=== PATIENT | female | born 1945 | race Caucasian/White ===

== ENCOUNTER → 2016-12-20 | Outpatient (REF) | payer MEDICARE, OTHER ==
[~2016-12-20] MED LIST: /DULO30CA OR; /WARF25TA OR; ACET65TA OR; ACTO30TA OR; ADVA115A INH; ALBU17IN2 IN; ALKATAB17 PO; ARIC10TA PO; AZEL0.1S3; BACT800T5 PO; BENZ100C5 PO; BUPR150T3 PO; CALMS FORTE PO; CLAR10CA3 PO; CLONI1TA PO; COLA50CA3 PO; CYCL10TA PO; CYCL5TAB PO; DALI500T PO; DESL5TAB4 PO; DESLORATADINE PO; DIOV160T6 PO; DIOV320T OR; DONETAB6 PO; DULO1CAP2 PO; DULO1CAP3 PO; FERR325T OR; FERR325T PO; FLEXERIL PO; HYDR12.55 PO; HYDR12CA PO; HYDR25TA8 OR; HYDRO50TAB PO; JANUMET PO; LEVA500T PO; LEVE1INJ5 SC; LEVEINJ SC; LEVEMIR INSULIN SC; LIDO1DIS2 TD; LIVA4TAB PO; LOPE2TAB3 PO; LOPR1TAB6 PO; LOPR50TA OR; LOVAZA; LOVAZA PO; LYRI100C10 PO; LYRI200C PO; LYRI75CA OR; METO100T PO; MYRB25TA PO; NICO14PA TOP; NORT10CA2 PO; OMEPPOW18 PO; PAME10CA PO; PEPT262S PO; PERC5TAB8 OR; PRAZ1CAP PO; PRED10TA2 PO; PRO; PROA1AER IN; PROBCAP4 PO; PROVENTIL INHALER INH; ROCA0.25 PO; TERA1CA PO; TIOT18INH INH; TRAD5TAB PO; TRAM50TA2 PO; VESI10TA PO; VICO5TAB OR; VICODIN PO; VICT18IN SC; VICTOZA SQ; VIT D 2000 OR; VIT D 2000 PO; VITA-121 PO; WHELCHOL PO; XOPENEX INH; [UNRECOGNIZED DRUG - OTHER]; dulcolax OR; dulcolax suppository PR
== END ==
LOC: M LAB REF 09:26
PROVIDERS: ATTEND Physician Assistant
DX: R30.0 Dysuria (principal)

== ENCOUNTER 2017-01-16 09:01 | Emergency (ER) | payer MEDICARE, OTHER ==
[~2017-01-16] VITALS: Ht 152.4 cm; Wt 98.4 kg
[2017-01-16 09:01] VITALS: BP 171/88
[~2017-01-16 09:01] MED LIST changes: -BACITAB3 PO; -METO50TA2 PO; -VALS1TAB46 PO
[2017-01-24] MEDS ORDERED: BACITAB3 PO (00:27)
[2017-01-24] MEDS ORDERED: METO50TA2 PO (00:27)
== END 2017-01-16 10:25 | disposition home or self-care (01) ==
LOC: M ED 10:16
DX: J34.89 Other specified disorders of nose and nasal sinuses (principal); R13.12 Dysphagia, oropharyngeal phase; K22.2 Esophageal obstruction; R93.3 Abnormal findings on diagnostic imaging of other parts of digestive tract; R15.1 Fecal smearing; I10 Essential (primary) hypertension; E78.00 Pure hypercholesterolemia, unspecified; G62.9 Polyneuropathy, unspecified; R00.0 Tachycardia, unspecified; J45.909 Unspecified asthma, uncomplicated; K44.9 Diaphragmatic hernia without obstruction or gangrene; K57.90 Diverticulosis of intestine, part unspecified, without perforation or abscess without bleeding; E66.01 Morbid (severe) obesity due to excess calories; N17.9 Acute kidney failure, unspecified; E11.9 Type 2 diabetes mellitus without complications; F41.9 Anxiety disorder, unspecified; F32.9 Major depressive disorder, single episode, unspecified; M48.06 Spinal stenosis, lumbar region; Z90.49 Acquired absence of other specified parts of digestive tract; Z96.651 Presence of right artificial knee joint; Z96.652 Presence of left artificial knee joint; Z87.820 Personal history of traumatic brain injury

== ENCOUNTER → 2017-01-16 | Outpatient (CLI) | payer MEDICARE, OTHER ==
[~2017-01-16] MED LIST changes: +BACITAB3 PO; +E-Z-GAS II EFFERVESCENT PACKET (SODIUM BICARB./CITRIC ACID/SIMETHICONE) As Ordered ONE; +E-Z-HD 98% w/w 340GM SUSP BTL As Ordered ONE; +E-Z-PAQUE 96% w/w SUSP 176GM BTL As Ordered ONE; +HYDR25T PO; +LEVO50TA5 PO; +LIDO5DIS36 TD; +METO12TA PO; +METO50TA2 PO; +PEPT262T2 PO; +VALS1TAB46 PO; +VITA100T20 PO; +VITA200016 PO; +VITA500C24 PO
--- NOTE | 2017-01-16 16:50 | REP ---
ESOPHAGRAM, AIR CONTRAST: The procedure was performed under the direct supervision of Dr. Rodriguez. The images were reviewed with Dr. Rodriguez. A single view PA chest x-ray is submitted as a community theater actor film. The superior mediastinal structures are midline. The heart size is within normal limits. There is a subcentimeter density in the right midlung zone. Recommend CT of the chest for further evaluation. Liquid barium and gas-producing granules were given in the erect position as well as liquid barium in the prone oblique position in order to perform a double-contrast esophagram examination. The oral and pharyngeal stage of deglutition are unremarkable. Esophageal transport is prompt and efficient. There is no evidence of esophagitis. There is a smooth stricture at the gastroesophageal junction. There is dilation of the esophagus proximally, this may represent changes from old reflux esophagitis. There is a hiatal hernia present. There is mild gastroesophageal reflux demonstrated to below the level of the chip. IMPRESSION: 1. In the right midlung zone there is a subcentimeter density. Recommend followup CT of the chest for further evaluation. 2. There is a stricture at the gastroesophageal junction which is smooth in appearance. This may represent changes from old reflux esophagitis. There is a hiatal hernia present. There is mild gastroesophageal reflux demonstrated to below the level of the chip. 2 minutes and 4 seconds of fluoroscopic time was utilized for this procedure. Reviewed by NGUYEN Montano 01/19/2017 05:01 PEdited and Signed by Cricket Rodriguez MD 01/19/2017 06:53 P
== END ==
LOC: M RAD 08:18
PROVIDERS: ATTEND Internal Medicine Gastroenterology
DX: R13.12 Dysphagia, oropharyngeal phase (principal); K22.2 Esophageal obstruction; R93.3 Abnormal findings on diagnostic imaging of other parts of digestive tract

== ENCOUNTER → 2017-01-16 | Outpatient (CLI) | payer MEDICARE, OTHER ==
[~2017-01-16] MED LIST changes: -E-Z-GAS II EFFERVESCENT PACKET (SODIUM BICARB./CITRIC ACID/SIMETHICONE) As Ordered ONE; -E-Z-HD 98% w/w 340GM SUSP BTL As Ordered ONE; -E-Z-PAQUE 96% w/w SUSP 176GM BTL As Ordered ONE
== END ==
LOC: M WUC 17:43
PROVIDERS: ATTEND Internal Medicine Gastroenterology
DX: R15.1 Fecal smearing (principal)

== ENCOUNTER 2017-01-22 20:14 | Emergency (ER) | payer MEDICARE, OTHER ==
[~2017-01-22] VITALS: Ht 152.4 cm; Wt 100.0 kg
[~2017-01-22 20:14] MED LIST changes: -BACITAB3 PO; -LIDOCAINE 2% INJ 100 MG/5 ML SDV (FOR ANES.) As Ordered ONE; -METO50TA2 PO; -NS 1,000 ML IV ONE; -PHENYLephrine HCL 500 MCG/5 ML (100MCG/ML) SYRINGE (J2370) As Ordered ONE; -PROPOFOL 200 MG/20 ML VIAL As Ordered ONE; -VALS1TAB46 PO
[2017-01-22] MEDS ORDERED: GASTROGRAFIN SOLUTION 30ML (Q9963) As Ordered ONE (21:10)
--- NOTE | 2017-01-23 00:38 | REP ---
Clinical: Abdominal pain status post colonoscopy. Technique: Axial noncontrast images from the lung bases to the pubic symphysis coronal and sagittal re-formations. Comparison: 08/13/2014. Findings: Lung bases are relatively clear. Liver, spleen, pancreas, left adrenal gland and bilateral kidneys are relatively normal for noncontrast evaluation and essentially stable. 5.7 cm right adrenal mass with bulk fat compatible with benign adrenal myelolipoma. The patient is status post cholecystectomy. The enteric system is without obstruction or acute inflammatory process. Colonic and sigmoid diverticulosis noted without acute diverticulitis. Small hiatal hernia identified at the gastroesophageal junction. Pelvis demonstrates normal bladder and age-appropriate uterus/adnexa. No pelvic fluid or ascites. No free air. No intraperitoneal or retroperitoneal adenopathy. Atherosclerotic changes of the aorta and vasculature without aneurysm. Surrounding musculoskeletal structures demonstrate degenerative changes without focal osseous abnormality. Impression: 1. No acute abdominopelvic pathology appreciated. 2. No free air, free fluid, or adenopathy. 3. 5.7 cm right adrenal myelolipoma. 4. Diverticulosis without acute diverticulitis. 5. Small hiatal hernia. Signed by Sergio Catalan MD 01/23/2017 12:30 A
[2017-01-23] MEDS ORDERED: NORCO, ANEXSIA 5/325MG TABLET (HYDROcodone/ACETAMINOPHEN) PO ONE ×2 (01:00→02:30)
[2017-01-23 02:31] VITALS: BP 150/85
[2017-01-24] MEDS ORDERED: BACITAB3 PO (00:27)
[2017-01-24] MEDS ORDERED: METO50TA2 PO (00:27)
[2017-01-24] MEDS ORDERED: VALS1TAB46 PO (00:27)
== END 2017-01-23 02:32 | disposition home or self-care (01) ==
LOC: M ED 21:37
DX: R10.9 Unspecified abdominal pain (principal); K44.9 Diaphragmatic hernia without obstruction or gangrene; E11.9 Type 2 diabetes mellitus without complications; I10 Essential (primary) hypertension; J45.909 Unspecified asthma, uncomplicated; E78.5 Hyperlipidemia, unspecified; E03.9 Hypothyroidism, unspecified; G47.30 Sleep apnea, unspecified; E66.8 Other obesity; Z79.899 Other long term (current) drug therapy; Z79.4 Long term (current) use of insulin; Z88.2 Allergy status to sulfonamides; Z88.8 Allergy status to other drugs, medicaments and biological substances; Z91.040 Latex allergy status; F17.210 Nicotine dependence, cigarettes, uncomplicated

== ENCOUNTER → 2017-01-22 | Outpatient (CLI) | payer MEDICARE, OTHER ==
[~2017-01-22] VITALS: Ht 152.4 cm; Wt 99.8 kg
[~2017-01-22] MED LIST changes: +BACITAB3 PO; +LIDOCAINE 2% INJ 100 MG/5 ML SDV (FOR ANES.) As Ordered ONE; +METO50TA2 PO; +NS 1,000 ML IV ONE; +PHENYLephrine HCL 500 MCG/5 ML (100MCG/ML) SYRINGE (J2370) As Ordered ONE; +PROPOFOL 200 MG/20 ML VIAL As Ordered ONE; +VALS1TAB46 PO
--- NOTE | 2017-01-22 09:03 | ROOR ---
Patient Name: Ruth Kessler Procedure Date: 01/22/2017 8:36 AM Date of : 1945 Age: 71 Room: [facility] Gender: Female Note Status: Finalized Procedure: Upper GI endoscopy Indications: Dysphagia, Abnormal cine-esophagram Providers: Poli BUTLER MD Referring MD: MARTHA SANTANA Requesting Provider: Medicines: Monitored Anesthesia Care Complications: No immediate complications. Procedure: Pre-Anesthesia Assessment: - The heart rate, respiratory rate, oxygen saturations, blood pressure, adequacy of pulmonary ventilation, and response to care were monitored throughout the procedure. The Endoscope was introduced through the mouth, and advanced to the second part of duodenum. The upper GI endoscopy was accomplished without difficulty. The patient tolerated the procedure well. Findings: Abnormal motility was noted at the lower esophageal sphincter. The distal esophagus/lower esophageal sphincter is spastic, but gives up passage to the endoscope. A TTS dilator was passed through the scope. Dilation with a 15-16.5-18 mm balloon dilator was performed to 18 mm. The dilation site was examined and showed no change. Estimated blood loss: none. This was biopsied with a cold forceps for histology. Mild inflammation was found in the entire examined stomach. Biopsies were taken with a cold forceps for histology. The exam of the stomach was otherwise normal. The examined duodenum was normal. Impression: - Markedly tonic/ppastic LES without stricture-gives way to pressure with scope. Dilated to 18 mm. Biopsied. - Gastritis. Biopsied. - Normal examined duodenum. Recommendation: - Observe patient's clinical course. - Perform ambulatory esophageal manometry to r/o achalasia at appointment to be scheduled. - To discuss todays findings, my office will call you in the next few days to schedule a follow up appointment. Poli Butler MD Poli BUTLER MD 01/22/2017 9:03:16 AM This report has been signed electronically. Number of Addenda: 0 Note Initiated On: 01/22/2017 8:36 AM Estimated Blood Loss: Estimated blood loss: none.
--- NOTE | 2017-01-22 09:33 | ROOR ---
Patient Name: Ruth Kessler Procedure Date: 01/22/2017 8:36 AM Date of : 1945 Age: 71 Room: [facility] Gender: Female Note Status: Finalized Procedure: Colonoscopy Indications: Chronic diarrhea Providers: Poli BUTLER MD Referring MD: MARTHA SANTANA Requesting Provider: Medicines: Monitored Anesthesia Care Complications: No immediate complications. Procedure: Pre-Anesthesia Assessment: - The heart rate, respiratory rate, oxygen saturations, blood pressure, adequacy of pulmonary ventilation, and response to care were monitored throughout the procedure. The Colonoscope was introduced through the anus and advanced to 5 cm into the ileum. The colonoscopy was performed without difficulty. The patient tolerated the procedure well. The quality of the bowel preparation was adequate. Findings: The perianal and digital rectal examinations were normal. Three sessile polyps were found in the ascending colon. The polyps were 3 to 5 mm in size. These polyps were removed with a cold snare. Resection and retrieval were complete. Three sessile polyps were found in the sigmoid colon. The polyps were 3 to 4 mm in size. These polyps were removed with a cold snare. Resection and retrieval were complete. Multiple medium-mouthed diverticula were found in the sigmoid colon. Multiple medium-sized patchy angioectasias with typical arborization were found in the ascending colon and in the cecum. Coagulation for bleeding prevention using argon beam at 0.8 liters/minute and 20 marie was successful. Biopsies for histology were taken with a cold forceps for evaluation of microscopic colitis. Impression: - Three 3 to 5 mm polyps in the ascending colon, removed with a cold snare. Resected and retrieved. - Three 3 to 4 mm polyps in the sigmoid colon, removed with a cold snare. Resected and retrieved. - Moderate diverticulosis in the sigmoid colon. - Multiple colonic angioectasias. Treated with argon beam coagulation. - Internal hemorrhoids. - Biopsies were taken with a cold forceps for evaluation of microscopic colitis. Recommendation: - Telephone endoscopist for pathology results in 2 weeks. - -your barium swallow xray showed a spot/scar in the lung--You need a CT chest to get better evaluation--My office will schedule you for CT scan. - Return to my office in 3 weeks. Poli Butler MD Poli BUTLER MD 01/22/2017 9:33:31 AM This report has been signed electronically. Number of Addenda: 0 Note Initiated On: 01/22/2017 8:36 AM Estimated Blood Loss: Estimated blood loss: none.
[2017-01-22 10:10] VITALS: BP 128/74
== END | disposition home or self-care (01) ==
LOC: M OPP 07:26
PROVIDERS: ATTEND Internal Medicine Gastroenterology
DX: R19.7 Diarrhea, unspecified (principal); D12.2 Benign neoplasm of ascending colon; D12.5 Benign neoplasm of sigmoid colon; K57.30 Diverticulosis of large intestine without perforation or abscess without bleeding; K64.8 Other hemorrhoids; K55.20 Angiodysplasia of colon without hemorrhage; R13.10 Dysphagia, unspecified; R93.3 Abnormal findings on diagnostic imaging of other parts of digestive tract; K22.4 Dyskinesia of esophagus; K29.70 Gastritis, unspecified, without bleeding; I10 Essential (primary) hypertension; I45.10 Unspecified right bundle-branch block; E78.5 Hyperlipidemia, unspecified; E11.9 Type 2 diabetes mellitus without complications; E03.9 Hypothyroidism, unspecified; M19.90 Unspecified osteoarthritis, unspecified site; M54.9 Dorsalgia, unspecified; M79.7 Fibromyalgia; F43.10 Post-traumatic stress disorder, unspecified; Z78.0 Asymptomatic menopausal state; J44.9 Chronic obstructive pulmonary disease, unspecified; R06.83 Snoring; F17.210 Nicotine dependence, cigarettes, uncomplicated; Z88.8 Allergy status to other drugs, medicaments and biological substances; Z91.040 Latex allergy status; Z79.4 Long term (current) use of insulin; Z79.899 Other long term (current) drug therapy; Z80.8 Family history of malignant neoplasm of other organs or systems

== ENCOUNTER 2017-01-23 19:54 | Inpatient (IN) | payer MEDICARE, OTHER ==
[~2017-01-23] VITALS: Ht 152.4 cm; Wt 93.4 kg
[~2017-01-23 19:54] MED LIST changes: +FERR1TAB8 PO; -FERR325T PO; +HYDR-3363 PO; -HYDR25T PO; +LEVA1TAB2 PO; -LEVA500T PO; -LIDO5DIS36 TD; +LIDO5DIS41 TD; -LYRI100C10 PO; -METO100T PO; +METO100T5 PO; -METO12TA PO; +METO1TAB87 PO; +PREG100CA PO; -PROA1AER IN; +PROAAER10 IN
[2017-01-23] MEDS ORDERED: ONDANSETRON 4MG/2ML VIAL (J2405) IV ONE (21:00)
[2017-01-23] MEDS ORDERED: NS 1,000 ML IV ONE (21:00)
[2017-01-23 21:11] LABS: BASO % 0.3 % (0.0-1.0); EOS # 0.2 K/mm3 (0.0-0.50); EOS % 1.1 % (0.0-3.0); LARGE UNSTAINED CELL # 0.1 K/mm3 (0.0-0.4); LARGE UNSTAINED CELL % 0.4 % (0.0-4.0); LYMPH % 6.1 % (24.0-44.0); MEAN CORPUSCULAR HEMOGLOBIN 28.4 pg (27.0-33.0); MEAN CORPUSCULAR HGB CONC 34.2 g/dl (32.0-36.5); MEAN CORPUSCULAR VOLUME 83.2 fl (80.0-96.0); MONO # 0.4 K/mm3 (0.0-0.8); MONO % 2.6 % (0.0-5.0); NEUTROPHILS # 13.9 K/mm3 (1.8-7.7); NEUTROPHILS % 89.6 % (36.0-66.0); PLATELET COUNT, AUTOMATED 338 k/mm3 (150-450); RED CELL DISTRIBUTION WIDTH 13.8 % (11.5-14.5); WHITE BLOOD COUNT 15.5 K/mm3 (4.0-10.0)
[2017-01-23] MEDS: MORPHINE 4 MG/ML 1ML SYRINGE IV PRN (21:17)
[2017-01-23 21:20] LABS: ALBUMIN 3.7 GM/DL (3.2-5.2); BILIRUBIN,DIRECT 0.3 MG/DL (0.0-0.2); BILIRUBIN,TOTAL 1.3 MG/DL (0.2-1.0); CALCIUM LEVEL 9.5 MG/DL (8.8-10.2); CREATININE FOR GFR 2.03 MG/DL (0.55-1.02); GLOMERULAR FILTRATION RATE 25.6 (>39); POTASSIUM SERUM 3.8 MEQ/L (3.5-5.1); TOTAL PROTEIN 7.4 GM/DL (6.4-8.2)
--- NOTE | 2017-01-23 23:10 | REPUSA ---
CLINICAL HISTORY: Abdominal pain. TECHNIQUE: Multiple axial CT images were obtained through the abdomen and pelvis after administratio n of oral contrast material only. COMMENTS: Liver appears lobulated and somewhat shrunken. Please correlate clinically to exclude cirrhosis. Th ere is no intra or extrahepatic biliary ductal dilatation. The spleen is normal. Status post cholec ystectomy. The pancreas is of normal contour and attenuation characteristics. There is no evidence of adrenal mass. There is evidence of an exophytic mass which appears to originate from the superior pole of the right kidney contains fatty and solid elements noted, 5.6 x 5.2 cm and is most compatibl e with angiomyolipoma. The kidneys are normal in size, shape and configuration. No renal or ureteral calculi are identified . There is no hydroureter or hydronephrosis. There is no evidence for appendicitis. There is evidence of circumferential wall thickening involvin g old colonic segments compatible with pancolitis. The sigmoid and cecum are most severely involved. No evidence for small or large bowel obstruction. There is no evidence of abdominal ascites or lym phadenopathy. There is no evidence of intrinsic or extrinsic bladder mass. There is no pelvic ascites or lymphaden opathy. Images of the lung bases show no evidence of pleural or parenchymal mass. There are no pleural effus ions. Scarring is seen in the lingula, right middle lobe, and right lung base. Small hiatal hernia is present. The bony structures are free of lytic or blastic lesions. Multilevel degenerative changes are seen i nvolving the thoracolumbar spine. Scattered calcifications are seen involving the aorta and major branches compatible with atherosclero sis. IMPRESSION: 1. Liver appears lobulated and somewhat shrunken. Please correlate clinically to exclude cirrhosis 2. Exophytic mass which appears to originate from the superior pole of the right kidney contains fatt y and solid elements noted, 5.6 x 5.2 cm and is most compatible with angiomyolipoma. 3. There is evidence of circumferential wall thickening involving old colonic segments compatible wit h pancolitis. Thank you for your kind referral of this patient. We appreciate the opportunity to participate in thi s patient's care.
[2017-01-24] MEDS ORDERED: CIPROFLOXACIN 200 MG in APPROPRIATE DILUENT 1 EA IV ONE ×2
[2017-01-24] MEDS ORDERED: METO50TA7 PO (00:27)
[2017-01-24] MEDS ORDERED: VALS1TAB46 PO (00:27)
[2017-01-24] MEDS ORDERED: BACITAB PO (00:27)
[2017-01-24] MEDS ORDERED: metroNIDAZOLE 500 MG in APPROPRIATE DILUENT 1 EA IV ONE (01:00)
[2017-01-24] MEDS ORDERED: metroNIDAZOLE 250 MG in APPROPRIATE DILUENT 1 EA IV ONE ×3 (01:00)
[2017-01-24] MEDS: MORPHINE 4 MG/ML 1ML SYRINGE IV PRN (01:54)
[2017-01-24] MEDS ORDERED: GLUCOSE 4 GM CHEW TABLET PO PRN (02:30)
[2017-01-24] MEDS ORDERED: DEXTROSE 50% 50 ML SYRINGE IV PRN (02:30)
[2017-01-24] MEDS ORDERED: GLUCAGON FOR INJ 1 MG VIAL (J1610) SC PRN (02:30)
[2017-01-24] MEDS ORDERED: PERCOCET 5MG/325MG TAB PO PRN (02:45)
[2017-01-24] MEDS ORDERED: ONDANSETRON 4MG/2ML VIAL (J2405) IV PRN (02:45)
--- NOTE | 2017-01-24 04:10 | HPE ---
DATE OF ADMISSION: 01/24/2017 PRIMARY CARE PROVIDER: MARTHA Leyva. RESERVATIONIST: Poli Butler MD. CHIEF COMPLAINT: Abdominal pain, poor oral intake. HISTORY OF PRESENT ILLNESS: This is a 71-year-old female patient with underlying medical history of fibromyalgia, osteoarthritis, dyslipidemia, chronic obstructive pulmonary disease (COPD), chronic kidney disease (CKD) stage III, hypertension, degenerative joint disease, insulin-dependent type 2 diabetes, obesity, adrenal mass, recently had esophagogastroduodenoscopy (EGD), colonoscopy as per patient 2 days ago. As per patient, has been not feeling well with poor oral intake for about 1 week. Following colonoscopy, patient developed severe abdominal pain. As per patient, was currently 7/10, reported diffuse cramping, abdominal pain, with no bowel movements. Nausea, no vomiting. Denies any sick contact. Reported chills, but no measured fever at home. Still passing gas. Denies any sick contact. No urinary complaint. Denies any chest pain, headache , vision change. Denies any palpitations. ALLERGIES: Reported allergies to ATORVASTATIN, LATEX, STATINS, and SULFA ANTIBIOTICS, BACTRIM. PAST MEDICAL HISTORY: 1. Diverticulosis. 2. Fibromyalgia. 3. Arthritis. 4. Type 2 diabetes. 5. Dyslipidemia. 6. COPD. 7. CKD stage III. 8. Hypertension. 9. Degenerative joint disease. 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 PAST SURGICAL HISTORY: 1. Left ulnar nerve surgery. 2. Cholecystectomy. 3. Carpal tunnel bilateral. 4. Dilation and curettage (D and C). 5. Bilateral knee arthroplasty. 6. Tonsillectomy. FAMILY HISTORY: Mother with pancreatic cancer. SOCIAL HISTORY: Patient lives at home. Smokes one pack per day for the past 50 years. Currently down to about three cigarettes. Refused nicotine patch. Denies alcohol use or illicit drug use. REVIEW OF SYSTEMS: 10-point review of systems is negative except for those mentioned in history of present illness (HPI). Predominantly abdominal pain, nausea. HOME MEDICATIONS: - bupropion 150 mg by mouth daily - calcitriol 0.25 mg by mouth Thursday-Thursday - vitamin B12 100 mcg by mouth daily - cyclobenzaprine 10 mg by mouth three times a day - desloratadine 5 mg by mouth daily - donepezil 10 mg by mouth nightly - Cymbalta 90 mg by mouth daily - hydrochlorothiazide 12.5 mg by mouth daily as needed for lower extremity swelling - Levemir 75 units subcutaneously nightly - Bacid one tablet by mouth daily - Synthroid 50 mcg by mouth every morning - Victoza 1.8 mg subcutaneously daily - loperamide 2 mg by mouth nightly - metoprolol 50 mg by mouth twice a day - pitavastatin 4 mg by mouth daily - prazosin 1 mg by mouth nightly - Lyrica 100 mg by mouth three times a day - Advair inhalation 115/25 mcg inhalation twice a day - tramadol 50 mg by mouth every 6 hours as needed - valsartan 80 mg by mouth daily - vitamin D 2000 units by mouth daily PHYSICAL EXAMINATION: VITAL SIGNS: Temperature 100.2, pulse 116, respirations 18, blood pressure 105/51, pulse oximetry 97% on room air. GENERAL: Patient morbidly obese, alert and oriented times three in no acute distress. HEENT: Normocephalic, atraumatic. PULMONARY: Bilaterally clear to auscultation. Distant breath sounds. CARDIAC: Regular, tachycardic. ABDOMEN: Soft, epigastric bilateral upper quadrant tenderness to palpation. No rebound. No guarding. Hypoactive bowel sounds. EXTREMITIES: No edema bilateral lower extremities. LABORATORY: WBC 15.5, hemoglobin and hematocrit 14.9/43.7, platelets 338. Chemistry: Sodium 132, potassium 3.8, chloride 96, bicarbonate 27, BUN 37, creatinine 2. Lactic acid 1.7. CT scan of the abdomen and pelvis shows loculated somewhat shrunken liver, exophytic mass which appears to originate from superior pole of the right kidney containing fatty and solid elements, noted to be 5.6 and 5.2 cm, compatible with angiomyolipoma. There is evidence of circumferential thickening involving all the colonic segments compatible with pancolitis. ASSESSMENT AND PLAN: This is a 71-year-old female patient with underlying medical history of fibromyalgia, arthritis, dyslipidemia, chronic obstructive pulmonary disease (COPD), chronic kidney disease (CKD) stage III, hypertension, degenerative joint disease, insulin-dependent type 2 diabetes, adrenal mass, status post colonoscopy 2 days ago, presented with abdominal pain, found to have pancolitis. 1. Abdominal pain with ledesma acute colitis. CT scan is appreciated. Leukocytosis. Followup cultures. Followup gastrointestinal (GI) panel. Will consider consulting gastroenterology, Dr. Butler, who performed the colonoscopy. Pathology appreciated. Cipro and Flagyl. Intravenous (IV) fluids. Followup electrolytes. Nothing by mouth for now. Advance diet as tolerated. 2. Leukocytosis. Likely secondary to colitis. Followup cultures. Lactic acid negative. IV fluids. Continue antibiotics. 3. Acute on chronic renal insufficiency. Likely secondary to dehydration in the setting of colitis. IV fluids. Followup BUN and creatinine. Followup urine studies. 4. Elevated bilirubin. Possible cirrhosis. Will get ultrasound. Continue to follow liver functions. 5. Dyslipidemia. Continue current medication. 6. History of COPD. Continue Advair, nebulizer treatments. Patient currently does not have any wheeze. 7. Type 2 insulin-dependent diabetes. Given patient is nothing by mouth, Levemir dose has been reduced, as well as every 6 hours fingersticks, insulin as per nothing by mouth protocol. 8. Hypertension. Continue current medication. 9. Degenerative joint disease. Continue current medication. 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 Outpatient followup. CT scan appreciated. 11. Hypothyroidism. Followup thyroid function. Continue home Synthroid. 12. Deep venous thrombosis (DVT) prophylaxis. Heparin subcutaneously. DISPOSITION PLANNING: Pending clinical improvement. Advance diet as tolerated. MTDD
[2017-01-24 06:00] VITALS: BP 119/56
[2017-01-24] MEDS: HEPARIN SOD (PORCINE) 5000 UNITS/ML VIAL SC SCH ×3 (06:17→21:08)
[2017-01-24] MEDS: HumaLOG INSULIN (NovoLOG) PER UNIT SC SCH ×3 (06:17→18:00)
[2017-01-24] MEDS: NS 1,000 ML IV SCH ×3 (06:18→17:38)
[2017-01-24] MEDS: LEVOTHYROXINE 50MCG TABLET (0.05MG) PO SCH (06:18)
[2017-01-24] MEDS: MORPHINE 2 MG/ML 1ML SYRINGE IV PRN ×6 (06:20→21:19)
[2017-01-24 06:33] LABS: MEAN CORPUSCULAR HEMOGLOBIN 28.3 pg (27.0-33.0); MEAN CORPUSCULAR HGB CONC 33.6 g/dl (32.0-36.5); MEAN CORPUSCULAR VOLUME 84.3 fl (80.0-96.0); RED CELL DISTRIBUTION WIDTH 13.8 % (11.5-14.5); WHITE BLOOD COUNT 22.8 K/mm3 (4.0-10.0)
[2017-01-24 06:49] LABS: ALBUMIN/GLOBULIN RATIO 0.79 (1.00-1.93); BILIRUBIN,TOTAL 1.1 MG/DL (0.2-1.0); CREATININE FOR GFR 2.02 MG/DL (0.55-1.02); GLOMERULAR FILTRATION RATE 25.8 (>39); MAGNESIUM LEVEL 1.6 MG/DL (1.8-2.4); TOTAL PROTEIN 6.8 GM/DL (6.4-8.2)
[2017-01-24 07:07] LABS: THYROXINE (T4) 11.5 UG/DL (4.5-12.0)
[2017-01-24 07:33] VITALS: BP 114/57
--- NOTE | 2017-01-24 08:59 | ECGEPIP ---
Stationary ECG Study [facility] Test Date: 2017-01-24 Pat Name: ANTONIO ERVIN Department: Room: [place] [address] Gender: F Product Line Manager: NAVEED : 1945 Requested By: RENY BROWNE Order Number: [id number] Reading MD: Holden Brown Measurements Intervals [place] Rate: 111 P: 37 PA: 142 QRS: 78 QRSD: 133 T: 1 QT: 375 QTc: 511 Interpretive Statements Sinus tachycardia Right bundle branch block Faster heart rate compared to prior tracing of 01/15/2015 Electronically Signed On 01-24-2017 8:59:28 EDT by Holden rBown
[2017-01-24] MEDS: SENOKOT S TAB PO SCH ×2 (09:00→21:08)
[2017-01-24] MEDS: ADVAIR HFA 115/21MCG INHALER INH SCH ×2 (09:00→21:00)
[2017-01-24] MEDS ORDERED: DULoxetine 30 MG CAP (CYMBALTA) PO SCH ×2 (09:00)
[2017-01-24] MEDS: DESLORATADINE 5 MG TAB (CLARINEX) PO SCH (09:00)
--- NOTE | 2017-01-24 09:29 | REP ---
Right upper quadrant sonography: History: Right upper quadrant pain. The patient is status post cholecystectomy. Comparison CT study January 23, 2017. There is also a CT study of the abdomen from August 13, 2014. More remote prior CTs dating back to 2004 are also available reporting a benign right adrenal myelolipoma. Findings: Scan quality is inhibited by patient body habitus and bowel gas. There is increased echogenicity and decreased insonation of the liver diffusely consistent with fatty infiltration. A heterogeneous hyperechoic mass is again seen in the right suprarenal region 5.4 x 4.6 x 6.6 cm consistent with the known myelolipoma of the right adrenal gland. This is a benign lesion. Right kidney measures 9.9 x 4.8 x 4.8 cm and is morphologically intact. Limited views of the pancreas show no abnormality. No focal liver lesion is seen. The gallbladder is surgically absent. Common bile duct is normal post cholecystectomy measuring 0.77 cm. Impression: 1. 6.6 cm benign myelolipoma right adrenal gland unchanged from multiple prior studies. 2. Postcholecystectomy. 3. Evidence of fatty infiltration of the liver. Signed by Cricket Rodriguez MD 01/24/2017 09:56 A
[2017-01-24] MEDS: PANTOPRAZOLE 40MG INJ (PROTONIX) (C9113) IV SCH (10:21)
[2017-01-24] MEDS: metroNIDAZOLE 500 MG in APPROPRIATE DILUENT 1 EA IV SCH ×2 (10:22→18:36)
[2017-01-24] MEDS: PREGABALIN 100 MG CAP (LYRICA) PO SCH ×3 (10:22→21:08)
[2017-01-24] MEDS: CYCLOBENZAPRINE 10 MG TAB PO SCH ×3 (10:22→21:09)
[2017-01-24] MEDS: DULoxetine 30 MG CAP (CYMBALTA) PO SCH (10:22)
[2017-01-24] MEDS: VITAMIN D 1,000 INTERNATIONAL UNITS TABLET PO SCH (10:23)
[2017-01-24] MEDS: LACTOBACILLUS ACIDOPHILUS CAP (BACID) PO SCH (10:23)
[2017-01-24] MEDS: METOPROLOL TART 50 MG TAB PO SCH ×2 (10:23→21:09)
[2017-01-24] MEDS: buPROPion **XL** TABLET 150MG (WELLBUTRIN XL) PO SCH (10:31)
[2017-01-24 11:33] VITALS: BP 120/57
[2017-01-24 11:41] LABS: OSMOLALITY URINE 699 MOSM/KG (500-800)
--- NOTE | 2017-01-24 12:44 | CR ---
DATE OF CONSULTATION: 01/24/2017 STATUS: Inpatient. Requesting physician [facility] service. Reason for consultation is right lower quadrant abdominal pain. HISTORY OF PRESENT ILLNESS: Ms. Deras is a patient known to me. She is status post colonoscopy on 01/22/2017 when she had APC thermal ablation of large colonic vascular ectasias in her proximal ascending colon. The patient presents that evening to the emergency room with increasing right lower quadrant abdominal pain. Her initial CT scan was unremarkable and she was discharged home from the emergency room (ER). The patient re-presents the following day with continued abdominal pain and was this time admitted. The patient has had a repeat CT scan showing some colitis in the right lower quadrant area. She was also noted to have an increased white count but remained afebrile. Her abdominal pain was quite exquisite and required morphine administration, which made it more tolerable. The patient today is post colonoscopy day #2. Throughout her hospital stay thus far, she remains afebrile. Her white blood cell (WBC) count has increased from 15 to 22. Her abdominal pain has somewhat diminished. PHYSICAL EXAMINATION: Her vital signs, maximum temperature (Tmax) was 100.2. Current temperature is 98.6, pulse 95, blood pressure 120/76. Respiratory rate is 18-20. She is on nasal cannula 3 liters. She is awake, alert and oriented times three, in mild abdominal distress. She is nontoxic in appearance. Head, eyes, ears, nose and throat are grossly without abnormality. Neck is supple. No lymphadenopathy or thyromegaly. Chest is clear bilaterally. Heart is regular rate and rhythm, S1-S2. Abdomen is soft. Positive bowel sounds. Very tender in the right lower quadrant and right upper quadrant to light palpation and pressure. Bowel sounds are present and hyperactive. Mild rebound tenderness. Labs and CT scans reviewed IMPRESSION: 1. New onset right lower quadrant pain. Post colonoscopy with thermal therapy/APC ablation of large vascular ectasias in her proximal ascending colon. I suspect the cause for her pain is the thermal injury to mucosa/submucosa/ muscularis in the ascending colon related to the APC ablation of her vascular ectasias. Recommendation will be 1. Bowel rest with only clear liquids by mouth. 2. Pain control. 3. I agree with antibiotic regimen Cipro, Flagyl. 4. Continue close monitoring for delayed perforation by serial exams and will repeat a CT scan immediately if pain increases, temperature increases or if we see significant bump in her WBC count. MTDD
[2017-01-24] MEDS ORDERED: GASTROGRAFIN SOLUTION 30ML PO ONE (13:30)
[2017-01-24] MEDS: CIPROFLOXACIN 200 MG in APPROPRIATE DILUENT 1 EA IV SCH (13:45)
[2017-01-24] MEDS ORDERED: GASTROGRAFIN SOLUTION 30ML (Q9963) PO ONE (14:00)
[2017-01-24 15:55] VITALS: BP 99/51
[2017-01-24 20:00] VITALS: BP 131/62; PULSE 89
[2017-01-24] MEDS ORDERED: PRAZOSIN 1 MG CAP PO SCH (21:00)
[2017-01-24] MEDS ORDERED: LEVEMIR (INSULIN DETEMIR) 1 UNITS/0.01ML SC SCH (21:00)
[2017-01-24 23:59] VITALS: BP 147/71
[2017-01-25] VITALS (43 sets, daily range): BP systolic 44–133; BP diastolic 36–99; PULSE 118–120
[2017-01-25] MEDS: MORPHINE 2 MG/ML 1ML SYRINGE IV PRN (00:24)
[2017-01-25] MEDS ORDERED: GLUCOSE 4 GM CHEW TABLET PO PRN (01:00)
[2017-01-25] MEDS ORDERED: GLUCAGON FOR INJ 1 MG VIAL (J1610) SC PRN (01:00)
[2017-01-25] MEDS ORDERED: DEXTROSE 50% 50 ML SYRINGE IV PRN (01:00)
[2017-01-25] MEDS: CIPROFLOXACIN 200 MG in APPROPRIATE DILUENT 1 EA IV SCH (04:54)
[2017-01-25] MEDS: NS 1,000 ML IV SCH (04:54)
[2017-01-25] MEDS: metroNIDAZOLE 500 MG in APPROPRIATE DILUENT 1 EA IV SCH (04:54)
[2017-01-25 05:10] LABS: MEAN CORPUSCULAR HEMOGLOBIN 28.7 pg (27.0-33.0); MEAN CORPUSCULAR HGB CONC 32.9 g/dl (32.0-36.5); MEAN CORPUSCULAR VOLUME 87.1 fl (80.0-96.0); RED CELL DISTRIBUTION WIDTH 13.8 % (11.5-14.5); WHITE BLOOD COUNT 20.4 K/mm3 (4.0-10.0)
[2017-01-25] MEDS: LEVOTHYROXINE 50MCG TABLET (0.05MG) PO SCH (05:35)
[2017-01-25 05:36] LABS: ALBUMIN 2.6 GM/DL (3.2-5.2); ALBUMIN/GLOBULIN RATIO 0.68 (1.00-1.93); ALKALINE PHOSPHATASE 87 U/L (45-117); ALT/SGPT 29 U/L (12-78); ANION GAP 9 MEQ/L (8-16); AST/SGOT 24 U/L (15-37); BLOOD UREA NITROGEN 34 MG/DL (7-18); CALCIUM LEVEL 9.2 MG/DL (8.8-10.2); CARBON DIOXIDE LEVEL 24 MEQ/L (21-32); CHLORIDE LEVEL 105 MEQ/L (98-107); CREATININE FOR GFR 2.15 MG/DL (0.55-1.02); GLUCOSE, FASTING 223 MG/DL (83-110); MAGNESIUM LEVEL 1.4 MG/DL (1.8-2.4); POTASSIUM SERUM 3.9 MEQ/L (3.5-5.1); SODIUM LEVEL 138 MEQ/L (136-145); TOTAL PROTEIN 6.4 GM/DL (6.4-8.2)
[2017-01-25] MEDS: HEPARIN SOD (PORCINE) 5000 UNITS/ML VIAL SC SCH ×3 (05:36→22:00)
[2017-01-25] MEDS: ADVAIR HFA 115/21MCG INHALER INH SCH ×2 (07:07→21:00)
[2017-01-25] MEDS: MAG SULF 1GM/100ML (MAG RUN) 1 GM in APPROPRIATE DILUENT 1 EA IV SCH ×2 (07:30→08:24)
[2017-01-25] MEDS: HumaLOG INSULIN (NovoLOG) PER UNIT SC SCH ×4 (07:30→23:41)
--- NOTE | 2017-01-25 08:14 | REP ---
CT abdomen and pelvis without IV but with oral contrast: History: Colonoscopy on January 22, 2017. Thermal injury. Evaluate for delayed perforation of the colon. Comparison CT study January 23, 2017. Comparison is also made with several other prior studies, the most recent of which is from August 23, 2014. Findings: Preliminary external relations director radiograph demonstrates an unremarkable bowel gas pattern. There is a new pattern of consolidation in the right lower lobe of the lung with air bronchograms in the right base. No definite pleural effusion. There is no visible free intraperitoneal air. Post cholecystectomy clips are seen. Liver and spleen are unremarkable. A heterogeneous fat-containing right adrenal mass is again noted measuring 6.2 cm in greatest diameter compatible with a myelolipoma of the right adrenal gland. No pancreatic abnormality is observed. The left adrenal is normal. No hydronephrosis, cyst or calculus is seen in either kidney. Small bowel loops are unremarkable. No uterine or adnexal abnormality is seen. No abdominal wall defect is observed. There is mild mucosal thickening or mural thickening affecting the cecum. No pericolonic fluid collection or uncontained air is appreciated. No other colonic mural thickening is seen. There is left colonic diverticulosis without CT evidence of diverticulitis. No other abnormality. Impression: Minimal mural thickening affecting the cecum and ascending colon. No evidence of free air. Left colonic diverticulosis. No obstructive lesion seen. New consolidation right lower lobe of the lung. Signed by Cricket Rodriguez MD 01/25/2017 09:00 A
[2017-01-25] MEDS: LACTOBACILLUS ACIDOPHILUS CAP (BACID) PO SCH (08:22)
[2017-01-25] MEDS: VITAMIN D 1,000 INTERNATIONAL UNITS TABLET PO SCH (08:22)
[2017-01-25] MEDS: DULoxetine 30 MG CAP (CYMBALTA) PO SCH (08:22)
[2017-01-25] MEDS: buPROPion **XL** TABLET 150MG (WELLBUTRIN XL) PO SCH (08:22)
[2017-01-25] MEDS: DESLORATADINE 5 MG TAB (CLARINEX) PO SCH (08:22)
[2017-01-25] MEDS: METOPROLOL TART 50 MG TAB PO SCH (08:23)
[2017-01-25] MEDS: PREGABALIN 100 MG CAP (LYRICA) PO SCH (08:23)
[2017-01-25] MEDS: SENOKOT S TAB PO SCH (08:23)
[2017-01-25] MEDS: CYCLOBENZAPRINE 10 MG TAB PO SCH (08:23)
[2017-01-25] MEDS: PANTOPRAZOLE 40MG INJ (PROTONIX) (C9113) IV SCH (08:24)
[2017-01-25] MEDS: PIPERACILLIN/TAZOBACTAM SOD 3.375 GM in D5W MINI-BAG PLUS 50 ML IV SCH ×3 (09:40→21:00)
--- NOTE | 2017-01-25 09:56 | REP ---
Portable chest x-ray: Semi-erect AP view. History: Abdominal pain. Elevated white count. Question pneumonia. Comparison study: May 30, 2016. Findings: Today's view is exposed at a lesser level of inspiration. There is hazy opacity in the right base overlying the right heart and obscuring a portion of the right hemidiaphragm medially. Right hemidiaphragm is elevated. There is bowel gas under this. These findings correlate with yesterday's abdomen CT findings at the lung base. The heart appears mildly prominent in size. The left lateral pleural angle is partially obscured which may reflect a small amount of left pleural fluid. No left lung infiltrate is seen. Impression: Increased pleural parenchymal opacity right base medially consistent with infiltrate in the right lower lobe. Signed by Cricket Rodriguez MD 01/25/2017 11:32 A
[2017-01-25] MEDS ORDERED: NALOXONE INJ 0.4 MG/1 ML VIAL (J2310) IV STA (11:16)
[2017-01-25 11:36] LABS: ABG BASE EXCESS -4.2 (-2.0-2.0); ABG HCO3 20.8 MEQ/L (22.0-26.0); ABG PARTIAL PRESSURE CO2 37.8 mmHg (35.0-45.0); ABG STANDARD HCO3 20.8 MEQ/L (22.0-26.0); ABG TOTAL CO2 21.9 MEQ/L (23.0-31.0); ABG pH (ARTERIAL) 7.358 UNITS (7.350-7.450)
[2017-01-25 11:39] LABS: ABG PARTIAL PRESSURE O2 48.7 mmHg (75.0-100.0)
[2017-01-25] MEDS ORDERED: NS 2,000 ML IV ONE (12:00)
[2017-01-25] MEDS ORDERED: AZITHROMYCIN INJ 500 MG, VIAL MATE ADAPTER 1 EACH in D5W 250 ML IV SCH (12:00)
--- NOTE | 2017-01-25 12:43 | PHACANCOPD ---
PHARMACY VANCOMYCIN DOSING Pt Demographics Demographics Patient Age:71 , Weight:101.500 , Gender: female Adjusted Body Weight Date: 01/25/17, Adjusted Body Weight: [67.9] Kg Events Past 24 Hours Events Past 24 Hours: YES: Change in CrCl, Elevation in WBC, NO: Dialysis, Diuretic Therapy, Fever, Pending Diagnostics, Pending Procedures, Other Vancomycin Vancomycin indication: pneumonia, sepsis Vancomycin Target Ranges: 10-20 mcg/ml Vancomycin Load Y/N: Yes Load Dose Date Time Vancomycin Load Dose: 1000mg Date: 01/25 Time: 14:00 Vancomycin Dose Date: 01/25/17. Current Vancomycin Dose: [1g IV q24h @06] Intermittent Dosing?: No Labs Labs Item Value Date Time Creatinine 2.15 MG/DL H 01/25/17 050 Creatinine 2.02 MG/DL H 01/24/17 06 Creatinine 2.03 MG/DL H 01/23/172029 White Blood Count 20.4 K/mm3 H 01/25/17 050 White Blood Count 22.8 K/mm3 H 01/24/17603 White Blood Count 15.5 K/mm3 H 01/23/172029 Micro Microbiology 01/24/17 Blood Culture - Preliminary, Resulted No growth after 24 hours . All specim... 01/24/17 Blood Culture - Preliminary, Resulted No growth after 24 hours . All specim... Creatinine Clearance Date:01/25/17. Creatinine Clearance: [25 ml/min using adjusted BW]. Pending Labs Vanco trough scheduled 01/27 @05:00 Assessment and Plan Maintaining Current Dose?: Yes Reason for dose change: No Dose Change Pharmacist Note Pharmacist Note Date: 01/25/17. Pharmacist note: pt presented to the ER on 01/23 for abdominal pain s/p colonoscopy and thermal ablation done by Dr. Butler on 01/22. She was admitted for pancolitis, and was started on Cipro and Flagyl IV for ~36 hours. She was switched to Zosyn yesterday, and today she decompensated further and was transferred to ICU where Zithromax and Vancomycin were added to her regimen. Chest xrays also show RLL infiltrate. She has not been on vancomycin at our facility in the past, nor does she have a Hx of MRSA. Due to her elevated SCr, I will start her on Vancomycin 1g this afternoon followed by 1g q24h dosing tomorrow morning @06:00. Blood cultures drawn on 01/24 are NGTD. I have a trough scheduled before the 3rd dose. We will continue to monitor. Morris Schultz.D. Jan 25, 2017 12:43
--- NOTE | 2017-01-25 12:45 | ROOPDOC ---
[facility] Report Of Operation Report of Operation DATE OF PROCEDURE: 01/25/17 PREPROCEDURE DIAGNOSES: sepsis, need for central venous access. POSTPROCEDURE DIAGNOSES: same. PROCEDURE: Attempt insertion left subclavian Ultrasound guided insertion of left jugular triple lumen central venous catheter SURGEON: Mekhi Montgomery MD TUFT MACHINE OPERATOR: ANESTHESIA: 1% lidocaine, local. ESTIMATED BLOOD LOSS: Approximately 5 mL. COMPLICATIONS: none, pending CXR. REMARKS: was able to locate left subclavian vein but unable to thread the guidewire through due to patient coughing/discomfort. Placement of left jugular venous catheter with US guidance.. PROCEDURE NOTE: I was called in to place a central venous catheter on this patient who appears septic from colitis, BP in the systolic 50s and 60s, though patient awake and conversing throughout the procedure. DESCRIPTION OF PROCEDURE: . Consent obtained verbally from the patient. Despite her low bp, she is alert. This is an emergency procedure. She was positioned on a slight trendelengurg position. Her left chest and neck prepped and draped sterilly. We used the line bundle for the insertion. Attempt at locating the left subcalvian was successful twice but I was unable to thread the guidewire as she persists on coughing and with her movement, the needle probably gets dislodged. I then used the sonosite device, located the left internal jugular vein which is filled but collapses with her breathing. The skin was infiltrated with local anesthesia and with a direct approach the IJ was accessed under direct vision. With a modified seldinger technique, the guidewire was threaded through and the tract dilated and we placed a triple lumen catheter through the guidewire easily to 17 cms. i tested all ports and was working accordingly. Post procedure cxr was taken. BRITNEY MONTGOMERY MD Jan 25, 2017 12:45
--- NOTE | 2017-01-25 12:51 | CCN ---
URGENT CRITICAL CARE NOTE DATE OF SERVICE: 01/25/2017 I was paged emergently by the nurse due to altered mental status with increasing lethargy. We had a blood pressure repeated with systolic pressure of 50. The patient was awake, alert, oriented. She was able to state her name. Arterial blood gas showed a pH of 7.3, CO2 of 37, but oxygen (O2) of 48.7. The patient's repeat chest x-ray shows consolidation of the right base consistent with infiltrate. The patient was saturating on 3 liters nasal cannula of 90%, despite 500 mL of intravenous fluid, the patient's blood pressure remained at 70. She was emergently transferred to the intensive care unit for possible vasopressor therapy if intravenous (IV) fluids did not correct her severe hypotension. The patient's metoprolol has been discontinued. Since she is more awake, despite ordering a dose of narcan, the narcan was not given, as the patient was able to awaken when her blood was taken. General surgeon, Dr. Montgomery, was emergently consulted for central line placement and did an evaluation of her persistent abdominal pain. With her hypotension, concern for possible perforation. Abdomen is soft, but extremely tender. She continues to have renal failure, with minimal urine output creatinine of 2.15, with baseline being at 1.3. Nolen catheter has been placed. CT abdomen and pelvis shows no obstruction or hydronephrosis on the CT abdomen and pelvis on 01/24/2017. If worsening renal dysfunction, the patient's parallel computing software engineer will be consulted. At this time, a Nolen catheter has been placed. She is placed on strict intake and output (I and O). Lower extremity has no significant edema but with severe hypotension and hypoxia, ultrasound of the lower extremities will be obtained to rule out deep venous thrombosis (DVT) and at once (STAT) two-dimensional echocardiogram despite no acute ischemia on electrocardiogram (EKG) and negative troponin to check the status of her systolic function in light of significant fluid boluses. The patient's sister has been made aware of the sudden decompensation with hypotension and altered mental status, Rachel Mccoy. Phone number is . [id number]
--- NOTE | 2017-01-25 13:14 | REP ---
Portable chest x-ray: Sitting AP view. History: Status post line placement. Comparison study: 09:33 a.m. film on 01/25/2017. Findings: Hazy pleural opacities are seen in both bases. Lungs are exposed at a relatively low inspiratory level. A left internal jugular line is seen with its tip terminating at the level of the medial clavicle on the left side. This position is consistent with the distal internal jugular vein or in the brachial cephalic vein. There is no evidence of pneumothorax. EKG electrodes are seen. The current radiograph is suggestive of free air under the right hemidiaphragm. This was not observed on yesterday's CT study. Perforation of abdominal viscus suspected. Impression: 1. Left internal jugular venous catheter tip projects over the medial head of the left clavicle. 2. Evidence of free air under the right hemidiaphragm as a new finding. This report is telephoned to Dr. Narvaez at the time of the study. Signed by Cricket Rodriguez MD 01/25/2017 01:39 P
[2017-01-25] MEDS: NOREPINEPHRINE BITARTRATE 16 MG in D5W 500 ML IV SCH ×2 (13:21→17:41)
--- NOTE | 2017-01-25 13:33 | IPNPDOC ---
Text Note Date of Service The patient was seen on 01/25/17. NOTE Patient is a 71 F moved to the ICU this morning for hypotension, sepsis. I just placed a central line on her. On postprocedure CXR, free air underneath the right diaphragm was noted (new, was not present from this morning XR). Full consult to follow. I spoke to the patient and her sister who was at the bedside with her and counseled her about the need for surgery. She has been advised of possible need to resect part of her colon, possibly may need a temporary ostomy , may need to remain intubated, on multiple medications. She appears quite ill though her bp has gone up since being moved to the ICU. She is aware of the risks of the surgery which may include . Consent was given by the patient. She has received a dose of zosyn and awaiting vancomycin. She has been given 2L of IVF and is on 2 mcg/min on levophed. OR has been called and will proceed as soon as OR is ready. VS,Fishbone, I+O VS, Fishbone, I+O Laboratory Tests 01/25/17 05:03 Red Blood Count 5.23, Mean Corpuscular Volume 87.1, Mean Corpuscular Hemoglobin 28.7, Mean Corpuscular Hemoglobin Concent 32.9, Red Cell Distribution Width 13.8 , Calcium Level 9.2, Aspartate Amino Transf (AST/SGOT) 24, Alanine Aminotransferase (ALT/SGPT) 29, Total Creatine Kinase 265 H, Alkaline Phosphatase 87, Total Bilirubin 1.0, Total Protein 6.4, Albumin 2.6 L Vital Signs Date Time Temp Pulse Resp B/P (MAP) Pulse Ox O2 Delivery O2 Flow Rate FiO2 01/25/17 13:21 105 109/51 01/25/17 11:50 90 Nasal Cannula 3.0 01/25/17 11:23 97.7 20 I&O- Last 24 Hours up to 6 AM 01/25/17 06:00 Intake Total 3420 ml Output Total 600 ml Balance 2820 ml BRITNEY RITCHIE MD Jan 25, 2017 13:33
[2017-01-25] MEDS ORDERED: VANCOMYCIN HCL 1,000 MG, VIAL MATE ADAPTER 1 EACH in D5W 250 ML IV ONE (14:00)
[2017-01-25] MEDS ORDERED: LIDOCAINE 2% INJ 100 MG/5 ML SDV (FOR ANES.) As Ordered ONE (14:10)
[2017-01-25] MEDS ORDERED: fentaNYL 250 MCG/5 ML INJECTION (J3010) As Ordered ONE (14:10)
[2017-01-25] MEDS ORDERED: MIDAZOLAM INJ 2 MG/2 ML VIAL (J2250) As Ordered ONE (14:10)
[2017-01-25] MEDS ORDERED: ROCURONIUM BROMIDE 50 MG/5 ML VIAL/SYRINGE As Ordered ONE ×2 (14:10→15:09)
[2017-01-25] MEDS ORDERED: PROPOFOL 200 MG/20 ML VIAL As Ordered ONE (14:10)
--- NOTE | 2017-01-25 14:22 | ECHO ---
DATE OF PROCEDURE: 01/25/2017 AGE: 71 GENDER: Female REFERRING PHYSICIAN: Dr. Narvaez. HEIGHT: 60 inches. WEIGHT: 223 pounds. BODY SURFACE AREA: 1.95 sq m. INPATIENT: Intensive care unit (ICU) Room 3205. INDICATION: Hypotension. MEASUREMENTS: 2D MEASUREMENTS: RV - 3.8 cm LV- 4.0 cm Septum - 1.3 cm Posterior wall - 1.3 cm Aortic root: 2.9 cm LA - 3.9 cm LVEF - 70% DOPPLER MEASUREMENTS: AV - 1.3 m/s LVOT - 1.2 m/s MV-E: 125 A: 148 EA ratio 0.8 Early mitral deacceleration time 225 ms E-prime - 8.3 A-prime - 16.4 E/E prime ratio - 15 PV - 0.9 m/s Pulmonary artery acceleration time - 85 ms RVSP - 37-41 mmHg IVC - 1.6 cm COMMENTS: Sinus tachycardia with right bundle branch block. Borderline left atrial enlargement but normal left ventricular size. Right heart chamber sizes appear to be normal. LV wall thickness was mildly increased symmetrically. On real-time imaging from the parasternal and apical projections, wall motion was symmetrical and hyperkinetic. Moderately severe mitral annular calcification with slightly thickened mitral leaflets but adequate leaflet excursion and no posterior systolic buckling. Three equal size aortic cusps with marginally thickened cusp edges but adequate cusp separation. Normal aortic root size. No apparent intracardiac mass or pericardial effusion. Color flow Doppler study taken from the parasternal and apical projection showed very mild aortic, trace mitral and mild tricuspid insufficiency. Guided continuous wave Doppler of her aortic valve showed a normal peak systolic velocity against LV outflow tract obstruction. Pulsed and continuous wave Doppler of her LV inflow tract taken from the apical four-chamber projection showed normal diastolic filling velocities against mitral stenosis. There was more prominent late diastolic/atrial dependent filling. Diastolic dysfunction was further confirmed by a prolonged early mitral deceleration time and tissue Doppler of her mitral annulus. Her current estimated mean left atrial pressure was elevated. Pulsed and continuous wave Doppler of her pulmonary trunk showed a normal peak systolic velocity against RV outflow tract obstruction. Her pulmonary artery acceleration time was abbreviated consistent with an elevated pulmonary vascular resistance. Guided continuous wave Doppler of her tricuspid valve allowed our estimation of her right ventricular systolic pressure (at least mildly increased). Her inferior vena cava was of normal size against an elevated central venous pressure at this time. CONCLUSIONS: Hypotension apparently not cardiogenic. Mild concentric left ventricular hypertrophy with hyperkinetic wall motion. Borderline left atrial enlargement with Doppler evidence of an impairment of LV diastolic function and currently elevated mean left atrial pressure. Normal right heart chamber sizes and contraction with Doppler evidence of mild to moderate pulmonary hypertension. Normal IVC size against elevated central venous pressure at this time. Mild aortic valvular sclerosis without stenosis and very mild insufficiency. Moderately severe mitral annular calcification without inflow tract obstruction and only trace insufficiency. Preliminary report of this study was relayed directly into Dr. Narvaez within 1 hour of the study being performed.
--- NOTE | 2017-01-25 14:39 | CR.PDOC ---
General Surgery Consultation Date of Consultation 01/25/17 History and Physical CONSULT REPORT FOR: Lyle Narvaez MD REASON FOR CONSULTATION: sepsis, hypotension from colitis HISTORY OF PRESENT ILLNESS: I was asked to see Ms Kessler emergently as she was being transferred to the ICU for hypotension initially to place a central venous catheter for ongoing sepsis, then for findings of free air underneath her right diaphragm on postprocedure CXR after placement of left IJ catheter. She is currently admitted for colitis after colonoscopy with ablation of a vascular ectasia found on her right side of the colon on 01/22/2017. She returned to the emergency room same day with increasing right-sided abdominal pain and discomfort. Initial CT scan of the abdomen and pelvis done was nonrevealing. She was subsequently discharged home but returned the following morning with persistent and increasing right-sided pain. She is admitted for findings of ledesma colitis and has been on ciprofloxacin and metronidazole. Her white cell count bumped to a size 22,[address] scan of the abdomen and pelvis confirms finding of colitis. No free intraperitoneal air was found at that time. She had a chest x-ray done this morning that also did not show any free air. Her white cell count this morning was 20,000. At about 10:30 in the morning she was found to be hypotensive with a systolic in the 50s. She is also has not been making much urine. She has a chronic kidney disease the probably got exacerbated by her ongoing sepsis. She was subsequently transferred to the ICU where I saw her and evaluated her. PAST MEDICAL HISTORY: 1. Diverticulosis. 2. Fibromyalgia. 3. Arthritis. 4. Type 2 diabetes. 5. Dyslipidemia. 6. COPD. 7. CKD stage III. 8. Hypertension. 9. Degenerative joint disease. 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 PAST SURGICAL HISTORY: 1. Left ulnar nerve surgery. 2. Cholecystectomy. 3. Carpal tunnel bilateral. 4. Dilation and curettage (D and C). 5. Bilateral knee arthroplasty. 6. Tonsillectomy. PREVIOUS ANESTHESIA REACTIONS: ALLERGIES: Please see below. FAMILY HISTORY: Nonpertinent HOME MEDICATIONS: Please see below. REVIEW OF SYSTEMS: GENERAL: Denies chills, reports weight gain. HEENT: Denies blurred vision and double vision. Denies ear symptoms. Denies hoarseness. NECK: Denies any neck pain. CARDIOVASCULAR: Denies chest pain and palpitations. MUSCULOSKELETAL: Denies arthralgias, back pain and thrombophlebitis. SKIN: Denies rash. NEUROLOGIC: Denies headache, stroke and transient ischemic attack. PSYCHIATRIC: Denies anxiety and depression. ENDOCRINE: Denies thyroid disease. HEMATOLOGY/ONCOLOGY: Denies bleeding or clotting disorder. Patient not noted any anticoagulants. HEART: Denies any chest pains, palpitations, paroxysmal dyspnea, orthopnea. PULMONARY: Reports feeling short of breath, no productive cough. GASTROINTESTINAL: See HPI. GENITOURINARY: Nolen catheter has been placed, patient has been oliguric. ENDOCRINE: Patient known diabetic. INFECTIOUS: Patient on antibiotics for pancolitis. NUTRITION: Reports poor appetite. PHYSICAL EXAMINATION: VITALS SIGNS: Please see below. GENERAL APPEARANCE: Patient is seen, pale-appearing, sick appearing. SKIN: Cool and dry. HEENT: Normocephalic, atraumatic. Pale palpebral conjunctiva, anicteric sclerae. Lips and mucosa appear dry. NECK: Supple, no thyromegaly. No obvious jugular venous distention. LUNGS: Clear to auscultation bilaterally. No wheezing appreciated. Decreased posterior breath sounds. HEART: No chest wall abnormalities. Regular rate and rhythm with no murmurs appreciated. ABDOMEN: Abdomen is moderately obese, soft, round, moderately distended, quiet abdomen. Right upper quadrant subcostal incision from previous cholecystectomy. Generalized tenderness of the abdomen with involuntary guarding. EXTREMITIES: Extremities have no deformities. No edema identified ANCILLARIES: . LABORATORY DATA: Please see below. IMAGING STUDIES: . CT of the abdomen and pelvis (01/24/2017) Minimal mural thickening affecting the cecum and ascending colon. No evidence of free air. Left colonic diverticulosis. No obstructive lesion seen. New consolidation right lower lobe of the lung. Chest x-ray post line placement (01/25/2017) 1. Left internal jugular venous catheter tip projects over the medial head of the left clavicle. 2. Evidence of free air under the right hemidiaphragm as a new finding. This report is telephoned to Dr. Narvaez at the time of the study. IMPRESSION AND PLAN: Thermal injury from ablation from colonoscopy with delayed perforation Sepsis Acute renal failure superimposed on chronic kidney disease Patient is currently being IV resuscitated. So far she has gotten 2 L of crystalloids and is on small amount of levo fed with good effect on her blood pressure though she still remains oliguric with dark concentrated urine in the Nolen bag. She has so far received a dose of Zosyn and will be given vancomycin per the medical service. She had an echocardiogram this morning that shows vigorous systolic contractions of the left ventricle with decreased size of the IVC consistent with under resuscitation, dehydration. She has been advised of the need to go to the operating room for abdominal exploration to deal with the perforation. I have discussed with her the risks of the surgery including , need for prolonged ventilation, critical illness, possible need for an ostomy and related complications of undergoing surgery. Consent was obtained from the patient. I will also discussed with her sister was at the bedside with her the nature of her critical illness. Her main healthcare proxy is en route but patient is well oriented to give her own consent. Soon as the operating room is available, we will go ahead and proceed with the surgery. Discussions have been made with the primary medical service, with critical care regarding patient's status. Vital Signs Vital Signs Date Time Temp Pulse Resp B/P (MAP) Pulse Ox O2 Delivery O2 Flow Rate FiO2 01/25/17 11:50 44/36 (39) 90 Nasal Cannula 3.0 01/25/17 11:23 97.7 109 20 I&Os I&O- Last 24 Hours up to 6 AM 01/25/17 06:00 Intake Total 3420 ml Output Total 600 ml Balance 2820 ml Laboratory Data Labs 24H Laboratory Tests 2 01/24/17 18:39: Bedside Glucose (Misc Panel) 180H 01/25/17 00:14: Bedside Glucose (Misc Panel) 214H 01/25/17 05:03: Anion Gap 9, Glomerular Filtration Rate 24.0L, Blood Urea Nitrogen 34H, Creatinine 2.15H, Sodium Level 138, Potassium Level 3.9, Chloride Level 105, Carbon Dioxide Level 24, Calcium Level 9.2, Aspartate Amino Transf (AST/SGOT) 24 , Alanine Aminotransferase (ALT/SGPT) 29, Total Creatine Kinase 265H, Alkaline Phosphatase 87, Total Bilirubin 1.0, Total Protein 6.4, Albumin 2.6L, Magnesium Level 1.4L, Creatine Kinase MB 2.7, Creatine Kinase MB Relative Index 1.01, Troponin I < 0.02, B-Type Natriuretic Peptide 69.5, Albumin/Globulin Ratio 0.68L 01/25/17 11:30: Blood Gas Bicarbonate Standard 20.8L, Arterial Blood pH 7.358, Arterial Blood Partial Pressure CO2 37.8, Arterial Blood Partial Pressure O2 48.7*L, Arterial Blood Total CO2 21.9L, Arterial Blood HCO3 20.8L, Arterial Blood Base Excess - 4.2L, Arterial Blood Oxygen Saturation 85.3L 01/25/17 11:35: Bedside Glucose (Misc Panel) 241H 01/25/17 11:51: Total Creatine Kinase 289H, Creatine Kinase MB 2.9, Creatine Kinase MB Relative Index 1.00, Troponin I < 0.02 CBC/BMP Laboratory Tests 01/25/17 05:03 Red Blood Count 5.23, Mean Corpuscular Volume 87.1, Mean Corpuscular Hemoglobin 28.7, Mean Corpuscular Hemoglobin Concent 32.9, Red Cell Distribution Width 13.8 , Calcium Level 9.2, Aspartate Amino Transf (AST/SGOT) 24, Alanine Aminotransferase (ALT/SGPT) 29, Total Creatine Kinase 265 H, Alkaline Phosphatase 87, Total Bilirubin 1.0, Total Protein 6.4, Albumin 2.6 L Microbiology Microbiology 01/24/17 Blood Culture - Preliminary, Resulted No growth after 24 hours . All specim... 01/24/17 Blood Culture - Preliminary, Resulted No growth after 24 hours . All specim... Home Medications Scheduled Bupropion Hcl (Bupropion HCl Xl) 150 Mg Tab, 150 MG PO DAILY, (Reported) Calcitriol (Rocaltrol) 0.25 Mcg Cap, 0.25 MCG PO 5XW, (Reported) THURSDAY-THURSDAY Cyanocobalamin (Vitamin B12) 100 Mcg Tab, 100 MCG PO DAILY, (Reported) Cyclobenzaprine HCl (Cyclobenzaprine HCl) 10 Mg Tab, 10 MG PO TID, (Reported) Desloratadine (Desloratadine) 5 Mg Tab, 5 MG PO DAILY, (Reported) Donepezil Hcl (Donepezil HCl) 10 Mg Tab, 10 MG PO QHS, (Reported) Duloxetine Hcl (Duloxetine HCl) 60 Mg Cap, 60 MG PO DAILY, (Reported) ALONG WITH 30MG Duloxetine Hcl (Duloxetine HCl) 30 Mg Cap, 30 MG PO DAILY, (Reported) ALONG WITH 60MG Insulin Detemir (Levemir Flextouch) 100 Unit/Ml Inj, 75 UNIT SC QHS, (Reported) Pt adjusts per fsbs at bedtime. Lactobacillus Acidophilus (Bacid) 1 Tab Tab, 1 TAB PO DAILY, (Reported) Levothyroxine Sodium (Synthroid) 50 Mcg Tab, 50 MG PO QAM, (Reported) Liraglutide (Victoza) 18 Mg/3 Ml Inj, 1.8 MG SC DAILY, (Reported) Loperamide HCl (Loperamide A-D) 2 Mg Tab, 2 MG PO QHS, (Reported) Metoprolol Tartrate (Metoprolol Tartrate) 50 Mg Tab, 50 MG PO BID, (Reported) Mirabegron Base (Myrbetriq) 25 Mg Tab, 25 MG PO QHS, (Reported) Pitavastatin Calcium (Livalo) 4 Mg Tab, 4 MG PO DAILY, (Reported) Prazosin Hcl (Prazosin HCl) 1 Mg Cap, 1 MG PO QHS, (Reported) Pregabalin (Lyrica) 100 Mg Cap, 100 MG PO TID, (Reported) Salmeterol/Fluticasone (Advair Hfa 115-21 Mcg/Act) 1 Aer Aer, 2 PUFF INH BID, ( Reported) Valsartan (Valsartan) 80 Mg Tab, 80 MG PO DAILY, (Reported) Vitamin D (Vitamin D) 2,000 Unit Cap, 2,000 UNIT PO DAILY, (Reported) Scheduled PRN Hydrochlorothiazide (Hydrochlorothiazide) 12.5 Mg Cap, 12.5 MG PO DAILY PRN for SWELLING, (Reported) Tramadol HCl (Tramadol HCl) 50 Mg Tab, 50 MG PO Q6HP PRN for PAIN, (Reported) Allergies Coded Allergies: Latex (Verified Allergy, Unknown, 05/30/15) Atorvastatin (Unverified Adverse Reaction, Severe, MUSCLE ACHE, 01/23/17) Statins (Verified Adverse Reaction, Severe, MUSCLE ACHES, TOTALLY INCAPACITATES, 11/09/12) Sulfamethoxazole w/Trimethoprim (Unverified Adverse Reaction, Mild, pain and bladder infection, 01/23/17) BRITNEY RITCHIE MD Jan 25, 2017 12:46
--- NOTE | 2017-01-25 14:56 | IPN ---
DATE: 01/25/2017 Patient is seen and examined at the bedside. Chart has been reviewed. The patient remained tachycardic throughout the evening, sinus tachycardic (tach ) on telemetry. This morning, she complains of slight shortness of breath with cough, nonproductive, afebrile overnight. Repeat CT abdomen and pelvis shows a new right basilar infiltrate, concerning for pneumonia. There is minimal mural thickening affecting the cecum and ascending colon. No evidence of free air. Left colonic diverticulosis with no obstructive lesion. White count continues to be elevated at 20.4. The patient denies any nausea or vomiting. Temperature 98.6, pulse 120, respiratory rate 20, blood pressure 117/63, 90% on 3 liters nasal cannula. Generally, the patient is awake, alert, oriented times three, answering questions appropriately. Lungs: Diminished breath sounds with crackles at the right base. Clear in the upper lobes. Heart: S1, S2, sinus tachycardia. Abdomen is soft, somewhat tender in the right lower quadrant, right upper quadrant. Positive bowel sounds times four quadrants. No rebound, no guarding. Extremities: No pitting edema in bilateral lower extremities. LABORATORY DATA: White count 20.4, hemoglobin 15, hematocrit 45, platelet count 385. Sodium 138, potassium 3.9, chloride 105, bicarbonate 24, BUN 34, creatinine 2.15, glucose of 223. Blood culture: No growth after 24 hours. ASSESSMENT AND PLAN: This is a 71-year-old female with a history of fibromyalgia , osteoarthritis, chronic obstructive pulmonary disease, chronic kidney disease, stage III, hypertension, degenerative joint disease, dyslipidemia, type 2 diabetes, adrenal mass, esophagogastroduodenoscopy (EGD) and colonoscopy 2 days ago, complained of abdominal pain, poor oral intake, developed severe pain and fever, admitted for further evaluation. IMPRESSION: 1. New right lower quadrant pain post colonoscopy, status post argon beam coagulation (ABC) ablation of large vascular ectasia of the colon, potentially with thermal injury to submucosa in ascending colon regarded to ablation. Continued on bowel rest with clear liquids. Pain control. At this time , due to new finding of right lower lobe consolidation and pneumonia, the patient' s antibiotics have been changed to Zosyn for both gram-negative as well as anaerobic coverage to cover both gastrointestinal (GI) and pulmonary issues. Repeat CT abdomen and pelvis showed no perforation. White count remains elevated at 20,000 but is afebrile. Pharmacy consulted to adjust Zosyn according to her renal function. She is being monitored for bowel perforation, and may need surgical intervention if she decompensates. Dr. Montgomery will be consulted in case the abdomen becomes more distended or pt deteriorates. 2. Acute on chronic renal failure, most likely secondary to decreased oral intake from abdominal pain. The patient's baseline creatinine is 1.3 to 1.5, current creatinine is 2.15. The patient is net positive 4 liters in and output of 600. Will check postvoid residual. Nolen catheter placement in case there is residual. 3. Type 2 diabetes. Currently on clears diet. Insulin sliding scale with coverage. Levemir insulin nightly. Monitor for hypoglycemia due to decrease in oral intake. Appears to be adequately controlled with glucose of 169 to 214 this morning. 4. Right lower lobe pneumonia. Zosyn for now for better coverage. Cipro has been discontinued. Sputum culture and blood cultures are still negative. Obtain urine Legionella and urine Streptococcal antigen. 5. Hypertension. The patient's hydrochlorothiazide has been held. Currently on metoprolol. 6. Chronic obstructive pulmonary disease (COPD). Previously smoked 50 packs previously, currently with pneumonia with acute hypoxia requiring 3 liters nasal cannula oxygen, titrate 88-92%. 7. Hypothyroidism. Continue on Synthroid. 8. Hyperlipidemia. Continue on Pravastatin. 9. Chronic pain, on Lyrica and tramadol as needed. 10. Chronic kidney disease with hyperparathyroidism, on chronic calcitriol. 11. Deep vein thrombosis (DVT) prophylaxis with subcu heparin. MTDD
[2017-01-25] MEDS ORDERED: metroNIDAZOLE/NACL 500MG(5MG/ML)100 ML BAG (S0030) As Ordered ONE (15:37)
[2017-01-25] MEDS ORDERED: CIPROFLOXACIN/D5W 400 MG/200 ML BAG (J0744) As Ordered ONE ×2 (15:37→15:38)
[2017-01-25] MEDS ORDERED: PHENYLephrine HCL 500 MCG/5 ML (100MCG/ML) SYRINGE (J2370) As Ordered ONE ×2 (15:44→16:06)
[2017-01-25] MEDS ORDERED: ZOSYN 3.375 GM VIAL (J2543) As Ordered ONE (15:59)
[2017-01-25] MEDS ORDERED: ePHEDrine SULFATE 25 MG/5 ML(5MG/ML) SYRINGE As Ordered ONE (16:26)
[2017-01-25] MEDS ORDERED: CALCIUM CHLORIDE 10% 1 GM/10 ML SYR As Ordered ONE (16:43)
[2017-01-25] MEDS ORDERED: VASOPRESSIN INJ 20 UNITS/ML VIAL As Ordered ONE (16:46)
--- NOTE | 2017-01-25 17:35 | ROOPDOC ---
[facility] Report Of Operation Report of Operation DATE OF PROCEDURE: 01/25/17 PREPROCEDURE DIAGNOSES: perforated viscus, sepsis POSTPROCEDURE DIAGNOSES: perforation at ascending colon with rim of ischemic antimesenteric colon wall PROCEDURE: Exploratory Laparotomy, limited right colectomy, ileostomy, washout of abdomen SURGEON: Mekhi Montgomery MD COUNTER TENDER: ANESTHESIA: general ESTIMATED BLOOD LOSS: Approximately 50 mL. COMPLICATIONS: remains critically ill REMARKS: 2 19 round irwin drains (left side going to pelvis, right side going to morrisons pouch) PROCEDURE NOTE: Critically ill 71 F with sepsis from colitis, delayed perforation after colonoscopy, thermal ablation of an AVF in the ascending colon on 01/22/2017 DESCRIPTION OF PROCEDURE: Patient emergently brought to the operating room . She has been given fluid boluses and has been on a low dose of levophed for hypotension from ongoing sepsis. She has been given a dose of zosyn and vancomycin prior to coming down from ICU, a new left IJ central venous catheter has been placed. General endoctracheal anesthesia started, An arterial line placed by anesthesia. Her abdomen prepped and draped in the usual sterile fashion. After a surgical time out we began our surgery. A generous midline incision created on the mid abdomen and deepened until her anterior fascia encountered. Abdomen was entered in a controlled fashion. On entry, no free fluid encountered until we evacuated the small bowel and entered deep into the right side of the abdomen where we got into liquid brown stool spillage as well as some digested food contents. The Bookwalter retractor was set up. There were a lot of omental adhesions along the right upper quadrant area from her previous open cholecystectomy. We worked around freeing this up and got more stool around the liver and at the Morison's pouch. We located the perforation at the proximal ascending colon just above the cecum located at the antimesenteric border. Operative findings: Perforation found at the ascending colon, with surrounding rim of ischemic full thickness burn at the antimesenteric wall of the proximal ascending colon. There was a large amount of stool and undigested food contents that spilled mostly in the right side fo the abdomen. Some reactive inflammation to diego of ascending colon and terminal ileum with fibrinous deposit to the diego of the bowels. We controlled the stool leakage initially with Reagan stent with a 3-0 silk suture. The cecum and ascending colon freed laterally, then posteriorly. The terminal ileum divided with 75 mm stapler with a blue load. Using a LigaSure device the ileocolic mesentery was divided towards the area of the perforation. After reaching to healthy area behind the perforation the colon was divided with 2 loads of the 75 mm linear stapler. We made sure of adequate hemostasis was at this point during the surgery, her blood pressure has mildly improved and we could see through the around the raw surfaces. I used about 5 L warm saline to irrigate at the right side and a loop around the liver. I checked on the remaining ascending colon and hepatic flexure though there are some difficulty in visualizing the whole of the right side of the colon due to the amount of omental adhesions and the degree of bowel distention. I did not notice any other ischemic appearing areas her visible perforations on the colon up to the left transverse colon. I ran the bowel from the ileal stump down towards the ligament of Treitz. 2 drains were left in place one was placed around the lateral edge of the liver and going towards the Morison's pouch. The other going towards deep in her pelvis. An area slightly more at the right upper quadrant was chosen for the ileostomy placement due to her morbidly obese body habitus and her pannus draping a lot lower. Circular skin incision was created in the subcutaneous tissue underneath this area was removed. Fascial incision and created and the muscles dissected up until we created a tract going into the abdomen that could accommodate about 2 fingers. The stump of the ileostomy was pulled through. We had adequate length on the ileostomy stump. The abdomen was then closed with double looped PDS. She has a very thick pannus that a lot of the space. I left a Td drain at the deep subcutaneous space. The skin was then closed loosely on top of the Redby drain. The drains were secured into the skin. The ileostomy was then matured in a Sravani fashion. The time we were done there was some darkening of the ileostomy stump. The patient remains in critical condition on 2 pressors at the end of the surgery. She remains intubated and was brought to the recovery room. All counts were verified to be correct. BRITNEY MONTGOMERY MD Jan 25, 2017 15:01
[2017-01-25] MEDS: VASOPRESSIN INJ 20 UNITS in NS 500 ML IV SCH (17:41)
[2017-01-25] MEDS ORDERED: METOCLOPRAMIDE INJ 10MG/2ML VIAL (J2765) IV PRN (18:15)
[2017-01-25] MEDS: LR 1,000 ML IV SCH ×2 (18:15→23:30)
[2017-01-25] MEDS ORDERED: fentaNYL 100 MCG/2 ML INJECTION (J3010) IV PRN (18:15)
[2017-01-25] MEDS ORDERED: HYDROmorphone HCL 1 MG/ML SYRINGE (J1170) IV PRN ×2 (18:15)
[2017-01-25] MEDS ORDERED: ONDANSETRON 4MG/2ML VIAL (J2405) IV PRN (18:15)
[2017-01-25] MEDS ORDERED: NS 1,000 ML IV SCH (18:15)
[2017-01-25 19:20] LABS: ABG BASE EXCESS -12.1 (-2.0-2.0); ABG DEVICE MECHAN. VENT; ABG HCO3 15.5 MEQ/L (22.0-26.0); ABG PARTIAL PRESSURE CO2 41.9 mmHg (35.0-45.0); ABG PARTIAL PRESSURE O2 67.5 mmHg (75.0-100.0); ABG STANDARD HCO3 14.9 MEQ/L (22.0-26.0); ABG TOTAL CO2 16.8 MEQ/L (23.0-31.0); ABG pH (ARTERIAL) 7.187 UNITS (7.350-7.450)
[2017-01-25 19:27] LABS: ADD MANUAL DIFFER YES; DIFF SLIDE NUMBER 167; MEAN CORPUSCULAR HEMOGLOBIN 28.6 pg (27.0-33.0); MEAN CORPUSCULAR HGB CONC 32.6 g/dl (32.0-36.5); MEAN CORPUSCULAR VOLUME 87.7 fl (80.0-96.0); PLATELET COUNT, AUTOMATED 335 k/mm3 (150-450); RED CELL DISTRIBUTION WIDTH 14.1 % (11.5-14.5); WHITE BLOOD COUNT 10.3 K/mm3 (4.0-10.0)
[2017-01-25 19:34] LABS: ALBUMIN 1.7 GM/DL (3.2-5.2); ALBUMIN/GLOBULIN RATIO 0.57 (1.00-1.93); BILIRUBIN,TOTAL 0.9 MG/DL (0.2-1.0); CALCIUM LEVEL 8.1 MG/DL (8.8-10.2); CREATININE FOR GFR 2.45 MG/DL (0.55-1.02); GLOMERULAR FILTRATION RATE 20.6 (>39); POTASSIUM SERUM 4.4 MEQ/L (3.5-5.1); TOTAL PROTEIN 4.7 GM/DL (6.4-8.2)
[2017-01-25] MEDS: IPRATROPIUM 0.5MG/ALBUTEROL 2.5MG INH SOL UD 3ML (DUONEB)(J7620) NEB SCH ×2 (20:04→23:35)
--- NOTE | 2017-01-25 20:06 | CCN ---
DATE: 01/25/2017 START TIME: 1846 STOP TIME: 1935 I attended Ruth Kessler first in the recovery room, and then attended her on transfer to the intensive care unit. The patient has been examined. Electronic medical records have been reviewed, and I spoke at length with Dr. Montgomery from general surgery regarding her. In essence, this 71-year-old female with known obstructive lung disease, insulin-dependent diabetes mellitus, chronic kidney disease stage III, underlying hypertension, morbid obesity, who was admitted yesterday with what is now known to be a delayed perforation from a colonoscopy several days ago. Intraoperatively she required about 3800 mL of crystalloid. She was started on bolus Levophed and vasopressin. Currently on 12 mcg of Levophed and 0.04 mcg of vasopressin. Current blood pressure is 109 systolic via noninvasive cuff and 101 systolic via A-line. Heart rate currently 97 with a sinus mechanism. She is afebrile. She does intermittently over-breathe the ventilator. On exam, she is sedate but arousable. She opens her eyes to voice and moves all her extremities. Pupils are active. Sclerae clear. There is a left internal jugular vein in place, and nasogastric and oral endotracheal tube. Chest shows diminished but symmetric expansion. Fairly clear anteriorly, dependant crackles most notable in the mid-to-late phase. No rubs or egophony noted. Heart exam is distant but regular. Peripheral pulses are diminished but palpable. Abdomen is obese. Dressings and drains intact. Abdomen is quiet. Extremities without cyanosis or clubbing. Neurologically as outlined above. Most recent laboratories show an arterial blood gas done at 1747 hours on an assist control of 16, tidal volume of 420, PEEP of 5, and FiO2 of 60%, reveals a pH of 7.187, pCO2 41.9, and pO2 of 67.5. Chest x-ray shows endotracheal tube and nasogastric tube in good position. I do not clearly see the left internal jugular line. Repeat chemistries as well as hematology numbers are pending. Lactic acid done at 1135 was 5.2, down to 3.6 at 1750 hours. CPKs were negative preoperatively. ASSESSMENT: Most pressing problems according to my immediate presence at the bedside are: 1. Metabolic acidosis, multifactorial. 2. Respiratory failure. 3. Ascending colon perforation, now status post hemicolectomy with colostomy. 4. Chronic kidney disease stage III. 5. Insulin-dependent diabetes mellitus. 6. Underlying obstructive lung disease. At this point, she is being volume resuscitated by general surgery, and I believe this is quite reasonable. We will check a central venous pressure (CVP) and follow a trend. It is reassuring that her lactic acid was actually coming down. She was beginning to make some urine postoperatively. Ventilator manipulations were made by myself. We will recheck an arterial blood gas. Antimicrobials ordered through general surgery, as well as ulcer and deep venous thrombosis (DVT) prophylaxis. We will add sedation to help her with comfort regarding ventilatory support. Bronchodilators have been ordered. At this point, in view of her pre-morbid state with multiorgan dysfunction, she certainly is at a much higher risk regarding poor outcome. She overall is critically ill. I left the bedside at 1936 hours. 49 minutes of critical care time with her at the bedside, not including procedure. EVARISTO
[2017-01-25 20:12] LABS: BANDS 36 % (< 11)
[2017-01-25 20:13] LABS: GIANT PLATELETS 1+; TOXIC VACUOLATION 1+
[2017-01-25 20:14] LABS: BURR CELLS 1+; PLATELET CLUMPS SMALL AMT
[2017-01-25 20:25] LABS: ABG BASE EXCESS -10.6 (-2.0-2.0); ABG HCO3 15.7 MEQ/L (22.0-26.0); ABG PARTIAL PRESSURE CO2 36.5 mmHg (35.0-45.0); ABG PARTIAL PRESSURE O2 69.9 mmHg (75.0-100.0); ABG STANDARD HCO3 16.1 MEQ/L (22.0-26.0); ABG TOTAL CO2 16.8 MEQ/L (23.0-31.0); ABG pH (ARTERIAL) 7.252 UNITS (7.350-7.450)
[2017-01-25] MEDS ORDERED: SODIUM BICARBONATE 8.4% INJ 50 ML SYRINGE IV STA (20:29)
--- NOTE | 2017-01-25 20:36 | ECGEPIP ---
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
[2017-01-25] MEDS: PROPOFOL 1,000 MG in APPROPRIATE DILUENT 1 EA IV SCH (20:48)
[2017-01-25] MEDS ORDERED: HumaLOG INSULIN (NovoLOG) PER UNIT SC SCH (21:00)
--- NOTE | 2017-01-25 21:31 | CR ---
DATE OF CONSULTATION: 01/25/2017 NEPHROLOGY CONSULTATION FOR: Sally Narvaez MD REASON FOR CONSULTATION: Oliguric acute renal failure in this lady with septic shock following a colonoscopy with possible bowel perforation. HISTORY OF PRESENT ILLNESS: Ms. Kessler is a 71-year-old female who underwent a colonoscopy as outpatient 2 days prior to this admission. She was admitted to [facility] [place] on 01/24/2017, due to abdominal pain and was felt to have pancolitis. She is treated with IV antibiotics. Today she was transferred to intensive care unit due to hypotension. A nephrology consultation was requested as the patient had oliguric acute renal failure. At the time of my arrival to intensive care unit, the patient already had a central line placed and an echocardiogram was already ordered. After central line placement, chest x-ray was done which showed free air under the diaphragm. Shortly after my visit the patient was rushed to operating room due to possible perforated viscus. She had received 2 liters of normal saline bolus and Levophed was being initiated. PAST MEDICAL AND SURGICAL HISTORY: Significant for: 1. History of fibromyalgia. 2. Type 2 diabetes. 3. Chronic obstructive pulmonary disease (COPD). 4. Stage III chronic kidney disease (CKD). 5. History of dyslipidemia. 6. History of diverticulosis. 7. History of degenerative joint disease. 8. History of adrenal mass known previously. PAST SURGICAL HISTORY: Significant for cholecystectomy, carpal tunnel release bilaterally, dilatation and curettage (D and C), bilateral knee arthroscopy, tonsillectomy and a left ulnar nerve surgery. HOME MEDICATIONS: Her home medications included: - calcitriol 0.25 mcg on Thursday through Thursday - B12 1000 mcg daily - cyclobenzaprine 10 mg three times a day - donepezil 10 mg daily - Cymbalta 90 mg daily - chlorthalidone 12.5 mg daily - Levemir 75 units daily - Synthroid 50 mcg daily - Victoza 1.8 mg subcutaneously daily - metoprolol 50 mg twice a day - pitavastatin 4 mg daily - prazosin 1 mg nightly - Lyrica 100 mg three times day - Advair inhaler twice a day - tramadol 50 mg every 6 hours as needed In addition she was also taking vitamin D 2000 units daily and valsartan 80 mg daily. ALLERGIES: The patient has allergy to STATINS, SULFA, LATEX. PERSONAL AND SOCIAL HISTORY: The patient lives at home. History of smoking one-pack daily for last 50 years. There is no history of alcohol or drug use. FAMILY HISTORY: Negative for end-stage renal disease. REVIEW OF SYSTEMS: The patient is not able to provide much information at the time of my visit. She is quite hypotensive and restless. Apparently she had a colonoscopy 2 days prior to admission and developed severe abdominal pain. She has been treated since then with IV antibiotics as she was admitted to hospital yesterday. Her urine output has decreased. She did not have any high-grade fever, however, she has been tachycardiac. There is no known history of cough or hemoptysis. There is no history of vomiting or diarrhea. There is no history of leg edema, dyspnea or chest pain. She does have history of diabetes, hypothyroidism and secondary hyperparathyroidism. Review of review of system otherwise is unremarkable. PHYSICAL EXAMINATION: The patient is quite restless and hypotensive. Temperature is 99.1 degrees Fahrenheit, heart rate 104 per minute and respiratory rate 24 per minute. Blood pressure 78/40 mmHg and oxygen saturation 91%. She has a central line in left internal jugular vein. Neck veins are not distended. Oral mucosa is dry. Pupils are equal and reactive to light and sclerae is anicteric. Neck is supple and without thyroid enlargement. Heart sounds tachycardiac and lungs with slightly diminished breath sounds at bases. Abdomen is soft but has generalized tenderness. Bowel sounds are not audible. Extremities have no cyanosis or clubbing. Skin has no rash or ulcers. Neurologically she is awake, restless and moving all limbs. LABORATORY DATA: This morning her sodium is 138 and potassium 3.9. BUN 34 and creatinine 2.15. Glucose 223 and calcium 9.2. Magnesium 1.4, total bilirubin 1.0, total CPK 265. Total protein 6.4 and albumin 2.6. A lactic acid level has just come back at 5.2. WBC count today is 20.4, hemoglobin 15 and hematocrit 45.6. Chest x-ray done today after central line placement showed free air under the right hemidiaphragm. There was no pneumothorax. PROBLEMS: 1. Oliguric acute renal failure most likely related to septic shock. The patient likely has perforated viscus. She is already being taken to operating room for surgical intervention. I suggest to continue with aggressive IV fluid hydration in view of septic shock. At this point there is no emergent indication for any intervention. The patient is going to operating room and we will reevaluate her after surgery. 2. Septic shock. Most likely related to perforated viscus and the patient has received 2 liters of normal saline bolus. I suggest to continue with aggressive IV fluid hydration and possibly add pressors if needed. She is already on broad-spectrum antibiotics. We may need to reevaluate her antibiotic regimen. At this point we will reevaluate her for potential need for dialysis in next 24 hours. She is likely to stabilize if her intra-abdominal infection is controlled. I thank you for involving me in the care of Ms. Kessler.
[2017-01-25 21:56] LABS: ABG BASE EXCESS -9.8 (-2.0-2.0); ABG DEVICE MECHAN. VENT; ABG HCO3 15.8 MEQ/L (22.0-26.0); ABG PARTIAL PRESSURE CO2 34.1 mmHg (35.0-45.0); ABG PARTIAL PRESSURE O2 65.2 mmHg (75.0-100.0); ABG STANDARD HCO3 16.7 MEQ/L (22.0-26.0); ABG TOTAL CO2 16.9 MEQ/L (23.0-31.0); ABG pH (ARTERIAL) 7.285 UNITS (7.350-7.450)
[2017-01-26] VITALS (42 sets, daily range): BP systolic 77–145; BP diastolic 45–74
[2017-01-26] MEDS: PROPOFOL 1,000 MG in APPROPRIATE DILUENT 1 EA IV SCH ×7 (00:29→23:49)
[2017-01-26] MEDS: VASOPRESSIN INJ 20 UNITS in NS 500 ML IV SCH ×3 (01:22→18:04)
[2017-01-26] MEDS: MORPHINE 2 MG/ML 1ML SYRINGE IV PRN ×3 (01:50→16:53)
[2017-01-26] MEDS: PIPERACILLIN/TAZOBACTAM SOD 3.375 GM in D5W MINI-BAG PLUS 50 ML IV SCH ×4 (02:33→20:05)
[2017-01-26] MEDS: IPRATROPIUM 0.5MG/ALBUTEROL 2.5MG INH SOL UD 3ML (DUONEB)(J7620) NEB SCH ×6 (03:21→23:22)
[2017-01-26] MEDS: LR 1,000 ML IV SCH (04:30)
[2017-01-26] MEDS ORDERED: DIGOXIN INJ 0.5 MG/2 ML AMP (J1160) IV STA (04:52)
[2017-01-26] MEDS ORDERED: DIGOXIN INJ 0.5 MG/2 ML AMP (J1160) As Ordered ONE (04:53)
[2017-01-26 04:57] LABS: ABG BASE EXCESS -12.2 (-2.0-2.0); ABG PARTIAL PRESSURE CO2 33.4 mmHg (35.0-45.0); ABG STANDARD HCO3 14.9 MEQ/L (22.0-26.0)
[2017-01-26 04:58] LABS: ABG pH (ARTERIAL) 7.241 UNITS (7.350-7.450)
[2017-01-26] MEDS ORDERED: AMIODARONE HCL 150 MG/100 ML PREMIXED BAG (NEXTERONE) As Ordered ONE ×2 (05:13→12:41)
[2017-01-26] MEDS ORDERED: AMIODARONE HCL 150 MG in APPROPRIATE DILUENT 1 EA IV STA ×5 (05:14→12:38)
[2017-01-26 05:16] LABS: MEAN CORPUSCULAR HEMOGLOBIN 28.5 pg (27.0-33.0); MEAN CORPUSCULAR HGB CONC 32.2 g/dl (32.0-36.5); MEAN CORPUSCULAR VOLUME 88.5 fl (80.0-96.0); RED CELL DISTRIBUTION WIDTH 14.2 % (11.5-14.5); WHITE BLOOD COUNT 18.7 K/mm3 (4.0-10.0)
[2017-01-26 05:42] LABS: ALBUMIN 1.7 GM/DL (3.2-5.2); ALBUMIN/GLOBULIN RATIO 0.53 (1.00-1.93); ALKALINE PHOSPHATASE 61 U/L (45-117); ALT/SGPT 29 U/L (12-78); ANION GAP 13 MEQ/L (8-16); AST/SGOT 86 U/L (15-37); BLOOD UREA NITROGEN 34 MG/DL (7-18); CALCIUM LEVEL 8.1 MG/DL (8.8-10.2); CARBON DIOXIDE LEVEL 16 MEQ/L (21-32); CHLORIDE LEVEL 107 MEQ/L (98-107); CREATININE FOR GFR 2.45 MG/DL (0.55-1.02); GLOMERULAR FILTRATION RATE 20.6 (>39); GLUCOSE, FASTING 273 MG/DL (83-110); MAGNESIUM LEVEL 1.4 MG/DL (1.8-2.4); POTASSIUM SERUM 4.2 MEQ/L (3.5-5.1); SODIUM LEVEL 136 MEQ/L (136-145); TOTAL PROTEIN 4.9 GM/DL (6.4-8.2)
[2017-01-26] MEDS ORDERED: SODIUM BICARBONATE 8.4% INJ 50 ML SYRINGE IV STA (05:43)
[2017-01-26] MEDS ORDERED: MAGNESIUM SULFATE 1 GM/100 ML D5W BAG (10MG/ML) (J3475) As Ordered ONE (05:50)
[2017-01-26] MEDS: HEPARIN SOD (PORCINE) 5000 UNITS/ML VIAL SC SCH ×3 (05:51→22:03)
[2017-01-26] MEDS: HumaLOG INSULIN (NovoLOG) PER UNIT SC SCH ×3 (05:52→17:58)
[2017-01-26] MEDS ORDERED: VANCOMYCIN HCL 1,000 MG, VIAL MATE ADAPTER 1 EACH in D5W 250 ML IV SCH ×2 (06:00→10:00)
[2017-01-26] MEDS: LEVOTHYROXINE 100 MCG (0.1MG) VIAL IV SCH (06:00)
[2017-01-26] MEDS: MAG SULF 1GM/100ML (MAG RUN) 1 GM in APPROPRIATE DILUENT 1 EA IV SCH ×2 (06:02→07:01)
[2017-01-26] MEDS ORDERED: MAG SULF 1GM/100ML (MAG RUN) 1 GM in APPROPRIATE DILUENT 1 EA IV ONE (07:00)
--- NOTE | 2017-01-26 07:51 | REP ---
PORTABLE CHEST X-RAY: Single view. HISTORY: Endotracheal tube placement. Comparison chest x-rays from January 25, 2017 at 12:46 p.m. FINDINGS: Endotracheal tube is seen in good position at the level of the transverse aorta. The left internal jugular venous line has been advanced. Its tip appears to be in the midline brachiocephalic vein. A nasogastric tube is seen entering the left upper quadrant of the abdomen. There is some plate-like atelectasis in the right base. There is improved aeration. The air density under the right hemidiaphragm is not seen on the current film. This may be positional. IMPRESSION: Endotracheal tube in good position. NG tube enters left upper quadrant. Plate-like atelectasis right base. Signed by Cricket Rodriguez MD 01/26/2017 08:29 A
[2017-01-26] MEDS: ADVAIR HFA 115/21MCG INHALER INH SCH ×2 (08:24→21:00)
[2017-01-26] MEDS: PANTOPRAZOLE 40MG INJ (PROTONIX) (C9113) IV SCH (08:49)
[2017-01-26] MEDS: VITAMIN D 1,000 INTERNATIONAL UNITS TABLET PO SCH (08:49)
[2017-01-26] MEDS: LACTOBACILLUS ACIDOPHILUS CAP (BACID) PO SCH (08:54)
[2017-01-26] MEDS: SODIUM BICARBONATE 100 MEQ in D5W 1,000 ML IV SCH ×2 (08:54→14:57)
[2017-01-26] MEDS ORDERED: CALCITRIOL 0.25 MCG CAP (S0169) PO SCH (09:00)
--- NOTE | 2017-01-26 09:20 | IPN ---
DATE: 01/26/2017 Yesterday, the patient was emergently transferred to the intensive care unit (ICU) due to severe hypotension and septic shock with systolic pressure of 50. The patient received 9.5 liters of intravenous fluids. She was found to have a perforated viscus requiring vasopressor therapy and emergent surgical intervention with an exploratory laparotomy and right hemicolectomy. Postoperatively, the patient's course was complicated by persistent hypoxia. She is currently intubated with oliguric renal failure. Overnight, she developed atrial flutter, 2:1 block, and received IV amiodarone and intravenous digoxin. Currently sinus. She remains in critical condition. Dr. Dent has been managing her ventilatory needs. White count had decreased to 10.3 and up to 18.7 this morning. Lactic acid was 5.2 yesterday and decreased to 3.6 today. Creatinine is worsened to 2.45 with oliguric failure. The family is present at the bedside and has been made aware of the current condition. Vitals: Temperature 98.2, pulse 130-168, respiratory rate 20, blood pressure 135/52 and 95% on ventilator FiO2 of 40%. Input 9.555, out 450, positive 9.1 liters. Current weight is 105.3 kg from admission weight of 100 kg. Currently on Levophed and vasopressin. Generally, the patient is sedated, endotracheal tube, central line noted on the neck, unable to assess jugular venous distention. Lungs: Diminished. Heart: S1, S2, irregularly irregular. Abdomen is obese, postoperative changes clean and dry. Drains in place in left abdomen and on the right. Extremities: Skin warm and dry, well perfused, pink in color. No cyanosis or clubbing. LABORATORY DATA: White count 18.7, hemoglobin 12, hematocrit 39, platelet count 375. Sodium 136, potassium 4.2, chloride 107, bicarbonate 16, BUN 34, creatinine 2.45, glucose of 273. Lactic acid 3.6. Magnesium 1.4. Albumin 1.7. Peritoneal fluid pending. Wound culture pending. Blood culture negative times two sets. ASSESSMENT AND PLAN: This is a 71-year-old female with history of fibromyalgia, osteoarthritis, chronic obstructive pulmonary disease, chronic kidney disease stage III, hypertension, degenerative joint disease, dyslipidemia, type 2 diabetes, adrenal mass, who had an esophagogastroduodenoscopy (EGD) and colonoscopy on 01/22/2017 and developed severe abdominal pain and poor oral intake, admitted for possible pancolitis and rule out perforation. CT of abdomen and pelvis on 01/22/2017 and 01/24/2017 showed no perforation. The patient developed severe hypotension on 01/25/2017. Systolic pressure of 50 and resuscitated with 9 liters of IV fluids and placed on Levophed drip and vasopressin. She was found to have a perforated viscus and emergently underwent right hemicolectomy with washout of the abdomen, exploratory laparotomy and ileostomy. She remains critically ill on the ventilator with oliguric renal failure. Overnight, she has developed Afib and received IV, amiodarone and one dose of digoxin. CURRENT ISSUES: 1. Perforated viscus secondary to delayed perforation from recent colonoscopy, status post exploratory laparotomy on 01/25/2017 with limited right colectomy, ileostomy and washout of the abdomen. The patient was found to have perforation at the ascending colon with rim of ischemic antimesenteric colonic wall complicated by postoperative respiratory failure requiring prolonged mechanical ventilation. She is currently on broad spectrum antibiotic Zosyn renally dosed by the pharmacy and vancomycin for possible Enterococcus, renal failure and respiratory failure. 2. Multiorgan failure, oliguric renal failure, respiratory failure, atrial flutter secondary to septic shock with perforated viscus requiring emergent limited right colectomy. Continue with full supportive care and nothing by mouth (n.p.o.) status. Intravenous fluids. Correction of metabolic acidosis with sodium bicarbonate with repeat metabolic panel and adjustment. Monitors ins and outs, daily weights and urine output. Broad spectrum antibiotics with vancomycin and Zosyn for now. Await culture results. Respiratory failure monitored by Dr. Dent. Appreciates surgical input, nephrology management and pulmonary management of patient's ventilator. For atrial flutter, will obtain cardiology consultation with Dr. Riggs for management. 3. Atrial Fibrillation, rapid ventricular rate of 168. Patient received IV amiodarone times one. Per Dr. Riggs, no maintenance rate control medication for now. as needed iv amiodarone if uncontrolled tachycardia . 4. Oliguric renal failure secondary to septic shock from perforated viscus. Defer to Dr. Valencia for fluid management due to severe metabolic acidosis from septic shock. The patient has been given IV bicarbonate. Repeat metabolic panel and adjust accordingly. 5. Respiratory failure secondary to septic shock requiring ventilator management. Defer to Dr. Dent. 6. Nutrition. Nutrition is consulted. TPN. 7. Hypothyroidism. IV levothyroxine. DVT prophylaxis: compression stockings. Code Status: per my conversation with the patient prior to ICU transfer, she wants to be a FULL CODE, CPR, intubation. The patient remains critically ill. She remains a full code. EVARISTO
--- NOTE | 2017-01-26 09:40 | CR ---
DATE OF CONSULTATION: 01/26/2017 REFERRING PHYSICIAN: Dr. Narvaez INDICATION: Atrial fibrillation in a septic patient in shock. HISTORY OF PRESENT ILLNESS: Mrs. Kessler is a 71-year-old female who underwent colonoscopy 2 days prior to admission. There was attempt to ablate AVM. She returned back with abdominal pain. Initially, there was no evidence for bowel perforation, but the following day there was a free air under the diaphragm and she was taken emergently to the operating room for hemicolectomy and colostomy. She was subsequently taken back to the intensive care unit (ICU) intubated and on pressors in ongoing shock. During the last night, she developed atrial fibrillation/flutter with rapid ventricular response. She received a total 0.125 mg of IV digoxin and 150 mg of IV amiodarone. It led to slowing of the heart rate and then she converted back to sinus rhythm at approximately 7 o'clock this morning. At the time of my dictation, she is in sinus tachycardia with ventricular rate in 120s and a blood pressure is better, approximately 115/70. PAST MEDICAL HISTORY: 1. Type 2 diabetes. 2. Chronic obstructive pulmonary disease (COPD). 3. Chronic renal insufficiency. 4. Dyslipidemia. 5. Diverticulosis. 6. Degenerative joint disease. 7. Adrenal mass. PAST SURGICAL HISTORY: 1. Cholecystectomy. 2. Carpal tunnel release. 3. Dilation and curettage. 4. Bilateral knee arthroscopies. 5. Tonsillectomy. 6. Left ulnar nerve surgery. OUTPATIENT MEDICATIONS: - calcitriol 0.25 mcg 5 days a week - vitamin B12 - cyclobenzaprine 10 mg three times a day - donepezil 10 a day - Cymbalta 90 a day - chlorthalidone 12.5 a day - insulin - Synthroid 50 mcg a day - Victoza 1.8 mg subcutaneously - metoprolol 50 twice a day - pitavastatin 4 mg a day - prazosin 1 mg at night - Lyrica 100 mg three times a day - Advair inhaler - tramadol She reports a history of intolerance to several STATINS, SULFA, and LATEX. SOCIAL HISTORY: Based on notes in the computer, she has a history of prior smoking, approximately 50 pack-years. There is no alcohol or drug use. FAMILY HISTORY: Unable to obtain. REVIEW OF SYSTEMS: Unable to obtain. PHYSICAL EXAMINATION: The patient is in intensive care. She is sedated and intubated. Blood pressure, the last documented was 138/52, heart rate around 130s, sinus tachycardia. Saturation is 95% on 40% FIO2. Her weight is documented 105 kg. There is a left IJ catheter in place. Heart exam reveals somewhat muffled heart sound due to her obesity and respiratory sounds, but I do not appreciate any obvious murmur or rub. It is tachycardiac. Lungs reveal bilateral fine and inspiratory crackles throughout both lung cooper. Abdomen with no apparent guarding. Bowel sounds are faint but present. Colostomy looks intact. Extremities have mild edema but perfusion appears good peripheral pulses are palpable even though the quality is not good. Neurologically, the assessment is modified by sedation. There is certainly no response, she would not wake up to painful or verbal stimuli. LABORATORY: As of this morning, her basic metabolic panel reveals potassium 4.2, BUN 34, creatinine 2.5 for GFR 21 and glucose 273. Anion gap is 13, lactic acid yesterday was down to 3.6, magnesium is 1.4. Normal liver function tests, albumin 1.7. CBC as of this morning, WBC count 18.7, hemoglobin 12.7, hematocrit 39.5 and platelet count 375,000. Yesterday evening in differential there were 26% neutrophils, 36% bands and there were 16 metamyelocytes and 3 myelocytes. Echocardiogram was performed yesterday and revealed mild LVH with hyperdynamic LV systolic function and no significant valvular disease. ECG performed yesterday around noon reveals sinus rhythm with ventricular rate 105 beats per minute. There is a right bundle branch block and fairly minimal nonspecific repolarization abnormalities. I do not see any 12-lead ECG documented atrial fibrillation. ASSESSMENT AND PLAN: Mrs. Kessler is a 71-year-old female who has baseline advanced chronic obstructive pulmonary disease (COPD), obesity and type 2 diabetes, who presented with peritonitis. She was taken emergently to the operating room for hemicolectomy. She still is in shock but there is some evidence that her hemodynamic status is improving. She has now better blood pressure and starts to make some urine. As far as the management of atrial fibrillation/flutter is concerned, she is currently in sinus rhythm. Obviously, in this high stress situation, supraventricular tachyarrhythmias are very common. At this point, I would continue observation only. If there is a relapse, I would continue loading her with amiodarone, and possibly digoxin depending on hemodynamic response. Hopefully, they will be able to wean her off or at least down of the Levophed, which I think will help. Otherwise, she certainly should not be anticoagulated at this point. I think the risk more than outweighs the potential benefits. This may change as time goes. I do not believe that prophylactic administration of amiodarone would be beneficial unless there are recurrent episodes. I will continue following the patient with you.
--- NOTE | 2017-01-26 09:44 | CCN ---
DATE: 01/26/2017 START TIME: 839 STOP TIME: 923 I again attended Ruth Kessler. She remains intubated, sedated and mechanically ventilated. When sedation is lightened, she does move all extremities and opens her eyes spontaneously. T-max overnight 98.2. Blood pressure as low 77 systolic, but has high as 138 systolic. Currently she is 109 systolic and Levophed is down to 8 mcg. Vasopressin remains at 0.04 mcg. She is beginning to make some urine. Heart rate generally between 110 and 118. Respiratory rate 14 to the low 20s. Ins and outs midnight to midnight 9555 mL with 450 mL out. Since midnight 1231 mL in with 660 mL out. Most recent laboratories show a white blood cell count of 18.7, hemoglobin 12.7 and platelet count 375,000. No differential available currently. Sodium 136, potassium 4.2, chloride 107, CO2 16, BUN 34, creatinine 2.45 which is basically unchanged from yesterday. Lactic acid yesterday was down to 3.6. Albumin 1.7. Blood gas done this morning on an assist control 20, tidal volume 420, PEEP 5, FiO2 of 40% has a pH of 7.241, pCO2 33.4, and pO2 of 64. Chest x-ray shows lines and tubes in good position. Poor inspiratory effort. Increase in interstitial markings. On exam, she is arousable and moves all extremities. Pupils react. Sclerae clear. Left internal jugular vein noted. Trachea is midline. Oroendotracheal and nasogastric tubes are noted. Chest shows diminished, but symmetric expansion. There are some faint inspiratory crackles. More notable dependently. Some rhonchi that do clear with cough and suctioning. Cardiac exam is distant, mildly tachycardia. Peripheral pulses palpable. Trace edema. Abdomen shows dressings and drains intact. No audible bowel sounds at the moment. Extremities show no cyanosis or clubbing. Neurologically grossly nonfocal, she moves all extremities when sedation is lightened. The most pressing problems requiring my presence at the bedside: 1. Hypoxemia respiratory failure. 2. Metabolic acidosis. 3. Chronic kidney disease Stage III. 4. Peritonitis secondary to perforation of the right colon. 5. Diabetes mellitus. 6. Underlying obstructive lung disease. At this point, we have been able to make some headway with weaning of her vasopressors. Making urine on her own certainly is encouraging. Her last CVP was 20 to 21 and this is being rechecked. Antimicrobials, ulcer and deep vein thrombosis (DVT) prophylaxis is ordered through the primary service. If she is not able to have enteral feeds in the next 24 to 48 hours, then I would suggest beginning total parenteral nutrition (TPN). I have spoken at length with general surgery regarding her status this morning. She remains critically ill. Will proceed as outlined above. Prognosis remains guarded. I left the bedside at 0924 hours. 44 minutes of critical time delivered at the bedside, not including procedures.
--- NOTE | 2017-01-26 10:06 | IPNPDOC ---
Subjective General Date/Time Seen The patient was seen on 01/26/17 at 09:56. Subject Chief Complaint/History The patient is a 71-year-old female postop day 1 after expiratory laparotomy for perforated viscus. She had perforation on her ascending colon . She underwent right colectomy with ileostomy. She remains critically ill, intubated on vasopressin and the levophed. She did make some urine. Early this morning was noted to be getting more tachycardic. Current Medications Current Medications Current Medications Acetaminophen (Tylenol Tab) 650 mg Q4HP PRN PO MILD PAIN OR FEVER; Start at 02:45; Stop 02/23/17 at 02:44 Albuterol/ Ipratropium (Duoneb (Ipr 0.5mg/Alb 2.5mg)) 3 ml RQ4H NEB Last administered on 01/26/17 07:31; Start 01/25/17 at 20:00; Stop 02/24/17 at 19:59 Amiodarone HCl 150 mg/IV Miscellaneous Supplies 100 ml @ 600 mls/hr STAT STAT IV Last administered on 01/26/17 05:25; Start 01/26/17 at 05:14; Stop at 05:23; Status DC Amiodarone HCl 150 mg/IV Miscellaneous Supplies 100 ml @ 600 mls/hr STAT STAT IV ; Start 01/26/17 at 05:14; Stop 01/26/17 at 05:23; Status Cancel Azithromycin 500 mg/IV Miscellaneous Supplies 1 each/ Dextrose 255 ml @ 255 mls /hr Q24H IV Last administered on 01/25/17 13:21; Start 01/25/17 at 12:00; Stop 01/25/17 at 17:39; Status DC Bupropion HCl (Wellbutrin Xl) 150 mg DAILY PO Last administered on 01/25/17 08 :22; Start 01/24/17 at 09:00; Stop 01/25/17 at 17:39; Status DC Calcitriol (Rocaltrol) 0.25 mcg MoTuWeThFr@0900 PO ; Start 01/26/17 at 09:00; Stop 01/26/17 at 09:00; Status DC Ciprofloxacin 200 mg/IV Miscellaneous Supplies 100 ml @ 100 mls/hr Q12H IV Last administered on 01/25/17 04:54; Start 01/24/17 at 14:00; Stop 01/25/17 at 09:06; Status DC Cyclobenzaprine HCl (Flexeril) 10 mg TID PO Last administered on 01/25/17 08: 23; Start 01/24/17 at 09:00; Stop 01/25/17 at 11:50; Status DC Desloratidine (Clarinex) 5 mg DAILY PO Last administered on 01/25/17 08:22; Start 01/24/17 at 09:00; Stop 01/25/17 at 17:39; Status DC Dextrose (Dextrose 50%) 25 ml ASDIRECTED PRN IV SEE LABEL COMMENTS; Start 01/24 at 02:30; Stop 02/23/17 at 02:29 Dextrose (Dextrose 50%) 25 ml ASDIRECTED PRN IV SEE LABEL COMMENTS; Start 01/25 at 01:00; Stop 02/24/17 at 00:59; Status Cancel Digoxin (Lanoxin) 0.125 mg STAT STAT IV Last administered on 01/26/17 05:00; Start 01/26/17 at 04:52; Stop 01/26/17 at 04:54; Status DC Duloxetine HCl (Cymbalta) 30 mg DAILY PO ; Start 01/24/17 at 09:00; Stop at 09:00; Status DC Duloxetine HCl (Cymbalta) 60 mg DAILY PO ; Start 01/24/17 at 09:00; Stop at 09:00; Status DC Duloxetine HCl (Cymbalta) 90 mg DAILY PO Last administered on 01/25/17 08:22; Start 01/24/17 at 09:00; Stop 01/25/17 at 17:39; Status DC Fentanyl Citrate (Sublimaze) 25 mcg Q5MP PRN IV MODERATE PAIN (PS 4-7); Start 01/25/17 at 18:15; Stop 01/25/17 at 19:15; Status DC Glucagon (Glucagon) 1 mg ASDIRECTED PRN SC SEE LABEL COMMENTS; Start 01/24/17 at 02:30; Stop 02/23/17 at 02:29 Glucagon (Glucagon) 1 mg ASDIRECTED PRN SC SEE LABEL COMMENTS; Start 01/25/17 at 01:00; Stop 02/24/17 at 00:59; Status UNV Glucose (Glucose) 16 GM ASDIRECTED PRN PO SEE LABEL COMMENTS; Start 01/24/17 at 02:30; Stop 02/23/17 at 02:29 Glucose (Glucose) 16 GM ASDIRECTED PRN PO SEE LABEL COMMENTS; Start 01/25/17 at 01:00; Stop 02/24/17 at 00:59; Status Cancel Heparin Sodium (Porcine) (Heparin) 5,000 units Q8H SC Last administered on 01/26 05:51; Start 01/24/17 at 06:00; Stop 01/29/17 at 05:59 Home Med (Med Rec Complete!) ASDIRECTED XX ; Start 01/24/17 at 00:30; Stop at 00:31; Status DC Hydromorphone HCl (Dilaudid) 0.2 mg Q5MP PRN IV MODERATE/SEVERE PAIN (PS 7-10) ; Start 01/25/17 at 18:15; Stop 01/25/17 at 18:15; Status DC Hydromorphone HCl (Dilaudid) 0.4 mg Q5MP PRN IV MODERATE/SEVERE PAIN (PS 7-10) ; Start 01/25/17 at 18:15; Stop 01/25/17 at 19:15; Status DC Insulin Detemir (Levemir Insulin) 50 units QHS SC Last administered on 21:11; Start 01/24/17 at 21:00; Stop 01/25/17 at 17:39; Status DC Insulin Human Lispro (HumaLOG INSULIN) SEE PROTOCOL TABLE Q6H SC Last administered on 01/25/17 00:00; Start 01/24/17 at 06:00; Stop 01/25/17 at 01:01 ; Status DC Insulin Human Lispro (HumaLOG INSULIN) SEE PROTOCOL TABLE Q6H SC Last administered on 01/26/17 05:52; Start 01/26/17 at 00:00; Stop 02/25/17 at 00:00 Insulin Human Lispro (HumaLOG INSULIN) See Protocol Table AC SC Last administered on 01/25/17 13:26; Start 01/25/17 at 07:30; Stop 01/25/17 at 21:09 ; Status DC Insulin Human Lispro (HumaLOG INSULIN) See Protocol Table QHS SC ; Start at 21:00; Stop 02/24/17 at 20:59; Status Cancel Lactated Ringer's 1,000 ml @ 200 mls/hr Q5H IV Last administered on 01/26/17 04:30; Start 01/25/17 at 18:30; Stop 01/26/17 at 06:52; Status DC Lactobacillus Acidophilus (Bacid) 1 ea DAILY PO Last administered on 01/26/17 08:54; Start 01/24/17 at 09:00; Stop 02/23/17 at 08:59 Levothyroxine Sodium (Synthroid) 25 mcg DAILY@0600 IV ; Start 01/26/17 at 06:00 ; Stop 02/25/17 at 05:59 Levothyroxine Sodium (Synthroid) 50 mcg DAILY@0600 PO Last administered on 01/25 05:35; Start 01/24/17 at 06:00; Stop 01/25/17 at 17:39; Status DC Magnesium Sulfate/ Dextrose 1 gm/IV Miscellaneous Supplies 100 ml @ 100 mls/hr 1T@0700,0800 IV Last administered on 01/26/17 07:01; Start 01/26/17 at 07:00; Stop 01/26/17 at 08:59; Status DC Magnesium Sulfate/ Dextrose 1 gm/IV Miscellaneous Supplies 100 ml @ 100 mls/hr 1T@0800,0900 IV Last administered on 01/25/17 08:24; Start 01/25/17 at 08:00; Stop 01/25/17 at 09:59; Status DC Metoclopramide HCl (REGLAN INJection) 10 mg Q6HP PRN IV NAUSEA OR VOMITING; Start 01/25/17 at 18:15; Stop 01/25/17 at 19:15; Status DC Metoprolol Tartrate (Lopressor) 50 mg BID PO Last administered on 01/25/17 08: 23; Start 01/24/17 at 09:00; Stop 01/25/17 at 12:02; Status DC Metronidazole 500 mg/IV Miscellaneous Supplies 100 ml @ 100 mls/hr Q8H IV Last administered on 01/25/17 04:54; Start 01/24/17 at 11:00; Stop 01/25/17 at 09:06; Status DC Morphine Sulfate (Morphine Sulfate Inj) 2 mg Q2HP PRN IV SEVERE PAIN (PS 8-10) Last administered on 01/26/17 03:56; Start 01/24/17 at 02:45; Stop 01/31/17 at 02:44 Morphine Sulfate (Morphine Sulfate Inj) 4 mg Q15M PRN IV MODERATE/SEVERE PAIN ( PS 5-10) Last administered on 01/24/17 01:54; Start 01/23/17 at 21:00; Stop at 01:55; Status DC Naloxone HCl (Narcan) 0.4 mg STAT STAT IV ; Start 01/25/17 at 11:16; Stop 01/25 at 11:17; Status DC Norepinephrine Bitartrate 16 mg/ Dextrose 516 ml @ 19.35 mls/ hr Q24H IV Last administered on 01/25/17 17:41; Start 01/25/17 at 13:00; Stop 02/24/17 at 12:59 Ondansetron HCl (ZOFRAN INJection) 4 mg Q4HP PRN IV NAUSEA OR VOMITING; Start 01/25/17 at 18:15; Stop 01/25/17 at 19:15; Status DC Ondansetron HCl (ZOFRAN INJection) 4 mg Q6HP PRN IV NAUSEA OR VOMITING Last administered on 01/24/17 17:34; Start 01/24/17 at 02:45; Stop 02/23/17 at 02:44 Oxycodone/ Acetaminophen (Percocet 5mg/ 325mg Tablet) 1 tab Q4HP PRN PO MODERATE PAIN (PS 5-7) Last administered on 01/24/17 18:36; Start 01/24/17 at 02:45; Stop 01/25/17 at 11:47; Status DC Pantoprazole Sodium (Protonix) 40 mg Q24H IV Last administered on 01/26/17 08: 49; Start 01/24/17 at 09:00; Stop 02/23/17 at 08:59 Piperacillin Sod/ Tazobactam Sod 3.375 gm/Dextrose 50 ml @ 50 mls/hr Q6H IV Last administered on 01/26/17 08:47; Start 01/25/17 at 09:00; Stop 02/01/17 at 08:59 Prazosin HCl (Minipress) 1 mg QHS PO Last administered on 01/24/17 21:10; Start 01/24/17 at 21:00; Stop 01/25/17 at 17:39; Status DC Pregabalin (Lyrica) 100 mg TID PO Last administered on 01/25/17 08:23; Start 01/24/17 at 09:00; Stop 01/25/17 at 11:50; Status DC Propofol 1000 mg/ IV Miscellaneous Supplies 100 ml @ 20 mls/hr Q5H IV Last administered on 01/26/17 08:47; Start 01/25/17 at 19:30; Stop 02/01/17 at 19:29 Salmeterol Xinafoate/ Fluticasone (Advair Hfa 115/ 21) 2 puff BID INH Last administered on 01/25/17 07:07; Start 01/24/17 at 09:00; Stop 02/23/17 at 08:59 Senna/Docusate Sodium (Senokot S) 1 tab BID PO Last administered on 01/25/17 08:23; Start 01/24/17 at 09:00; Stop 01/25/17 at 17:39; Status DC Sodium Bicarbonate 100 meq/Dextrose/Water 1,100 ml @ 200 mls/hr Q5H30M IV Last administered on 01/26/17 08:54; Start 01/26/17 at 08:00; Stop 01/26/17 at 18:59 Sodium Bicarbonate (Sodium Bicarbonate) 50 meq STAT STAT IV Last administered on 01/25/17 20:57; Start 01/25/17 at 20:29; Stop 01/25/17 at 20:31; Status DC Sodium Bicarbonate (Sodium Bicarbonate) 50 meq STAT STAT IV Last administered on 01/26/17 05:54; Start 01/26/17 at 05:43; Stop 01/26/17 at 05:47; Status DC Sodium Chloride 1,000 ml @ 75 mls/hr [id number] IV Last administered on 17:41; Start 01/25/17 at 18:15; Stop 01/25/17 at 19:15; Status DC Sodium Chloride 1,000 ml @ 100 mls/hr Q10H IV Last administered on 01/25/17 04:54; Start 01/24/17 at 02:30; Stop 01/25/17 at 11:48; Status DC Vancomycin HCl 1000 mg/IV Miscellaneous Supplies 1 each/ Dextrose 270 ml @ 270 mls/hr Q24H IV ; Start 01/26/17 at 06:00; Stop 01/26/17 at 06:00; Status DC Vancomycin HCl 1000 mg/IV Miscellaneous Supplies 1 each/ Dextrose 270 ml @ 270 mls/hr Q24H IV ; Start 01/26/17 at 10:00; Stop 02/02/17 at 09:59 Vasopressin 20 units/Sodium Chloride 501 ml @ 60 mls/hr Q8H21M IV Last administered on 01/26/17 01:22; Start 01/25/17 at 17:00; Stop 02/24/17 at 16:59 Vitamin D (Vitamin D) 2,000 units DAILY PO Last administered on 01/25/17 08:22 ; Start 01/24/17 at 09:00; Stop 02/23/17 at 08:59 Allergies Coded Allergies: Latex (Verified Allergy, Unknown, 05/30/15) Atorvastatin (Unverified Adverse Reaction, Severe, MUSCLE ACHE, 01/23/17) Statins (Verified Adverse Reaction, Severe, MUSCLE ACHES, TOTALLY INCAPACITATES, 11/09/12) Sulfamethoxazole w/Trimethoprim (Unverified Adverse Reaction, Mild, pain and bladder infection, 01/23/17) Objective Physical Examination Examination GENERAL APPEARANCE: Patient seen in the ICU, intubated, sedated. SKIN: Warm and moist; . HEENT: Normocephalic, atraumatic. Pale palpebral conjunctiva, anicteric sclerae. Lips and mucosa appear dry. NECK: Supple, no thyromegaly. No obvious jugular venous distention. LUNGS: Clear to auscultation bilaterally. No wheezing appreciated. HEART: No chest wall abnormalities. Tachycardic in the 120s on the monitor. ABDOMEN: Abdomen is round, soft, mildly distended, quiet abdomen. Right ileostomy purplish, swollen, ischemic-appearing no function yet. Midline incision clean and dry. SHAMA drains with light pink serosanguineous fluid. EXTREMITIES: Positive anasarca]. Vital Signs Vital Signs Date Time Temp Pulse Resp B/P (MAP) Pulse Ox O2 Delivery O2 Flow Rate FiO2 01/26/17 09:02 21 93 60 01/26/17 06:30 130 138/52 (80) Ventilator 112/47 (68) 01/26/17 04:00 98.2 01/25/17 12:02 3.0 I&Os I&O- Last 24 Hours up to 6 AM 01/26/17 05:59 Intake Total 9716 ml Output Total 895 ml Balance 8821 ml Urine 255 (370) Laboratory Data Labs 24H Laboratory Tests 2 01/25/17 11:30: Blood Gas Bicarbonate Standard 20.8L, Arterial Blood pH 7.358, Arterial Blood Partial Pressure CO2 37.8, Arterial Blood Partial Pressure O2 48.7*L, Arterial Blood Total CO2 21.9L, Arterial Blood HCO3 20.8L, Arterial Blood Base Excess - 4.2L, Arterial Blood Oxygen Saturation 85.3L 01/25/17 11:35: Bedside Glucose (Misc Panel) 241H, Lactic Acid Level 5.2*H, Ammonia 19 01/25/17 11:51: Total Creatine Kinase 289H, Creatine Kinase MB 2.9, Creatine Kinase MB Relative Index 1.00, Troponin I < 0.02 01/25/17 17:46: Neutrophils 26L, Band Neutrophils 36H, Lymphocytes (Manual) 8L, Monocytes ( Manual) 10H, Metamyelocytes 16H, Myelocytes 3H, Atypical Lymphocytes 1, Toxic Vacuolation 1+, Platelet Estimate INVALID, Clumped Platelets SMALL AMT, Giant Platelets 1+, Maral Cells 1+, Anion Gap 8, Glomerular Filtration Rate 20.6L, Blood Urea Nitrogen 38H, Creatinine 2.45H, Sodium Level 135L, Potassium Level 4.4, Chloride Level 107, Carbon Dioxide Level 20L, Calcium Level 8.1L, Aspartate Amino Transf (AST/SGOT) 37, Alanine Aminotransferase (ALT/SGPT) 22, Alkaline Phosphatase 67, Total Bilirubin 0.9, Total Protein 4.7#L, Albumin 1.7#L , Albumin/Globulin Ratio 0.57L 01/25/17 17:47: Blood Gas Bicarbonate Standard 14.9L, Arterial Blood pH 7.187*L, Arterial Blood Partial Pressure CO2 41.9, Arterial Blood Partial Pressure O2 67.5L, Arterial Blood Total CO2 16.8L, Arterial Blood HCO3 15.5L, Arterial Blood Base Excess - 12.1L, Arterial Blood Oxygen Saturation 91.1L, Arterial Blood Gas Tidal Volume 420, Arterial Blood Gas Respiration Rate 16, Arterial Blood Gas Liter Flow 40, Oxygen Delivery Device MECHAN. VENT 01/25/17 17:50: Lactic Acid Followup at 4 Hours 3.6*H 01/25/17 19:44: Bedside Glucose (Misc Panel) 235H 01/25/17 20:09: Blood Gas Bicarbonate Standard 16.1L, Arterial Blood pH 7.252L, Arterial Blood Partial Pressure CO2 36.5, Arterial Blood Partial Pressure O2 69.9L, Arterial Blood Total CO2 16.8L, Arterial Blood HCO3 15.7L, Arterial Blood Base Excess - 10.6L, Arterial Blood Oxygen Saturation 93.2L 01/25/17 21:47: Blood Gas Bicarbonate Standard 16.7L, Arterial Blood pH 7.285L, Arterial Blood Partial Pressure CO2 34.1L, Arterial Blood Partial Pressure O2 65.2L, Arterial Blood Total CO2 16.9L, Arterial Blood HCO3 15.8L, Arterial Blood Base Excess - 9.8L, Arterial Blood Oxygen Saturation 93.0L, Arterial Blood Gas Vent Mode AC, Arterial Blood Gas Tidal Volume 420, Arterial Blood Gas Respiration Rate 20, Arterial Blood Gas PEEP 5, Arterial Blood Gas FiO2 40, Arterial Blood Gas Puncture Site ART LINE, Oxygen Delivery Device MECHAN. VENT 01/25/17 23:37: Bedside Glucose (Misc Panel) 224H 01/26/17 04:48: Blood Gas Bicarbonate Standard 14.9L, Arterial Blood pH 7.241*L, Arterial Blood Partial Pressure CO2 33.4L, Arterial Blood Partial Pressure O2 64.0L, Arterial Blood Total CO2 15.0L, Arterial Blood HCO3 14.0L, Arterial Blood Base Excess - 12.2L, Arterial Blood Oxygen Saturation 91.7L 01/26/17 05:09: Anion Gap 13, Glomerular Filtration Rate 20.6L, Blood Urea Nitrogen 34H, Creatinine 2.45H, Sodium Level 136, Potassium Level 4.2, Chloride Level 107, Carbon Dioxide Level 16L, Calcium Level 8.1L, Aspartate Amino Transf (AST/SGOT) 86H, Alanine Aminotransferase (ALT/SGPT) 29, Alkaline Phosphatase 61, Total Bilirubin 1.0, Total Protein 4.9L, Albumin 1.7L, Magnesium Level 1.4L, Albumin/ Globulin Ratio 0.53L 01/26/17 05:45: Bedside Glucose (Misc Panel) 275H CBC/BMP Laboratory Tests 01/25/17 17:46 Red Blood Count 4.32, Mean Corpuscular Volume 87.7, Mean Corpuscular Hemoglobin 28.6, Mean Corpuscular Hemoglobin Concent 32.6, Red Cell Distribution Width 14.1 , Calcium Level 8.1 L, Aspartate Amino Transf (AST/SGOT) 37, Alanine Aminotransferase (ALT/SGPT) 22, Alkaline Phosphatase 67, Total Bilirubin 0.9, Total Protein 4.7 #L, Albumin 1.7 #L 01/26/17 05:09 Red Blood Count 4.46, Mean Corpuscular Volume 88.5, Mean Corpuscular Hemoglobin 28.5, Mean Corpuscular Hemoglobin Concent 32.2, Red Cell Distribution Width 14.2 , Calcium Level 8.1 L, Aspartate Amino Transf (AST/SGOT) 86 H, Alanine Aminotransferase (ALT/SGPT) 29, Alkaline Phosphatase 61, Total Bilirubin 1.0, Total Protein 4.9 L, Albumin 1.7 L Microbiology Microbiology 01/24/17 Blood Culture - Preliminary, Resulted No Growth after 48 hours. All Specime... 01/24/17 Blood Culture - Preliminary, Resulted No Growth after 48 hours. All Specime... 01/25/17 Anaerobic Culture, Received Pending 01/26/17 Gram Stain, Received Pending 01/26/17 Sputum Culture, Received Pending 01/26/17 MRSA Screen, Received Pending 01/25/17 Wound Culture, Received Pending Impression Postop day 1 after expiratory laparotomy with right colectomy, ileostomy Critical illness secondary sepsis from perforation of the descending colon Acute kidney injury superimposed on chronic kidney disease Respiratory failure on vent SVT Patient remains critically ill. Discussed the case with Dr. Dent. We'll try to go down and then the roof and first before discontinuing the vasopressin. Her abdomen looks much less distended this morning of no function yet as expected. Once we are off the pressors, will try to see if we can trickle feed her with a nasogastric tube. She is trying to make some urine. We'll keep her on the current IV fluid rates. Continue current antibiotics. She is also being evaluated by cardiology for the SVT. She's been given digoxin. So hopefully she improves gradually. Continue full critical care support. Plan / VTE VTE Prophylaxis Ordered?: Yes Plan / Urinary Catheter Reason for insertion/continuin: Critical Pt monitoring BRITNEY RITCHIE MD Jan 26, 2017 10:06
[2017-01-26] MEDS: NOREPINEPHRINE BITARTRATE 16 MG in D5W 500 ML IV SCH (10:37)
[2017-01-26] MEDS ORDERED: VANCOMYCIN HCL 1,000 MG, VIAL MATE ADAPTER 1 EACH in D5W 250 ML IV ONE (10:58)
--- NOTE | 2017-01-26 11:01 | REP ---
REASON: Respiratory failure. COMPARISON: Yesterday. The cardiomediastinal silhouette is unchanged. The technique utilized in obtaining the radiograph has magnified the cardiac silhouette and accentuated the interstitial markings. The tubes and lines are unchanged. T here is a new patchy opacity in the right upper lobe with a new left lower lobe discoid opacity. There is no change in the osseous structures. IMPRESSION: New right upper and left lower lobe opacities as described above suspicious for pneumonia. Correlate clinically. Signed by Carlos Palomino DO 01/26/2017 03:58 P
--- NOTE | 2017-01-26 11:13 | IPN ---
DATE: 01/26/2017 Mrs. Kessler is seen this morning on her bedside. She underwent surgery yesterday for perforated viscus and underwent right hemicolectomy with colostomy yesterday. She is currently on Levophed and vasopressor due to septic shock. She has been intubated since prior to surgery yesterday. PHYSICAL EXAMINATION: On physical exam, critically ill elderly lady laying in the bed who is intubated and sedated. Temperature is 98.2 degrees Fahrenheit, heart rate about 120 per minute and respiratory rate 20 per minute on the ventilator. Blood pressure is 112/47 mmHg and oxygen saturation 95% on 40% oxygen. Intake and output records from yesterday showed total intake 9555 and output only 450 mL. She is positive just over 9 liters yesterday while day before yesterday she was about 3.5 liters positive. Her head is atraumatic. Neck veins are moderately distended. Heart sounds are tachycardiac. Lungs have bilateral moderate air entry with basilar rales and diminished breath sounds. Abdomen is distended but soft. Bowel sounds are not audible. Extremities have no cyanosis or clubbing. Neurologically, she is sedated at this point. Today's labs show WBC count 18.7, hemoglobin 12.7 and hematocrit 39.5. Platelets 375. Sodium 136 and potassium 4.2. CO2 is 16, BUN 34 and creatinine 2.45. Glucose 276 and calcium 8.1. PROBLEMS: 1. Acute renal failure superimposed on chronic kidney disease. The patient is still oliguric. She is more than 9 liters positive in fluid balance over the last 24 hours. At present, she is making some urine, and we will continue to monitor. She is on two pressors. If her kidney function does not improve in next 12-24 hours then we will need to consider CVVHD. I have discussed this with the patient's family and we will continue to monitor her urine output and kidney function closely. 2. Metabolic acidosis. Most likely this is related to septic shock and acute renal failure. She has already been started on bicarbonate drip at 200 mL per hour. We will wait for a repeat blood gas in a few hours and also repeat her chemistry. If her acidosis improves with bicarbonate drip, then we will continue with the same and if it does not, then we will consider with CVVHD. 3. Septic shock with perforated viscus. The patient is status post laparotomy and right hemicolectomy. She remains on broad-spectrum antibiotics. She is on two pressors at present and also receiving bicarbonate drip at 200 mL per hour. We will need to monitor her volume status closely. All in all, Mrs. Kessler remains critically ill and we will continue to follow her along with you. Dictation dictated by Dr. Villegas note MTDD
[2017-01-26 12:10] LABS: ABG BASE EXCESS -7.4 (-2.0-2.0); ABG HCO3 18.1 MEQ/L (22.0-26.0); ABG PARTIAL PRESSURE O2 64.9 mmHg (75.0-100.0); ABG STANDARD HCO3 18.4 MEQ/L (22.0-26.0); ABG TOTAL CO2 19.3 MEQ/L (23.0-31.0); ABG pH (ARTERIAL) 7.308 UNITS (7.350-7.450)
[2017-01-26] MEDS ORDERED: DIGOXIN INJ 0.5 MG/2 ML AMP (J1160) IV ONE (13:30)
[2017-01-26 13:40] LABS: CALCIUM LEVEL 8.3 MG/DL (8.8-10.2); CREATININE FOR GFR 2.07 MG/DL (0.55-1.02); GLOMERULAR FILTRATION RATE 25.1 (>39); MAGNESIUM LEVEL 1.9 MG/DL (1.8-2.4); POTASSIUM SERUM 3.7 MEQ/L (3.5-5.1)
[2017-01-26] MEDS ORDERED: AMIODARONE HCL 360 MG in APPROPRIATE DILUENT 1 EA IV SCH (14:30)
--- NOTE | 2017-01-26 15:27 | PHACANCOPD ---
PHARMACY VANCOMYCIN DOSING Pt Demographics Demographics Patient Age:71 , Weight:105.300 , Gender: female Adjusted Body Weight Date: 01/25/17, Adjusted Body Weight: [67.9] Kg Vancomycin Vancomycin indication: pneumonia, sepsis Vancomycin Target Ranges: 10-20 mcg/ml Vancomycin Load Y/N: Yes Load Dose Date Time Vancomycin Load Dose: 1000mg Date: 01/25 Time: 14:00 Vancomycin Dose Date: 01/25/17. Current Vancomycin Dose: [1g IV q24h @06] Intermittent Dosing?: No Labs Labs Vital Signs Label Value Date Time Patient Temperature 99.0 degrees F 01/26/17 1330 Temperature Source Skin 01/26/17 1330 Item Value Date Time White Blood Count 10.3 K/mm3 H 01/25/17 1746 White Blood Count 18.7 K/mm3 H 01/26/17 0509 White Blood Count 20.4 K/mm3 H 01/25/17 0503 Lactic Acid Followup at 4 Hours 3.6 MMOL/L *H 01/25/17 1750 Creatinine 2.45 MG/DL H 01/26/17 0509 Creatinine 2.07 MG/DL H 01/26/17 1308 Micro Microbiology 01/24/17 Blood Culture - Preliminary, Resulted No Growth after 48 hours. All Specime... 01/24/17 Blood Culture - Preliminary, Resulted No Growth after 48 hours. All Specime... 01/25/17 Anaerobic Culture, Received Pending 01/26/17 Gram Stain - Final, Resulted 01/26/17 Sputum Culture, Resulted Pending 01/26/17 MRSA Screen, Received Pending 01/25/17 Wound Culture, Received Pending Creatinine Clearance Date:01/25/17. Creatinine Clearance: [25 ml/min using adjusted BW]. Pending Labs Vanco trough scheduled 01/27 @05:00 Assessment and Plan Maintaining Current Dose?: Yes Reason for dose change: No Dose Change Pharmacist Note Pharmacist Note 01/26: Patient was due to start Vancomycin yesterday but it was discontinued before patient ever received first dose. She was started today on Vancomycin 1gm at 10am, and will be continued tomorrow on Vancomycin 1gm IV q24h starting at 6 am. She still remains intubated at this time, and kidney function is worsening. She is making some urine at this time. Per Dr. Valencia's note if patient's kidney function does not improve she may be a candidate for CVVHD. We will continue to monitor patient and make adjustments as necessary. Date: 01/25/17. Pharmacist note: pt presented to the ER on 01/23 for abdominal pain s/p colonoscopy and thermal ablation done by Dr. Butler on 01/22. She was admitted for pancolitis, and was started on Cipro and Flagyl IV for ~36 hours. She was switched to Zosyn yesterday, and today she decompensated further and was transferred to ICU where Zithromax and Vancomycin were added to her regimen. Chest xrays also show RLL infiltrate. She has not been on vancomycin at our facility in the past, nor does she have a Hx of MRSA. Due to her elevated SCr, I will start her on Vancomycin 1g this afternoon followed by 1g q24h dosing tomorrow morning @06:00. Blood cultures drawn on 01/24 are NGTD. I have a trough scheduled before the 3rd dose. We will continue to monitor. EVERT FELIZ PHARMACY Jan 26, 2017 15:27
[2017-01-26 17:30] LABS: ABG BASE EXCESS -7.7 (-2.0-2.0); ABG HCO3 17.6 MEQ/L (22.0-26.0); ABG PARTIAL PRESSURE CO2 35.2 mmHg (35.0-45.0); ABG PARTIAL PRESSURE O2 71.6 mmHg (75.0-100.0); ABG STANDARD HCO3 18.2 MEQ/L (22.0-26.0); ABG TOTAL CO2 18.7 MEQ/L (23.0-31.0); ABG pH (ARTERIAL) 7.317 UNITS (7.350-7.450)
[2017-01-26 17:51] LABS: CALCIUM LEVEL 8.1 MG/DL (8.8-10.2); CREATININE FOR GFR 2.05 MG/DL (0.55-1.02); GLOMERULAR FILTRATION RATE 25.3 (>39); POTASSIUM SERUM 3.5 MEQ/L (3.5-5.1)
--- NOTE | 2017-01-26 18:36 | REP ---
PORTABLE CHEST: AP portable view of the chest is performed and compared to prior exam earlier today. There are increasing diffuse bilateral infiltrates. Heart is enlarged. There is calcification of the thoracic aorta. Endotracheal tube remains in good position. Nasogastric tube is visualized but the distal end can not be seen. Signed by Alonso Solis MD 01/26/2017 08:23 P
--- NOTE | 2017-01-26 19:34 | CCN ---
DATE: 01/26/2017 START TIME: 1726 STOP TIME: 1752 I attended Ruth Kessler for increasing FiO2 requirements. Patient has been examined and record has been reviewed. Chest x-ray shows increasing diffuse edema. Arterial blood gas done on 95% FiO2 was reviewed. PAo2 of 71. PH and pco2 mildly improved from this morning. She is on a bicarbonate drip. On exam, she is arousable. Pupils react. Sclerae clear. Chest shows diffuse inspiratory crackles both anterior and posterior. No convincing rhonchi. Expansion is symmetric. Peak aortic pressures on the ventilator 19-22. Cardiac exam is mildly tachycardic but regular. Peripheral pulses are palpable, trace edema. Abdomen unchanged from this morning. Dressing and drains intact. The most pressing problems requiring my presence at the bedside: 1. Worsening hypoxemia. At this point, it appears that she has increased pulmonary vasculature. Last CVP was only 12 but certainly her exam would suggest that she has mobilization of fluid into her pulmonary interstitum. In view of this we will make some ventilator changes including increase in her positive end expiratory pressure (PEEP) with an increase in peep to 10 and her total volume to 450. Saturations improved from 89 to 90% to 91 to 93% currently. We will decrease her total intravenous (IV) fluid to 200 mL an hour in we have been able to wean her Levophed. Her vasopressin is unchanged. She is making some urine. At this point we will proceed as outlined above. She overall remains critically ill and her prognosis remains guarded at best. I left the bedside 1752 hours. 25 minutes of critical care time delivered at bedside, not including procedures.
[2017-01-26] MEDS: AMIODARONE HCL 360 MG in APPROPRIATE DILUENT 1 EA IV SCH (20:06)
[2017-01-27] VITALS (57 sets, daily range): BP systolic 73–156; BP diastolic 35–94
[2017-01-27] MEDS: HumaLOG INSULIN (NovoLOG) PER UNIT SC SCH ×5 (00:18→23:40)
--- NOTE | 2017-01-27 00:26 | ECGEPIP ---
Stationary ECG Study [facility] Test Date: 2017-01-26 Pat Name: ANTONIO ERVIN Department: Room: [place] [address] Gender: F Integrity Analyst: SHANNON : 1945 Requested By: CORRINA Aguilar Order Number: [id number] Reading MD: Klaus Robison Measurements Intervals [place] Rate: 155 P: [place]: 0 QRS: 42 QRSD: 118 T: -5 QT: 339 QTc: 545 Interpretive Statements ATRIAL FLUTTER/TACHYCARDIA WITH RAPID VENTRICULAR RESPONSE LOW QRS VOLTAGE COMPLEXES RIGHT BUNDLE BRANCH BLOCK COMPARED TO THE LAST 2 TRACINGS, PATIENT THEN WAS IN NORMAL SINUS RHYTHM Electronically Signed On 01-27-2017 0:26:27 EDT by Klaus Robison
--- NOTE | 2017-01-27 00:28 | ECGEPIP ---
Stationary ECG Study [facility] Test Date: 2017-01-26 Pat Name: ANTONIO ERVIN Department: Room: [place] [address] Gender: F Ldr Nurse: EMILIA : 1945 Requested By: CORRINA Aguilar Order Number: [id number] Reading MD: Klaus Robison Measurements Intervals [place] Rate: 126 P: 42 NM: 153 QRS: 36 QRSD: 138 T: -6 QT: 334 QTc: 485 Interpretive Statements SINUS TACHYCARDIA WITH OCCASIONAL SUPRAVENTRICULAR PREMATURE COMPLEXES RIGHT BUNDLE BRANCH BLOCK INTERPRETATION BASED ON A DEFAULT AGE OF 40 YEARS COMPARED TO THE LAST TRACING ON 01/26/2017 AT 4:44cOLON 53. PATIENT APPEARED TO BE NOW IN SINUS TACHYCARDIA Electronically Signed On 01-27-2017 0:28:12 EDT by Klaus Robison
--- NOTE | 2017-01-27 00:36 | ECGEPIP ---
Stationary ECG Study [facility] Test Date: 2017-01-26 Pat Name: ANTONIO ERVIN Department: Room: [place] [address] Gender: F Fur Dressing Supervisor: EMILIA : 1945 Requested By: Jordin Riggs Order Number: [id number] Reading MD: Klaus Robison Measurements Intervals [place] Rate: 159 P: [place]: 0 QRS: 53 QRSD: 133 T: -19 QT: 308 QTc: 501 Interpretive Statements POSSIBLE ATRIAL FIBRILLATION WITH RAPID VENTRICULAR RESPONSE WITH ABERRANT CONDUCTION OR RIGHT BUNDLE BRANCH BLOCK INTERPRETATION BASED ON A DEFAULT AGE OF 40 YEARS COMPARED TO THE TRACING ON 01/26/2017 AT 4:44:53. NO SIGNIFICANT CHANGES Electronically Signed On 01-27-2017 0:36:14 EDT by Klaus Robison
[2017-01-27] MEDS: VASOPRESSIN INJ 20 UNITS in NS 500 ML IV SCH ×3 (02:28→14:10)
[2017-01-27] MEDS: PIPERACILLIN/TAZOBACTAM SOD 3.375 GM in D5W MINI-BAG PLUS 50 ML IV SCH ×3 (02:37→14:08)
[2017-01-27 02:49] LABS: CALCIUM LEVEL 8.1 MG/DL (8.8-10.2); CREATININE FOR GFR 1.8 MG/DL (0.55-1.02); GLOMERULAR FILTRATION RATE 29.4 (>39); POTASSIUM SERUM 3.4 MEQ/L (3.5-5.1)
[2017-01-27] MEDS: IPRATROPIUM 0.5MG/ALBUTEROL 2.5MG INH SOL UD 3ML (DUONEB)(J7620) NEB SCH ×6 (03:44→23:19)
[2017-01-27] MEDS ORDERED: PROPOFOL 1,000 MG/100 ML VIAL As Ordered ONE (03:58)
[2017-01-27] MEDS: PROPOFOL 1,000 MG in APPROPRIATE DILUENT 1 EA IV SCH ×7 (04:09→23:54)
[2017-01-27 05:57] LABS: ABG BASE EXCESS -0.2 (-2.0-2.0); ABG HCO3 24.4 MEQ/L (22.0-26.0); ABG PARTIAL PRESSURE CO2 39.8 mmHg (35.0-45.0); ABG PARTIAL PRESSURE O2 100.7 mmHg (75.0-100.0); ABG STANDARD HCO3 24.4 MEQ/L (22.0-26.0); ABG TOTAL CO2 25.7 MEQ/L (23.0-31.0); ABG pH (ARTERIAL) 7.406 UNITS (7.350-7.450)
[2017-01-27] MEDS: HEPARIN SOD (PORCINE) 5000 UNITS/ML VIAL SC SCH ×3 (05:57→22:20)
[2017-01-27] MEDS: LEVOTHYROXINE 100 MCG (0.1MG) VIAL IV SCH (05:57)
[2017-01-27] MEDS: VANCOMYCIN HCL 1,000 MG, VIAL MATE ADAPTER 1 EACH in D5W 250 ML IV SCH (05:57)
[2017-01-27 06:33] LABS: MEAN CORPUSCULAR HGB CONC 33.9 g/dl (32.0-36.5); MEAN CORPUSCULAR VOLUME 85.6 fl (80.0-96.0); PLATELET COUNT, AUTOMATED 260 k/mm3 (150-450); RED CELL DISTRIBUTION WIDTH 14.3 % (11.5-14.5); WHITE BLOOD COUNT 10.9 K/mm3 (4.0-10.0)
[2017-01-27 06:48] LABS: ALBUMIN 1.5 GM/DL (3.2-5.2); ALBUMIN/GLOBULIN RATIO 0.52 (1.00-1.93); BILIRUBIN,TOTAL 0.9 MG/DL (0.2-1.0); CALCIUM LEVEL 7.8 MG/DL (8.8-10.2); CREATININE FOR GFR 1.67 MG/DL (0.55-1.02); GLOMERULAR FILTRATION RATE 32.1 (>39); MAGNESIUM LEVEL 1.7 MG/DL (1.8-2.4); POTASSIUM SERUM 3.5 MEQ/L (3.5-5.1); TOTAL PROTEIN 4.4 GM/DL (6.4-8.2)
--- NOTE | 2017-01-27 07:42 | IPN ---
DATE: 01/27/2017 Ms. Kessler remains sedated and intubated. She also remains in atrial fibrillation. She is currently receiving amiodarone drip, but the rate control is far from good. On average, her heart rate is approximately 120s. On a positive side, she is no longer on Levophed and her blood pressure is better as of this morning. Systolic blood pressure was 143/94. She remains significantly hypoxic with saturation in mid 90s on 90% FIO2. She is afebrile. On physical exam, vital signs as above. She is sedated. She moves to painful stimuli. Her lungs reveal bilateral fine crackles throughout. Heart exam reveals irregularly irregular rhythm. I do not appreciate any rub or gallop or murmur. Abdomen without guarding. Bowel sounds diminished. Extremities have 1+ edema. Neurologic assessment is complicated by her sedation. Laboratory walter, basic metabolic panel reveals potassium 3.5 BUN 30, creatinine 1.7, glucose 300, magnesium 1.7, albumin 1.5. CBC: WBC count 10.9, hemoglobin 12.2, hematocrit 36 and platelet count 260,000. Her fluid balance yesterday was approximately 3 liters positive. It was 9 liters positive the day before. She made about 1500 mL of urine and about 200 was drained out of her stomach and 750 out of her peritoneal drains. Chest x-ray from yesterday reveals diffuse bilateral interstitial infiltrates, ARDS versus pulmonary edema. ASSESSMENT AND PLAN: Ms. Kessler is a 71-year female who came with peritonitis due to perforated bowel and underwent hemicolectomy. She was in shock and was vigorously volume resuscitated and also received a lot of pressors. Currently, I am being involved because of atrial fibrillation. We still have not accomplished good rate control, but on a positive sign, she is now no longer hypotensive. As far as the atrial fibrillation is concerned, I will continue amiodarone. She received total 0.5 mg and a 0.125 mg of digoxin and consequently, she did not receive full loading dose, but because her albumin level is low and she is concomitantly receiving IV amiodarone it is difficult to foundry worker what the appropriate dose is. I am going to try to introduce beta-blockers provided we can use gastrointestinal (GI) tract, which seems to be probably too early. Consequently, I will gingerly give her one more dose of digoxin and tentatively, we will attempt to plan for cardioversion later today or tomorrow provided she does not convert into sinus mechanism. By this point, she received sufficient dose of amiodarone that there is a reasonable chance that she might be able to sustain sinus mechanism. I still believe that she should not be anticoagulated as the bleeding risk remains very high. The second issue is that of volume overloaded state. I believe that at this point we should be starting diuresis. Renal function is improving and her blood pressure is better as well. She has serious problem with oxygenation. I will discuss this issue with Dr. Dent once he comes in.
[2017-01-27] MEDS: ADVAIR HFA 115/21MCG INHALER INH SCH ×2 (07:43→19:44)
[2017-01-27] MEDS ORDERED: DIGOXIN INJ 0.5 MG/2 ML AMP (J1160) IV ONE (07:45)
[2017-01-27] MEDS: AMIODARONE HCL 360 MG in APPROPRIATE DILUENT 1 EA IV SCH (08:03)
[2017-01-27] MEDS: VITAMIN D 1,000 INTERNATIONAL UNITS TABLET PO SCH (08:19)
[2017-01-27] MEDS: LACTOBACILLUS ACIDOPHILUS CAP (BACID) PO SCH (08:19)
[2017-01-27] MEDS: PANTOPRAZOLE 40MG INJ (PROTONIX) (C9113) IV SCH (08:19)
--- NOTE | 2017-01-27 08:31 | REP ---
Portable chest, single Y, 01/27/2017, single AP view, the patient semi upright Comparison is 01/26/2017. Study is under penetrated, almost uninterpretable. Bilateral diffuse infiltrates are again identified. Cardiac size appears enlarged. The endotracheal tube is in satisfactory location with the tip at the level at the level of the aortic arch, unchanged. The distal tip of the nasogastric tube is obscured by under penetration. Impression: Under penetrated study. No significant interval change. Signed by Alonso Hector MD 01/27/2017 08:24 A
[2017-01-27] MEDS ORDERED: VASOPRESSIN INJ 20 UNITS/ML VIAL ONE (09:05)
[2017-01-27] MEDS ORDERED: metroNIDAZOLE/NACL 500MG(5MG/ML)100 ML BAG (S0030) ONE (09:05)
[2017-01-27] MEDS ORDERED: ZOSYN 3.375 GM VIAL (J2543) ONE (09:05)
[2017-01-27] MEDS ORDERED: CIPROFLOXACIN/D5W 400 MG/200 ML BAG (J0744) ONE (09:05)
--- NOTE | 2017-01-27 10:15 | CCN ---
DATE OF VISIT: 01/27/2017 START TIME: 907 STOP TIME: 945 I again attended Ruth Kessler. She remains intubated, sedated, and mechanically ventilated. I have spoken at length with cardiology regarding her this morning. Maximum temperature (Tmax) overnight 98.2, blood pressure 120-150 since she is currently off of all vasopressors. Heart rate 112-140s, currently 141, and it does appear to be atrial flutter. Respiratory rate approximately 18-28. She remains on 10 of PEEP with an assist control rate of 20, tidal volume 450, FiO2 of 80%. Chest x-ray shows lines and tubes in good position. Increased overall vasculature today compared to yesterday. Other laboratories show a white blood cell count of 10.9, hemoglobin 12.2, platelet count 260,000. No differential available. Sodium 137, potassium of 3.5, chloride 102, CO2 of 23, BUN 30, creatinine 1.67, magnesium 1.7, albumin down to 1.5. Blood gas on the above ventilator setting showed a pH of 7.406, PCO2 of 39.8, and a pO2 of 100.7, saturation 98%. She remains on amiodarone. Bicarbonate drip has completed. Intake and output (I and O) for 24 hours midnight to midnight: 5269 mL in with 2375 mL out. Central venous pressure (CVP) this morning 12-14. On examination, she is sedate but is arousable when sedation lightened. Does move all extremities. Lines and tubes in good position. Left internal jugular line is intact, and site looks reasonable. Pupils react. Sclerae clear. Trachea is in the midline. Chest shows symmetric expansion. Clear anteriorly. There are dependent early inspiratory crackles. No rubs or convincing rhonchi at the moment. Cardiac examination: Distant, tachycardic, generally regular. Peripheral pulses are palpable. Dependent edema is noted. Abdomen shows dressing and drains in place. Extremities shows no cyanosis or clubbing. Neurologically, as outline above. Culture from her abdominal wound shows Escherichia (E.) coli (extended-spectrum beta-lactamase (ESBL)). The most pressing problems requiring my presence at the bedside: 1. Hypoxemic respiratory failure. 2. Peritonitis from a perforation descending colon, status post laparotomy with colostomy. 3. Renal failure, acute on chronic. 4. Diabetes mellitus, insulin requiring. 5. Atrial flutter. At this point, I have changed her ventilator to a pressure-regulated volume control (PRVC) mode,peak airway pressures, although acceptable, were hovering around 31. With the change and change in her inspiratory times are now 28-29. Hopefully, with more of a plateau inspiratory pattern, we can achieve further recruitment. I have spoken at length with Dr. Riggs this morning. He is considering cardioversion for her atrial flutter. She may do better from a pulmonary edema standpoint in sinus rhythm. Although her CVP is only 12-14, he may consider diuresis. At this point, we will continue her current pulmonary regimen. Ulcer and deep venous thrombosis (DVT) prophylaxes are in place. Regarding her E. coli, currently, she is on Zosyn, and the vast majority of the E. coli is with ESBL are sensitive, but I have asked infectious disease to become involved. If we are not able to use her gut for nutrition in the next 24 hours, I would suggest beginning parenteral nutrition, as she does have an open port on her central line for total parenteral nutrition (TPN). Overall, she remains critically ill. Her prognosis remains guarded at best. I left the bedside at 0946 hours. 38 minutes of critical care time delivered at the bedside, not including procedures. EVARISTO
[2017-01-27] MEDS ORDERED: KCL 20MEQ IN 100ML SWI (KRUN) 20 MEQ in APPROPRIATE DILUENT 1 EA IV ONE ×4 (12:00→17:00)
[2017-01-27 12:10] LABS: BANDS 1 % (< 11)
[2017-01-27 12:11] LABS: BURR CELLS 1+
[2017-01-27 12:13] LABS: DIFF SLIDE NUMBER 46
--- NOTE | 2017-01-27 16:04 | IPNPDOC ---
Text Note Date of Service The patient was seen on 01/27/17. NOTE Subjective: Patient is a 71 year old female with a PMHx of Fibromyalgia, OA, DLP, COPD, CKD3, HTN, Degenerative joint disease, IDDM2, Obesity, and Adrenal mass who recently had and EGD and colonoscopy. During the procedure patient had ablation of AV malformations in the ascending colon. She subsequently presented to the ER with abdominal pain. She was admitted to medical surgical floor and had worsening of her pain. She was ultimately found to have a perforation and was emergently taken to the OR. Patient was seen and examined at the bedside. She is intubated and sedated. Objective: Vitals (See below) General: Lying in bed, no acute distress, intubated and sedated HEENT: NC, AT CVS: RRR, +S1S2 Lungs: Fair air entry b/l, -w/r/r Abdomen: Soft, ND, NT, +BSx4, Midline incision, +colostomy Extremities: +PPx4, - Edema, - Calf tenderness Assessment and plan: 1. Septic shock - likely 2/2 perforated viscous - 2/2 recent colonoscopy and ablation - s/p Exploratory laparotomy 01/25 with coloectomy and ileostomy - Leukocytosis improving - Wound cultures positive for ESBL E.coli (sensitive to Zosyn) - Off pressor support at this time - c/w Vancomycin and Zosyn (Day #3) - Dr. Figueroa has been consulted 2. Acute hypoxic respiratory failure - likely 2/2 #1 - currently intubated and sedated - Dr. Dent following for ventilator management 3. Oliguric renal failure / Edema - + fluid balance of 15 liters - Physical reveals some signs of fluid overload - Creatinine has been declining - Will hold Lasix at this time given soft blood pressure - Will continue to monitor urine output - Dr. Valencia consulted 4. Atrial flutter / fibrillation - c/w Amiodarone - Possible cardioversion today if not controlled - Will hold off on BB / CCB given hypotension - Dr. Riggs consulted 5. Nutrition - c/w TPN 6. IDDM2 - c/w ISS 7. Hypothyroidism - c/w Levothyroxine IV (1/2 dose) 8. DVT prophylaxis - c/w SCDs Code status: - Full code VS,Fishbone, I+O VS, Fishbone, I+O Laboratory Tests 01/26/17 17:18 Calcium Level 8.1 L 01/27/17 02:24 Calcium Level 8.1 L 01/27/17 05:33 Calcium Level 7.8 L, Red Blood Count 4.22, Mean Corpuscular Volume 85.6, Mean Corpuscular Hemoglobin 29.0, Mean Corpuscular Hemoglobin Concent 33.9, Red Cell Distribution Width 14.3, Aspartate Amino Transf (AST/SGOT) 89 H, Alanine Aminotransferase (ALT/SGPT) 35, Alkaline Phosphatase 80, Total Bilirubin 0.9, Total Protein 4.4 L, Albumin 1.5 L Vital Signs Date Time Temp Pulse Resp B/P (MAP) Pulse Ox O2 Delivery O2 Flow Rate FiO2 01/27/17 15:19 145 27 01/27/17 15:19 91 60 01/27/17 15:00 118/65 (82) Ventilator 131/61 (84) 01/27/17 12:00 98.0 01/25/17 12:02 3.0 I&O- Last 24 Hours up to 6 AM 01/27/17 06:00 Intake Total 5929 ml Output Total 2280 ml Balance 3649 ml RASHAD SIDDIQUI MD Jan 27, 2017 16:04
[2017-01-27] MEDS ORDERED: MAG SULF 1GM/100ML (MAG RUN) 1 GM in APPROPRIATE DILUENT 1 EA IV ONE (17:00)
[2017-01-27] MEDS ORDERED: FUROSEMIDE 100 MG/10 ML VIAL (J1940) IV ONE (17:00)
[2017-01-27] MEDS: MEROPENEM INJ 1 GM in D5W MINI-BAG PLUS 100 ML IV SCH (18:33)
[2017-01-27 21:31] LABS: ALBUMIN 1.4 GM/DL (3.2-5.2); CALCIUM LEVEL 7.8 MG/DL (8.8-10.2); CREATININE FOR GFR 1.51 MG/DL (0.55-1.02); GLOMERULAR FILTRATION RATE 36.1 (>39); PHOSPHORUS LEVEL 1.8 MG/DL (2.5-4.9); POTASSIUM SERUM 3.4 MEQ/L (3.5-5.1)
--- NOTE | 2017-01-27 21:37 | IPN ---
DATE: 01/27/2017 Mrs. Kessler is seen this morning on her bedside in intensive care unit. She remains intubated and sedated. She has been in atrial flutter since last evening, and this morning she has been treated with amiodarone and digoxin. She does have some urine output. She has been afebrile and off pressors now. PHYSICAL EXAMINATION: Temperature 98 degrees Fahrenheit, heart rate 142 per minute, respiratory rate 24 per minute, blood pressure 117/57 mm of mercury, and oxygen saturation 93% on 60% FiO2. Intake and output records from yesterday show total intake 5269 and output 2375 mL. Head is atraumatic. Endotracheal tube and nasogastric tubes are in place. Neck veins are quite prominent. Heart sounds are tachycardiac. Lungs have diminished breath sounds at dependent parts with bilateral rales. Abdomen is obese, and colostomy is nonfunctioning in right lower abdomen. It looks dark with some blood clotted on it. Bowel sounds are absent. Extremities have no cyanosis or clubbing. Neurologically she remains sedated. Today's labs show WBC count 10.9, hemoglobin 12.2, and hematocrit 36. Sodium 137, potassium 3.5, BUN 30, creatinine 1.67, glucose 300, calcium 7.8, and magnesium 1.7. PROBLEMS: 1. Acute renal failure superimposed on chronic kidney disease. The patient does have some improvement in her kidney function. At present she is making about 30 mL urine per hour. There is no emergent indication for dialysis and will continue to monitor her closely. 2. Metabolic acidosis. Her acidosis has improved, and currently she is off bicarbonate drip. 3. Hypokalemia. Her potassium level remains low, and she has atrial flutter. Cardioversion is being discussed. I would like to get her potassium level corrected and will give her 20 mEq of potassium chloride intravenously and recheck her electrolytes later this afternoon. 4. Septic shock. The patient had perforated colon and underwent partial colectomy and colostomy. At present her blood pressure seems to have improved. She remains on broad-spectrum antibiotics. 5. Volume overload and respiratory failure. The patient received large amounts of intravenous (IV) fluid and has significant volume overload; however, due to hypotension and hypokalemia we will hold off on diuresis. As her kidney function improves, she is likely to start spontaneous diuresis. [facility]
[2017-01-27] MEDS: KCL 20MEQ IN 100ML SWI (KRUN) 20 MEQ in APPROPRIATE DILUENT 1 EA IV SCH ×4 (22:20→23:37)
[2017-01-28] VITALS (84 sets, daily range): BP systolic 78–142; BP diastolic 41–83
[2017-01-28] MEDS ORDERED: NOREPINEPHRINE 4 MG/4 ML AMP As Ordered ONE (00:22)
[2017-01-28] MEDS: PROPOFOL 1,000 MG in APPROPRIATE DILUENT 1 EA IV SCH ×7 (00:23→22:24)
[2017-01-28] MEDS: NOREPINEPHRINE BITARTRATE 16 MG in D5W 500 ML IV SCH (00:40)
[2017-01-28] MEDS: VASOPRESSIN INJ 20 UNITS in NS 500 ML IV SCH ×2 (00:58→09:41)
[2017-01-28] MEDS: MEROPENEM INJ 1 GM in D5W MINI-BAG PLUS 100 ML IV SCH ×3 (02:17→17:55)
[2017-01-28] MEDS: IPRATROPIUM 0.5MG/ALBUTEROL 2.5MG INH SOL UD 3ML (DUONEB)(J7620) NEB SCH ×6 (04:00→23:16)
[2017-01-28 05:15] LABS: MEAN CORPUSCULAR HEMOGLOBIN 28.6 pg (27.0-33.0); MEAN CORPUSCULAR VOLUME 84.1 fl (80.0-96.0); RED CELL DISTRIBUTION WIDTH 14.1 % (11.5-14.5); WHITE BLOOD COUNT 16.4 K/mm3 (4.0-10.0)
[2017-01-28 05:46] LABS: ALBUMIN 1.4 GM/DL (3.2-5.2); ALBUMIN/GLOBULIN RATIO 0.47 (1.00-1.93); BILIRUBIN,TOTAL 0.9 MG/DL (0.2-1.0); CALCIUM LEVEL 7.6 MG/DL (8.8-10.2); CREATININE FOR GFR 1.51 MG/DL (0.55-1.02); GLOMERULAR FILTRATION RATE 36.1 (>39); MAGNESIUM LEVEL 1.7 MG/DL (1.8-2.4); POTASSIUM SERUM 3.6 MEQ/L (3.5-5.1); TOTAL PROTEIN 4.4 GM/DL (6.4-8.2)
[2017-01-28] MEDS: HumaLOG INSULIN (NovoLOG) PER UNIT SC SCH ×3 (05:51→17:59)
[2017-01-28] MEDS: LEVOTHYROXINE 100 MCG (0.1MG) VIAL IV SCH (05:51)
[2017-01-28] MEDS: HEPARIN SOD (PORCINE) 5000 UNITS/ML VIAL SC SCH ×3 (05:51→22:24)
--- NOTE | 2017-01-28 05:59 | PHACANCOPD ---
PHARMACY VANCOMYCIN DOSING Pt Demographics Demographics Patient Age:71 , Weight:108.900 , Gender: female Adjusted Body Weight Date: 01/25/17, Adjusted Body Weight: [67.9] Kg Events Past 24 Hours Events Past 24 Hours: NO: Dialysis, Diuretic Therapy, Change in CrCl, Fever, Elevation in WBC, Pending Diagnostics, Pending Procedures, Other Vancomycin Vancomycin indication: pneumonia, sepsis Vancomycin Target Ranges: 10-20 mcg/ml Vancomycin Load Y/N: Yes Load Dose Date Time Vancomycin Load Dose: 1000mg Date: 01/25 Time: 14:00 Vancomycin Dose Date: 01/25/17. Current Vancomycin Dose: [1g IV q24h @06] Intermittent Dosing?: No Labs Labs Item Value Date Time White Blood Count 16.4 K/mm3 H 01/28/17 0502 Creatinine 1.51 MG/DL H 01/28/17 0502 Vancomycin Level Trough 9.5 UG/ML L 01/28/17 0502 Vital Signs Label Value Date Time Patient Temperature 99.2 degrees F 01/28/17 0400 Temperature Source Temporal 01/28/17 0400 Micro Microbiology 01/24/17 Blood Culture - Preliminary, Resulted No Growth after 72 hours. All specime... 01/24/17 Blood Culture - Preliminary, Resulted No Growth after 72 hours. All specime... 01/25/17 Anaerobic Culture, Received Pending 01/26/17 Gram Stain - Final, Resulted 01/26/17 Sputum Culture, Resulted Pending 01/26/17 MRSA Screen - Final, Complete 01/25/17 Wound Culture - Preliminary, Resulted E.coli Esbl Creatinine Clearance Date:01/25/17. Creatinine Clearance: [25 ml/min using adjusted BW]. Assessment and Plan Maintaining Current Dose?: Yes Reason for dose change: No Dose Change Pharmacist Note Pharmacist Note Date: 01/28/17. Pharmacist note: Trough of 9.5 is just below target range. Will continue current dosing and give 500mg extra at 1200 today. Will continue to monitor and make adjustments as needed ZACKARY VARGAS PHARMACY Jan 28, 2017 05:59
[2017-01-28] MEDS ORDERED: VANCOMYCIN HCL 500 MG in D5W MINI-BAG PLUS 100 ML IV ONE (06:00)
[2017-01-28] MEDS: VANCOMYCIN HCL 1,000 MG, VIAL MATE ADAPTER 1 EACH in D5W 250 ML IV SCH (06:05)
[2017-01-28 06:25] LABS: ABG BASE EXCESS 0.7 (-2.0-2.0); ABG HCO3 23.9 MEQ/L (22.0-26.0); ABG PARTIAL PRESSURE CO2 33.6 mmHg (35.0-45.0); ABG PARTIAL PRESSURE O2 101.2 mmHg (75.0-100.0); ABG STANDARD HCO3 25.1 MEQ/L (22.0-26.0); ABG TOTAL CO2 24.9 MEQ/L (23.0-31.0)
[2017-01-28] MEDS: ADVAIR HFA 115/21MCG INHALER INH SCH ×2 (07:22→19:36)
[2017-01-28] MEDS ORDERED: AMIODARONE HCL 150 MG in APPROPRIATE DILUENT 1 EA IV STA (07:37)
[2017-01-28] MEDS ORDERED: MAG SULF 1GM/100ML (MAG RUN) 1 GM in APPROPRIATE DILUENT 1 EA IV SCH (08:00)
[2017-01-28] MEDS ORDERED: KCL 20MEQ IN 100ML SWI (KRUN) 20 MEQ in APPROPRIATE DILUENT 1 EA IV ONE ×2 (08:00)
[2017-01-28] MEDS: AMIODARONE HCL 150 MG in APPROPRIATE DILUENT 1 EA IV SCH ×3 (08:30→20:15)
--- NOTE | 2017-01-28 08:52 | CR ---
DATE OF CONSULTATION: 01/28/2017 Asked to consult by Dr. Dent for evaluation of abdominal infection with ECOLI ESBL status post perforation from colonoscopy with polymicrobial infection. HISTORY OF PRESENT ILLNESS: Mrs. Kessler is a 71-year-old female who had a colonoscopy on 01/22/2017. The patient within hours developed severe abdominal pain. She was evaluated in the emergency room, had a CT of the abdomen, which did not show any perforation. The next day she came back with severe abdominal pain and repeat CT did show perforation. Taken to the operating room where she underwent a colectomy of ascending colon and ileostomy. The patient has been intubated, sedated since then. Intraoperatively, there was a large amount of stools in the abdominal cavity. She had a washout of the abdomen and cultures were sent. Cultures are growing extended-spectrum beta lactamase (ESBL) Escherichia (E) coli, Enterococcus, Staphylococcus, Streptococcus and anaerobes. The patient has been on vancomycin and Zosyn. She remains critically ill. Past medical history is significant for morbid obesity, diverticulosis, fibromyalgia, osteoarthritis, type 2 diabetes, dyslipidemia, chronic obstructive pulmonary disease (COPD), chronic kidney disease, hypertension, adrenal mass. Past surgical history of left ulnar nerve surgery, cholecystectomy, carpal tunnel syndrome, dilation and curettage (D and C), bilateral knee arthroplasties, tonsillectomy. SOCIAL HISTORY: The patient lives alone. She has two sisters that are at the bedside. She is not very mobile. She does not cook for herself. She eats a lot of readymade food. She does not like Meals on Wheels. She smokes a pack of cigarettes a day, has tried to cut back and is down to three cigarettes. She denies any alcohol or drug use. ALLERGIES: LATEX and SULFA. MEDICATIONS: - vancomycin intravenously 1 gram every 24 hours - Zosyn 3.375 grams intravenously every 6 hours - amiodarone intravenously - levofloxacin 25 mcg IV daily - propofol for sedation - vasopressin - Levophed - probiotics 1 tablet by mouth daily - Advair 2 puffs inhaled twice a day - vitamin D 2000 units daily - Protonix 40 mg intravenously every 24 hours - heparin subcutaneous, 5000 units subcutaneous every 8 hours LABORATORIES: On 01/23/2017, white count was 15.5. 01/24/2017, white count was 22.8. Today, white count is 10.9, hemoglobin 12.2, hematocrit 36.1, platelets 216, 90% neutrophils, 1% bands, 1% lymphocytes. Sodium 136, potassium 3.4, chloride 101, bicarbonate 26, BUN 30, creatinine 1.5, which is down from 2.45, glucose 289, calcium 7.8, phosphorus 1.8, albumin 1.4. Blood cultures, on 01/24/2017, no growth after 72 hours. Intra-abdominal and anaerobic cultures are pending. Wound culture has E coli ESBL, but I called the lab and it also had some staphylococcus, streptococcus and anaerobes. MRSA screen is negative. Sputum culture is pending. IMAGIN01/27/2017, chest x-ray shows no significant change. Bilateral diffuse infiltrates are noted. Cardiac size is enlarged. CT of the abdomen, on 01/24/2017, shows minimal mural thickening affecting the cecum, ascending colon, left colonic diverticulosis. No obstructive lesion. New consolidation at the right lower lung field and no evidence of air. CT done on 01/23/2017, shows exophytic mass on the superior pole of the right kidney measuring 5.6 x 5.2 cm, consistent with angiomyolipoma, circumferential wall thickening involving the colon with pancolitis. The liver appears lobulated. On physical exam, sick looking female, intubated, sedated. She has been febrile on 01/24/2017, but afebrile since then. Temperature is 98.6, pulse 150, respirations 24, blood pressure 112/59, oxygen saturation 93%, FIO2 of 60%. Heart: Normal S1, S2. Tachycardic. No murmurs appreciated. Lungs: A few inspiratory crackles. No rubs or rhonchi. Abdomen: Morbidly obese, soft. There is a midline laparotomy. There is a ileostomy, which is dusky in appearance. There is some blood in the bag, two drains right and left Extremities: No clubbing, cyanosis or edema. Patient intubated. Exam is limited. IMPRESSION: This is a 71-year-old female, morbidly obese with insulin-dependent diabetes, hypertension, chronic kidney disease, who perforated after a colonoscopy and has secondary peritonitis and intrabdominal infection on IV vancomycin and Zosyn. Wound culture has ESBL E coli. Drug of choice would be carbapenem PLAN Switch Zosyn to meropenem 1 gram IV every 8 hours. Continue with IV vancomycin pending results of culture vanco trough 15-20 . Will continue to follow. Thank you for consultation. EVARISTO
--- NOTE | 2017-01-28 09:10 | IPN ---
DATE: 01/28/2017 Mrs. Kessler remains approximately the same. She unfortunately remains in atrial fibrillation/atrial flutter with uncontrolled rate in spite of finishing loading with IV amiodarone. Blood pressure remained soft, even in spite of use of vasopressin. Otherwise, her condition is similar to yesterday. She remains sedated and intubated. On a positive side, she has reasonable urine output. Vital signs: The last temperature was 99.2, heart rate around 150. Saturation is 95% on 60 and 50% FIO2. Blood pressure is around 100-110s systolic. Her fluid balance yesterday was documented about 500 mL negative. She put out 2-1/2 liters of urine. The drainage from the peritoneal drainage is decreasing. It is down to 425 mL yesterday. Her jugular venous pulse (JVP) was 17 this morning. Lungs are relatively clear to auscultation with only occasional fine crackles. Air movement seems to be adequate. Heart exam reveals tachycardia. I do not appreciate any gallop, rub or murmur. Abdomen is soft. No guarding per se, even though patient is fairly heavily sedated, there is trace peripheral edema. Laboratory walter, as of this morning CBC reveals WBC count 16.4, hemoglobin 12, hematocrit 35, platelet count 261,000. Basic metabolic panel: Potassium 3.6, BUN 28, creatinine 1.4, GFR 36, calcium is 7.6, magnesium 1.7 and albumin 1.7. Chest x-ray reveals diffuse interstitial infiltrate, ARDS versus cardiogenic pulmonary edema. ASSESSMENT AND PLAN: Mrs. Kessler is a 71-year-old female who presented with perforated bowel and peritonitis and went into septic shock. As a complicated factor, she developed atrial fibrillation/flutter with rapid ventricular response (RVR) that has been very difficult to rate control in part because we cannot use rkoencq-[id number] and beta-chelsey due to low blood pressure. I decided to pursue DC cardioversion in an attempt to restore sinus mechanism. I already had an extensive discussion with her sisters yesterday and obtained appropriate consent. The procedure was successful in the immediate minutes, but she continues to have a large amount of supraventricular ectopy and I am afraid that the arrhythmia will likely return, but nevertheless, I will continue administration of amiodarone. I do not think there is anyway that she can be safely anticoagulated in this condition, even though we will readdress this issue every day. As far as volume status is concerned, she clearly has grossly positive fluid balance and I am going to give her additional dose of Lasix today in an attempt to remove some of the excess volume from her lungs. That should help her oxygenation and also hopefully help to relieve some of the strain on her heart. Her CVP is high, so I think that it is safe to do so. Her condition remains critical and so far, I do not see any convincing improvement.
--- NOTE | 2017-01-28 09:17 | REP ---
PORTABLE CHEST: AP portable view of the chest is performed. Comparison 01/27/2017 as well as other prior exams. Diffuse bilateral infiltrates have not definitely changed. Endotracheal tube is unchanged in position. Nasogastric tube is again seen, the distal end is not visualized. The left jugular vein catheter is again seen with tip likely in the left brachiocephalic vein. IMPRESSION: Stable exam. Signed by Alonso Solis MD 01/29/2017 05:06 P
--- NOTE | 2017-01-28 09:24 | RO ---
DATE OF PROCEDURE: 01/28/2017 PREPROCEDURE DIAGNOSIS: Atrial flutter. POSTPROCEDURE DIAGNOSIS: Resumption of sinus rhythm PROCEDURE: DC cardioversion. SURGEON: Jordin Riggs MD BOARD CERTIFIED FAMILY PHYSICIAN: none ANESTHESIA: none DESCRIPTION OF PROCEDURE: The procedure was performed in ICU. The appropriate consent was obtained from her family. Yesterday I had an extensive discussion with her sisters yesterday evening and the appropriate consent was signed. The patient is already sedated and intubated. I just verified that she was sedated deeply enough by rubbing her sternum and there was no response. She was briefly disconnected from the ventilator and received 200 joules shock in a synchronized fashion with defibrillator patches applied in anterior position. It led to samaritan of sinus rhythm. She almost immediately though started having frequent atrial ectopy and even though at the time of my dictation she still remains in sinus mechanism, I am afraid that the risk of relapse remains high. A 12-lead ECG was ordered. There were no immediate complications and the patient overall tolerated the procedure well. EVARISTO
[2017-01-28] MEDS: PANTOPRAZOLE 40MG INJ (PROTONIX) (C9113) IV SCH (09:40)
[2017-01-28] MEDS: VITAMIN D 1,000 INTERNATIONAL UNITS TABLET PO SCH (09:41)
[2017-01-28] MEDS: LACTOBACILLUS ACIDOPHILUS CAP (BACID) PO SCH (09:41)
--- NOTE | 2017-01-28 10:40 | CCN ---
DATE OF VISIT: 01/28/2017 START TIME: 0905 hours. STOP TIME: 0956 hours. I again attended Ruth Kessler here in the intensive care unit. She remains intubated, sedated and mechanically ventilated. Electronic medical record (EMR) has been reviewed. I have spoken at length with the primary service as well as nephrology regarding her status this morning. I also had a long discussion with cardiology regarding her cardiac status. She was cardioverted earlier this morning. Currently sinus tachycardia with a heart rate about 106 with intermittent bursts of what appears to be atrial fibrillation/flutter and some occasional other ectopy. Maximum temperature (Tmax) overnight 99.2. Blood pressure was down in the 70s, highest to 140s. She was back on low dose vasopressors. Intake and output midnight to midnight 2531 mL in with 3030 mL out. Since midnight, she is already 623 mL negative. Available laboratories show a white blood cell count of 16.4, hemoglobin 12.0, platelet count 261,000. No differential today. Yesterday, she only had a 1% band count. Electrolytes this morning show a sodium 136, potassium of 3.6, chloride of 100, CO2 26, BUN 28, creatinine 1.51, glucose 288. Magnesium 1.7, albumin 1.4. Arterial blood gas done on a PRVC rate at 20, tidal volume 450, PEEP of 10, FiO2 of 50% has pH 7.47, PCO2 of 33.6 and a pO2 of 101. CVP of 17. Chest x-ray shows persistent edema. No other new culture data available. Medication list has been reviewed. She was seen by infectious disease yesterday and antibiotics changed to meropenem from Zosyn. On exam, she is sedate, ill appearing. Vital signs as outlined above. Nasogastric and oral endotracheal tube remain in place. She has a left internal jugular venous line. Membranes are moist. Trachea is in the midline. Chest shows crackles both anteriorly and posteriorly. No convincing rhonchus or rub. No wheezing. Expansion is symmetric. Cardiac exam distant, tachycardic. Peripheral pulses are diminished. Edema persists. Abdomen shows dressing and drains intact. Colostomy mildly dusky. Abdomen is quiet. Extremities shows no cyanosis or clubbing. Neurologically, she is sedate but does move all extremities when aroused. The most pressing problems requiring my presence at the bedside: 1. Respiratory failure requiring mechanical ventilation. 2. Hypoxemia. 3. Sepsis with shock, now back on vasopressors. 4. Perforated ascending colon with peritonitis. 5. Atrial flutter, now status post cardioversion. 6. Diabetes mellitus. 7. Renal failure. 8. Protein calorie malnutrition. At this point, no ventilator changes will be made until we are able to make progress regarding her pulmonary edema. My hopes is that with conversion to a sinus rhythm she will tolerate gentle diuresis. We were hampered last evening by return of her hypotension. I will recheck a lactic acid. Appreciate both cardiology and infectious disease help. We will begin total parenteral nutrition (TPN). I have spoken with nephrology regarding that as well. I had a very lengthy discussion with her family at the bedside concerning her overall status. She remains quite critically ill and her prognosis remains guarded at best. Surgery is closely following her abdominal status. I left the bedside at 0956 hours. 51 minutes of critical care time delivered at bedside, not including procedures. EVARISTO
--- NOTE | 2017-01-28 10:43 | IPNPDOC ---
Text Note Date of Service The patient was seen on 01/28/17. NOTE Subjective: Patient is a 71 year old female with a PMHx of Fibromyalgia, OA, DLP, COPD, CKD3, HTN, Degenerative joint disease, IDDM2, Obesity, and Adrenal mass who recently had and EGD and colonoscopy. During the procedure patient had ablation of AV malformations in the ascending colon. She subsequently presented to the ER with abdominal pain. She was admitted to medical surgical floor and had worsening of her pain. She was ultimately found to have a perforation and was emergently taken to the OR. Patient was seen and examined at the bedside. She remains intubated and sedated. Objective: Vitals (See below) General: Lying in bed, no acute distress, intubated and sedated HEENT: NC, AT CVS: RRR, +S1S2 Lungs: Fair air entry b/l, -w/r/r Abdomen: Soft, ND, NT, +BSx4, Midline incision, +colostomy Extremities: +PPx4, - Edema, - Calf tenderness Assessment and plan: 1. Septic shock - likely 2/2 perforated viscous - 2/2 recent colonoscopy and ablation - s/p Exploratory laparotomy 01/25 with colectomy and ileostomy - Leukocytosis worsened this morning - Wound cultures (01/25) positive for ESBL E.coli (sensitive to Zosyn) - Blood cultures (01/24) negative - Has been restarted on Vasopressin since yesterday; Levophed has been on and off since yesterday afternoon - c/w Vancomycin (Day #4) and Meropenem (Day #2), s/p Zosyn (3 days) - Dr. Figueroa consulted 2. Acute hypoxic respiratory failure - likely 2/2 #1 - currently intubated and sedated - Dr. Dent following for ventilator management / critical care 3. Oliguric renal failure / Edema - + fluid balance of 14 liters - Physical reveals some signs of fluid overload; Elevated CVP - Creatinine has been declining - s/p Lasix 80 IV yesterday (01/27); c/w Lasix 80 IV Q12H - Will continue to monitor urine output - Dr. Valencia consulted 4. Atrial flutter / fibrillation - s/p Cardioversion (01/28) this morning; has resulted in improvement in HR - Will hold off on BB / CCB given hypotension - c/w Amiodarone - Dr. Riggs consulted 5. Nutrition - c/w TPN 6. IDDM2 - c/w ISS 7. Hypothyroidism - c/w Levothyroxine IV (1/2 dose) 8. DVT prophylaxis - c/w SCDs Code status: - Full code VS,Fishbone, I+O VS, Fishbone, I+O Laboratory Tests 01/27/17 20:48 Anion Gap 9 01/28/17 05:02 Red Blood Count 4.21, Mean Corpuscular Volume 84.1, Mean Corpuscular Hemoglobin 28.6, Mean Corpuscular Hemoglobin Concent 34.0, Red Cell Distribution Width 14.1 , Calcium Level 7.6 L, Aspartate Amino Transf (AST/SGOT) 74 H, Alanine Aminotransferase (ALT/SGPT) 32, Alkaline Phosphatase 106, Total Bilirubin 0.9, Total Protein 4.4 L, Albumin 1.4 L Vital Signs Date Time Temp Pulse Resp B/P (MAP) Pulse Ox O2 Delivery O2 Flow Rate FiO2 01/28/17 07:18 151 25 95 50 01/28/17 06:00 99/55 (70) Ventilator 92/48 (63) 01/28/17 04:00 99.2 01/25/17 12:02 3.0 I&O- Last 24 Hours up to 6 AM 01/28/17 05:59 Intake Total 2085 ml Output Total 3850 ml Balance -1765 ml RASHAD SIDDIQUI MD Jan 28, 2017 10:43
[2017-01-28] MEDS: FUROSEMIDE 100 MG/10 ML VIAL (J1940) IV SCH (12:05)
[2017-01-28] MEDS ORDERED: METOPROLOL 5 MG/5 ML VIAL IV STA ×2 (12:59→14:21)
[2017-01-28] MEDS: METOPROLOL TART 25 MG TABLET NG SCH ×2 (15:02→22:24)
[2017-01-28] MEDS ORDERED: SODIUM ACETATE IV SCH ×10 (18:00)
[2017-01-28] MEDS ORDERED: [UNRECOGNIZED DRUG - OTHER] IV SCH ×10 (18:00)
[2017-01-28] MEDS ORDERED: SODIUM CHLORIDE IV SCH ×10 (18:00)
[2017-01-28] MEDS ORDERED: FAT EMULSION IV 20% 500 ML IV SCH (18:00)
--- NOTE | 2017-01-28 22:01 | IPN ---
DATE: 01/28/2017 Mrs. Kessler is seen this morning on her bedside. She remains intubated and sedated. Her daughter and sister are present in the room. She did undergo cardioversion this morning and is currently in sinus tachycardia. PHYSICAL EXAMINATION: On physical examination, temperature 98 degrees Fahrenheit, heart rate 110 per minute and respiratory rate 25 per minute. Blood pressure 99/55 mmHg and oxygen saturation 95% on 50% oxygen. Intake and output records from yesterday show a total intake 2530 and output 3030 mL. Head is atraumatic. Neck is supple and jugular venous distention (JVD) is elevated. Nasogastric tube and endotracheal tubes are present. Heart sounds are tachycardiac. Lungs with diminished breath sounds at dependent parts and bilateral rales. Abdomen is obese, soft and colostomy is present in the right lower abdomen. There is minimal bloody drainage in the bag. Extremities have no cyanosis or clubbing. Neurologically, she is sedated at present. LABORATORY DATA: Today's laboratories show WBC count 16.4, hemoglobin 12.0, and hematocrit 35.4. Sodium 136 and potassium 3.6. CO2 26, BUN 28 and creatinine 1.51. Glucose 288 and lactic acid level is 2.0. Total protein is 4.4 and albumin 1.4. PROBLEMS: 1. Acute renal failure superimposed on chronic kidney disease. No change in kidney function since yesterday. She has decent urine output. At present, we anticipate her kidney function to continue improving over the next few days. 2. Hypokalemia. Potassium level is slightly better since yesterday. She received multiple doses of intravenous potassium chloride. At present, she is not suitable for oral supplement. We will give her another dose of 20 mEq potassium chloride now. 3. Congestive heart failure/hypervolemia. Her volume status remains decompensated. Diuretic has been started by cardiology. We will try to keep her electrolytes within normal range. 4. Septic shock, status post laparotomy for perforated viscus. The patient is gradually improving. She is on minimal dose of vasopressor. 5. Nutrition. The patient has been nothing by mouth due to perforated viscus and abdominal surgery. Total parenteral nutrition (TPN) orders are being written. I reviewed those orders with Dr. Dent.
[2017-01-28] MEDS: ACETAMINOPHEN TAB 650MG DOSE (2X325MG) PO PRN (22:26)
[2017-01-29] VITALS (19 sets, daily range): BP systolic 93–142; BP diastolic 51–63
[2017-01-29] MEDS: FUROSEMIDE 100 MG/10 ML VIAL (J1940) IV SCH ×2 (00:27→12:58)
[2017-01-29] MEDS: HumaLOG INSULIN (NovoLOG) PER UNIT SC SCH ×5 (00:27→23:53)
[2017-01-29] MEDS: MORPHINE 2 MG/ML 1ML SYRINGE IV PRN ×2 (00:37→05:32)
[2017-01-29] MEDS: MEROPENEM INJ 1 GM in D5W MINI-BAG PLUS 100 ML IV SCH ×3 (02:04→18:08)
[2017-01-29] MEDS: IPRATROPIUM 0.5MG/ALBUTEROL 2.5MG INH SOL UD 3ML (DUONEB)(J7620) NEB SCH ×6 (02:59→23:24)
[2017-01-29 05:10] LABS: ABG BASE EXCESS 4.3 (-2.0-2.0); ABG HCO3 26.5 MEQ/L (22.0-26.0); ABG PARTIAL PRESSURE CO2 31.9 mmHg (35.0-45.0); ABG PARTIAL PRESSURE O2 86.8 mmHg (75.0-100.0); ABG STANDARD HCO3 28.3 MEQ/L (22.0-26.0); ABG TOTAL CO2 27.5 MEQ/L (23.0-31.0); ABG pH (ARTERIAL) 7.537 UNITS (7.350-7.450)
[2017-01-29] MEDS: LEVOTHYROXINE 100 MCG (0.1MG) VIAL IV SCH (05:30)
[2017-01-29] MEDS: HEPARIN SOD (PORCINE) 5000 UNITS/ML VIAL SC SCH ×3 (05:31→20:25)
[2017-01-29] MEDS: METOPROLOL TART 25 MG TABLET NG SCH ×3 (05:32→20:25)
[2017-01-29 05:57] LABS: MEAN CORPUSCULAR HEMOGLOBIN 28.7 pg (27.0-33.0); MEAN CORPUSCULAR HGB CONC 33.9 g/dl (32.0-36.5); MEAN CORPUSCULAR VOLUME 84.6 fl (80.0-96.0); RED CELL DISTRIBUTION WIDTH 14.5 % (11.5-14.5); WHITE BLOOD COUNT 14.8 K/mm3 (4.0-10.0)
[2017-01-29] MEDS: VANCOMYCIN HCL 1,000 MG, VIAL MATE ADAPTER 1 EACH in D5W 250 ML IV SCH (06:04)
[2017-01-29 06:21] LABS: ALBUMIN 1.3 GM/DL (3.2-5.2); ALBUMIN/GLOBULIN RATIO 0.3 (1.00-1.93); BILIRUBIN,TOTAL 0.8 MG/DL (0.2-1.0); CALCIUM LEVEL 8.2 MG/DL (8.8-10.2); CREATININE FOR GFR 1.6 MG/DL (0.55-1.02); GLOMERULAR FILTRATION RATE 33.7 (>39); MAGNESIUM LEVEL 1.9 MG/DL (1.8-2.4); TOTAL PROTEIN 5.6 GM/DL (6.4-8.2)
[2017-01-29 06:26] LABS: POTASSIUM SERUM 2.9 MEQ/L (3.5-5.1)
[2017-01-29] MEDS: ADVAIR HFA 115/21MCG INHALER INH SCH ×2 (07:42→19:18)
[2017-01-29] MEDS ORDERED: KCL 20MEQ IN 100ML SWI (KRUN) 20 MEQ in APPROPRIATE DILUENT 1 EA IV SCH ×2 (08:00)
--- NOTE | 2017-01-29 08:01 | REP ---
Portable chest, single AP view, the patient semi upright, 01/29/2017. There are diffuse bilateral infiltrates. The infiltrates on the left have improved compared 01/27/1927 but are unchanged from 01/28/2017. The infiltrates on the right are unchanged. The integrate tracheal tube is in satisfactory location, unchanged. The tip of the nasogastric tube is obscured by under penetration. The tip of the left IJ central venous catheter appears to be at the confluence of the left internal jugular vein and innominate vein. Signed by Alonso Hector MD 01/29/2017 07:53 A
--- NOTE | 2017-01-29 08:04 | IPN ---
DATE: 01/29/2017 Mrs. Kessler continues to improve slightly. She remains sedated and intubated. After cardioversion yesterday she fortunately was able to maintain sinus rhythm, even though she had multiple runs of atrial tachycardia. No definite atrial fibrillation though. Her urine output also is improving with diuretics. There were no ventricular arrhythmias and no pauses. Vital signs: Blood pressure 131/59, heart rate has been in 110s. She is afebrile. Saturation 95% on 45% FiO2. Fluid balance yesterday was 1800 mL negative. She made 4 liters of urine and the drainage from the peritoneal drains is down to 200 mL a day. She is not arousable on the level of sedation. Her jugular venous pulse (JVP) does not appear elevated. Lungs are reasonable clear to auscultation. Only minimal fine crackles are noted throughout. Air movement is good. Heart exam reveals regular rhythm. No gallop or rub. Abdomen is without guarding. Bowel sounds are present. Extremities have minimal edema. Laboratory walter, basic metabolic panel reveals potassium 2.9, BUN 31, creatinine 1.6 for GFR 33, glucose 360, albumin is 1.4. CBC: WBC count 14.8, hemoglobin 12, hematocrit 45, platelet count 248,000. Vancomycin trough yesterday was 9.5. Chest x-ray continues to reveal diffuse bilateral interstitial infiltrates. There might be slight improvement since yesterday. ASSESSMENT AND PLAN: Mrs. Kessler is a 71-year-old female who came with perforated viscus and peritonitis. She was in septic shock, which has since abated with very vigorous volume resuscitation and pressor amines. By now she is off pressor amines and she, if anything, has negative balance as she became grossly volume overloaded. I was involved because of episode of atrial fibrillation alternating with atrial flutter. Because she was initially very hypotensive, we did not have an option to administer beta-blockers and eidevin-[id number]-brzekdc and she was treated principally with digoxin and amiodarone. Eventually, I decided to cardiovert the patient yesterday because I did not feel comfortable leaving her in tachycardiac range. Somewhat to my surprise, she has been maintaining sinus rhythm. At this point, I will continue amiodarone administered twice a day IV as her gastrointestinal (GI) tract is not working reliably. I will try to give her metoprolol through nasogastric (NG) tube. I am still hesitant as to whether we can anticoagulate patient, but if felt acceptable with surgery I am contemplating starting anticoagulation tomorrow. As far volume is concerned, she remains volume overloaded. It is likely that a lot of her interstitial lung infiltrates is actually pulmonary edema related to very vigorous volume resuscitation. I will continue the diuretics in unchanged dose. I do not believe that we need to cut down just because of the creatinine has increased slightly since yesterday. Potassium is low and is being vigorously replaced.
[2017-01-29] MEDS: VITAMIN D 1,000 INTERNATIONAL UNITS TABLET PO SCH (08:10)
[2017-01-29] MEDS: PANTOPRAZOLE 40MG INJ (PROTONIX) (C9113) IV SCH (08:10)
[2017-01-29] MEDS: LACTOBACILLUS ACIDOPHILUS CAP (BACID) PO SCH (08:10)
[2017-01-29] MEDS: AMIODARONE HCL 150 MG in APPROPRIATE DILUENT 1 EA IV SCH ×2 (08:11→20:25)
[2017-01-29] MEDS: KCL 20MEQ IN 100ML SWI (KRUN) 20 MEQ in APPROPRIATE DILUENT 1 EA IV SCH ×4 (09:41→12:57)
--- NOTE | 2017-01-29 10:04 | CCN ---
DATE: 01/29/2017 START TIME: 834 STOP TIME: 927 I again attended to Ruth Kessler here in the intensive care unit. The patient has been examined and the records have been reviewed. I have discussed her care at length with the primary service as well as cardiology. T-max overnight 99.1, blood pressure 99 to the 130s and she is off vasopressors. Heart rate between 100 and 120s with a sinus mechanism. There is frequent ectopy. Respiratory rate 23 to 26 set on a rate of 20 via the ventilator. FiO2 is down to 45%. Input and output midnight to midnight 3142 mL in with 4985 mL out. She is receiving diuretics per cardiology. Laboratories this morning show a sodium 136, K of 2.9, chloride 97, CO2 29, BUN 31, creatinine 1.60, glucose 360. Magnesium 1.9. No repeat phosphorus available. Albumin down to 1.3. White blood cell count 14.8, hemoglobin 12.0, platelet count 248,000. Blood gas done on a PRVC rate of 20, tidal volume 450, PEEP of 10, FiO2 45% as a pH 7.537, pCO2 31.9 and a pO2 86.8, saturation 97.2%. Chest x-ray shows endotracheal tube and nasogastric tube in good position. I do believe her vasculature is less congested today. The left internal jugular triple lumen catheter appears a little high compared to yesterday. On exam, although sedate, she is arousable. Moves all extremities when stimulated. Pupils do react. Sclerae clear. Trachea is in the midline. Lines and tubes are noted. Lungs show some crackles anteriorly although less marked than yesterday. She still has dependent crackles. Expansion is symmetric. Cardiac exam is borderline tachycardic, generally regular with ectopy. Peripheral pulses are palpable but edema is unchanged. Abdomen shows dressings and drains intact and are in place. Drains appear to be working. The colostomy is viable and does appear to be working well today. Extremities without cyanosis or clubbing. Neurologically as outlined above. Most pressing problems requiring my presence at the bedside: 1. Respiratory alkalosis. 2. Respiratory failure with hypoxemia. 3. Pulmonary edema, multifactorial. 4. Hypokalemia. 5. Protein calorie malnutrition. 6. Sepsis with shock now off the vasopressors. 7. Renal insufficiency. 8. Diabetes mellitus, insulin requiring. 9. Atrial flutter currently in sinus rhythm. Remains on amiodarone. At this point, we will continue current antimicrobials as she is being followed by infectious diseases for her extended-spectrum beta-lactamases (ESBL) and E Coli. We will make some ventilatory manipulations, although she is driving some of this on her own. We will replete her potassium. Adjustments have been made in her total parenteral nutrition(TPN). I believe they are going to begin enteral feeds today and I am in full agreement with that. She does diurese but I suspect we will get a more meaningful diuresis if we are able to get her albumin to respond to increase her serum colloid oncotic pressure. Overall, she does remain critically ill. Prognosis remains guarded. I left the bedside at 0928 hours. 53 minutes of critical care time devoted to the bedside not including procedures.
--- NOTE | 2017-01-29 12:59 | REP ---
REASON: Status post central line placement. COMPARISON: Earlier today. There is a left-sided internal jugular central venous catheter, the tip of which is in the left brachiocephalic vein. This is very close to the superior vena cava, but the tip does not point completely downward. The endotracheal tube and nasogastric tube are unchanged, remaining in satisfactory position. Once again, there is evidence of pulmonary edema which appears somewhat improved. There are no additional findings or changes. IMPRESSION: As above. Signed by Carlos Palomino DO 01/29/2017 02:17 P
[2017-01-29] MEDS: PROPOFOL 1,000 MG in APPROPRIATE DILUENT 1 EA IV SCH ×3 (13:02→23:00)
--- NOTE | 2017-01-29 13:11 | IPNPDOC ---
Text Note Date of Service The patient was seen on 01/29/17. NOTE Subjective: Patient is a 71 year old female with a PMHx of Fibromyalgia, OA, DLP, COPD, CKD3, HTN, Degenerative joint disease, IDDM2, Obesity, and Adrenal mass who recently had and EGD and colonoscopy. During the procedure patient had ablation of AV malformations in the ascending colon. She subsequently presented to the ER with abdominal pain. She was admitted to medical surgical floor and had worsening of her pain. She was ultimately found to have a perforation and was emergently taken to the OR. Patient was seen and examined at the bedside. She remains intubated and sedated. She was cardioverted yesterday and remains within sinus rhythm. Objective: Vitals (See below) General: Lying in bed, no acute distress, intubated and sedated HEENT: NC, AT CVS: RRR, +S1S2 Lungs: Fair air entry b/l, -w/r/r Abdomen: Soft, ND, NT, +BSx4, Midline incision, +colostomy (good output), + SHAMA drain x 2 Extremities: +PPx4, - Edema, - Calf tenderness Assessment and plan: 1. Septic shock - likely 2/2 perforated viscous - 2/2 recent colonoscopy and ablation - s/p Exploratory laparotomy 01/25 with colectomy and ileostomy - Leukocytosis worsened this morning - Wound cultures (01/25) positive for ESBL E.coli (sensitive to Zosyn) - Blood cultures (01/24) negative - s/p Pressor support - c/w Vancomycin (Day #5) and Meropenem (Day #3), s/p Zosyn (3 days) - Dr. Figueroa consulted 2. Acute hypoxic respiratory failure - likely 2/2 #1 - currently intubated and sedated - Dr. Dent following for ventilator management / critical care 3. Oliguric renal failure / Edema - + fluid balance of 13 liters - Physical reveals some signs of fluid overload; Elevated CVP - Creatinine has remained stable - c/w Lasix 80 IV Q12H - Will continue to monitor urine output; has had large volume diuresis yesterday - Dr. Valencia consulted 4. Atrial flutter / fibrillation - s/p Cardioversion (01/28); has resulted in improvement in HR and return to sinus rhythm - Will hold off on BB / CCB given hypotension - c/w Amiodarone - Dr. Riggs consulted 5. Nutrition - c/w TPN 6. IDDM2 - c/w ISS 7. Hypothyroidism - c/w Levothyroxine IV (1/2 dose) 8. DVT prophylaxis - c/w SCDs Code status: - Full code Disposition: - will continue with diuresis - sedation vacation - possible weaning trial within next few days VS,Fishbone, I+O VS, Fishbone, I+O Laboratory Tests 01/29/17 04:57 Red Blood Count 4.20, Mean Corpuscular Volume 84.6, Mean Corpuscular Hemoglobin 28.7, Mean Corpuscular Hemoglobin Concent 33.9, Red Cell Distribution Width 14.5 , Calcium Level 8.2 L, Aspartate Amino Transf (AST/SGOT) 131 H, Alanine Aminotransferase (ALT/SGPT) 38, Alkaline Phosphatase 137 H, Total Bilirubin 0.8 , Total Protein 5.6 #L, Albumin 1.3 L Vital Signs Date Time Temp Pulse Resp B/P (MAP) Pulse Ox O2 Delivery O2 Flow Rate FiO2 01/29/17 11:27 24 01/29/17 10:00 103 105/51 (69) Ventilator 45 01/29/17 09:00 95 01/29/17 08:00 97.0 01/25/17 12:02 3.0 I&O- Last 24 Hours up to 6 AM 01/29/17 06:00 Intake Total 2720 ml Output Total 4310 ml Balance -1590 ml RASHAD SIDDIQUI MD Jan 29, 2017 13:11
--- NOTE | 2017-01-29 14:35 | PHACANCOPD ---
PHARMACY VANCOMYCIN DOSING Pt Demographics Demographics Patient Age:71 , Weight:105.500 , Gender: female Adjusted Body Weight Date: 01/25/17, Adjusted Body Weight: [67.9] Kg Vancomycin Vancomycin indication: pneumonia, sepsis Vancomycin Target Ranges: 10-20 mcg/ml Vancomycin Load Y/N: Yes Load Dose Date Time Vancomycin Load Dose: 1000mg Date: 01/25 Time: 14:00 Vancomycin Dose Date: 01/25/17. Current Vancomycin Dose: [1g IV q24h @06] Intermittent Dosing?: No Labs Micro Microbiology 01/24/17 Blood Culture - Final, Complete NO GROWTH AFTER 5 DAYS 01/24/17 Blood Culture - Final, Complete NO GROWTH AFTER 5 DAYS 01/25/17 Anaerobic Culture, Received Pending 01/26/17 Gram Stain - Final, Complete 01/26/17 Sputum Culture - Final, Complete Yeast Like Organism 01/26/17 MRSA Screen - Final, Complete 01/25/17 Wound Culture - Final, Complete E.coli Esbl Enterococcus Faecalis Streptococcus Viridans Group Staphylococcus Sp Coag Neg Creatinine Clearance Date:01/25/17. Creatinine Clearance: [25 ml/min using adjusted BW]. Assessment and Plan Maintaining Current Dose?: Yes Reason for dose change: No Dose Change Pharmacist Note Pharmacist Note 01/29/17: Day #3 abx therapy. WBC is elevated, and scr remains stable. Output is increased but patient is also on IV lasix. 01/28 CXR showed unchanged bilateral infiltrates. Peritoneal fluid grew ESBL ecoli, enterococcus faecalis, and strep viridans. A follow up vancomycin trough has been scheduled for 01/30/17 @ 0500, prior to the 5th dose. We will continue to monitor and make dose adjustments if needed. Date: 01/28/17. Pharmacist note: Trough of 9.5 is just below target range. Will continue current dosing and give 500mg extra at 1200 today. Will continue to monitor and make adjustments as needed [facility] Jan 29, 2017 14:35
[2017-01-29 15:11] LABS: ALBUMIN 1.3 GM/DL (3.2-5.2); ALBUMIN/GLOBULIN RATIO 0.33 (1.00-1.93); BILIRUBIN,TOTAL 0.8 MG/DL (0.2-1.0); CALCIUM LEVEL 7.9 MG/DL (8.8-10.2); CREATININE FOR GFR 1.6 MG/DL (0.55-1.02); GLOMERULAR FILTRATION RATE 33.7 (>39); POTASSIUM SERUM 3.5 MEQ/L (3.5-5.1); TOTAL PROTEIN 5.2 GM/DL (6.4-8.2)
--- NOTE | 2017-01-29 16:39 | IPNPDOC ---
Subjective General Date/Time Seen The patient was seen on 01/29/17 at 16:30. Subject Chief Complaint/History The patient is a 71-year-old female POD4 Right colectomy and ileostomy for perforation Relatively stable the past 24 hours. Ileostomy starting to have some function. Still remains critically ill. Remains intubated and sedated. Current Medications Current Medications Current Medications Acetaminophen (Tylenol Tab) 650 mg Q4HP PRN PO MILD PAIN OR FEVER Last administered on 01/28/17 22:26; Start 01/24/17 at 02:45; Stop 02/23/17 at 02:44 Albuterol/ Ipratropium (Duoneb (Ipr 0.5mg/Alb 2.5mg)) 3 ml RQ4H NEB Last administered on 01/29/17 15:45; Start 01/25/17 at 20:00; Stop 02/24/17 at 19:59 Amiodarone HCl 150 mg/IV Miscellaneous Supplies 100 ml @ 600 mls/hr BID IV Last administered on 01/29/17 08:11; Start 01/28/17 at 09:00; Stop 02/27/17 at 08:59 Amiodarone HCl 150 mg/IV Miscellaneous Supplies 100 ml @ 600 mls/hr STAT STAT IV Last administered on 01/26/17 05:25; Start 01/26/17 at 05:14; Stop at 05:23; Status DC Amiodarone HCl 150 mg/IV Miscellaneous Supplies 100 ml @ 600 mls/hr STAT STAT IV ; Start 01/26/17 at 05:14; Stop 01/26/17 at 05:23; Status Cancel Amiodarone HCl 150 mg/IV Miscellaneous Supplies 100 ml @ 600 mls/hr STAT STAT IV Last administered on 01/26/17 12:38; Start 01/26/17 at 12:38; Stop at 12:47; Status DC Amiodarone HCl 150 mg/IV Miscellaneous Supplies 100 ml @ 600 mls/hr STAT STAT IV Last administered on 01/28/17 09:41; Start 01/28/17 at 07:37; Stop at 07:46; Status DC Amiodarone HCl 360 mg/IV Miscellaneous Supplies 200 ml @ 17 mls/hr [id number] IV Last administered on 01/27/17 08:03; Start 01/26/17 at 20:30; Stop 01/27/17 at 14:30; Status DC Amiodarone HCl 360 mg/IV Miscellaneous Supplies 200 ml @ 33.33 mls/ hr Q6H1M IV Last administered on 01/26/17 14:58; Start 01/26/17 at 14:30; Stop at 20:30; Status DC Azithromycin 500 mg/IV Miscellaneous Supplies 1 each/ Dextrose 255 ml @ 255 mls /hr Q24H IV Last administered on 01/25/17 13:21; Start 01/25/17 at 12:00; Stop 01/25/17 at 17:39; Status DC Bupropion HCl (Wellbutrin Xl) 150 mg DAILY PO Last administered on 01/25/17 08 :22; Start 01/24/17 at 09:00; Stop 01/25/17 at 17:39; Status DC Calcitriol (Rocaltrol) 0.25 mcg MoTuWeThFr@0900 PO ; Start 01/26/17 at 09:00; Stop 01/26/17 at 09:00; Status DC Ciprofloxacin 200 mg/IV Miscellaneous Supplies 100 ml @ 100 mls/hr Q12H IV Last administered on 01/25/17 04:54; Start 01/24/17 at 14:00; Stop 01/25/17 at 09:06; Status DC Cyclobenzaprine HCl (Flexeril) 10 mg TID PO Last administered on 01/25/17 08: 23; Start 01/24/17 at 09:00; Stop 01/25/17 at 11:50; Status DC Desloratidine (Clarinex) 5 mg DAILY PO Last administered on 01/25/17 08:22; Start 01/24/17 at 09:00; Stop 01/25/17 at 17:39; Status DC Dextrose (Dextrose 50%) 25 ml ASDIRECTED PRN IV SEE LABEL COMMENTS; Start 01/24 at 02:30; Stop 02/23/17 at 02:29 Dextrose (Dextrose 50%) 25 ml ASDIRECTED PRN IV SEE LABEL COMMENTS; Start 01/25 at 01:00; Stop 02/24/17 at 00:59; Status Cancel Digoxin (Lanoxin) 0.125 mg STAT STAT IV Last administered on 01/26/17 05:00; Start 01/26/17 at 04:52; Stop 01/26/17 at 04:54; Status DC Duloxetine HCl (Cymbalta) 30 mg DAILY PO ; Start 01/24/17 at 09:00; Stop at 09:00; Status DC Duloxetine HCl (Cymbalta) 60 mg DAILY PO ; Start 01/24/17 at 09:00; Stop at 09:00; Status DC Duloxetine HCl (Cymbalta) 90 mg DAILY PO Last administered on 01/25/17 08:22; Start 01/24/17 at 09:00; Stop 01/25/17 at 17:39; Status DC Fat Emulsion Intravenous 500 ml @ 20 mls/hr ONCE@1800 IV Last administered on 01/28/17 17:40; Start 01/28/17 at 18:00; Stop 01/29/17 at 17:59 Fat Emulsion Intravenous 500 ml @ 20 mls/hr ONCE@1800 IV ; Start 01/29/17 at 18 :00; Stop 01/30/17 at 17:59 Fentanyl Citrate (Sublimaze) 25 mcg Q5MP PRN IV MODERATE PAIN (PS 4-7); Start 01/25/17 at 18:15; Stop 01/25/17 at 19:15; Status DC Furosemide (LASIX injection) 80 mg Q12H IV Last administered on 01/29/17 12:58 ; Start 01/28/17 at 12:00; Stop 02/27/17 at 11:59 Glucagon (Glucagon) 1 mg ASDIRECTED PRN SC SEE LABEL COMMENTS; Start 01/24/17 at 02:30; Stop 02/23/17 at 02:29 Glucagon (Glucagon) 1 mg ASDIRECTED PRN SC SEE LABEL COMMENTS; Start 01/25/17 at 01:00; Stop 02/24/17 at 00:59; Status UNV Glucose (Glucose) 16 GM ASDIRECTED PRN PO SEE LABEL COMMENTS; Start 01/24/17 at 02:30; Stop 02/23/17 at 02:29 Glucose (Glucose) 16 GM ASDIRECTED PRN PO SEE LABEL COMMENTS; Start 01/25/17 at 01:00; Stop 02/24/17 at 00:59; Status Cancel Heparin Sodium (Porcine) (Heparin) 5,000 units Q8H SC Last administered on 01/29 14:21; Start 01/24/17 at 06:00; Stop 02/02/17 at 05:59 Home Med (Med Rec Complete!) ASDIRECTED XX ; Start 01/24/17 at 00:30; Stop at 00:31; Status DC Hydromorphone HCl (Dilaudid) 0.2 mg Q5MP PRN IV MODERATE/SEVERE PAIN (PS 7-10) ; Start 01/25/17 at 18:15; Stop 01/25/17 at 18:15; Status DC Hydromorphone HCl (Dilaudid) 0.4 mg Q5MP PRN IV MODERATE/SEVERE PAIN (PS 7-10) ; Start 01/25/17 at 18:15; Stop 01/25/17 at 19:15; Status DC Insulin Detemir (Levemir Insulin) 50 units QHS SC Last administered on 21:11; Start 01/24/17 at 21:00; Stop 01/25/17 at 17:39; Status DC Insulin Human Lispro (HumaLOG INSULIN) SEE PROTOCOL TABLE Q6H SC Last administered on 01/25/17 00:00; Start 01/24/17 at 06:00; Stop 01/25/17 at 01:01 ; Status DC Insulin Human Lispro (HumaLOG INSULIN) SEE PROTOCOL TABLE Q6H SC Last administered on 01/29/17 12:56; Start 01/26/17 at 00:00; Stop 02/25/17 at 00:00 Insulin Human Lispro (HumaLOG INSULIN) See Protocol Table AC SC Last administered on 01/25/17 13:26; Start 01/25/17 at 07:30; Stop 01/25/17 at 21:09 ; Status DC Insulin Human Lispro (HumaLOG INSULIN) See Protocol Table Q6H SC ; Start at 18:00; Stop 01/30/17 at 15:00 Insulin Human Lispro (HumaLOG INSULIN) See Protocol Table QHS SC ; Start at 21:00; Stop 02/24/17 at 20:59; Status Cancel Lactated Ringer's 1,000 ml @ 200 mls/hr Q5H IV Last administered on 01/26/17 04:30; Start 01/25/17 at 18:30; Stop 01/26/17 at 06:52; Status DC Lactobacillus Acidophilus (Bacid) 1 ea DAILY PO Last administered on 01/29/17 08:10; Start 01/24/17 at 09:00; Stop 02/23/17 at 08:59 Levothyroxine Sodium (Synthroid) 25 mcg DAILY@0600 IV Last administered on 01/29 05:30; Start 01/26/17 at 06:00; Stop 02/25/17 at 05:59 Levothyroxine Sodium (Synthroid) 50 mcg DAILY@0600 PO Last administered on 01/25 05:35; Start 01/24/17 at 06:00; Stop 01/25/17 at 17:39; Status DC Magnesium Sulfate/ Dextrose 1 gm/IV Miscellaneous Supplies 100 ml @ 100 mls/hr 1T@0700,0800 IV Last administered on 01/26/17 07:01; Start 01/26/17 at 07:00; Stop 01/26/17 at 08:59; Status DC Magnesium Sulfate/ Dextrose 1 gm/IV Miscellaneous Supplies 100 ml @ 100 mls/hr 1T@0800 IV Last administered on 01/28/17 07:29; Start 01/28/17 at 08:00; Stop 01/28/17 at 10:00; Status DC Magnesium Sulfate/ Dextrose 1 gm/IV Miscellaneous Supplies 100 ml @ 100 mls/hr 1T@0800,0900 IV Last administered on 01/25/17 08:24; Start 01/25/17 at 08:00; Stop 01/25/17 at 09:59; Status DC Meropenem 1 gm/ Dextrose 100 ml @ 200 mls/hr Q8H IV Last administered on 10:08; Start 01/27/17 at 18:00; Stop 02/03/17 at 17:59 Metoclopramide HCl (REGLAN INJection) 10 mg Q6HP PRN IV NAUSEA OR VOMITING; Start 01/25/17 at 18:15; Stop 01/25/17 at 19:15; Status DC Metoprolol Tartrate (Lopressor) 5 mg STAT STAT IV Last administered on 13:07; Start 01/28/17 at 12:59; Stop 01/28/17 at 13:01; Status DC Metoprolol Tartrate (Lopressor) 5 mg STAT STAT IV Last administered on 15:02; Start 01/28/17 at 14:21; Stop 01/28/17 at 14:25; Status DC Metoprolol Tartrate (Lopressor) 25 mg Q8H NG Last administered on 01/29/17 14: 20; Start 01/28/17 at 14:00; Stop 02/27/17 at 13:59 Metoprolol Tartrate (Lopressor) 50 mg BID PO Last administered on 01/25/17 08: 23; Start 01/24/17 at 09:00; Stop 01/25/17 at 12:02; Status DC Metronidazole 500 mg/IV Miscellaneous Supplies 100 ml @ 100 mls/hr Q8H IV Last administered on 01/25/17 04:54; Start 01/24/17 at 11:00; Stop 01/25/17 at 09:06; Status DC Morphine Sulfate (Morphine Sulfate Inj) 2 mg Q2HP PRN IV SEVERE PAIN (PS 8-10) Last administered on 01/29/17 05:32; Start 01/24/17 at 02:45; Stop 01/31/17 at 02:44 Morphine Sulfate (Morphine Sulfate Inj) 4 mg Q15M PRN IV MODERATE/SEVERE PAIN ( PS 5-10) Last administered on 01/24/17 01:54; Start 01/23/17 at 21:00; Stop at 01:55; Status DC Naloxone HCl (Narcan) 0.4 mg STAT STAT IV ; Start 01/25/17 at 11:16; Stop 01/25 at 11:17; Status DC Norepinephrine Bitartrate 16 mg/ Dextrose 516 ml @ 19.35 mls/ hr Q24H IV Last administered on 01/28/17 00:40; Start 01/25/17 at 13:00; Stop 02/24/17 at 12:59 ; Status Future Hold Ondansetron HCl (ZOFRAN INJection) 4 mg Q4HP PRN IV NAUSEA OR VOMITING; Start 01/25/17 at 18:15; Stop 01/25/17 at 19:15; Status DC Ondansetron HCl (ZOFRAN INJection) 4 mg Q6HP PRN IV NAUSEA OR VOMITING Last administered on 01/24/17 17:34; Start 01/24/17 at 02:45; Stop 02/23/17 at 02:44 Oxycodone/ Acetaminophen (Percocet 5mg/ 325mg Tablet) 1 tab Q4HP PRN PO MODERATE PAIN (PS 5-7) Last administered on 01/24/17 18:36; Start 01/24/17 at 02:45; Stop 01/25/17 at 11:47; Status DC Pantoprazole Sodium (Protonix) 40 mg Q24H IV Last administered on 01/29/17 08: 10; Start 01/24/17 at 09:00; Stop 02/23/17 at 08:59 Piperacillin Sod/ Tazobactam Sod 3.375 gm/Dextrose 50 ml @ 50 mls/hr Q6H IV Last administered on 01/27/17 14:08; Start 01/25/17 at 09:00; Stop 01/27/17 at 17:13; Status DC Potassium Chloride 20 meq/ IV Miscellaneous Supplies 100 ml @ 100 mls/hr 1T@ 0800,1400,2200 IV Last administered on 01/29/17 07:38; Start 01/29/17 at 08:00 ; Stop 01/29/17 at 10:11; Status DC Potassium Chloride 20 meq/ IV Miscellaneous Supplies 100 ml @ 100 mls/hr 1T@ 0900,1000 IV Last administered on 01/29/17 12:57; Start 01/29/17 at 09:00; Stop 01/29/17 at 12:00; Status DC Potassium Chloride 20 meq/ IV Miscellaneous Supplies 100 ml @ 100 mls/hr 1T@ 0900,2100 IV ; Start 01/30/17 at 09:00; Stop 01/30/17 at 23:59 Potassium Chloride 20 meq/ IV Miscellaneous Supplies 100 ml @ 100 mls/hr BID@ 0000,2300 IV Last administered on 01/27/17 23:37; Start 01/27/17 at 23:00; Stop 01/28/17 at 03:00; Status DC Prazosin HCl (Minipress) 1 mg QHS PO Last administered on 01/24/17 21:10; Start 01/24/17 at 21:00; Stop 01/25/17 at 17:39; Status DC Pregabalin (Lyrica) 100 mg TID PO Last administered on 01/25/17 08:23; Start 01/24/17 at 09:00; Stop 01/25/17 at 11:50; Status DC Propofol 1000 mg/ IV Miscellaneous Supplies 100 ml @ 20 mls/hr Q5H IV Last administered on 01/29/17 13:02; Start 01/25/17 at 19:30; Stop 01/29/17 at 17:59 Propofol 1000 mg/ IV Miscellaneous Supplies 100 ml @ 20 mls/hr Q5H IV Last administered on 01/29/17 16:19; Start 01/29/17 at 18:00; Stop 02/05/17 at 17:59 Salmeterol Xinafoate/ Fluticasone (Advair Hfa 115/ 21) 2 puff BID INH Last administered on 01/29/17 07:42; Start 01/24/17 at 09:00; Stop 02/23/17 at 08:59 Senna/Docusate Sodium (Senokot S) 1 tab BID PO Last administered on 01/25/17 08:23; Start 01/24/17 at 09:00; Stop 01/25/17 at 17:39; Status DC Sodium Bicarbonate 100 meq/Dextrose/Water 1,100 ml @ 75 mls/hr [id number] IV Last administered on 01/26/17 14:57; Start 01/26/17 at 08:00; Stop 01/26/17 at 21:05; Status DC Sodium Bicarbonate (Sodium Bicarbonate) 50 meq STAT STAT IV Last administered on 01/25/17 20:57; Start 01/25/17 at 20:29; Stop 01/25/17 at 20:31; Status DC Sodium Bicarbonate (Sodium Bicarbonate) 50 meq STAT STAT IV Last administered on 01/26/17 05:54; Start 01/26/17 at 05:43; Stop 01/26/17 at 05:47; Status DC Sodium Chloride 1,000 ml @ 75 mls/hr [id number] IV Last administered on 17:41; Start 01/25/17 at 18:15; Stop 01/25/17 at 19:15; Status DC Sodium Chloride 1,000 ml @ 100 mls/hr Q10H IV Last administered on 01/25/17 04:54; Start 01/24/17 at 02:30; Stop 01/25/17 at 11:48; Status DC Sodium Chloride 120 meq/Sodium Acetate 20 meq/ Sodium Phosphate 40 mmol/ Potassium Chloride 80 meq/ Magnesium Sulfate 11 meq/Calcium Gluconate 1389 mg/ Multivitamins 10 ml/Chromium/ Copper/Manganese/ Seleni/Zn 1 ml/ Insulin Human Regular 21 units/ Amino Acids/ Dextrose 2,121.1833 ml @ 60 mls/hr ONCE@1800 IV Last administered on 01/28/17 17:42; Start 01/28/17 at 18:00; Stop 01/29/17 at 17:59 Sodium Chloride 140 meq/Sodium Phosphate 60 mmol/ Potassium Chloride 160 meq/ Magnesium Sulfate 11 meq/Calcium Gluconate 1389 mg/ Insulin Human Regular 41 units/ Amino Acids/ Dextrose 2,152.05 ml @ 60 mls/hr ONCE@1800 IV ; Start 01/29 at 18:00; Stop 01/30/17 at 17:59 Vancomycin HCl 1000 mg/IV Miscellaneous Supplies 1 each/ Dextrose 270 ml @ 270 mls/hr Q24H IV ; Start 01/26/17 at 06:00; Stop 01/26/17 at 06:00; Status DC Vancomycin HCl 1000 mg/IV Miscellaneous Supplies 1 each/ Dextrose 270 ml @ 270 mls/hr Q24H IV Last administered on 01/26/17 10:37; Start 01/26/17 at 10:00; Stop 01/26/17 at 11:05; Status DC Vancomycin HCl 1000 mg/IV Miscellaneous Supplies 1 each/ Dextrose 270 ml @ 270 mls/hr Q24H IV Last administered on 01/29/17 06:04; Start 01/27/17 at 06:00; Stop 02/03/17 at 05:59 Vasopressin 20 units/Sodium Chloride 501 ml @ 60 mls/hr Q8H21M IV Last administered on 01/28/17 09:41; Start 01/25/17 at 17:00; Stop 02/24/17 at 16:59 ; Status Future Hold Vitamin D (Vitamin D) 2,000 units DAILY PO Last administered on 01/29/17t 08:10 ; Start 01/24/17 at 09:00; Stop 02/23/17 at 08:59 Allergies Coded Allergies: Latex (Verified Allergy, Unknown, 05/30/15) Atorvastatin (Unverified Adverse Reaction, Severe, MUSCLE ACHE, 01/23/17) Statins (Verified Adverse Reaction, Severe, MUSCLE ACHES, TOTALLY INCAPACITATES, 11/09/12) Sulfamethoxazole w/Trimethoprim (Unverified Adverse Reaction, Mild, pain and bladder infection, 01/23/17) Objective Physical Examination Examination GENERAL APPEARANCE:patient intubated, sedated. SKIN: Warm and moist HEENT: intubated, NGT with greenigsh bile drainage. Some JV distention. LUNGS: Clear to auscultation bilaterally. No wheezing appreciated. HEART: No chest wall abnormalities. RTachycardic to 120s, regular rhythm ABDOMEN: Abdomen is round, soft, minimally distended, still somewhat hypoactive BS. midline incision dressings, intact, minimal drainage from katharina. Both drains have serous drainage. EXTREMITIES: (+) edema. Vital Signs Vital Signs Date Time Temp Pulse Resp B/P (MAP) Pulse Ox O2 Delivery O2 Flow Rate FiO2 01/29/17 15:40 114 24 96 45 01/29/17 14:20 111/56 01/29/17 14:00 Ventilator 01/29/17 12:00 98.1 01/25/17 12:02 3.0 I&Os I&O- Last 24 Hours up to 6 AM 01/29/17 06:00 Intake Total 2720 ml Output Total 4310 ml Balance -1590 ml NG 475 mLs yesterday Laboratory Data Labs 24H Laboratory Tests 2 01/28/17 17:41: Bedside Glucose (Misc Panel) 279H 01/29/17 00:07: Bedside Glucose (Misc Panel) 326H 01/29/17 04:57: Blood Gas Bicarbonate Standard 28.3H, Arterial Blood pH 7.537H, Arterial Blood Partial Pressure CO2 31.9L, Arterial Blood Partial Pressure O2 86.8, Arterial Blood Total CO2 27.5, Arterial Blood HCO3 26.5H, Arterial Blood Base Excess 4.3H , Arterial Blood Oxygen Saturation 97.2, Anion Gap 10, Glomerular Filtration Rate 33.7L, Blood Urea Nitrogen 31H, Creatinine 1.60H, Sodium Level 136, Potassium Level 2.9*L, Chloride Level 97L, Carbon Dioxide Level 29, Calcium Level 8.2L, Aspartate Amino Transf (AST/SGOT) 131H, Alanine Aminotransferase ( ALT/SGPT) 38, Alkaline Phosphatase 137H, Total Bilirubin 0.8, Total Protein 5.6# L, Albumin 1.3L, Magnesium Level 1.9, Albumin/Globulin Ratio 0.30L 01/29/17 05:16: Bedside Glucose (Misc Panel) 358H 01/29/17 12:47: Bedside Glucose (Misc Panel) 401H 01/29/17 14:18: Anion Gap 9, Glomerular Filtration Rate 33.7L, Blood Urea Nitrogen 34H, Creatinine 1.60H, Sodium Level 135L, Potassium Level 3.5#, Chloride Level 97L, Carbon Dioxide Level 29, Calcium Level 7.9L, Aspartate Amino Transf (AST/SGOT) 127H, Alanine Aminotransferase (ALT/SGPT) 36, Alkaline Phosphatase 133H, Total Bilirubin 0.8, Total Protein 5.2L, Albumin 1.3L, Albumin/Globulin Ratio 0.33L CBC/BMP Laboratory Tests 01/29/17 04:57 Red Blood Count 4.20, Mean Corpuscular Volume 84.6, Mean Corpuscular Hemoglobin 28.7, Mean Corpuscular Hemoglobin Concent 33.9, Red Cell Distribution Width 14.5 , Calcium Level 8.2 L, Aspartate Amino Transf (AST/SGOT) 131 H, Alanine Aminotransferase (ALT/SGPT) 38, Alkaline Phosphatase 137 H, Total Bilirubin 0.8 , Total Protein 5.6 #L, Albumin 1.3 L 01/29/17 14:18 Calcium Level 7.9 L, Aspartate Amino Transf (AST/SGOT) 127 H, Alanine Aminotransferase (ALT/SGPT) 36, Alkaline Phosphatase 133 H, Total Bilirubin 0.8 , Total Protein 5.2 L, Albumin 1.3 L Microbiology Microbiology 01/24/17 Blood Culture - Final, Complete NO GROWTH AFTER 5 DAYS 01/24/17 Blood Culture - Final, Complete NO GROWTH AFTER 5 DAYS 01/25/17 Anaerobic Culture, Received Pending 01/26/17 Gram Stain - Final, Complete 01/26/17 Sputum Culture - Final, Complete Yeast Like Organism 01/26/17 MRSA Screen - Final, Complete 01/25/17 Wound Culture - Final, Complete E.coli Esbl Enterococcus Faecalis Streptococcus Viridans Group Staphylococcus Sp Coag Neg Impression POD4 Right colectomy with ileostomy Sepsis Critical illness Respiratory Failure on vent Acute kidney injury on top of chronic kidney disease Atrial fibrillation/flutter s/p cardioversion Her ileostomy is starting to show some function. We will trickle feed her and see how she tolerates it. She is on meropenem now for ESBL among other organisms that grew from her periotenal fluid culture. Her drains are all serous. She is getting active diuresis and is tolerating this. Hopefully will be able to get off vent soon. Ileostomy is ischemic but functioning, does not need revision. Plan / VTE VTE Prophylaxis Ordered?: Yes Plan / Urinary Catheter Reason for insertion/continuin: Critical Pt monitoring BRITNEY RITCHIE MD Jan 29, 2017 16:39
[2017-01-29] MEDS ORDERED: FAT EMULSION IV 20% 500 ML IV SCH (18:00)
[2017-01-29] MEDS ORDERED: SODIUM PHOSPHATE IV SCH ×7 (18:00)
[2017-01-29] MEDS ORDERED: HumaLOG INSULIN (NovoLOG) PER UNIT SC SCH (18:00)
[2017-01-29] MEDS ORDERED: SODIUM CHLORIDE IV SCH ×7 (18:00)
[2017-01-29] MEDS ORDERED: [UNRECOGNIZED DRUG - OTHER] IV SCH ×7 (18:00)
--- NOTE | 2017-01-29 21:29 | IPN ---
DATE: 01/29/2017 Mrs. Kessler is seen this morning on her bedside. She remains intubated and sedated. She is still in sinus rhythm with tachycardia. She is being diuresed by cardiology. Total parenteral nutrition (TPN) was started yesterday, which is still in progress. PHYSICAL EXAMINATION: Temperature 96.9 degrees Fahrenheit, heart rate 120 per minute and respiratory rate 24 per minute. Blood pressure 130/60 mmHg and oxygen saturation 95% on 45% oxygen. Intake and output records from yesterday showed total intake 3142 and output 4985 mL Head is atraumatic. Endotracheal tube in the mouth and nasogastric tube in her nostril is present. Neck veins are somewhat difficult to be assessed. Heart sounds are tachycardiac. Lungs with good bilateral air entry. Abdomen: Soft and bowel sounds are hypoactive. Colostomy is draining dark greenish fluid. Extremities have no cyanosis or clubbing. Neurologically, she is sedated. Today's labs show WBC count 14.8, hemoglobin 12.0 and hematocrit 35.5. Sodium 136 and potassium 2.9. BUN 31 and creatinine 1.60. Glucose 360 and calcium 8.2. Total protein 5.6 and albumin 1.3. PROBLEMS: 1. Acute renal failure. No change in kidney function. She is diuresing very well. 2. Hypokalemia. This related to diuresis and acute renal failure. Her potassium is being replaced intravenously. I have discussed with Dr. Dent who is writing her TPN orders and suggested to increase potassium content of the TPN. Electrolytes need to be repeated. 3. His congestive heart failure and volume overload. She did get a lot of IV fluid when she was hypotensive. Now she is being diuresed. She is responding very well to diuretics. 4. Nutrition. The patient is currently on TPN and orders are being written by Dr. Dent.
--- NOTE | 2017-01-29 23:14 | RO ---
DATE OF PROCEDURE: 01/29/2017 PREPROCEDURE DIAGNOSIS: POSTPROCEDURE DIAGNOSIS: PROCEDURE: SURGEON: Dr. Ollie Kay DINKEY PRESS OPERATOR: ANESTHESIA: The patient is seen at the request of Dr. Dent for change of a central line. The left internal jugular vein catheter was placed approximately 2 days ago, and it has now slipped out significantly such that one of the ports is leaking. I was asked to rewire the central line. DESCRIPTION OF PROCEDURE: The patient's left neck and the entire central line were prepped and draped in the usual sterile fashion. The proximal port was cut off with a knife so as to avoid handling the hub. A wire was placed through the cut off port. The catheter was withdrawn. Tract was dilated, and a new central line was placed by Seldinger technique. It consisted of a triple lumen catheter. The catheter was sutured to the neck with two #3-0 silk sutures. The patient tolerated the procedure well and a chest x-ray is pending.
[2017-01-30] VITALS (16 sets, daily range): BP systolic 102–169; BP diastolic 55–82
[2017-01-30] MEDS: FUROSEMIDE 100 MG/10 ML VIAL (J1940) IV SCH ×3 (00:08→23:11)
--- NOTE | 2017-01-30 00:11 | ECGEPIP ---
Stationary ECG Study [facility] Test Date: 2017-01-28 Pat Name: ANTONIO ERVIN Department: Room: [place] [address] Gender: F Applications Developer: [email or web address] : [id number] Requested By: Jordin Riggs Order Number: [id number] Reading MD: Klaus Robison Measurements Intervals [place] Rate: 113 P: CA: 0 QRS: 59 QRSD: 132 T: 0 QT: 366 QTc: 503 Interpretive Statements Normal SINUS RHYTHM WITH ISOLATED PACs RIGHT BUNDLE BRANCH BLOCK Low-voltage QRS complexes Compared to the last 2 tracings, heart rate is slower and patient's habit to be in mild sinus tachycardia Electronically Signed On 01-30-2017 0:10:46 EDT by Klaus Robison
[2017-01-30] MEDS: MEROPENEM INJ 1 GM in D5W MINI-BAG PLUS 100 ML IV SCH ×3 (01:15→18:33)
[2017-01-30] MEDS: IPRATROPIUM 0.5MG/ALBUTEROL 2.5MG INH SOL UD 3ML (DUONEB)(J7620) NEB SCH ×5 (02:26→20:00)
[2017-01-30] MEDS: PROPOFOL 1,000 MG in APPROPRIATE DILUENT 1 EA IV SCH ×2 (02:47→09:18)
[2017-01-30] MEDS: HEPARIN SOD (PORCINE) 5000 UNITS/ML VIAL SC SCH ×3 (05:05→20:57)
[2017-01-30] MEDS: METOPROLOL TART 25 MG TABLET NG SCH (05:06)
[2017-01-30] MEDS: LEVOTHYROXINE 100 MCG (0.1MG) VIAL IV SCH (05:06)
[2017-01-30] MEDS: HumaLOG INSULIN (NovoLOG) PER UNIT SC SCH ×4 (05:19→23:11)
[2017-01-30 05:26] LABS: MEAN CORPUSCULAR HEMOGLOBIN 28.8 pg (27.0-33.0); MEAN CORPUSCULAR HGB CONC 34.3 g/dl (32.0-36.5); RED CELL DISTRIBUTION WIDTH 14.6 % (11.5-14.5); WHITE BLOOD COUNT 16.3 K/mm3 (4.0-10.0)
[2017-01-30 05:44] LABS: ALBUMIN 1.3 GM/DL (3.2-5.2); ALBUMIN/GLOBULIN RATIO 0.32 (1.00-1.93); BILIRUBIN,TOTAL 0.9 MG/DL (0.2-1.0); CALCIUM LEVEL 8.1 MG/DL (8.8-10.2); CREATININE FOR GFR 1.53 MG/DL (0.55-1.02); GLOMERULAR FILTRATION RATE 35.5 (>39); MAGNESIUM LEVEL 1.7 MG/DL (1.8-2.4); POTASSIUM SERUM 3.5 MEQ/L (3.5-5.1); TOTAL PROTEIN 5.4 GM/DL (6.4-8.2)
[2017-01-30 05:49] LABS: ABG HCO3 28.8 MEQ/L (22.0-26.0); ABG PARTIAL PRESSURE CO2 35.7 mmHg (35.0-45.0); ABG PARTIAL PRESSURE O2 93.6 mmHg (75.0-100.0); ABG STANDARD HCO3 29.9 MEQ/L (22.0-26.0); ABG TOTAL CO2 29.9 MEQ/L (23.0-31.0); ABG pH (ARTERIAL) 7.525 UNITS (7.350-7.450)
--- NOTE | 2017-01-30 05:58 | PHACANCOPD ---
PHARMACY VANCOMYCIN DOSING Pt Demographics Demographics Patient Age:71 , Weight:105.500 , Gender: female Adjusted Body Weight Date: 01/25/17, Adjusted Body Weight: [67.9] Kg Events Past 24 Hours Events Past 24 Hours: NO: Dialysis, Diuretic Therapy, Change in CrCl, Fever, Elevation in WBC, Pending Diagnostics, Pending Procedures, Other Vancomycin Vancomycin indication: pneumonia, sepsis Vancomycin Target Ranges: 10-20 mcg/ml Vancomycin Load Y/N: Yes Load Dose Date Time Vancomycin Load Dose: 1000mg Date: 01/25 Time: 14:00 Vancomycin Dose Date: 01/30/17. Current Vancomycin Dose: [1g IV q24h @06] Intermittent Dosing?: No Labs Labs Item Value Date Time White Blood Count 16.3 K/mm3 H 01/30/17 05 Creatinine 1.53 MG/DL H 01/30/17512 Vancomycin Level Trough 18.5 UG/ML 01/30/17 0513 Micro Microbiology 01/24/17 Blood Culture - Final, Complete NO GROWTH AFTER 5 DAYS 01/24/17 Blood Culture - Final, Complete NO GROWTH AFTER 5 DAYS 01/25/17 Anaerobic Culture, Received Pending 01/26/17 Gram Stain - Final, Complete 01/26/17 Sputum Culture - Final, Complete Yeast Like Organism 01/26/17 MRSA Screen - Final, Complete 01/25/17 Wound Culture - Final, Complete E.coli Esbl Enterococcus Faecalis Streptococcus Viridans Group Staphylococcus Sp Coag Neg Creatinine Clearance Date:01/25/17. Creatinine Clearance: [25 ml/min using adjusted BW]. Assessment and Plan Maintaining Current Dose?: Yes Reason for dose change: No Dose Change Pharmacist Note Pharmacist Note Date: 01/28/17. Pharmacist note: Trough of 18.5 is within target range. Will continue current dosing. Will continue to monitor and make adjustments as needed. ZACKARY VARGAS PHARMACY Jan 30, 2017 05:58
[2017-01-30] MEDS: VANCOMYCIN HCL 1,000 MG, VIAL MATE ADAPTER 1 EACH in D5W 250 ML IV SCH (06:00)
[2017-01-30] MEDS: ADVAIR HFA 115/21MCG INHALER INH SCH ×2 (07:42→21:00)
--- NOTE | 2017-01-30 08:07 | IPN ---
DATE: 01/30/2017 Mrs. Kessler continues to do relatively well considering the circumstances. She remains sedated and intubated in intensive care unit (ICU), but fortunately she has been maintaining sinus rhythm, even though there is a large amount of atrial ectopy. She also has been diuresing successfully and her saturation is quite acceptable with 45% FiO2. Vital signs: Blood pressure 111/59, heart rate has been around 100. She is afebrile. Saturation was 95% on 45% FiO2. Fluid balance yesterday was approximately 2100 mL negative and she is already 750 mL negative today. Weight was measured at 106 kg. She is sedated consequently limiting neurologic exam. Lungs are relatively clear to auscultation even though the air movement is fair and the exam is limited by her large size. Heart exam reveals regular rhythm with frequent ectopy. I do not appreciate gallop or rub. Abdomen is obese but soft. Bowel sounds are present. She is making stool through her colostomy. Extremities have only minimal edema. Laboratory walter: Basic metabolic panel: Sodium 137, potassium 3.5, BUN 35, creatinine 1.5, GFR 35, magnesium 1.7, albumin 1.3. CBC: Hemoglobin 11.7, hematocrit 34 and platelet count 215,000 ASSESSMENT AND PLAN: Mrs. Kessler is a 71-year-old female who presented with peritonitis due to perforated viscus and resulting septic shock. As a complicating factor, she developed atrial fibrillation/atrial flutter that was very difficult to rate control. Eventually, she was cardioverted after 2 days of administering amiodarone. So far, she has been maintaining sinus rhythm. There is very frequent atrial ectopy. I will continue to give her one more day of intravenous (IV) amiodarone twice a day, 150 mg, but will start administration through the nasogastric (NG) tube as it appears that her gastrointestinal (GI) tract is start to work. The amiodarone IV can probably be stopped tomorrow. Simultaneously, I am going to increase the dose of metoprolol to 50 mg twice a day as she is relatively tachycardiac and blood pressure has been doing well. As far as anticoagulation is concerned, I will address this with critical care attending, but I believe that if not today then tomorrow likely at least temporary anticoagulation can be started. As far as congestive heart failure is concerned, she is still quite volume overloaded as a consequence of vigorous volume resuscitation in setting of sepsis and shock. We continue diuresing her. Her renal function is improving and electrolytes are being vigorously replaced. Even though she still remains critically ill and a lot of things can go wrong, I am becoming to be cautiously optimistic that she will survive this grave illness. EVARISTO
--- NOTE | 2017-01-30 08:18 | REP ---
Portable chest, single AP view, the patient semi upright, 01/30/2017, 06:59 a.m.: Comparison is 2016. The bilateral interstitial infiltrates are not significantly changed. Cardiac size is upper normal. The endotracheal tube remains in satisfactory location with the tip at the level of the aortic arch. There is a left IJ central venous catheter with the tip in the innominate vein, unchanged. Impression: No significant interval change. Signed by Alonso Hector MD 01/30/2017 08:09 A
[2017-01-30] MEDS ORDERED: METOPROLOL TART 25 MG TABLET NG ONE ×2 (08:30)
[2017-01-30] MEDS: KCL 20MEQ IN 100ML SWI (KRUN) 20 MEQ in APPROPRIATE DILUENT 1 EA IV SCH ×4 (09:00→09:15)
[2017-01-30] MEDS: AMIODARONE HCL 150 MG in APPROPRIATE DILUENT 1 EA IV SCH ×2 (09:14→20:58)
[2017-01-30] MEDS: PANTOPRAZOLE 40MG INJ (PROTONIX) (C9113) IV SCH (09:14)
[2017-01-30] MEDS: AMIODARONE 200 MG TAB (PACERONE) NG SCH ×2 (09:15→20:56)
[2017-01-30] MEDS: LACTOBACILLUS ACIDOPHILUS CAP (BACID) PO SCH (09:17)
[2017-01-30] MEDS: VITAMIN D 1,000 INTERNATIONAL UNITS TABLET PO SCH (09:17)
[2017-01-30] MEDS: POTASSIUM CHLORIDE 10% LIQ 20 MEQ/15 ML UDC PO SCH ×4 (10:28→23:12)
[2017-01-30 10:58] LABS: ABG BASE EXCESS 4.2 (-2.0-2.0); ABG HCO3 26.4 MEQ/L (22.0-26.0); ABG PARTIAL PRESSURE O2 61.9 mmHg (75.0-100.0); ABG STANDARD HCO3 28.1 MEQ/L (22.0-26.0); ABG TOTAL CO2 27.4 MEQ/L (23.0-31.0); ABG pH (ARTERIAL) 7.534 UNITS (7.350-7.450)
--- NOTE | 2017-01-30 11:32 | IPNPDOC ---
Text Note Date of Service The patient was seen on 01/30/17. NOTE Subjective: Patient is a 71 year old female with a PMHx of Fibromyalgia, OA, DLP, COPD, CKD3, HTN, Degenerative joint disease, IDDM2, Obesity, and Adrenal mass who recently had and EGD and colonoscopy. During the procedure patient had ablation of AV malformations in the ascending colon. She subsequently presented to the ER with abdominal pain. She was admitted to medical surgical floor and had worsening of her pain. She was ultimately found to have a perforation and was emergently taken to the OR. Patient was seen and examined at the bedside. Still intubate and sedated. Objective: Vitals (See below) General: Lying in bed, no acute distress, intubated and sedated HEENT: NC, AT CVS: RRR, +S1S2 Lungs: Fair air entry b/l, -w/r/r Abdomen: Soft, ND, NT, +BSx4, Midline incision, +colostomy (good output), + SHAMA drain x 2 (minimal serosanguineous fluid) Extremities: +PPx4, - Edema, - Calf tenderness Assessment and plan: 1. s/p Septic shock - likely 2/2 perforated viscous - 2/2 recent colonoscopy and ablation - s/p Exploratory laparotomy 01/25 with colectomy and ileostomy - Leukocytosis persistant - Wound cultures (01/25) positive for ESBL E.coli - Blood cultures (01/24) negative - s/p Pressor support - c/w Vancomycin (Day #6) and Meropenem (Day #4), s/p Zosyn (3 days) - Dr. Figueroa consulted 2. Acute hypoxic respiratory failure - likely 2/2 #1 - currently intubated and sedated; plan for weaning trial in next few days - Dr. Dent / Dr. Sarmiento following for ventilator management / critical care 3. Oliguric renal failure / Edema - + fluid balance of 10 liters - Physical reveals some signs of fluid overload; Elevated CVP - Creatinine has remained stable - Continues to have large volume diuresis with lasix - c/w Lasix 80 IV Q12H - Dr. Valencia consulted 4. Atrial flutter / fibrillation - s/p Cardioversion (01/28); has resulted in improvement in HR and return to sinus rhythm - Will hold off on BB / CCB given hypotension - c/w Amiodarone - Dr. Riggs consulted 5. Nutrition - c/w TPN - Has been advanced to oral tube feedings by surgery - Ileostomy is functioning adequately 6. IDDM2 - c/w ISS 7. Hypothyroidism - c/w Levothyroxine IV (1/2 dose) 8. DVT prophylaxis - c/w SCDs Code status: - Full code Disposition: - tube feedings started - will continue with diuresis - sedation vacation - possible weaning trial within next few days as FIO2 requirement goes down VS,Fishbone, I+O VS, Fishbone, I+O Laboratory Tests 01/29/17 14:18 Calcium Level 7.9 L, Aspartate Amino Transf (AST/SGOT) 127 H, Alanine Aminotransferase (ALT/SGPT) 36, Alkaline Phosphatase 133 H, Total Bilirubin 0.8 , Total Protein 5.2 L, Albumin 1.3 L 01/30/17 05:13 Calcium Level 8.1 L, Aspartate Amino Transf (AST/SGOT) 102 H, Alanine Aminotransferase (ALT/SGPT) 38, Alkaline Phosphatase 143 H, Total Bilirubin 0.9 , Total Protein 5.4 L, Albumin 1.3 L, Red Blood Count 4.07, Mean Corpuscular Volume 84.0, Mean Corpuscular Hemoglobin 28.8, Mean Corpuscular Hemoglobin Concent 34.3, Red Cell Distribution Width 14.6 H Vital Signs Date Time Temp Pulse Resp B/P (MAP) Pulse Ox O2 Delivery O2 Flow Rate FiO2 01/30/17 10:15 104 28 Ventilator 30 01/30/17 10:00 131/64 (86) 01/30/17 09:38 94 01/30/17 08:00 98.5 01/25/17 12:02 3.0 I&O- Last 24 Hours up to 6 AM 01/30/17 05:59 Intake Total 1860 ml Output Total 3765 ml Balance -1905 ml RASHAD SIDDIQUI MD Jan 30, 2017 11:32
[2017-01-30 12:57] LABS: ABG BASE EXCESS 4.9 (-2.0-2.0); ABG HCO3 27.2 MEQ/L (22.0-26.0); ABG PARTIAL PRESSURE CO2 32.9 mmHg (35.0-45.0); ABG PARTIAL PRESSURE O2 62.5 mmHg (75.0-100.0); ABG STANDARD HCO3 28.8 MEQ/L (22.0-26.0); ABG TOTAL CO2 28.3 MEQ/L (23.0-31.0); ABG pH (ARTERIAL) 7.536 UNITS (7.350-7.450)
[2017-01-30] MEDS ORDERED: SODIUM CHLORIDE 0.9% INJ 10 ML SYR IV PRN (14:15)
[2017-01-30] MEDS ORDERED: SLF 3 ML SYR IV PRN (14:15)
--- NOTE | 2017-01-30 16:37 | CCN ---
DATE: 01/30/2017 At bedside her temperature is 98.7, pulse rate 135, respirations 29, blood pressure 111/59 off pressors. Saturation is 95% with FIO2 0.35. I O for the past 24 hours 2350 in, 4485 out since midnight 30 in and 780 out. She is actively diuresing at this point. At bedside, she is ill appearing. Her oral mucosa is pink. Neck is supple. There is an nasogastric tube and oral endotracheal tube at 23 cm. Jugular veins are difficult to appreciate. Heart sounds are regular with frequent ectopy. The breath sounds are diminished bilaterally. Some dullness in the bases. Chest is symmetric. There is spontaneous respiratory effort noted. Abdomen is soft with an ostomy bag. There are bowel sounds in place. She is tolerating tube feeds now at 60 mL/hour. Extremities pulses are palpable times four. DIAGNOSTIC STUDIES: Sodium is 137, potassium 3.5, chloride 98, CO2 28, BUN 35, creatinine is down to 1.53, glucose 324, white cell count is 16.3, hemoglobin 11.7, hematocrit 34.2, platelet count is 215,000. The arterial blood gases show pH 7.52, pCO2 35, pO2 93. Chest x-ray Shows tubes and lines in good position. Hazy infiltrates. Cultures are showing ESBL E-coli, E-faecalis, strep viridans. On medications review, the patient is on day #3 meropenem, vancomycin, receiving subcutaneous heparin every 8 hours and IV Protonix. Amiodarone tube feedings, propofol and Lopressor. THE PRIMARY PROBLEM REQUIRING CRITICAL ATTENTION: 1. Acute respiratory failure. We will change her ventilator mode to IMV with pressure support and initiate weaning following arterial blood gas analysis. 2. Septic shock GI sources. The patient is off pressors at this point. Infectious disease is adjusting antibiotics. White cell count is 16. 4. Fluid volume, the patient is actively diuresing. 5. Hypokalemia. Potassium is being replaced. Potassium level is better. We are targeting the mid 4s. 6. Cardiac ectopy. The patient is receiving amiodarone. Dose was increased this morning between this and normalizing the potassium I anticipate her ectopy should respond. 7. DVT prophylaxis being addressed with subcutaneous heparin. 8. Ulcer prophylaxis being addressed with Protonix. 9. Glycemic control is fair. Will continue close monitoring. I have discussed the case with surgery, nephrology and infectious disease. The patient's condition is critical. Prognosis is guarded. 78 minutes was spent in the provision of bedside critical care and coordination.
--- NOTE | 2017-01-30 19:43 | IPN ---
DATE: 01/30/2017 Mrs. Kessler is seen this morning on her bedside. She remains intubated and sedated. She is not responding at all at present. She is currently receiving amiodarone due to frequent premature atrial contractions (PACs). She had good response to diuretics and has been in negative fluid balance. Tube feeding has also been started with nasogastric tube, which she seems to be tolerating. Her colostomy has some bilious output. PHYSICAL EXAMINATION: Temperature 98.9 degrees Fahrenheit, heart rate 110 per minute, respiratory rate 38 per minute, blood pressure 146/73 mm of mercury, and oxygen saturation 92% on 35% oxygen. Intake and output records from yesterday show total intake 2350 and output 4485 mL. She has a negative fluid balance of just over 2 liters. Head is atraumatic. Neck veins are difficult to be assessed. Central line is present. Heart sounds are tachycardiac and irregular. Lungs have good bilateral air entry. Abdomen soft, and colostomy has some bilious output. Extremities have no cyanosis or clubbing. Peripheral edema has improved significantly. Today's labs showed WBC count 16.3, hemoglobin 11.7, hematocrit 34.2, platelets 215. Sodium 137, potassium 3.5, BUN 35, creatinine 1.53, glucose 374, and calcium 8.1. Blood gas this morning showed a pH of 7.53, pCO2 of 32, pO2 of 62, and bicarbonate 28. PROBLEMS: 1. Acute kidney injury on chronic kidney disease. No significant change in kidney function over last 3 days. We will continue to monitor kidney function on daily basis. 2. Hypokalemia. Her potassium level remains low, and in view of the patient's frequent arrhythmias, I would like to keep her potassium above 4.0. She will be given 40 mEq liquid potassium chloride via her nasogastric tube every 4 hours, for a total of five doses. Electrolytes will be checked again tomorrow morning. She did receive a dose of 20 mEq intravenously this morning. Now she is tolerating tube feeding, so we will stop giving her intravenous (IV) potassium chloride, as it can be given through the nasogastric tube. 3. Hypoxemia. Volume status has improved significantly. Diuretics are being managed by cardiology. She has been responding very well to diuretics. 4. Nutrition. The patient has been receiving total parenteral nutrition (TPN). We will stop the TPN today, as tube feeding is being advanced to 60 mL per hour.
--- NOTE | 2017-01-30 19:56 | IPN ---
DATE: 01/30/2017 Ruth seems to be doing a little better today. She is off sedation. There is spontaneous respiratory effort. She is still not awake. She is afebrile and off pressors. Vital signs: Temperature is 98.9, pulse 111, respirations 38, O2 sat 92% on FIO2 of 35%. Heart: Normal S1-S2, tachycardiac. Lungs: Few rhonchi expiratory. Abdomen is soft, nontender. Bowel sounds are normoactive. Ileostomy with some greenish stool. Abdominal incision with yoselin in place. There is no redness or purulence. Extremities: Trace ankle edema. LABORATORY DATA: White count is 16.3, hemoglobin 11.7, hematocrit 34.2, platelets 215. Sodium 137, potassium 3.5, chloride 98, bicarb 28, BUN 35, creatinine 1.5, glucose 374, calcium 8.1, magnesium 1.7, bilirubin 0.9, AST 102, ALT 30, alkaline phosphatase 143 and albumin 1.3. Wound culture is positive for extended spectrum beta-lactamase (ESBL), E. Faecalis, Streptococcus viridans, anaerobes eubacterium and bacteroides and some staph coag negative. Sputum culture had only yeastlike organism. Blood cultures had no growth after 5 days. Vancomycin since January 25, day #6 and currently on meropenem. IMPRESSION AND PLAN: 1. Polymicrobial abdominal wound infection with secondary peritonitis from ruptured colon with secondary sepsis, doing better. There is no evidence of Methicillin-resistant Staphylococcus aureus (MRSA) on culture or anything that would require vancomycin. Staph coag negative. Is probably just a skin contaminant. Plan: Discontinue IV vancomycin and continue with meropenem 1 gram IV every 8 hours. 2. Atrial fibrillation. Seems to be better controlled with amiodarone. Plan: Continue meropenem. Discontinue IV vancomycin. Will continue to follow the patient with you.
[2017-01-30] MEDS: SLF 3 ML SYR IV SCH (20:57)
[2017-01-30] MEDS: METOPROLOL TART 50 MG TAB NG SCH (20:57)
[2017-01-30] MEDS: MIDAZOLAM INJ 2 MG/2 ML VIAL (J2250) IV PRN ×2 (20:58→21:58)
[2017-01-30] MEDS: SODIUM CHLORIDE 0.9% INJ 10 ML SYR IV SCH (21:34)
[2017-01-31] VITALS (13 sets, daily range): BP systolic 126–190; BP diastolic 66–110
[2017-01-31] MEDS: MIDAZOLAM INJ 2 MG/2 ML VIAL (J2250) IV PRN ×5 (00:24→04:23)
[2017-01-31] MEDS: MEROPENEM INJ 1 GM in D5W MINI-BAG PLUS 100 ML IV SCH ×3 (01:19→17:57)
[2017-01-31] MEDS: POTASSIUM CHLORIDE 10% LIQ 20 MEQ/15 ML UDC PO SCH (02:32)
[2017-01-31] MEDS: IPRATROPIUM 0.5MG/ALBUTEROL 2.5MG INH SOL UD 3ML (DUONEB)(J7620) NEB SCH ×7 (03:10→23:42)
[2017-01-31 04:31] LABS: MEAN CORPUSCULAR HEMOGLOBIN 28.6 pg (27.0-33.0); MEAN CORPUSCULAR HGB CONC 33.8 g/dl (32.0-36.5); MEAN CORPUSCULAR VOLUME 84.7 fl (80.0-96.0); RED CELL DISTRIBUTION WIDTH 14.8 % (11.5-14.5); WHITE BLOOD COUNT 20.9 K/mm3 (4.0-10.0)
[2017-01-31 05:05] LABS: ALBUMIN/GLOBULIN RATIO 0.35 (1.00-1.93); CALCIUM LEVEL 8.7 MG/DL (8.8-10.2); CREATININE FOR GFR 1.55 MG/DL (0.55-1.02); PHOSPHORUS LEVEL 2.1 MG/DL (2.5-4.9); POTASSIUM SERUM 4.4 MEQ/L (3.5-5.1)
[2017-01-31 05:30] LABS: ALBUMIN 1.7 GM/DL (3.2-5.2); TOTAL PROTEIN 6.6 GM/DL (6.4-8.2)
[2017-01-31 05:58] LABS: ABG HCO3 29.1 MEQ/L (22.0-26.0); ABG PARTIAL PRESSURE O2 64.1 mmHg (75.0-100.0); ABG STANDARD HCO3 30.8 MEQ/L (22.0-26.0); ABG TOTAL CO2 30.1 MEQ/L (23.0-31.0); ABG pH (ARTERIAL) 7.563 UNITS (7.350-7.450)
[2017-01-31] MEDS: SLF 3 ML SYR IV SCH ×3 (06:00→21:13)
[2017-01-31] MEDS: SODIUM CHLORIDE 0.9% INJ 10 ML SYR IV SCH ×3 (06:00→21:13)
[2017-01-31] MEDS: LEVOTHYROXINE 100 MCG (0.1MG) VIAL IV SCH (06:10)
[2017-01-31] MEDS: HEPARIN SOD (PORCINE) 5000 UNITS/ML VIAL SC SCH ×3 (06:10→20:39)
[2017-01-31] MEDS: HumaLOG INSULIN (NovoLOG) PER UNIT SC SCH ×3 (06:10→17:56)
[2017-01-31 08:03] LABS: MAGNESIUM LEVEL 1.7 MG/DL (1.8-2.4)
[2017-01-31] MEDS: LACTOBACILLUS ACIDOPHILUS CAP (BACID) PO SCH (08:34)
[2017-01-31] MEDS: AMIODARONE 200 MG TAB (PACERONE) NG SCH ×2 (08:34→20:38)
[2017-01-31] MEDS: VITAMIN D 1,000 INTERNATIONAL UNITS TABLET PO SCH (08:34)
[2017-01-31] MEDS: METOPROLOL TART 50 MG TAB NG SCH ×2 (08:35→20:38)
[2017-01-31] MEDS: PANTOPRAZOLE 40MG INJ (PROTONIX) (C9113) IV SCH (08:35)
--- NOTE | 2017-01-31 08:42 | REP ---
AP PORTABLE CHEST: 01/31/2017 at 05:08 AM. COMPARISON: 01/30/2017, 01/29/2017. CLINICAL HISTORY: Respiratory failure. FINDINGS: The left-sided IJ line is no longer present. The nasogastric and endotracheal tubes are unchanged. Lungs are less well inflated than yesterday's study with vascular congestion, interstitial edema, bilateral effusions and basilar infiltrates/alveolar edema. This is worse at the right base than left. Allowing for lower level of inflation, there is not much change. Signed by Donny White MD 01/31/2017 07:42 P
[2017-01-31] MEDS: ADVAIR HFA 115/21MCG INHALER INH SCH ×2 (08:49→21:00)
[2017-01-31] MEDS ORDERED: MAG SULF 1GM/100ML (MAG RUN) 1 GM in APPROPRIATE DILUENT 1 EA IV ONE (10:00)
[2017-01-31] MEDS: FUROSEMIDE 100 MG/10 ML VIAL (J1940) IV SCH (12:19)
--- NOTE | 2017-01-31 12:26 | IPNPDOC ---
Text Note Date of Service The patient was seen on 01/31/17. NOTE Subjective: Patient is a 71 year old female with a PMHx of Fibromyalgia, OA, DLP, COPD, CKD3, HTN, Degenerative joint disease, IDDM2, Obesity, and Adrenal mass who recently had and EGD and colonoscopy. During the procedure patient had ablation of AV malformations in the ascending colon. She subsequently presented to the ER with abdominal pain. She was admitted to medical surgical floor and had worsening of her pain. She was ultimately found to have a perforation and was emergently taken to the OR. Patient was seen and examined at the bedside. Still intubated, but is off sedation. Objective: Vitals (See below) General: Lying in bed, no acute distress, intubated HEENT: NC, AT CVS: RRR, +S1S2 Lungs: Fair air entry b/l, -w/r/r Abdomen: Soft, ND, NT, +BSx4, Midline incision, +colostomy (good output), + SHAMA drain x 2 (minimal serosanguineous fluid) Extremities: +PPx4, - Edema, - Calf tenderness Assessment and plan: 1. s/p Septic shock - likely 2/2 perforated viscous - 2/2 recent colonoscopy and ablation - s/p Exploratory laparotomy 01/25 with colectomy and ileostomy - No febrile episodes noted - Leukocytosis persistent and trending up - Wound cultures (01/25) positive for ESBL E.coli - Blood cultures (01/24) negative - s/p Pressor support - c/w Meropenem (Day #5), s/p Vancomycin (6 days), s/p Zosyn (3 days) - Total of 7 days of antibiotics - Dr. Figueroa consulted 2. Acute hypoxic respiratory failure - likely 2/2 #1 - currently intubated - Has been off sedation for >24 hours - Attempt weaning trial when mentation improves - Dr. Dent / Dr. Sarmiento following for ventilator management / critical care 3. Oliguric renal failure / Edema - + fluid balance of 8.5 liters - Physical reveals some signs of fluid overload; Elevated CVP - Creatinine has remained stable - Continues to have large volume diuresis with lasix - c/w Lasix 80 IV Q12H - Dr. Valencia consulted 4. Atrial flutter / fibrillation - s/p Cardioversion (01/28); has resulted in improvement in HR and return to sinus rhythm - Will hold off on BB / CCB given hypotension - c/w Amiodarone - Dr. Riggs consulted 5. Nutrition - s/p TPN - Has been advanced to oral tube feedings by surgery - Ileostomy is functioning adequately 6. IDDM2 - c/w ISS 7. Hypothyroidism - Restart Levothyroxine PO - Will stop Levothyroxine IV (1/2 dose) 8. DVT prophylaxis - c/w SCDs Code status: - Full code Disposition: - c/w diuresis - off sedation and possible weaning trial within next few days as mentation improves VS,Fishbone, I+O VS, Fishbone, I+O Laboratory Tests 01/31/17 04:08 Red Blood Count 4.54, Mean Corpuscular Volume 84.7, Mean Corpuscular Hemoglobin 28.6, Mean Corpuscular Hemoglobin Concent 33.8, Red Cell Distribution Width 14.8 H, Calcium Level 8.7 L, Phosphorus Level 2.1 L, Aspartate Amino Transf (AST /SGOT) 123 H, Alanine Aminotransferase (ALT/SGPT) 51, Lactate Dehydrogenase 437 H, Total Creatine Kinase 1106 H, Alkaline Phosphatase 244 H, Total Bilirubin 1.0 , Triglycerides Level 323 H, Cholesterol Level 180, Total Protein 6.6 #, Albumin 1.7 #L Vital Signs Date Time Temp Pulse Resp B/P (MAP) Pulse Ox O2 Delivery O2 Flow Rate FiO2 01/31/17 10:50 Aerosol Mask 35 01/31/17 08:49 42 93 01/31/17 08:35 119/65 01/31/17 08:00 99.7 129 01/25/17 12:02 3.0 I&O- Last 24 Hours up to 6 AM 01/31/17 06:00 Intake Total 3198 ml Output Total 5220 ml Balance -2022 ml RASHAD SIDDIQUI MD Jan 31, 2017 12:26
[2017-01-31] MEDS ORDERED: SODIUM PHOSPHATE INJ 20 MMOL in D5W 250 ML IV ONE (13:00)
[2017-01-31] MEDS ORDERED: FUROSEMIDE 20 MG/2 ML VIAL (J1940) IV ONE (13:45)
--- NOTE | 2017-01-31 14:11 | IPN ---
DATE: 01/31/2017 Mrs. Ruth Kessler was seen in the unit and at that time her sister was at bedside. She was extubated earlier this morning. According to the sister, she appears to be agitated. She has been off sedation since yesterday, but she appears to be sleepy, not fully awake. There is no report of bleeding. There is no nausea or vomiting. She continues to have good urinary output. On physical examination, the patient appears to be sleepy and slightly agitated. Examination of the head atraumatic. Neck is supple with extended jugular. The lungs reveal no wheezing, but minimal rhonchi and crackles at the bases. The heart examination revealed normal S1, S2. Mildly tachycardic. The PMI is not displaced. There is no rub. Abdominal examination was not done. Appears to be soft. Extremities revealed trace bilateral lower leg edema. Neurological examination was limited, but patient was moving all her extremities. LABS: CBC done today revealed WBC of 20.9, hemoglobin 13.0, hematocrit 38.5 and platelets 251,000. BMP revealed a sodium of 138, potassium 4.4, chloride 98, CO2 31, BUN 35, creatinine 1.5, GFR 35, fasting glucose 368 and calcium 8.7. Magnesium is 1.7. Liver enzymes revealed total bilirubin of 1.0, AST 123, ALT 51, alkaline phosphatase 244, LDH 437. Serum protein was 6.6 and albumin 1.7. ABG done earlier today revealed a pH of 7.56, pCO2 33 and pO2 64.1 with an oxygen saturation of 94%. Mrs. Ruth Kessler seems to be stable from a cardiac point of view. She has not been having any pauses or atrial flutter since her mechanical graduation. She will continue the amiodarone. After reviewing her chest x-ray and in view of her shortness of breath, I will give her an extra dose of furosemide and will need to monitor closely. She has been in a negative fluid balance for the last few days , but her chest x-ray revealed increased vascular markings. Will see how she responds to the extra dose of the diuretic. [facility]
--- NOTE | 2017-01-31 14:46 | CCN ---
DATE: 01/31/2017 The patient is seen in the intensive care unit. This is hospital day #7, intensive care unit (ICU) day #7. She is postoperative day #7 from laparotomy for fecal peritonitis. Over the past 24 hours, she remains intubated, mechanically ventilated, but has weaned to spontaneous mode and is on pressure support. She is tolerating tube feedings and has good spontaneous efforts during a spontaneous breathing trial. Her temperature is 98, pulse rate is 129, respirations 34-40, blood pressure is 150/90. Ins and outs (I and O) for the past 24 hours 3396 in and 4675 out. Since midnight, 600 in and 1600 out. At bedside, she is ill-appearing. She does open her eyes and attend to voice, but is not following commands at this point. She has received occasional doses of Versed over the past 24 hours, but continuous sedation is off. HEENT: Oral mucosa is pink. Her endotracheal tube is in good position and nasogastric tube is in good position. Neck is supple. No meningismus. Heart sounds are regular, somewhat distant with some ectopy. Breath sounds are diminished, coarse, but no focal adventitial breath sounds appreciated. Abdomen is soft and obese. There some bowel sounds in the right lower quadrant. The extremities are cool. Pulses are diminished. There are ecchymotic lesions. Diagnostic Studies: Sodium was 138, potassium 4.4, chloride 98, CO2 31, BUN 35, creatinine 1.55, glucose is 368. White cell count is up slightly to 20, hemoglobin 13, hematocrit 38 and platelet count 251,000. Arterial blood gases show pH 7.56, pCO2 32, pO2 69, this on a pressure support mode of ventilation. Her liver enzymes are AST 123, ALT 51, albumin up to 1.7 and phosphorus is 2.1. Chest x-ray shows some improvement in the interstitium. On medication review, she is on meropenem, DuoNebs, subcutaneous heparin, Protonix, and is receiving scheduled Lasix, Lopressor and amiodarone. The primary problem requiring critical attention is acute respiratory failure. The patient has weaned while she is somewhat tachypneic, but we may be able to proceed with extubation today. Glycemic control is less than optimal. I have discussed this with surgery and they will change the tube feedings to Glucerna. Sepsis with fecal peritonitis and septic shock. The patient is off pressors. Fluid volume is improving and she is receiving broad-spectrum antibiotics with meropenem. Infectious disease is following. Acute kidney injury, creatinine is improving. Deep vein thrombosis (DVT) and ulcer prophylaxis are in place. The patient's condition remains critical. ICU care is appropriate. 87 minutes was spent in provision of bedside critical care and coordination.
--- NOTE | 2017-01-31 15:01 | IPN ---
DATE OF SERVICE: 01/31/2017 SUBJECTIVE: The patient was seen and examined at the bedside in the intensive care unit (ICU) today. The patient is unable to provide any history or review of systems. 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 The patient is in tachypneic. Currently, on VentiMask at this time. Her renal function is stable at this time, and she continues to make good amount of urine with the current dose of diuretics. REVIEW OF SYSTEMS: I was unable to take any reliable review of systems on this patient, who was just extubated and tachypneic at this time. OBJECTIVE: Vital signs: Temperature is 99.5 degrees Fahrenheit, blood pressure is 150/92, pulse is 113, respiratory rate of 42, saturating 93% on the VentiMask at 30% FiO2. Intake and output: Urine output recorded is 4.3 liters yesterday, 3.1 liters so far today since overnight. Weight on the bed scale is 106 kg. PHYSICAL EXAMINATION: General: The patient is tachypneic, laying in bed, currently on the VentiMask, in moderate respiratory distress. Head and neck examination: Pupils equally round and reactive to light. Mucous membranes are slightly dry. Neck is supple. There is no jugular venous distention (JVD). Cardiovascular: S1, S2, tachycardia. Respiratory: Decreased breath sounds at the bases. Mild expiratory rhonchi. Abdomen is soft. Positive bowel sounds. The patient has a right lower quadrant ileostomy and midline abdominal surgical site that is covered with dressing. Genitourinary: The patient has an indwelling Nolen catheter at this time. Extremities: No clubbing or cyanosis. Pulses are 2+. The patient has a trace edema of the bilateral lower extremities. Central nervous system (PRIMARY PRODUCTS INSPECTORS): The patient is obtunded and tachypneic at this time. Unable to follow commands. LABORATORY REVIEW: CBC showed a WBC of 20.9, hemoglobin is 13, platelets are 251. Arterial blood gas (ABG) done this morning showed a pH of 7.5, PCO2 of 33, pO2 of 63, bicarbonate 29, oxygen (O2) saturation is 94%. BMP done this morning showed sodium 138, potassium 4.4, chloride 98, bicarbonate 31, BUN 35, creatinine is 1.5 (it was 1.53 yesterday), calcium 8.7, phosphorus 2.1, magnesium 1.7, albumin 1.7. MICROBIOLOGY: No new cultures available at this time. IMAGING: A chest x-ray done today morning which showed worsening edema, and this actually was done while the patient was still intubated. CURRENT INPATIENT MEDICATIONS: The patient's medications were all reviewed by me. She was given a dose of magnesium sulfate 1 gram intravenous (IV). She continues to be on IV meropenem. I have given her a dose of sodium phosphate 20 millimole IV times one dose. She continues to be on IV Lasix 80 mg IV every 12 hours. There is no other change in the medications today as compared with yesterday. ASSESSMENT: A 71-year-old female with acute kidney injury secondary to sepsis and hypotension. PLAN: 1. Acute kidney injury superimposed on chronic kidney disease. The patient's renal function is stable. Her creatinine is at 1.5 at this time. Glomerular filtration rate (GFR) is around 35. She is having very good urine output. Okay to continue the diuretics at this time. 2. Fluid overload and shortness of breath. The patient was extubated today. However, she did not tolerate the extubation. It looks like the patient would need a re-intubation today. Continue the aggressive diuresis at this time. Continue Lasix as per cardiology. The patient is almost 1.5 liters negative fluid balance every day, according to intake and output. 3. Nutrition. The patient was on total parenteral nutrition (TPN). TPN was stopped yesterday. The patient is being re-intubated. The patient can be started on Nepro tube feeds via the nasogastric (NG) tube if needed. 4. Hypomagnesemia. The patient was given magnesium sulfate 1 gram IV times one dose today morning. 5. Hypophosphatemia. The patient will be given sodium phosphate 20 millimoles IV times one dose. The plan of care was discussed with the patient's registered nurse (RN) in the ICU.
[2017-01-31] MEDS: ACETAMINOPHEN TAB 650MG DOSE (2X325MG) PO PRN (16:36)
[2017-02-01] VITALS (16 sets, daily range): BP systolic 123–189; BP diastolic 61–89
[2017-02-01] MEDS: FUROSEMIDE 100 MG/10 ML VIAL (J1940) IV SCH
[2017-02-01] MEDS: HumaLOG INSULIN (NovoLOG) PER UNIT SC SCH ×4 (00:28→17:50)
[2017-02-01] MEDS: IPRATROPIUM 0.5MG/ALBUTEROL 2.5MG INH SOL UD 3ML (DUONEB)(J7620) NEB SCH ×6 (02:41→22:57)
[2017-02-01] MEDS: MEROPENEM INJ 1 GM in D5W MINI-BAG PLUS 100 ML IV SCH ×3 (02:46→17:50)
[2017-02-01] MEDS: ACETAMINOPHEN TAB 650MG DOSE (2X325MG) PO PRN (02:50)
[2017-02-01 04:31] LABS: BASO % 1.5 % (0.0-1.0); EOS % 0.3 % (0.0-3.0); LARGE UNSTAINED CELL % 2.6 % (0.0-4.0); LYMPH # 1.4 K/mm3 (1.5-4.5); LYMPH % 6.6 % (24.0-44.0); MEAN CORPUSCULAR HEMOGLOBIN 29.3 pg (27.0-33.0); MEAN CORPUSCULAR HGB CONC 34.1 g/dl (32.0-36.5); MEAN CORPUSCULAR VOLUME 85.7 fl (80.0-96.0); NEUTROPHILS # 18.6 K/mm3 (1.8-7.7); NEUTROPHILS % 84.9 % (36.0-66.0); PLATELET COUNT, AUTOMATED 252 k/mm3 (150-450); RED CELL DISTRIBUTION WIDTH 14.6 % (11.5-14.5); WHITE BLOOD COUNT 21.9 K/mm3 (4.0-10.0)
[2017-02-01 05:04] LABS: ALBUMIN 1.8 GM/DL (3.2-5.2); ALBUMIN/GLOBULIN RATIO 0.38 (1.00-1.93); BILIRUBIN,TOTAL 0.9 MG/DL (0.2-1.0); CALCIUM LEVEL 8.7 MG/DL (8.8-10.2); CREATININE FOR GFR 1.59 MG/DL (0.55-1.02); PHOSPHORUS LEVEL 2.8 MG/DL (2.5-4.9); TOTAL PROTEIN 6.6 GM/DL (6.4-8.2)
[2017-02-01] MEDS: LEVOTHYROXINE 50MCG TABLET (0.05MG) PO SCH (05:33)
[2017-02-01] MEDS: HEPARIN SOD (PORCINE) 5000 UNITS/ML VIAL SC SCH ×3 (05:33→21:14)
[2017-02-01] MEDS: SLF 3 ML SYR IV SCH ×3 (05:34→22:00)
[2017-02-01] MEDS: SODIUM CHLORIDE 0.9% INJ 10 ML SYR IV SCH (05:35)
[2017-02-01 05:50] LABS: ABG BASE EXCESS 11.4 (-2.0-2.0); ABG HCO3 34.6 MEQ/L (22.0-26.0); ABG PARTIAL PRESSURE CO2 39.5 mmHg (35.0-45.0); ABG PARTIAL PRESSURE O2 71.5 mmHg (75.0-100.0); ABG STANDARD HCO3 35.2 MEQ/L (22.0-26.0); ABG TOTAL CO2 35.8 MEQ/L (23.0-31.0)
[2017-02-01 07:41] LABS: MAGNESIUM LEVEL 2.4 MG/DL (1.8-2.4)
--- NOTE | 2017-02-01 08:36 | REP ---
AP PORTABLE CHEST: 02/01/2017 at 05:07 AM. COMPARISON: 01/31/2017, 01/30/2017, 01/29/2017. CLINICAL HISTORY: Respiratory failure. FINDINGS: The lungs are quite hypoinflated. The nasogastric tube is no longer visible. An endotracheal tube is seen about 2 cm from the chip. Basilar infiltrates or alveolar edema again noted. Vascular markings are crowded. There is interstitial and alveolar edema again seen. Allowing for poor level of inflation and semi-erect portable chest compared to seated chest yesterday, I do not see much interval change. Signed by Donny White MD 02/01/2017 10:39 A
[2017-02-01] MEDS: LACTOBACILLUS ACIDOPHILUS CAP (BACID) PO SCH (08:37)
[2017-02-01] MEDS: METOPROLOL TART 50 MG TAB NG SCH ×2 (08:38→16:24)
[2017-02-01] MEDS: PANTOPRAZOLE 40MG INJ (PROTONIX) (C9113) IV SCH (08:39)
[2017-02-01] MEDS: AMIODARONE 200 MG TAB (PACERONE) NG SCH ×2 (08:39→21:14)
[2017-02-01] MEDS: VITAMIN D 1,000 INTERNATIONAL UNITS TABLET PO SCH (08:39)
[2017-02-01] MEDS: ADVAIR HFA 115/21MCG INHALER INH SCH ×2 (09:00→21:00)
[2017-02-01] MEDS ORDERED: AcetaZOLAMIDE 500MG INJECTION (J1120) IV STA (09:07)
--- NOTE | 2017-02-01 12:59 | IPNPDOC ---
Text Note Date of Service The patient was seen on 02/01/17. NOTE Subjective: Patient is a 71 year old female with a PMHx of Fibromyalgia, OA, DLP, COPD, CKD3, HTN, Degenerative joint disease, IDDM2, Obesity, and Adrenal mass who recently had and EGD and colonoscopy. During the procedure patient had ablation of AV malformations in the ascending colon. She subsequently presented to the ER with abdominal pain. She was admitted to medical surgical floor and had worsening of her pain. She was ultimately found to have a perforation and was emergently taken to the OR. Patient was seen and examined at the bedside. She is still not able to follow commands. Has been extubated on 01/31. Objective: Vitals (See below) General: Lying in bed, no acute distress, on Ventimask, awake, unable to follow commands HEENT: NC, AT CVS: Tachycardic, +S1S2 Lungs: Fair air entry b/l, -w/r/r Abdomen: Soft, ND, NT, +BSx4, Midline incision, +colostomy (good output), + SHAMA drain x 2 (minimal serosanguineous fluid) Extremities: +PPx4, - Edema, - Calf tenderness Assessment and plan: 1. s/p Septic shock - likely 2/2 perforated viscous - 2/2 recent colonoscopy and ablation - s/p Exploratory laparotomy 01/25 with colectomy and ileostomy - Fever of 100.6 noted on 01/31 at 4PM - Leukocytosis persistent and continues to trend upward - Neutrophil predominant - Wound cultures (01/25) positive for ESBL E.coli - Blood cultures (01/24) negative - s/p Pressor support - c/w Meropenem (Day #6), s/p Vancomycin (6 days), s/p Zosyn (3 days) - Total of 8 days of antibiotics - Dr. Figueroa consulted 2. Acute hypoxic respiratory failure - likely 2/2 #1 - s/p intubation and sedation - currently on Ventimask at 35%FiO2 - Dr. Dent / Dr. Sarmiento following for critical care 3. Acute kidney injury; s/p Oliguria - + fluid balance of 6.2 liters - Physical reveals some signs of fluid overload - Creatinine has remained stable - Continues to have large volume diuresis with lasix - c/w Lasix 80 IV Q12H; additional dose of Lasix given today - Dr. Valencia consulted 4. Atrial flutter / fibrillation - s/p Cardioversion (01/28); has resulted in improvement in HR and return to sinus rhythm - c/w Amiodarone and Metoprolol 50 BID - Dr. Riggs / Dr. Robison consulted 5. Nutrition - s/p TPN - Has been advanced to oral tube feedings by surgery - Ileostomy is functioning adequately 6. IDDM2 - c/w ISS 7. Hypothyroidism - c/w Levothyroxine 8. DVT prophylaxis - c/w Heparin and SCDs Code status: - Full code Disposition: - c/w diuresis - mentation has not improved despite discontinuing sedation VS,Fishbone, I+O VS, Fishbone, I+O Laboratory Tests 02/01/17 04:12 Red Blood Count 4.70, Mean Corpuscular Volume 85.7, Mean Corpuscular Hemoglobin 29.3, Mean Corpuscular Hemoglobin Concent 34.1, Red Cell Distribution Width 14.6 H, Neutrophils (%) (Auto) 84.9 H, Lymphocytes (%) (Auto) 6.6 L, Monocytes ( %) (Auto) 4.0, Eosinophils (%) (Auto) 0.3, Basophils (%) (Auto) 1.5 H, Neutrophils # (Auto) 18.6 H, Lymphocytes # (Auto) 1.4 L, Calcium Level 8.7 L, Phosphorus Level 2.8 #, Aspartate Amino Transf (AST/SGOT) 78 H, Alanine Aminotransferase (ALT/SGPT) 46, Lactate Dehydrogenase 454 H, Total Creatine Kinase 396 H, Alkaline Phosphatase 242 H, Total Bilirubin 0.9, Triglycerides Level 397 H, Cholesterol Level 178, Total Protein 6.6, Albumin 1.8 L Vital Signs Date Time Temp Pulse Resp B/P (MAP) Pulse Ox O2 Delivery O2 Flow Rate FiO2 02/01/17 11:37 104 40 02/01/17 10:00 161/74 (103) 98 Nasal Cannula 3.0 02/01/17 08:00 35 02/01/17 08:00 99.5 I&O- Last 24 Hours up to 6 AM 02/01/17 05:59 Intake Total 1460 ml Output Total 4325 ml Balance -2865 ml RASHAD SIDDIQUI MD Feb 01, 2017 12:58
[2017-02-01] MEDS ORDERED: METOPROLOL TART 50 MG TAB NG SCH (14:00)
--- NOTE | 2017-02-01 14:22 | IPN ---
DATE OF SERVICE: 02/01/2017 Mrs. Ruth Kessler was seen earlier today. She was in supine in bed in acute distress at rest but she continues to be unresponsive and not following commands. Her vital signs remain stable but sinus tachycardia and the blood pressure increases at times. There is no report of bleeding. There is no orthopnea. She was initially seen by Dr. Riggs after her abdominal surgery. She went into atrial fibrillation that required mechanical cardioversion. On physical examination, vital signs reveal a blood pressure earlier today of 161/74 with a pulse that varies between 78 up to 144, respiration continues to be high at 30 per minute, and her oxygen saturation was 98% on 3 liters nasal cannula, temperature is 99.5 degrees Fahrenheit earlier today. She had a negative fluid balance of 3.3 liters for 01/31/2017. Examination of the head: Atraumatic. Neck is supple and no jugular venous distention (JVD). The lungs revealed bilateral rhonchi but no wheezing. The heart examination revealed normal S1 and S2 without gallops. The point of maximal impulse (PMI) is not displaced. There is no rub. Abdominal examination was not done. Extremities revealed only ankle edema. Neurological examination: Was limited, but the patient was moving all her extremities. LABORATORIES: CBC revealed a WBC of 21.9, hemoglobin 13.8, hematocrit 40.3, and platelets 252,000. BMP revealed a sodium of 140, potassium 4.0, chloride 99, CO2 32, BUN 44, creatinine 1.59, GFR 34.0, and fasting glucose of 351. Serum calcium was 8.7. Serum TSH today is 2.48. Liver enzymes revealed a total bilirubin of 0.9, AST 78, ALT 46, alkaline phosphatase 242, total protein is 6.6, albumin 1.8. IMPRESSION: From a cardiac point of view, Mrs. Ruth Kessler seems to be stable and continues to be in normal sinus rhythm since her mechanical graduation. Blood pressure goes high at time; and for this reason, I will increase the metoprolol tartrate from 50 mg by mouth twice a day to 50 mg by mouth three times a day. It seems that she has been stable overall from her underlying condition, but her mental status appeared she might benefit from a neurological evaluation. Kidney function is being monitored by nephrology. She also is being monitored closely by Dr. Sarmiento. [facility] HOSPITALKeiry
--- NOTE | 2017-02-01 14:34 | REP ---
CT BRAIN WITHOUT CONTRAST: 02/01/2017. COMPARISON: 01/15/2015, 11/14/2014, MRI brain 08/25/2014. CLINICAL HISTORY: Evaluate for possible intracranial bleed. TECHNIQUE: Soft tissue and bone windows are reviewed for each slice level. FINDINGS: Ventriculomegaly with proportionate diffuse cerebral atrophy is again seen and unchanged. There is no midline shift. Third and fourth ventricles are also dilated; all of this is stable. There is old lacunar infarct in the left basal ganglia and the posterior limb of the internal capsule. There is heterogeneous low attenuation white matter change in the periventricular deep central and subcortical white matter tracts in both hemispheres; all of this is stable. I do not see acute vascular territory infarct, hemorrhage, mass or mass effect. Brainstem grossly intact. Cerebellar atrophy is noted. There are heavy vascular calcifications in the vertebrobasilar arteries. Sinuses show only a mucous retention cyst in the floor of the left maxillary antrum and mucosal thickening on the floor of the right. There is a deviation the nasal septum towards the left posteriorly and towards the right anteriorly. The sinuses are otherwise normal. Hazy opacification of some of the right mastoid air cells. Mucous retention cyst in the floor of the right maxillary antrum with some mucosal thickening posteriorly in the floor on the left. The sphenoid, ethmoid and left frontal sinus clear. The right frontal sinus is partially opacified. Calvarium and skull base without fracture or focal lesion. IMPRESSION: 1. Ventriculomegaly and diffuse atrophy proportionate and unchanged. 2. Fairly extensive chronic small vessel ischemic white matter change in the hemispheres. 3. There is a mucous retention cyst in the right maxillary sinus and left maxillary mucosal thickening. 4. Deviated nasal septum as described. 5. Some mild mastoiditis on the right. 6. Heavy vascular calcifications in the carotid siphons. Signed by Donny White MD 02/01/2017 07:40 P
[2017-02-02] VITALS (13 sets, daily range): BP systolic 107–137; BP diastolic 55–106
[2017-02-02] MEDS: HumaLOG INSULIN (NovoLOG) PER UNIT SC SCH ×4 (00:50→18:10)
--- NOTE | 2017-02-02 01:09 | ECGEPIP ---
Stationary ECG Study [facility] Test Date: 2017-02-01 Pat Name: ANTONIO ERVIN Department: [facility] Room: [place] [id number] Gender: F Tools Developer: [id number] : [id number] Requested By: RASHAD SIDDIQUI Order Number: [id number] Reading MD: Klaus Robison Measurements Intervals [place] Rate: 106 P: 68 KS: 132 QRS: 46 QRSD: 114 T: 26 QT: 282 QTc: 376 Interpretive Statements SINUS TACHYCARDIA LOW QRS VOLTAGE IN PRECORDIAL LEADS INCOMPLETE RIGHT BUNDLE BRANCH BLOCK PROBABLE INFERIOR MYOCARDIAL INFARCTION, PROBABLY OLD WITH POSTERIOR EXTENSION LAST TRACING ON 01/28/2017 AT 10:46:23,No significant CHANGES Electronically Signed On 02-02-2017 1:09:21 EDT by Klaus Robison
[2017-02-02] MEDS: MEROPENEM INJ 1 GM in D5W MINI-BAG PLUS 100 ML IV SCH ×3 (02:16→17:42)
[2017-02-02] MEDS: IPRATROPIUM 0.5MG/ALBUTEROL 2.5MG INH SOL UD 3ML (DUONEB)(J7620) NEB SCH ×6 (03:36→23:09)
[2017-02-02 04:20] LABS: BASO # 0.2 K/mm3 (0.0-0.2); BASO % 1.1 % (0.0-1.0); EOS % 0.2 % (0.0-3.0); LARGE UNSTAINED CELL # 0.7 K/mm3 (0.0-0.4); LARGE UNSTAINED CELL % 3.2 % (0.0-4.0); LYMPH # 2.2 K/mm3 (1.5-4.5); LYMPH % 10.1 % (24.0-44.0); MEAN CORPUSCULAR HEMOGLOBIN 28.6 pg (27.0-33.0); MEAN CORPUSCULAR HGB CONC 31.7 g/dl (32.0-36.5); MEAN CORPUSCULAR VOLUME 90.3 fl (80.0-96.0); MONO # 0.9 K/mm3 (0.0-0.8); MONO % 4.1 % (0.0-5.0); NEUTROPHILS % 81.3 % (36.0-66.0); PLATELET COUNT, AUTOMATED 265 k/mm3 (150-450); RED CELL DISTRIBUTION WIDTH 14.6 % (11.5-14.5); WHITE BLOOD COUNT 22.2 K/mm3 (4.0-10.0)
[2017-02-02 04:40] LABS: ALBUMIN 1.8 GM/DL (3.2-5.2); ALBUMIN/GLOBULIN RATIO 0.38 (1.00-1.93); BILIRUBIN,TOTAL 0.9 MG/DL (0.2-1.0); CREATININE FOR GFR 1.69 MG/DL (0.55-1.02); GLOMERULAR FILTRATION RATE 31.7 (>39); MAGNESIUM LEVEL 2.4 MG/DL (1.8-2.4); PHOSPHORUS LEVEL 2.1 MG/DL (2.5-4.9); POTASSIUM SERUM 3.9 MEQ/L (3.5-5.1); TOTAL PROTEIN 6.5 GM/DL (6.4-8.2)
[2017-02-02] MEDS: ACETAMINOPHEN TAB 650MG DOSE (2X325MG) PO PRN ×2 (04:51→16:07)
[2017-02-02 05:27] LABS: ABG BASE EXCESS 2.2 (-2.0-2.0); ABG HCO3 24.1 MEQ/L (22.0-26.0); ABG PARTIAL PRESSURE CO2 29.4 mmHg (35.0-45.0); ABG PARTIAL PRESSURE O2 67.7 mmHg (75.0-100.0); ABG STANDARD HCO3 26.4 MEQ/L (22.0-26.0); ABG pH (ARTERIAL) 7.531 UNITS (7.350-7.450)
[2017-02-02] MEDS: LEVOTHYROXINE 50MCG TABLET (0.05MG) PO SCH (05:57)
[2017-02-02] MEDS: SLF 3 ML SYR IV SCH ×3 (05:59→21:31)
[2017-02-02] MEDS: ADVAIR HFA 115/21MCG INHALER INH SCH ×2 (08:05→21:00)
[2017-02-02] MEDS: PANTOPRAZOLE 40MG INJ (PROTONIX) (C9113) IV SCH (08:13)
[2017-02-02] MEDS: AMIODARONE 200 MG TAB (PACERONE) NG SCH ×2 (08:14→20:13)
[2017-02-02] MEDS: METOPROLOL TART 50 MG TAB NG SCH ×3 (08:15→15:37)
[2017-02-02] MEDS: LACTOBACILLUS ACIDOPHILUS CAP (BACID) PO SCH (08:15)
[2017-02-02] MEDS: VITAMIN D 1,000 INTERNATIONAL UNITS TABLET PO SCH (08:17)
[2017-02-02] MEDS ORDERED: GASTROGRAFIN SOLUTION 30ML PO ONE (08:45)
[2017-02-02] MEDS ORDERED: GASTROGRAFIN SOLUTION 30ML (Q9963) PO ONE (09:15)
[2017-02-02] MEDS ORDERED: SODIUM PHOSPHATE INJ 20 MMOL in D5W 250 ML IV ONE (11:00)
--- NOTE | 2017-02-02 12:11 | IPN ---
DATE: 02/01/2017 SUBJECTIVE: The patient was seen and examined at the bedside today morning in the intensive care unit (ICU). The patient continues to be on Venti-mask at that time; however, she is very tachypneic. The patient is obtunded, does not follow commands, does not communicate at this time, and the patient has mixed metabolic and respiratory alkalosis. However, her renal function is stable. Creatinine is stable at 1.5 for the last three days. The patient has more than four liters urine output for the last four days with the current dose of diuretics. REVIEW OF SYSTEMS: I was unable to do review of systems with this patient who is tachypneic on Venti-mask with altered mental status. OBJECTIVE: VITAL SIGNS: Temperature this morning was 99.5 degrees Fahrenheit, blood pressure 151/72, pulse 118, respiratory rate of 38, saturating 99% on Venti-mask on 35% FiO2. INTAKE AND OUTPUT: Urine output recorded as 4.3 liters yesterday, 1.7 liters so far today since overnight. Weight in the bed scale is 94.8 kg. PHYSICAL EXAMINATION: GENERAL: The patient is awake, tachypneic, currently on Venti-mask, lying in bed obtunded and does not follow any commands. HEAD/NECK: Pupils equal, round, and reactive to light. Mucous membranes are slightly dry because of high-flow oxygen. Neck is supple. There is no jugular venous distention (JVD). CARDIOVASCULAR: S1, S2. Tachycardia at this time. RESPIRATORY: Decreased breath sounds at the bases. Mild expiratory rhonchi at the bases. ABDOMEN: Soft. Positive bowel sounds. The patient has a right lower quadrant ileostomy, a midline abdominal surgical site, and the patient has surgical drains. GENITOURINARY: The patient has an indwelling Nolen catheter at this time. EXTREMITIES: No clubbing or cyanosis. Pulses are 2+. CENTRAL NERVOUS SYSTEM (WINE MASTER): The patient is obtunded and tachypneic. Does not follow commands and does not communicate. LABORATORY DATA: CBC showed a WBC of 21.9, hemoglobin 13.8, platelets are 252. ABG done this morning showed a pH of 7.5, pCO2 of 39, pO2 71.5. Bicarbonate is 34.6. Oxygen saturation at 94%. BMP showed sodium 140, potassium 4, chloride 99, bicarbonate 32, BUN is 44, creatinine is 1.5, calcium 8.7, phosphorus 2.8, magnesium 2.4. IMAGING: A chest x-ray done today morning showed lungs are hypoinflated. Basilar infiltrate was noted. There was interstitial and alveolar edema present. CT scan of the head done today afternoon showed ventriculomegaly and diffuse atrophy. Extensive chronic small vessel ischemic white matter changes. There were heavy vascular calcifications in the carotid siphons. CURRENT INPATIENT MEDICATIONS: The patient's medications were all reviewed by me. I have stopped the patient's intravenous (IV) Lasix because of persistent mixed metabolic and respiratory alkalosis. The patient was given one dose of acetazolamide 500 mg IV this morning. There is no other change in the medications today, apart from the Lopressor dose that has been changed by cardiology to 50 mg every eight hours. ASSESSMENT: A 71-year-old female with acute kidney injury secondary to intra-abdominal sepsis and hypotension. PLAN: 1. Acute kidney injury superimposed on chronic kidney disease. The patient's renal function is stable. Her creatinine is fluctuating at 1.5. The patient is having more than four liters urine output; however, I am stopping the Lasix dose today. 2. Fluid overload and shortness of breath. The patient has been negative fluid balance for the last five days. However, the patient has become significantly alkalotic. I have held the Lasix dose today, and I have given the patient one does of acetazolamide IV. Continue to monitor intake and output. If needed, the patient will be restarted tomorrow on a combination of Lasix and amiloride. 3. Mixed metabolic and respiratory alkalosis. The patient is very tachypneic, and because of the aggressive diuresis, she has metabolic alkalosis as well. As mentioned above, I have held the Lasix dose today morning. I have given the patient a dose of acetazolamide 500 mg IV. Arterial blood gas (ABG) and basic metabolic panel (BMP) will be monitored tomorrow. If needed, patient's diuretic dosage will be adjusted. 4. Nutrition. The patient is currently on Glucerna via the nasogastric (NG) tube. Continue the tube feeds. Rest of the management as per surgical service and primary team. 5. Atrial fibrillation/flutter. The patient was tachycardic again. Metoprolol dose has been increased by cardiology. Continue with amiodarone. Rest of the management as per cardiology recommendations. The plan of care was discussed with the patient's registered nurse (RN) at the bedside today in the ICU.
--- NOTE | 2017-02-02 12:13 | REP ---
Clinical: Hypoxemia. Comparison: 02/01/2017. Findings: Nasogastric tube courses below left hemidiaphragm. Mediastinum and cardiac silhouette are relatively stable with cardiomegaly again suggested. Bibasilar opacities and layering effusions similar to prior examination suggest elements of pulmonary vascular congestion/CHF. No pneumothorax. Skeletal structures intact. Impression: Findings similar to prior examination and suggest CHF with lower lobe opacities and small layering effusions. Signed by Sergio Catalan MD 02/02/2017 08:12 A
--- NOTE | 2017-02-02 12:13 | IPN ---
DATE: 02/02/2017 Mrs. Kessler was extubated 2 days ago. She has remained hemodynamically stable even though she has occasional episodes what looks most likely atrial fibrillation but for the most part has been maintaining sinus rhythm. She also has not had any major trouble maintaining her oxygenation. On the negative side though her mental status is significantly altered, she is clearly alert but there is no possible contact even though she response to painful stimulis in the lower extremities the right upper extremity seemed to be completely flaccid, there is some tone in the left upper extremity. There are pupillary reflex and when spoke loudly to she seems to respond without any specific direction, she will just open her eyes and turned her head. Vital signs: Blood pressure 137/60, heart rate is mostly in low 100s. She had a temperature 101.8 at 4 o'clock this morning. Saturation 93% on 1 liter of oxygen by nasal cannula. Her fluid balance yesterday was about 2 liters negative. Weight has been documented 91.5 kg. She is alert but otherwise a neurologic evaluation as above. Her JVP does not look elevated. Lungs are relatively clear to auscultation with only occasional fine crackle. Heart: Exam reveals muffled heart sound. There is a regular rhythm. I would do not appreciate any gallop or obvious rub. Abdomen: Colostomy seems intact, it is otherwise soft. I do not appreciate any guarding. Bowel sounds are positive. Extremities are free of significant edema. Peripheral pulses are detectable. No skin lesions other than there are some ecchymosis at her abdomen most likely related to administration of heparin. Neurologic status as above. LABORATORY: CBC reveals WBC count 22,000, hemoglobin 14.5, hematocrit 46 and platelet count 265,000. Basic metabolic panel potassium 3.9, BUN is 46, creatinine 1.7, GFR 42 and glucose 338. Her albumin is 1.8. CT of the head yesterday revealed diffuse atrophy and some vascular calcifications, but no definite stroke and no hemorrhage. ASSESSMENT/PLAN: Mrs. Kessler is a 71-year-old female who has been diabetic for years and presented with septic shock due to peritonitis, it was caused by a perforated viscus. She underwent extensive surgery and was treated with pressors. I got involved because she started to have episodes of atrial flutter and fibrillation with rapid ventricular response that was very difficult to control, eventually I had no choice but to cardiovert the patient and she has been maintaining sinus rhythm for the most part since. Unfortunately, now 2 days after extubation without any sedation aboard her mental status is significantly altered even though I believe that there might be a component of encephalopathy seems likely that she suffered some form of anoxic event, either from CVA or possibly from prolonged hypotension. At this point I think it would be prudent to anticoagulate the patient. I spoke with Dr. Montgomery and as there is a plan to obtain CT of the abdomen looking for potential collections to explain her elevated white count and fever, I am going to wait until this is accomplished, no drainage his plan, we will start on anticoagulation later today. Otherwise for a few I would continue amiodarone and metoprolol is being done, we have not seen any rekha arrhythmias, I would have also low threshold to get involved neurology service in her care. From hemodynamic perspective, she is certainly much improved but this neurologic issue is a major setback and we will see how it evolves from here.
--- NOTE | 2017-02-02 12:16 | REP ---
Clinical: Abdominal pain and leukocytosis. Comparison: 01/24/2017. Findings: Lung bases demonstrate chronic changes and bibasilar infiltrate/atelectasis which appears slightly improved compared to prior examination. Visualized portions of the heart and pericardium are stable. Liver, spleen, pancreas, left adrenal gland and bilateral kidneys are relatively normal / stable. Right adrenal myelolipoma measures 6.3 cm maximal diameter and is unchanged compared to prior examination. Small amount of perihepatic fluid is identified. The patient appears to be status post diverting enterostomy through the right anterior abdominal wall. There is no evidence for bowel obstruction. Ill-defined appearance to the distal small bowel/cecum in the right lower quadrant may reflect cecitis/ileitis. Pelvis demonstrates a Nolen catheter in collapsed bladder and stable, age-appropriate appearance to the uterus and adnexa. No ascites. No abscess or drainable collection. No significant free air. No adenopathy. Atherosclerotic changes to the vasculature and degenerative changes the musculoskeletal structures noted. Impression: Ostomy and postsurgical changes appreciated. Stable chronic changes. Right adrenal myelolipoma remain stable. No new acute mass lesion, ascites or drainable collection/abscess. Signed by Sergio Catalan MD 02/02/2017 11:40 A
--- NOTE | 2017-02-02 12:16 | REP ---
More images CT of the chest without IV contrast: Comparisons are the CT abdomen pelvis including the lower lung cooper dated 01/24/[address] of the chest of 08/21/2005. The previously identified right lower lobe infiltrate and 01/24/2017 has decreased in size. However, there is a new focal zone of linear density in the medial basilar segment of the right lower lobe compatible with discoid atelectasis, not present previously. The previous small right pleural effusion has also decreased. There is minor discoid atelectasis inferiorly in the left lung as an interval change. The remainder of the lung cooper are clear. No masses are identified. There is no mediastinal or axillary lymph node enlargement. In the absence of IV contrast the study is insensitive for hilar lymph node enlargement. The unenhanced thoracic aorta is unremarkable except for calcified atheroma. Cardiac size is upper normal. There is no pericardial effusion. In the upper abdomen there is a small volume of ascites surrounding the liver. There is a 6.2 cm right adrenal mass, unchanged, compatible with myelolipoma as previously. There are surgical clips in the gallbladder fossa. Impression: Bibasilar infiltrates. Small right pleural effusion. No masses or adenopathy. Small volume of ascites surrounding the liver. Right adrenal myelolipoma, similar to prior studies. Signed by Alonso Hector MD 02/02/2017 11:24 A
--- NOTE | 2017-02-02 12:30 | IPNPDOC ---
Text Note Date of Service The patient was seen on 02/02/17. NOTE Subjective: Patient is a 71 year old female with a PMHx of Fibromyalgia, OA, DLP, COPD, CKD3, HTN, Degenerative joint disease, IDDM2, Obesity, and Adrenal mass who recently had and EGD and colonoscopy. During the procedure patient had ablation of AV malformations in the ascending colon. She subsequently presented to the ER with abdominal pain. She was admitted to medical surgical floor and had worsening of her pain. She was ultimately found to have a perforation and was emergently taken to the OR. Patient was seen and examined at the bedside. Has been extubated on 01/31. She remains unable to follow commands. Is able to respond to physical stimuli. Objective: Vitals (See below) General: Lying in bed, no acute distress, on Ventimask, awake, unable to follow commands HEENT: NC, AT CVS: Tachycardic, +S1S2 Lungs: Fair air entry b/l, -w/r/r Abdomen: Soft, ND, NT, +BSx4, Midline incision, +colostomy (good output) Extremities: +PPx4, - Edema, - Calf tenderness Assessment and plan: 1. Acute encephalopathy - possibly 2/2 anoxic brain injury 2/2 hypotension, less likely 2/2 medications (residual effects) - Unable to follow commands at this time, but responds to painful stimuli - Physical reveals equal pupils and ability to move all four extremities - CT Head 02/01: negative for any acute findings - Will continue to monitor - Will consider EEG in next 24-48 hours 2. Fever and Leukocytosis - possibly 2/2 intraabdominal fluid collection, atelectasis, developing pneumonia, possible sinusitis - Fever of 100.6 noted on 01/31 at 4PM - Leukocytosis persistent; Neutrophil predominant - Will check Urinalysis and urine culture, Blood cultures - Will go for CT chest / abdomen / pelvis with contrast today - c/w Meropenem (Day #7); will consider restarting MRSA coverage - Will discuss with Dr. Figueroa 3. s/p Septic shock - likely 2/2 perforated viscous - 2/2 recent colonoscopy and ablation - s/p Exploratory laparotomy 01/25 with colectomy and ileostomy - Wound cultures (01/25) positive for ESBL E.coli - s/p Pressor support - c/w Meropenem (Day #7), s/p Vancomycin (6 days), s/p Zosyn (3 days) - Dr. Figueroa consulted 4. Acute hypoxic respiratory failure - likely 2/2 #1 - s/p intubation and sedation - tolerating nasal cannula - Dr. Dent / Dr. Sarmiento following for critical care 5. Acute kidney injury; s/p Oliguria - + fluid balance of 5.3 liters cumulative - Has been negative balance over last few days - Creatinine remains stable - c/w Lasix 80 IV Q12H; additional dose of Lasix given today - Dr. Valencia consulted 5. Atrial flutter / fibrillation - s/p Cardioversion (01/28); has resulted in improvement in HR and return to sinus rhythm - c/w Amiodarone and Metoprolol 50 BID - Dr. Riggs / Dr. Robison consulted 6. Nutrition - s/p TPN - Has been advanced to NG tube feedings by surgery - Ileostomy is functioning adequately 7. IDDM2 - c/w ISS 8. Hypothyroidism - c/w Levothyroxine 9. DVT prophylaxis - c/w Heparin and SCDs Code status: - Full code Disposition: - c/w diuresis - Will continue to follow mental status VS,Antonia, I+O VS, Antonia, I+O Laboratory Tests 02/02/17 04:08 Red Blood Count 5.08, Mean Corpuscular Volume 90.3, Mean Corpuscular Hemoglobin 28.6, Mean Corpuscular Hemoglobin Concent 31.7 L, Red Cell Distribution Width 14.6 H, Neutrophils (%) (Auto) 81.3 H, Lymphocytes (%) (Auto) 10.1 L, Monocytes (%) (Auto) 4.1, Eosinophils (%) (Auto) 0.2, Basophils (%) (Auto) 1.1 H, Neutrophils # (Auto) 18.0 H, Lymphocytes # (Auto) 2.2, Monocytes # (Auto) 0.9 H , Eosinophils # (Auto) 0.0, Basophils # (Auto) 0.2, Calcium Level 9.0, Phosphorus Level 2.1 #L, Aspartate Amino Transf (AST/SGOT) 56 H, Alanine Aminotransferase (ALT/SGPT) 38, Lactate Dehydrogenase 364 H, Total Creatine Kinase 168, Alkaline Phosphatase 244 H, Total Bilirubin 0.9, Triglycerides Level 475 H, Cholesterol Level 192, Total Protein 6.5, Albumin 1.8 L Vital Signs Date Time Temp Pulse Resp B/P (MAP) Pulse Ox O2 Delivery O2 Flow Rate FiO2 02/02/17 11:03 97 44 110/56 (74) 93 Nasal Cannula 1.0 02/02/17 08:00 100.6 02/01/17 08:00 35 I&O- Last 24 Hours up to 6 AM 02/02/17 06:00 Intake Total 1610 ml Output Total 3435 ml Balance -1825 ml RASHAD SIDDIQUI MD Feb 02, 2017 12:30
[2017-02-02] MEDS ORDERED: HEPARIN SOD (PORCINE) 5000 UNITS/ML VIAL SC SCH (14:00)
[2017-02-02] MEDS ORDERED: VANCOMYCIN HCL 1,000 MG, VIAL MATE ADAPTER 1 EACH in D5W 250 ML IV SCH (18:00)
[2017-02-02] MEDS: VANCOMYCIN HCL 1,000 MG, VIAL MATE ADAPTER 1 EACH in D5W 250 ML IV SCH (18:11)
--- NOTE | 2017-02-02 19:39 | PHACANCOPD ---
PHARMACY VANCOMYCIN DOSING Pt Demographics Demographics Patient Age:71 , Weight:91.500 , Gender: female Adjusted Body Weight Date: 01/25/17, Adjusted Body Weight: [67.9] Kg Events Past 24 Hours Events Past 24 Hours: YES: Fever, Elevation in WBC, Pending Diagnostics Vancomycin Vancomycin indication: pneumonia, sepsis Vancomycin Target Ranges: 10-20 mcg/ml Vancomycin Load Y/N: Yes Load Dose Date Time Vancomycin Load Dose: 1500mg Date: 02/02 Time: 19:00 Vancomycin Dose Date: 01/30/17. Current Vancomycin Dose: [1g IV q24h @19] Intermittent Dosing?: No Labs Labs Item Value Date Time White Blood Count 22.2 K/mm3 H 02/02/17 0408 White Blood Count 21.9 K/mm3 H 02/01/17 0412 White Blood Count 20.9 K/mm3 H 01/31/17 0408 Creatinine 1.69 MG/DL H 02/02/17 0408 Creatinine 1.59 MG/DL H 02/01/17 0412 Creatinine 1.55 MG/DL H 01/31/17 0408 Micro Microbiology 02/02/17 Blood Culture, Received Pending 02/02/17 Blood Culture, Received Pending 01/24/17 Blood Culture - Final, Complete NO GROWTH AFTER 5 DAYS 01/24/17 Blood Culture - Final, Complete NO GROWTH AFTER 5 DAYS 01/25/17 Anaerobic Culture - Final, Complete Eubacterium Lentum Bacteroides Distasonis 01/26/17 Gram Stain - Final, Complete 01/26/17 Sputum Culture - Final, Complete Yeast Like Organism 01/26/17 MRSA Screen - Final, Complete 02/02/17 Urine Culture, Received Pending 01/25/17 Wound Culture - Final, Complete E.coli Esbl Enterococcus Faecalis Streptococcus Viridans Group Staphylococcus Sp Coag Neg Creatinine Clearance Date:01/25/17. Estimated Creatinine Clearance: [23.5 ml/min]. Assessment and Plan Maintaining Current Dose?: Yes Reason for dose change: No Dose Change Pharmacist Note Pharmacist Note 02/02/17: Vancomycin restarted today with a 1500mg loading dose, followed by a maintenance regimen of 1g IV Q24H for the treatment of pneumonia, sepsis - aiming for a goal trough of 10-20mcg/ml. The patient is currently febrile, WBC, RR, and pulse are elevated. 02/02/[address] showed bibasilar infiltrates. Urine and blood cultures are pending. Scr has improved since admit, and we will continue to monitor and schedule a trough/adjust dose accordingly. Date: 01/28/17. Pharmacist note: Trough of 18.5 is within target range. Will continue current dosing. Will continue to monitor and make adjustments as needed. [facility] Feb 02, 2017 19:39
[2017-02-02] MEDS ORDERED: VANCOMYCIN HCL 500 MG in D5W MINI-BAG PLUS 100 ML IV ONE (20:00)
--- NOTE | 2017-02-02 21:23 | IPN ---
DATE: 02/02/2017 Ruth started having a fever on January 31 up to 100.6. Today, she had a temperature up to 101.8. Repeat cultures were done. Central line was removed on Thursday. The patient was extubated on Thursday. The patient is nonresponsive, but she had her eyes opened. She moves all extremities, but limited. She only moans and groans. She does not seem to be in any pain. On physical exam, temperature is 101.3, pulse 101, respirations 40, blood pressure 111/56, oxygen saturation 90% on 1 liter nasal cannula. The patient does have a cough which is pretty strong and seems productive. HEART: Normal S1-S2, tachycardiac. LUNGS: Few exterior rhonchi. Diminished at the bases. ABDOMEN: Soft, mildly tender. The patient whence whenever her abdomen is touched. She has an ileostomy with greenish stools. She has a midline incision with yoselin in place with minimal erythema. No drainage. EXTREMITIES: Trace ankle edema. She moves extremities when she is tickled. BOTH EYES: Pupils equal and reactive. The right eye seems a little more droopier than the left. LABORATORY DATA: White count is 22.2, which has increased from 16.3, hemoglobin 14.5, hematocrit 45.9, platelets 265. Sodium 145, potassium 3.9, chloride 108, bicarbonate 29, BUN 46, creatinine 1.6, glucose 338, calcium 9, phosphorus 2.1, magnesium 2.4, AST 56, ALT 38, alkaline phosphatase 244, AST has decreased from a peak of 131. Abdominal culture had polymicrobial justus with E-coli, ESBL, Enterococcus faecalis, Streptococcus viridan, bacterium and bacteroides. Sputum had only yeastlike organism. Repeat blood cultures and urine cultures were done today. IMAGING: Chest x-ray showed congestive heart failure with lower lobe opacities and small effusions. Chest CT showed bibasilar infiltrates, small right pleural effusion. No masses or adenopathy, small amount of ascites as well and right adrenal myelolipoma. Discoid atelectasis in the right lower lobe. CT of the abdomen did not show any evidence of abscess. No new masses, ostomy and postsurgical changes, no collection. IMPRESSION: 71-year-old female status post perforation and secondary peritonitis and intra-abdominal infection who has developed recurrent fever after IV vancomycin was discontinued. Her last dose was on 01/30. At 6 a.m, the patient developed a fever within 24 hours. The patient's central line was removed also on 01/30. She only has peripheral IVs. She has a cough with some hypoxia and may be developing pneumonia versus an intra-abdominal infection that has not been picked up on CT. Will need to continue monitoring. PLAN: At this point, I would suggest adding vancomycin 1 gram every 12 hours. Since there is no intra-abdominal infection or abscesses, it is unlikely and the patient does not have a central line in over 72 hours, it is unlikely that she has a fungal infection; but agree with obtaining blood cultures; if blood cultures were negative, then antifungals could be discontinued. These have been started by the hospitalist. Resume vancomycin at 1 gram every12 hours.
[2017-02-02] MEDS: FLUCONAZOLE 200 MG in APPROPRIATE DILUENT 1 EA IV SCH (21:30)
--- NOTE | 2017-02-02 21:31 | IPN ---
DATE: 02/02/2017 SUBJECTIVE: The patient was seen and examined at the bedside in the ICU today morning. Unfortunately she remains encephalopathic. The patient was on nasal cannula. She is otherwise hemodynamically stable. The patient keeps on having fever spikes. Her renal function is stable at this time. The patient was given a dose of acetazolamide yesterday because of mixed metabolic and respiratory acidosis and her diuretics were held. The patient was getting ready to go for a CT scan of the chest, abdomen and pelvis to rule out any fluid collection or abscesses when I saw the patient in the morning. REVIEW OF SYSTEMS: The patient is unable to provide any reliable review of systems at this time. VITAL SIGNS: Temperature this morning was 100.6 degrees Fahrenheit. T-max was 101.8 degrees Fahrenheit. Blood pressure 124/58, pulse 111, respiratory rate of 38, saturating 94% on nasal cannula and 1 liter. Intake and output: Urine output recorded as 2210 mL yesterday, 970 mL so far today since overnight. Weight on the bed scale is 91.5 kg. The patient is 757 mL positive since overnight. PHYSICAL EXAMINATION: The patient is laying in bed wearing nasal cannula. Eyes are closed. Obtunded. Encephalopathic. Does not follow any commands. HEAD/NECK: Pupils are equally round and reactive to light. Mucous membranes are slightly dry. NECK: Supple. There is no jugular venous distention (JVD). CARDIOVASCULAR: S1, S2, tachycardia. No murmur, rub or gallop. RESPIRATORY: Decreased breath sounds at the bases. The patient is tachypneic. ABDOMEN: Soft. Positive bowel sounds. The patient has a right lower quadrant ileostomy at midline abdominal surgical site which is covered by dressings. No tenderness was appreciated at this time. GENITOURINARY: The patient has an indwelling Nolen at this time. Urine in the bag is clear. EXTREMITIES: No clubbing or cyanosis. Pulses are 2+. CENTRAL NERVOUS SYSTEM: The patient is obtunded, tachypneic. Does not follow commands and does not communicate. Her eyes are closed. LAB REVIEW: CBC showed a WBC of 22.2, hemoglobin is 14.5, platelets are 265. Urinalysis showed protein 1+, glucose 3+, trace ketones. Nitrite was negative. Leukocyte esterase was negative. ABG done today morning showed a pH of 7.53. PCO2 of 29.4, pO2 of 67.7. Bicarbonate is 25, O2 saturation is 94.2. BNP today morning showed sodium 145, potassium 3.9, chloride 108, bicarbonate 29, BUN 46, creatinine is 1.6. It was 1.59 yesterday. Calcium is 9, phosphorous is 2.1, magnesium is 2.4, albumin is 1.8. Microbiology: Sputum gram stain sent on January 26 is growing yeastlike organism. Repeat blood cultures sent today are pending. IMAGING: A CT scan of the chest done today morning showed bibasilar infiltrates. Small right pleural effusion. No mass or adenopathy. Small volume of ascites surrounding the liver. Right adrenal myelolipoma. CT scan of the abdomen and pelvis showed colostomy and postsurgical changes, stable chronic changes, right adrenal myelolipoma. No new acute mass lesion, ascites or fluid collection was seen. CURRENT INPATIENT MEDICATIONS: The patient's inpatient medications were all reviewed by me. She continues to be on meropenem 1 gram IV every 8 hourly and vancomycin IV. The patient was given one dose of sodium phosphate 20 mg IV. There is no other change in the medications today as compared with yesterday. ASSESSMENT: 71-year-old female with acute kidney injury superimposed on chronic kidney disease, secondary to intraabdominal sepsis and hypotension. Hospital course is complicated by persistent leukocytosis, sepsis and fevers despite being on broad-spectrum antibiotics. PLAN: 1. Acute kidney injury superimposed on chronic kidney disease. The patient's creatinine is fluctuating around 1.5 to 1.6. She has good urine output. Her diuretics are on hold at this time. No urgent need of hemodialysis at this time. 2. Shortness of breath and fluid overload. The patient aggressively diuresed. She was having metabolic alkalosis yesterday so her diuretics were held. Volume status is optimized at this time. If needed, the patient will be started on lower dose of diuretics and combination of amiloride to prevent metabolic alkalosis. 3. Mixed metabolic and respiratory alkalosis. Respiratory alkalosis is most likely secondary to encephalopathy. Metabolic alkalosis has been improving after stopping the diuretics and giving a dose of acetazolamide 500 mg IV. 4. Nutrition. The patient is currently Glucerna which was on hold because of the CT scan with by mouth contrast. It can be resumed after the CT scan studies. 5. Persistent sepsis, fever and leukocytosis. The patient got the CT scan test abdomen and pelvis which did not localize any pus collection or fluid collection. Repeat blood cultures have been sent. The patient is growing yeast in the sputum and she is on broad spectrum antibiotics and she is persistently spiking fevers. She was recently getting TPN as well. I will cover the patient for antifungal. I have started the patient on fluconazole 200 mg IV daily. 6. Atrial fibrillation. Atrial flutter. The patient is currently on amiodarone and metoprolol. The rest of the management is as per cardiology recommendations. The plan of care was discussed with the hospitalist, Dr. Shakeel Carbone.
[2017-02-02] MEDS: ENOXAPARIN 100MG/1ML SYRINGE (J1650) SC SCH (21:32)
[2017-02-03] VITALS (14 sets, daily range): BP systolic 100–151; BP diastolic 51–80
[2017-02-03] MEDS: METOPROLOL TART 50 MG TAB NG SCH ×3 (00:04→17:04)
[2017-02-03] MEDS: HumaLOG INSULIN (NovoLOG) PER UNIT SC SCH ×4 (00:06→17:05)
[2017-02-03] MEDS: MEROPENEM INJ 1 GM in D5W MINI-BAG PLUS 100 ML IV SCH ×3 (01:54→17:04)
[2017-02-03] MEDS: IPRATROPIUM 0.5MG/ALBUTEROL 2.5MG INH SOL UD 3ML (DUONEB)(J7620) NEB SCH ×6 (03:12→23:49)
[2017-02-03 05:02] LABS: BASO # 0.1 K/mm3 (0.0-0.2); BASO % 0.5 % (0.0-1.0); EOS # 0.1 K/mm3 (0.0-0.50); EOS % 0.3 % (0.0-3.0); LARGE UNSTAINED CELL # 0.6 K/mm3 (0.0-0.4); LARGE UNSTAINED CELL % 2.4 % (0.0-4.0); LYMPH # 2.5 K/mm3 (1.5-4.5); LYMPH % 8.5 % (24.0-44.0); MEAN CORPUSCULAR HGB CONC 31.8 g/dl (32.0-36.5); MEAN CORPUSCULAR VOLUME 88.1 fl (80.0-96.0); MONO % 4.1 % (0.0-5.0); NEUTROPHILS # 19.8 K/mm3 (1.8-7.7); NEUTROPHILS % 84.2 % (36.0-66.0); PLATELET COUNT, AUTOMATED 324 k/mm3 (150-450); RED CELL DISTRIBUTION WIDTH 14.9 % (11.5-14.5); WHITE BLOOD COUNT 23.5 K/mm3 (4.0-10.0)
[2017-02-03 05:47] LABS: ALBUMIN 1.8 GM/DL (3.2-5.2); ALBUMIN/GLOBULIN RATIO 0.39 (1.00-1.93); BILIRUBIN,TOTAL 1.1 MG/DL (0.2-1.0); CALCIUM LEVEL 8.8 MG/DL (8.8-10.2); CREATININE FOR GFR 1.84 MG/DL (0.55-1.02); GLOMERULAR FILTRATION RATE 28.7 (>39); MAGNESIUM LEVEL 2.1 MG/DL (1.8-2.4); PHOSPHORUS LEVEL 3.4 MG/DL (2.5-4.9); POTASSIUM SERUM 3.9 MEQ/L (3.5-5.1); TOTAL PROTEIN 6.4 GM/DL (6.4-8.2)
[2017-02-03] MEDS: LEVOTHYROXINE 50MCG TABLET (0.05MG) PO SCH (05:50)
[2017-02-03] MEDS: SLF 3 ML SYR IV SCH ×3 (05:50→21:25)
[2017-02-03 06:00] LABS: ABG BASE EXCESS 1.9 (-2.0-2.0); ABG HCO3 23.8 MEQ/L (22.0-26.0); ABG PARTIAL PRESSURE CO2 29.4 mmHg (35.0-45.0); ABG PARTIAL PRESSURE O2 59.4 mmHg (75.0-100.0); ABG TOTAL CO2 24.7 MEQ/L (23.0-31.0); ABG pH (ARTERIAL) 7.526 UNITS (7.350-7.450)
[2017-02-03] MEDS: ADVAIR HFA 115/21MCG INHALER INH SCH ×2 (07:17→21:00)
--- NOTE | 2017-02-03 07:43 | REP ---
Clinical: Hypoxemia. Comparison: 02/02/2017. Findings: Bibasilar opacities and pleural effusions are again suggested and similar to prior examination. Visualized portions of the mediastinum suggest cardiomegaly. Nasogastric tube courses below left hemidiaphragm. No pneumothorax. Skeletal structures stable. Impression: Bibasilar opacities suggesting elements of infiltrate/atelectasis and layering effusions. Signed by Sergio Catalan MD 02/03/2017 07:33 A
[2017-02-03] MEDS: LACTOBACILLUS ACIDOPHILUS CAP (BACID) PO SCH (08:19)
[2017-02-03] MEDS: ACETAMINOPHEN TAB 650MG DOSE (2X325MG) PO PRN ×2 (08:19→13:59)
[2017-02-03] MEDS: AMIODARONE 200 MG TAB (PACERONE) NG SCH ×2 (08:19→21:00)
[2017-02-03] MEDS: PANTOPRAZOLE 40MG INJ (PROTONIX) (C9113) IV SCH (08:19)
[2017-02-03] MEDS: VITAMIN D 1,000 INTERNATIONAL UNITS TABLET PO SCH (08:19)
--- NOTE | 2017-02-03 08:30 | IPN ---
DATE: 02/03/2017 Mrs. Kessler is not doing well. She started spiking fevers again. Her mental status is not improving and she is more hypoxic. At the evaluation at bedside, she has open eyes and she would turn her head towards noise and she has some movement with all four extremities, but nothing seems purposeful. There is no verbal contact available. Blood pressure 142/66. Heart rate is around 100. Saturation is in low 90s on 1-2 liters supplemental oxygen. She had a temperature yesterday of 101.3. Overnight, the T-max was 100.9. Her lungs are relatively clear to auscultation. There is only very few end-inspiratory crackles. Air movement seems decent. Heart exam is somewhat overshadowed by respiratory sounds and her moaning, but nevertheless there is a tachycardic rhythm that is regular in nature and there is a murmur at the base which is rather faint. I do not appreciate any gallop or rub. Abdomen has some minimal guarding on deep palpation, the ostomy looks clear. There are stools in the bag. Extremities have mild edema. Neurologically as above. Laboratory-walter, her ABG today revealed pH 7.52, pCO2 29, pO2 59, and saturation 91%. CBC revealed WBC count 23.5, hemoglobin 12.7, hematocrit 39.5 and platelet count 324,000. Basic metabolic panel: Sodium 143, potassium 3.9, BUN 51, creatinine 1.8, glucose 422. Albumin is 1.8. ASSESSMENT/PLAN: Mrs. Kessler is a 71-year-old female who presented with perforated viscus and abdominal sepsis. She was intubated for a prolonged period of time. I was involved because of episodes of atrial flutter/fibrillation that were very difficult to control. As of the last several days, she has been maintaining sinus rhythm. I started her on a full dose of Lovenox yesterday. From my perspective, I would continue amiodarone at least another 2 or 3 weeks at current dose and the dose of beta chelsey can be adjusted depending on her heart rate. I would also continue anticoagulation unless there are signs of bleeding. Unfortunately, she continues to have a host of other issues. Most likely, she has ongoing infection. Blood cultures drawn yesterday are pending. She also has in my opinion still evidence for pulmonary congestion, but the doses of diuretics are now regulated by the nephrology service and consequently I will not step into the process. I am going to sign off the patient's care. Please call me if further cardiology assistance is desired.
--- NOTE | 2017-02-03 10:35 | REP ---
Clinical: Feeding tube placement. Technique: Portable AP view of the chest. Findings: A feeding tube is identified extending into the left upper abdomen in satisfactory position. Bibasilar atelectasis and possible small pleural effusions. No pneumothorax. Cardiomegaly cannot be excluded. Impression: 1. Feeding tube extends into the left upper abdomen satisfactory position. 2. Bibasilar opacities suggesting atelectasis and pleural effusions. Signed by Sergio Catalan MD 02/03/2017 10:26 A
[2017-02-03] MEDS ORDERED: FUROSEMIDE 40 MG/4 ML VIAL (J1940) IV ONE (11:15)
--- NOTE | 2017-02-03 11:15 | IPNPDOC ---
Subjective General Date/Time Seen The patient was seen on 02/03/17 at 11:04. Subject Chief Complaint/History The patient is a 71-year-old female postop day 10 from right colon perforation status post right colectomy and ileostomy. She continues to have febrile spikes today. She still is disoriented and mainly groaning and not responding appropriately. Still looks like she has some preferential movement of her right side over the left. She has CT scan of the abdomen and pelvis as well as the chest yesterday it did not reveal any significant fluid collection or other possible causes of persistent febrile spikes and leukocytosis. She is tolerating tube feedings and her ileostomy is functioning. Current Medications Current Medications Current Medications Acetaminophen (Tylenol Tab) 650 mg Q4HP PRN PO MILD PAIN OR FEVER Last administered on 02/03/17 08:19; Start 01/24/17 at 02:45; Stop 02/23/17 at 02:44 Acetazolamide Sodium (Diamox) 500 mg STAT STAT IV Last administered on 09:41; Start 02/01/17 at 09:07; Stop 02/01/17 at 09:11; Status DC Albuterol/ Ipratropium (Duoneb (Ipr 0.5mg/Alb 2.5mg)) 3 ml RQ4H NEB Last administered on 02/03/17 07:16; Start 01/25/17 at 20:00; Stop 02/24/17 at 19:59 Amiodarone HCl (Pacerone, Cordarone) 400 mg BID NG Last administered on 08:19; Start 01/30/17 at 09:00; Stop 03/01/17 at 08:59 Amiodarone HCl 150 mg/IV Miscellaneous Supplies 100 ml @ 600 mls/hr BID IV Last administered on 01/30/17 20:58; Start 01/28/17 at 09:00; Stop 01/30/17 at 23:59; Status DC Amiodarone HCl 150 mg/IV Miscellaneous Supplies 100 ml @ 600 mls/hr STAT STAT IV Last administered on 01/26/17 05:25; Start 01/26/17 at 05:14; Stop at 05:23; Status DC Amiodarone HCl 150 mg/IV Miscellaneous Supplies 100 ml @ 600 mls/hr STAT STAT IV ; Start 01/26/17 at 05:14; Stop 01/26/17 at 05:23; Status Cancel Amiodarone HCl 150 mg/IV Miscellaneous Supplies 100 ml @ 600 mls/hr STAT STAT IV Last administered on 01/26/17 12:38; Start 01/26/17 at 12:38; Stop at 12:47; Status DC Amiodarone HCl 150 mg/IV Miscellaneous Supplies 100 ml @ 600 mls/hr STAT STAT IV Last administered on 01/28/17 09:41; Start 01/28/17 at 07:37; Stop at 07:46; Status DC Amiodarone HCl 360 mg/IV Miscellaneous Supplies 200 ml @ 17 mls/hr [id number] IV Last administered on 01/27/17 08:03; Start 01/26/17 at 20:30; Stop 01/27/17 at 14:30; Status DC Amiodarone HCl 360 mg/IV Miscellaneous Supplies 200 ml @ 33.33 mls/ hr Q6H1M IV Last administered on 01/26/17 14:58; Start 01/26/17 at 14:30; Stop at 20:30; Status DC Azithromycin 500 mg/IV Miscellaneous Supplies 1 each/ Dextrose 255 ml @ 255 mls /hr Q24H IV Last administered on 01/25/17 13:21; Start 01/25/17 at 12:00; Stop 01/25/17 at 17:39; Status DC Bupropion HCl (Wellbutrin Xl) 150 mg DAILY PO Last administered on 01/25/17 08 :22; Start 01/24/17 at 09:00; Stop 01/25/17 at 17:39; Status DC Calcitriol (Rocaltrol) 0.25 mcg MoTuWeThFr@0900 PO ; Start 01/26/17 at 09:00; Stop 01/26/17 at 09:00; Status DC Ciprofloxacin 200 mg/IV Miscellaneous Supplies 100 ml @ 100 mls/hr Q12H IV Last administered on 01/25/17 04:54; Start 01/24/17 at 14:00; Stop 01/25/17 at 09:06; Status DC Cyclobenzaprine HCl (Flexeril) 10 mg TID PO Last administered on 01/25/17 08: 23; Start 01/24/17 at 09:00; Stop 01/25/17 at 11:50; Status DC Desloratidine (Clarinex) 5 mg DAILY PO Last administered on 01/25/17 08:22; Start 01/24/17 at 09:00; Stop 01/25/17 at 17:39; Status DC Dextrose (Dextrose 50%) 25 ml ASDIRECTED PRN IV SEE LABEL COMMENTS; Start 01/24 at 02:30; Stop 02/23/17 at 02:29 Dextrose (Dextrose 50%) 25 ml ASDIRECTED PRN IV SEE LABEL COMMENTS; Start 01/25 at 01:00; Stop 02/24/17 at 00:59; Status Cancel Digoxin (Lanoxin) 0.125 mg STAT STAT IV Last administered on 01/26/17 05:00; Start 01/26/17 at 04:52; Stop 01/26/17 at 04:54; Status DC Duloxetine HCl (Cymbalta) 30 mg DAILY PO ; Start 01/24/17 at 09:00; Stop at 09:00; Status DC Duloxetine HCl (Cymbalta) 60 mg DAILY PO ; Start 01/24/17 at 09:00; Stop at 09:00; Status DC Duloxetine HCl (Cymbalta) 90 mg DAILY PO Last administered on 01/25/17 08:22; Start 01/24/17 at 09:00; Stop 01/25/17 at 17:39; Status DC Enoxaparin Sodium (Lovenox) 90 mg Q24H SC Last administered on 02/02/17 21:32 ; Start 02/02/17 at 21:00; Stop 02/07/17 at 20:59 Fat Emulsion Intravenous 500 ml @ 20 mls/hr ONCE@1800 IV Last administered on 01/28/17 17:40; Start 01/28/17 at 18:00; Stop 01/29/17 at 17:59; Status DC Fat Emulsion Intravenous 500 ml @ 20 mls/hr ONCE@1800 IV Last administered on 01/29/17 17:53; Start 01/29/17 at 18:00; Stop 01/30/17 at 17:59; Status DC Fentanyl Citrate (Sublimaze) 25 mcg Q5MP PRN IV MODERATE PAIN (PS 4-7); Start 01/25/17 at 18:15; Stop 01/25/17 at 19:15; Status DC Fluconazole 200 mg/IV Miscellaneous Supplies 100 ml @ 100 mls/hr Q24H IV Last administered on 02/02/17 21:30; Start 02/02/17 at 21:00; Stop 02/16/17 at 20:59 Furosemide (LASIX injection) 80 mg Q12H IV Last administered on 01/31/17 12:19 ; Start 01/28/17 at 12:00; Stop 02/01/17 at 09:07; Status DC Glucagon (Glucagon) 1 mg ASDIRECTED PRN SC SEE LABEL COMMENTS; Start 01/24/17 at 02:30; Stop 02/23/17 at 02:29 Glucagon (Glucagon) 1 mg ASDIRECTED PRN SC SEE LABEL COMMENTS; Start 01/25/17 at 01:00; Stop 02/24/17 at 00:59; Status UNV Glucose (Glucose) 16 GM ASDIRECTED PRN PO SEE LABEL COMMENTS; Start 01/24/17 at 02:30; Stop 02/23/17 at 02:29 Glucose (Glucose) 16 GM ASDIRECTED PRN PO SEE LABEL COMMENTS; Start 01/25/17 at 01:00; Stop 02/24/17 at 00:59; Status Cancel Heparin Sodium (Porcine) (Heparin) 5,000 units Q8H SC Last administered on 02/01 21:14; Start 01/24/17 at 06:00; Stop 02/02/17 at 15:19; Status DC Heparin Sodium (Porcine) (Heparin) 5,000 units Q8H SC Last administered on 02/02 15:36; Start 02/02/17 at 14:00; Stop 02/02/17 at 20:27; Status DC Home Med (Med Rec Complete!) ASDIRECTED XX ; Start 01/24/17 at 00:30; Stop at 00:31; Status DC Hydromorphone HCl (Dilaudid) 0.2 mg Q5MP PRN IV MODERATE/SEVERE PAIN (PS 7-10) ; Start 01/25/17 at 18:15; Stop 01/25/17 at 18:15; Status DC Hydromorphone HCl (Dilaudid) 0.4 mg Q5MP PRN IV MODERATE/SEVERE PAIN (PS 7-10) ; Start 01/25/17 at 18:15; Stop 01/25/17 at 19:15; Status DC Insulin Detemir (Levemir Insulin) 15 units BID SC ; Start 02/03/17 at 09:00; Stop 03/05/17 at 08:59 Insulin Detemir (Levemir Insulin) 50 units QHS SC Last administered on 21:11; Start 01/24/17 at 21:00; Stop 01/25/17 at 17:39; Status DC Insulin Human Lispro (HumaLOG INSULIN) SEE PROTOCOL TABLE Q6H SC Last administered on 01/25/17 00:00; Start 01/24/17 at 06:00; Stop 01/25/17 at 01:01 ; Status DC Insulin Human Lispro (HumaLOG INSULIN) SEE PROTOCOL TABLE Q6H SC Last administered on 02/03/17 05:50; Start 01/26/17 at 00:00; Stop 02/25/17 at 00:00 Insulin Human Lispro (HumaLOG INSULIN) See Protocol Table AC SC Last administered on 01/25/17 13:26; Start 01/25/17 at 07:30; Stop 01/25/17 at 21:09 ; Status DC Insulin Human Lispro (HumaLOG INSULIN) See Protocol Table Q6H SC ; Start at 18:00; Stop 01/30/17 at 15:00; Status Cancel Insulin Human Lispro (HumaLOG INSULIN) See Protocol Table QHS SC ; Start at 21:00; Stop 02/24/17 at 20:59; Status Cancel Lactated Ringer's 1,000 ml @ 200 mls/hr Q5H IV Last administered on 01/26/17 04:30; Start 01/25/17 at 18:30; Stop 01/26/17 at 06:52; Status DC Lactobacillus Acidophilus (Bacid) 1 ea DAILY PO Last administered on 02/03/17 08:19; Start 01/24/17 at 09:00; Stop 02/23/17 at 08:59 Levothyroxine Sodium (Synthroid) 25 mcg DAILY@0600 IV Last administered on 01/31 06:10; Start 01/26/17 at 06:00; Stop 01/31/17 at 12:26; Status DC Levothyroxine Sodium (Synthroid) 50 mcg DAILY@06 PO Last administered on 05:50; Start 02/01/17 at 06:00; Stop 03/03/17 at 05:59 Levothyroxine Sodium (Synthroid) 50 mcg DAILY@0600 PO Last administered on 01/25 05:35; Start 01/24/17 at 06:00; Stop 01/25/17 at 17:39; Status DC Magnesium Sulfate/ Dextrose 1 gm/IV Miscellaneous Supplies 100 ml @ 100 mls/hr 1T@0700,0800 IV Last administered on 01/26/17 07:01; Start 01/26/17 at 07:00; Stop 01/26/17 at 08:59; Status DC Magnesium Sulfate/ Dextrose 1 gm/IV Miscellaneous Supplies 100 ml @ 100 mls/hr 1T@0800 IV Last administered on 01/28/17 07:29; Start 01/28/17 at 08:00; Stop 01/28/17 at 10:00; Status DC Magnesium Sulfate/ Dextrose 1 gm/IV Miscellaneous Supplies 100 ml @ 100 mls/hr 1T@0800,0900 IV Last administered on 01/25/17 08:24; Start 01/25/17 at 08:00; Stop 01/25/17 at 09:59; Status DC Meropenem 1 gm/ Dextrose 100 ml @ 200 mls/hr Q8H IV Last administered on 10:42; Start 01/27/17 at 18:00; Stop 02/09/17 at 17:59 Metoclopramide HCl (REGLAN INJection) 10 mg Q6HP PRN IV NAUSEA OR VOMITING; Start 01/25/17 at 18:15; Stop 01/25/17 at 19:15; Status DC Metoprolol Tartrate (Lopressor) 5 mg STAT STAT IV Last administered on 13:07; Start 01/28/17 at 12:59; Stop 01/28/17 at 13:01; Status DC Metoprolol Tartrate (Lopressor) 5 mg STAT STAT IV Last administered on 15:02; Start 01/28/17 at 14:21; Stop 01/28/17 at 14:25; Status DC Metoprolol Tartrate (Lopressor) 25 mg Q8H NG Last administered on 01/30/17 05: 06; Start 01/28/17 at 14:00; Stop 01/30/17 at 07:50; Status DC Metoprolol Tartrate (Lopressor) 50 mg BID NG Last administered on 02/01/17 08: 38; Start 01/30/17 at 21:00; Stop 02/01/17 at 13:29; Status DC Metoprolol Tartrate (Lopressor) 50 mg BID PO Last administered on 01/25/17 08: 23; Start 01/24/17 at 09:00; Stop 01/25/17 at 12:02; Status DC Metoprolol Tartrate (Lopressor) 50 mg Q8H NG ; Start 02/01/17 at 14:00; Stop at 16:15; Status DC Metoprolol Tartrate (Lopressor) 50 mg Q8H NG Last administered on 02/03/17 08: 19; Start 02/01/17 at 16:00; Stop 03/03/17 at 15:59 Metronidazole 500 mg/IV Miscellaneous Supplies 100 ml @ 100 mls/hr Q8H IV Last administered on 01/25/17 04:54; Start 01/24/17 at 11:00; Stop 01/25/17 at 09:06; Status DC Midazolam HCl (Versed) 2 mg Q30MP PRN IV AGITATION Last administered on 04:23; Start 01/30/17 at 20:30; Stop 01/31/17 at 10:30; Status DC Miscellaneous (Unresolved Clarification Entry) SEE LABEL COMMENTS UNRESOLVED XX ; Start 02/02/17 at 00:01; Stop 02/02/17 at 15:17; Status DC Morphine Sulfate (Morphine Sulfate Inj) 2 mg Q2HP PRN IV SEVERE PAIN (PS 8-10) Last administered on 01/29/17 05:32; Start 01/24/17 at 02:45; Stop 01/30/17 at 11:15; Status DC Morphine Sulfate (Morphine Sulfate Inj) 4 mg Q15M PRN IV MODERATE/SEVERE PAIN ( PS 5-10) Last administered on 01/24/17 01:54; Start 01/23/17 at 21:00; Stop at 01:55; Status DC Naloxone HCl (Narcan) 0.4 mg STAT STAT IV ; Start 01/25/17 at 11:16; Stop 01/25 at 11:17; Status DC Norepinephrine Bitartrate 16 mg/ Dextrose 516 ml @ 19.35 mls/ hr Q24H IV Last administered on 01/28/17 00:40; Start 01/25/17 at 13:00; Stop 01/31/17 at 10:30 ; Status DC Ondansetron HCl (ZOFRAN INJection) 4 mg Q4HP PRN IV NAUSEA OR VOMITING; Start 01/25/17 at 18:15; Stop 01/25/17 at 19:15; Status DC Ondansetron HCl (ZOFRAN INJection) 4 mg Q6HP PRN IV NAUSEA OR VOMITING Last administered on 01/24/17 17:34; Start 01/24/17 at 02:45; Stop 02/23/17 at 02:44 Oxycodone/ Acetaminophen (Percocet 5mg/ 325mg Tablet) 1 tab Q4HP PRN PO MODERATE PAIN (PS 5-7) Last administered on 01/24/17 18:36; Start 01/24/17 at 02:45; Stop 01/25/17 at 11:47; Status DC Pantoprazole Sodium (Protonix) 40 mg Q24H IV Last administered on 02/03/17 08: 19; Start 01/24/17 at 09:00; Stop 02/23/17 at 08:59 Piperacillin Sod/ Tazobactam Sod 3.375 gm/Dextrose 50 ml @ 50 mls/hr Q6H IV Last administered on 01/27/17 14:08; Start 01/25/17 at 09:00; Stop 01/27/17 at 17:13; Status DC Potassium Chloride 20 meq/ IV Miscellaneous Supplies 100 ml @ 100 mls/hr 1T@ 0800,1400,2200 IV Last administered on 01/29/17 07:38; Start 01/29/17 at 08:00 ; Stop 01/29/17 at 10:11; Status DC Potassium Chloride 20 meq/ IV Miscellaneous Supplies 100 ml @ 100 mls/hr 1T@ 0900,1000 IV Last administered on 01/29/17 12:57; Start 01/29/17 at 09:00; Stop 01/29/17 at 12:00; Status DC Potassium Chloride 20 meq/ IV Miscellaneous Supplies 100 ml @ 100 mls/hr 1T@ 0900,2100 IV ; Start 01/30/17 at 09:00; Stop 01/30/17 at 10:15; Status DC Potassium Chloride 20 meq/ IV Miscellaneous Supplies 100 ml @ 100 mls/hr BID@ 0000,2300 IV Last administered on 01/27/17 23:37; Start 01/27/17 at 23:00; Stop 01/28/17 at 03:00; Status DC Potassium Chloride (Potassium Chloride Liquid) 40 meq Q4H PO Last administered on 01/31/17 02:32; Start 01/30/17 at 10:15; Stop 01/31/17 at 03:01; Status DC Prazosin HCl (Minipress) 1 mg QHS PO Last administered on 01/24/17 21:10; Start 01/24/17 at 21:00; Stop 01/25/17 at 17:39; Status DC Pregabalin (Lyrica) 100 mg TID PO Last administered on 01/25/17 08:23; Start 01/24/17 at 09:00; Stop 01/25/17 at 11:50; Status DC Propofol 1000 mg/ IV Miscellaneous Supplies 100 ml @ 20 mls/hr Q5H IV Last administered on 01/29/17 13:02; Start 01/25/17 at 19:30; Stop 01/29/17 at 17:59 ; Status DC Propofol 1000 mg/ IV Miscellaneous Supplies 100 ml @ 20 mls/hr Q5H IV Last administered on 01/30/17 09:18; Start 01/29/17 at 18:00; Stop 01/31/17 at 10:30 ; Status DC Salmeterol Xinafoate/ Fluticasone (Advair Hfa 115/ 21) 2 puff BID INH Last administered on 01/31/17 08:49; Start 01/24/17 at 09:00; Stop 02/23/17 at 08:59 Senna/Docusate Sodium (Senokot S) 1 tab BID PO Last administered on 01/25/17 08:23; Start 01/24/17 at 09:00; Stop 01/25/17 at 17:39; Status DC Sodium Bicarbonate 100 meq/Dextrose/Water 1,100 ml @ 75 mls/hr [id number] IV Last administered on 01/26/17 14:57; Start 01/26/17 at 08:00; Stop 01/26/17 at 21:05; Status DC Sodium Bicarbonate (Sodium Bicarbonate) 50 meq STAT STAT IV Last administered on 01/25/17 20:57; Start 01/25/17 at 20:29; Stop 01/25/17 at 20:31; Status DC Sodium Bicarbonate (Sodium Bicarbonate) 50 meq STAT STAT IV Last administered on 01/26/17 05:54; Start 01/26/17 at 05:43; Stop 01/26/17 at 05:47; Status DC Sodium Chloride 1,000 ml @ 75 mls/hr [id number] IV Last administered on 17:41; Start 01/25/17 at 18:15; Stop 01/25/17 at 19:15; Status DC Sodium Chloride 1,000 ml @ 100 mls/hr Q10H IV Last administered on 01/25/17 04:54; Start 01/24/17 at 02:30; Stop 01/25/17 at 11:48; Status DC Sodium Chloride (Saline Lock Flush) 2 ml ASDIRECTED PRN IV SEE LABEL COMMENTS; Start 01/30/17 at 14:15; Stop 03/01/17 at 14:14 Sodium Chloride (Saline Lock Flush) 2 ml SLF IV Last administered on 02/03/17 05:50; Start 01/30/17 at 22:00; Stop 03/01/17 at 21:59 Sodium Chloride (Saline Lock Flush) 10 ml ASDIRECTED PRN IV SEE LABEL COMMENTS ; Start 01/30/17 at 14:15; Stop 01/31/17 at 14:32; Status DC Sodium Chloride (Saline Lock Flush) 10 ml SLF IV Last administered on 05:35; Start 01/30/17 at 22:00; Stop 02/01/17 at 16:03; Status DC Sodium Chloride 120 meq/Sodium Acetate 20 meq/ Sodium Phosphate 40 mmol/ Potassium Chloride 80 meq/ Magnesium Sulfate 11 meq/Calcium Gluconate 1389 mg/ Multivitamins 10 ml/Chromium/ Copper/Manganese/ Seleni/Zn 1 ml/ Insulin Human Regular 21 units/ Amino Acids/ Dextrose 2,121.1833 ml @ 60 mls/hr ONCE@1800 IV Last administered on 01/28/17 17:42; Start 01/28/17 at 18:00; Stop 01/29/17 at 17:59; Status DC Sodium Chloride 140 meq/Sodium Phosphate 60 mmol/ Potassium Chloride 160 meq/ Magnesium Sulfate 11 meq/Calcium Gluconate 1389 mg/ Insulin Human Regular 41 units/ Amino Acids/ Dextrose 2,152.05 ml @ 60 mls/hr ONCE@1800 IV Last administered on 01/29/17 17:54; Start 01/29/17 at 18:00; Stop 01/30/17 at 17:59 ; Status DC Vancomycin HCl 1000 mg/IV Miscellaneous Supplies 1 each/ Dextrose 270 ml @ 270 mls/hr Q24H IV ; Start 01/26/17 at 06:00; Stop 01/26/17 at 06:00; Status DC Vancomycin HCl 1000 mg/IV Miscellaneous Supplies 1 each/ Dextrose 270 ml @ 270 mls/hr Q24H IV Last administered on 01/26/17 10:37; Start 01/26/17 at 10:00; Stop 01/26/17 at 11:05; Status DC Vancomycin HCl 1000 mg/IV Miscellaneous Supplies 1 each/ Dextrose 270 ml @ 270 mls/hr Q24H IV Last administered on 01/30/17 06:00; Start 01/27/17 at 06:00; Stop 01/30/17 at 10:14; Status DC Vancomycin HCl 1000 mg/IV Miscellaneous Supplies 1 each/ Dextrose 270 ml @ 270 mls/hr Q24H IV ; Start 02/02/17 at 18:00; Stop 02/02/17 at 18:00; Status DC Vancomycin HCl 1000 mg/IV Miscellaneous Supplies 1 each/ Dextrose 270 ml @ 270 mls/hr Q24H IV Last administered on 02/02/17 18:11; Start 02/02/17 at 19:00; Stop 02/09/17 at 18:59 Vasopressin 20 units/Sodium Chloride 501 ml @ 60 mls/hr Q8H21M IV Last administered on 01/28/17 09:41; Start 01/25/17 at 17:00; Stop 01/31/17 at 10:30 ; Status DC Vitamin D (Vitamin D) 2,000 units DAILY PO Last administered on 02/03/17 08:19 ; Start 01/24/17 at 09:00; Stop 02/23/17 at 08:59 Allergies Coded Allergies: Latex (Verified Allergy, Unknown, 05/30/15) Atorvastatin (Unverified Adverse Reaction, Severe, MUSCLE ACHE, 01/23/17) Statins (Verified Adverse Reaction, Severe, MUSCLE ACHES, TOTALLY INCAPACITATES, 11/09/12) Sulfamethoxazole w/Trimethoprim (Unverified Adverse Reaction, Mild, pain and bladder infection, 01/23/17) Objective Physical Examination Examination GENERAL APPEARANCE: Patient seen, eyes open, occasionally grunting but no observable responds to verbal cues. She preferentially moves her right side more than the left. SKIN: Warm and moist. HEENT: Normocephalic, atraumatic. Mild pale palpebral conjunctiva, anicteric sclerae. Lips and mucosa appear dry. NECK: Supple, no thyromegaly. No obvious jugular venous distention. LUNGS: Clear to auscultation bilaterally. No wheezing appreciated. Occasional fine rales at the posterior bases. HEART: No chest wall abnormalities. Irregular rhythm, rate in the low 100 with no murmurs appreciated. ABDOMEN: Abdomen the obese, soft, nondistended. Ileostomy right lower quadrant pale but viable and functioning. Midline incision was probed with a cotton tip applicator to see if there is any significant purulent fluid collection and I did not detect much fluid on her subcutaneous tissue. The previous [place] drain site is also probed with some small amount of mild purulent material removed. A couple of yoselin below the umbilicus was also removed. EXTREMITIES: Extremities have no deformities. Minimal edema identified. Vital Signs Vital Signs Date Time Temp Pulse Resp B/P (MAP) Pulse Ox O2 Delivery O2 Flow Rate FiO2 02/03/17 10:00 100.4 100 32 114/76 (89) 91 Nasal Cannula 2.0 02/01/17 08:00 35 I&Os I&O- Last 24 Hours up to 6 AM 02/03/17 05:59 Intake Total 3117 ml Output Total 1645 ml Balance 1472 ml Laboratory Data Labs 24H Laboratory Tests 2 02/02/17 12:05: Bedside Glucose (Misc Panel) 376H 02/02/17 13:02: Urine Appearance CLEAR, Urine Color YELLOW, Urine pH 6.0, Urine Specific [place] 1.020, Urine Protein 1+H, Urine Glucose (UA) 3+H, Urine Ketones TRACEH, Urine Urobilinogen 0.2, Urine Bilirubin NEGATIVE, Urine Leukocyte Esterase NEGATIVE, Urine Blood 2+H, Urine Nitrite NEGATIVE, Urine WBC (Auto) 12H, Urine RBC (Auto) 14H, Urine Hyaline Casts (Auto) 0, Urine Bacteria (Auto) NEGATIVE, Urine Squamous Epithelial Cells 0, Urine Mucus (Auto) SMALL, Urine Sperm (Auto) 02/02/17 17:50: Bedside Glucose (Misc Panel) 416H 02/02/17 23:54: Bedside Glucose (Misc Panel) 384H 02/03/17 04:43: White Blood Count 23.5H, Red Blood Count 4.52, Hemoglobin 12.7, Hematocrit 39.8 , Mean Corpuscular Volume 88.1, Mean Corpuscular Hemoglobin 28.0, Mean Corpuscular Hemoglobin Concent 31.8L, Red Cell Distribution Width 14.9H, Platelet Count 324, Neutrophils (%) (Auto) 84.2H, Lymphocytes (%) (Auto) 8.5L, Monocytes (%) (Auto) 4.1, Eosinophils (%) (Auto) 0.3, Basophils (%) (Auto) 0.5, Neutrophils # (Auto) 19.8H, Lymphocytes # (Auto) 2.5, Monocytes # (Auto) 1.0H, Eosinophils # (Auto) 0.1, Basophils # (Auto) 0.1, Large Unclassified Cells % 2.4 , Large Unclassified Cells # 0.6H, Anion Gap 8, Glomerular Filtration Rate 28.7L , Blood Urea Nitrogen 51H, Creatinine 1.84H, Sodium Level 143, Potassium Level 3.9, Chloride Level 106, Carbon Dioxide Level 29, Calcium Level 8.8, Phosphorus Level 3.4#, Aspartate Amino Transf (AST/SGOT) 58H, Alanine Aminotransferase (ALT /SGPT) 36, Lactate Dehydrogenase 367H, Total Creatine Kinase 457#H, Alkaline Phosphatase 225H, Total Bilirubin 1.1H, Triglycerides Level 444H, Cholesterol Level 185, Total Protein 6.4, Albumin 1.8L, Magnesium Level 2.1, Albumin/ Globulin Ratio 0.39L 02/03/17 05:32: Blood Gas Bicarbonate Standard 26.0, Arterial Blood pH 7.526H, Arterial Blood Partial Pressure CO2 29.4L, Arterial Blood Partial Pressure O2 59.4L, Arterial Blood Total CO2 24.7, Arterial Blood HCO3 23.8, Arterial Blood Base Excess 1.9, Arterial Blood Oxygen Saturation 91.3L 02/03/17 05:46: Bedside Glucose (Misc Panel) 434H 02/03/17 10:44: Bedside Glucose (Misc Panel) 425H CBC/BMP Laboratory Tests 02/03/17 04:43 Red Blood Count 4.52, Mean Corpuscular Volume 88.1, Mean Corpuscular Hemoglobin 28.0, Mean Corpuscular Hemoglobin Concent 31.8 L, Red Cell Distribution Width 14.9 H, Neutrophils (%) (Auto) 84.2 H, Lymphocytes (%) (Auto) 8.5 L, Monocytes ( %) (Auto) 4.1, Eosinophils (%) (Auto) 0.3, Basophils (%) (Auto) 0.5, Neutrophils # (Auto) 19.8 H, Lymphocytes # (Auto) 2.5, Monocytes # (Auto) 1.0 H , Eosinophils # (Auto) 0.1, Basophils # (Auto) 0.1, Calcium Level 8.8, Phosphorus Level 3.4 #, Aspartate Amino Transf (AST/SGOT) 58 H, Alanine Aminotransferase (ALT/SGPT) 36, Lactate Dehydrogenase 367 H, Total Creatine Kinase 457 #H, Alkaline Phosphatase 225 H, Total Bilirubin 1.1 H, Triglycerides Level 444 H, Cholesterol Level 185, Total Protein 6.4, Albumin 1.8 L Microbiology Microbiology 02/02/17 Blood Culture, Received Pending 02/02/17 Blood Culture, Received Pending 01/24/17 Blood Culture - Final, Complete NO GROWTH AFTER 5 DAYS 01/24/17 Blood Culture - Final, Complete NO GROWTH AFTER 5 DAYS 01/25/17 Anaerobic Culture - Final, Complete Eubacterium Lentum Bacteroides Distasonis 01/26/17 Gram Stain - Final, Complete 01/26/17 Sputum Culture - Final, Complete Yeast Like Organism 01/26/17 MRSA Screen - Final, Complete 02/02/17 Urine Culture, Received Pending 02/03/17 Gram Stain, Received Pending 02/03/17 Wound Culture, Received Pending 01/25/17 Wound Culture - Final, Complete E.coli Esbl Enterococcus Faecalis Streptococcus Viridans Group Staphylococcus Sp Coag Neg Impression Postop day 10 after right colectomy and ileostomy Still concerns of some infectious process brewing with persistent febrile episodes and leukocytosis. I probed the wound to see if there is any significant collection underneath the incision site and did not get out much to explain her leukocytosis and fever. She does not have a central line. She is on vancomycin and meropenem per infectious disease. May need repeat blood cultures during febrile episodes and possibly repeat CT scan sometime this week if continues to have significant leukocytosis though she is not showing much ileus that she is tolerating her tube feedings well and having good ileostomy function which usually does not happen if there is any significant intra- abdominal infectious or inflammatory process. Plan / VTE VTE Prophylaxis Ordered?: Yes Plan / Urinary Catheter Reason for insertion/continuin: Critical Pt monitoring BRITNEY RITCHIE MD Feb 03, 2017 11:15
[2017-02-03] MEDS: LEVEMIR (INSULIN DETEMIR) 1 UNITS/0.01ML SC SCH ×2 (11:41→20:59)
--- NOTE | 2017-02-03 11:57 | IPNPDOC ---
Text Note Date of Service The patient was seen on 02/03/17. NOTE Subjective: Patient is a 71 year old female with a PMHx of Fibromyalgia, OA, DLP, COPD, CKD3, HTN, Degenerative joint disease, IDDM2, Obesity, and Adrenal mass who recently had and EGD and colonoscopy. During the procedure patient had ablation of AV malformations in the ascending colon. She subsequently presented to the ER with abdominal pain. She was admitted to medical surgical floor and had worsening of her pain. She was ultimately found to have a perforation and was emergently taken to the OR. Patient was seen and examined at the bedside. Has been extubated on 01/31. She is still unable to follow commands despite off sedation. Objective: Vitals (See below) General: Lying in bed, no acute distress, on Ventimask, awake, unable to follow commands, responds to noxious stimuli HEENT: NC, AT CVS: Tachycardic, +S1S2 Lungs: Fair air entry b/l, -w/r/r Abdomen: Soft, ND, NT, +BSx4, Midline incision, +colostomy (good output) Extremities: +PPx4, - Edema, - Calf tenderness Assessment and plan: 1. Acute encephalopathy - possibly 2/2 anoxic brain injury 2/2 hypotension, possibly 2/2 infection, less likely 2/2 medications (residual effects) - Unable to follow commands at this time, but responds to painful stimuli - Physical reveals equal pupils and ability to move all four extremities; minimal movement of left hand - CT Head 02/01: negative for any acute findings - Will order MRI today - Consulted Neurology (Dr. De Santiago); appreciate their input 2. Fever and Leukocytosis - possibly 2/2 developing pneumonia, possible sinusitis, possibly meningitis - Fever of 101.0 noted this morning - Leukocytosis persistent; Neutrophil predominant - UA (02/02) without any evidence of infection; Urine cultures pending - Blood cultures (02/02) remain pending - CT chest / abdomen / pelvis with contrast 02/02: R pleural effusion, bibasilar atelectasis, no fluid collections within abdomen - c/w Meropenem (Day #8); Vancomycin restart on 02/03 (Day #1), Fluconazole (Day #1) - Infectious disease (Dr. Figueroa) on consult; appreciate their input 3. s/p Septic shock - likely 2/2 perforated viscous - 2/2 recent colonoscopy and ablation - s/p Exploratory laparotomy 01/25 with colectomy and ileostomy - Wound cultures (01/25) positive for ESBL E.coli - s/p Pressor support - c/w Meropenem (Day #8) - Total of 12 days of Gram negative coverage - Dr. Figueroa consulted 4. Acute hypoxic respiratory failure - likely 2/2 #1 - s/p intubation and sedation - Tolerating nasal cannula - Dr. Dent / Dr. Sarmiento following for critical care 5. Acute kidney injury; s/p Oliguria - + fluid balance of 5.3 liters cumulative - Has been negative balance over last few days - Creatinine has mild elevation - Lasix 40mg IV x 1 dose today; standing order discontinued - Dr. Valencia / Dr. Leon consulted 5. Atrial flutter / fibrillation - s/p Cardioversion (01/28); has resulted in improvement in HR and return to sinus rhythm - c/w Amiodarone and Metoprolol 50 BID - Full anticoagulation with Lovenox therapeutic has been started (will monitor for any signs of bleeding) - Dr. Riggs / Dr. Robison consulted 6. Nutrition - s/p TPN - Has been advanced to NG tube feedings by surgery - Ileostomy is functioning adequately 7. IDDM2 - Glucose levels have been elevated - Will restart Levemir today - c/w ISS 8. Hypothyroidism - c/w Levothyroxine 9. DVT prophylaxis - on full anticoagulation with Lovenox Code status: - Full code Disposition: - Evaluation of mental status and worsening leukocytosis - Possible LP VS,Fishbone, I+O VS, Fishbone, I+O Laboratory Tests 02/03/17 04:43 Red Blood Count 4.52, Mean Corpuscular Volume 88.1, Mean Corpuscular Hemoglobin 28.0, Mean Corpuscular Hemoglobin Concent 31.8 L, Red Cell Distribution Width 14.9 H, Neutrophils (%) (Auto) 84.2 H, Lymphocytes (%) (Auto) 8.5 L, Monocytes ( %) (Auto) 4.1, Eosinophils (%) (Auto) 0.3, Basophils (%) (Auto) 0.5, Neutrophils # (Auto) 19.8 H, Lymphocytes # (Auto) 2.5, Monocytes # (Auto) 1.0 H , Eosinophils # (Auto) 0.1, Basophils # (Auto) 0.1, Calcium Level 8.8, Phosphorus Level 3.4 #, Aspartate Amino Transf (AST/SGOT) 58 H, Alanine Aminotransferase (ALT/SGPT) 36, Lactate Dehydrogenase 367 H, Total Creatine Kinase 457 #H, Alkaline Phosphatase 225 H, Total Bilirubin 1.1 H, Triglycerides Level 444 H, Cholesterol Level 185, Total Protein 6.4, Albumin 1.8 L Vital Signs Date Time Temp Pulse Resp B/P (MAP) Pulse Ox O2 Delivery O2 Flow Rate FiO2 02/03/17 10:00 100.4 100 32 114/76 (89) 91 Nasal Cannula 2.0 02/01/17 08:00 35 I&O- Last 24 Hours up to 6 AM 02/03/17 06:00 Intake Total 3017 ml Output Total 1780 ml Balance 1237 ml RASHAD SIDDIQUI MD Feb 03, 2017 11:57
--- NOTE | 2017-02-03 13:15 | IPN ---
DATE: 02/03/2017 SUBJECTIVE: The patient was seen and examined at the bedside today morning in the intensive care unit (ICU). The patient continues to be obtunded. She does not follow commands. She is currently on nasal cannula. The patient just got new nasogastric tube placed today morning. Last 24 events were noted. The patient continues to spike fevers. She was started on fluconazole yesterday as well. Her renal function is slightly worse today. Creatinine has gone up from 1.6 to 1.8 today. REVIEW OF SYSTEMS: I was unable to do any reliable review of systems in this patient who is obtunded, does not follow commands, and does not communicate. OBJECTIVE: VITAL SIGNS: Temperature is 101 degrees Fahrenheit, blood pressure is 114/76, pulse is 116, respiratory rate of 34, saturating 92% on nasal cannula at four liters per minute. INTAKE AND OUTPUT: Urine output recorded in the last 24 hours is 1185 mL, urine output so far today since overnight is 695 mL. Weight on the bed scale is 93.4 kg. PHYSICAL EXAMINATION: GENERAL: The patient is obtunded, eyes closed, currently on nasal cannula, laying in bed, and does not follow commands. Sometimes opens eyes on loud commands. HEAD AND NECK EXAMINATION: Pupils are equally round and reactive to light. Mucous membranes are dry. NECK: Supple. There is no jugular venous distention (JVD). CARDIOVASCULAR: S1, S2, tachycardia. No murmur, rub or gallop. RESPIRATORY: Decreased breath sounds at the bases. The patient has tachypnea at this time. ABDOMEN: Soft. Positive bowel sounds. She has right lower quadrant ileostomy and midline abdominal surgical site covered by dressing. No tenderness at this time. GENITOURINARY: The patient has an indwelling Nolen catheter. Urine in the bag is clear. EXTREMITIES: No clubbing or cyanosis. Pulses are 2+. No edema of the extremities. CENTRAL NERVOUS SYSTEM: The patient is obtunded, tachypneic, does not follow commands, and does not communicate. She keeps her eyes closed. LABORATORY REVIEW: CBC showed a WBC of 23.5, hemoglobin is 12.7, platelets are 324. ABG done today morning showed pH of 7.52, pCO2 of 29.4, pO2 of 59.4, bicarbonate 24, O2 saturation is 91.3%. BMP showed sodium 143, potassium 3.9, chloride 106, bicarbonate 29, BUN 51, creatinine is 1.8, it was 1.6 yesterday, calcium 8.8, phosphorous 3.4, magnesium 2.1, AST 58, ALT 36, alkaline phosphatase is 225. Microbiology: Urine culture and blood cultures are pending. Wound culture from the abdomen is also pending. IMAGING STUDIES: A chest x-ray done today morning showed feeding tube in the left upper abdomen, bibasilar opacities suggesting atelectasis, and small pleural effusions. CURRENT INPATIENT MEDICATIONS: The patient's medications were all reviewed by me. She was started on fluconazole yesterday. She has been started on vancomycin 1 gram IV daily. There is no other change in the medications today. ASSESSMENT: A 71-year-old female with acute kidney injury superimposed on chronic kidney disease, secondary to intraabdominal sepsis and hypotension. Hospital course is complicated by persistent leukocytosis, sepsis, fevers despite being on broad-spectrum antibiotics, and metabolic encephalopathy. PLAN: 1. Acute kidney injury superimposed on chronic kidney disease. The patient's creatinine was fluctuating around 1.5. It has been going up for the last two days. I am going to restart the diuretic. I will give her a small dose of Lasix 40 mg IV today. 2. Shortness of breath and fluid overload. Clinically, the patient looks like her volume status is optimized but she is in positive fluid balance for the last two days after stopping the diuretics. I am going to give her one dose of Lasix 40 mg IV. The patient is currently stable on nasal cannula. 3. Respiratory alkalosis. It is secondary to metabolic encephalopathy. PH persistently stays at 7.5. The rest of the management is as per pulmonary service. 4. Nutrition. The patient got a new nasogastric (NG) tube placed today. She will restart Glucerna tube feeds. 5. Persistent fever, leukocytosis, and sepsis. The patient's repeat cultures are pending right now. CAT scan chest, abdomen and pelvis did not show any fluid collection. The patient was started on fluconazole yesterday. Continue vancomycin and meropenem at this time. 6. Atrial fibrillation and atrial flutter. The patient is currently on amiodarone 400 mg via NG-tube twice a day and metoprolol 50 mg every eight hours. The rest of the management is as per cardiology service.
--- NOTE | 2017-02-03 19:30 | REPUSA ---
MRI of the brain clinical history: CVA. Technique: Multiecho multiplanar MRI images of the brain were obtained without administration of cont rast. Diffusion weighted images with ADC mapping was also obtained. Findings: The ventricles and sulci are symmetric but slightly prominent bilaterally. The brain parenchyma demon strates mild periventricular T2 hyperintensity. There is no midline shift, mass effect, or extra-axia l fluid collection. The midline intracranial structures do not demonstrate any gross abnormalities. T he cervical cranial junction is intact. The orbits are unremarkable. The visualized paranasal sinuses and mastoid air cells are clear. The osseous structures and superficial soft tissues are unremarkabl e. The vascular structures demonstrate appropriate flow voids. Impression: No evidence of acute infarct. Mild chronic small vessel ischemic disease and age-related atrophy.
[2017-02-03] MEDS: VANCOMYCIN HCL 1,000 MG, VIAL MATE ADAPTER 1 EACH in D5W 250 ML IV SCH (19:34)
--- NOTE | 2017-02-03 20:22 | REP ---
Clinical: Status post nasogastric tube placement. Comparison: 02/03/2017 at 10:18 a.m.. Findings: The nasogastric tube is identified and appears to course into the deep right lower lobe sulcus and requires immediate removal. Findings were discussed with the ICU staff at 08:12 p.m. Basilar atelectasis and possible small pleural effusions (left greater than right) similar to prior examination. Visualized mediastinum and cardiac silhouette appear normal/stable. No pneumothorax. Impression: 1. Nasogastric tube appears to extend via the trachea and right lower lobe bronchus into the right lung base and requires immediate removal. Findings discussed with ICU staff. 2. Bibasilar opacities and small pleural effusion suggested (left greater than right). Signed by Sergio Catalan MD 02/03/2017 08:14 P
[2017-02-03] MEDS: ACETAMINOPHEN 650 MG SUPP PR PRN (20:31)
--- NOTE | 2017-02-03 20:53 | REP ---
Clinical: Feeding tube placement. Findings: Feeding tube extends into the left upper quadrant in satisfactory position. Perihilar and bibasilar opacities suggest atelectasis/consolidations and layering effusions. Correlation is required. No pneumothorax. Impression: 1. Feeding tube extends into the left upper quadrant in satisfactory position. 2. Increasing bilateral lower lobe opacities with suspected pleural effusions. Signed by Sergio Catalan MD 02/03/2017 08:44 P
[2017-02-03] MEDS: FLUCONAZOLE 200 MG in APPROPRIATE DILUENT 1 EA IV SCH (20:56)
[2017-02-03] MEDS: ENOXAPARIN 100MG/1ML SYRINGE (J1650) SC SCH (20:59)
--- NOTE | 2017-02-03 21:01 | CCN ---
DATE: 02/03/2017 PULMONARY CRITICAL CARE NOTE: I was called back to the intensive care unit this evening to assist with placement of an NG tube. The tube had been removed from the patient's right nares earlier in the day due to concern for a sinusitis. Nursing was unable to replace the feeding tube on the left. The patient remains obtunded. Her temperature just measured is 106, pulse rate 110, respirations 34, blood pressure 119/54, saturations 94% on 2 liters nasal cannula. HEENT: Oral and nasal mucosa are dry. Neck is supple. There is no meningismus appreciated, though the patient does resist motion of her neck. Heart sounds are regular with a systolic murmur. Breath sounds are diminished with some coarse rales, auscultation is difficult due to body habitus. Abdomen is soft with colostomy in place and functioning. The extremities she does withdraw from pain but is not purposeful in her movements. An MRI scan was performed this evening which shows only small-vessel ischemia. Neurology consult has been requested and is in progress. I have reviewed notes from surgery, cardiology, nephrology and her most recent lab studies. The primary problem requiring critical attention is sepsis, unclear etiology at this point. Broad-spectrum antibiotics have been initiated with meropenem and vancomycin. Antifungal therapy has been initiated as well. Nephrology has been managing her fluids. Her blood pressure is acceptable so far, she has not required pressors. In light of the very high fever we will obtain three blood cultures at this point. It may be prudent to repeat an echocardiogram pending those results. From a nutritional standpoint, she had been receiving tube feedings. I was able to place a feeding tube in the left nares. Chest x-ray confirms adequate placement. We will restart Glucerna. Glucose control has been unacceptable at this point. She has been started on long-acting insulin, likely the dose will need to be increased. DVT and ulcer prophylaxis are in place. The patient's family is at bedside and has been updated on her status. 47 minutes was spent in the provision of bedside critical care and coordination.
[2017-02-03] MEDS ORDERED: NS 500 ML IV ONE ×2 (21:15→22:30)
[2017-02-03] MEDS ORDERED: IBUPROFEN 100 MG/5 ML SUSP UDC DYE FREE PO ONE (21:15)
[2017-02-04] VITALS (14 sets, daily range): BP systolic 66–110; BP diastolic 34–56
[2017-02-04] MEDS: METOPROLOL TART 50 MG TAB NG SCH (00:27)
[2017-02-04] MEDS: HumaLOG INSULIN (NovoLOG) PER UNIT SC SCH ×2 (00:28→05:48)
[2017-02-04] MEDS: ACETAMINOPHEN TAB 650MG DOSE (2X325MG) PO PRN (00:29)
[2017-02-04] MEDS ORDERED: NS 500 ML IV ONE (01:30)
[2017-02-04] MEDS ORDERED: MORPHINE 2 MG/ML 1ML SYRINGE As Ordered ONE (01:58)
[2017-02-04] MEDS: MEROPENEM INJ 1 GM in D5W MINI-BAG PLUS 100 ML IV SCH (02:00)
[2017-02-04] MEDS ORDERED: MORPHINE 2 MG/ML 1ML SYRINGE IV PRN (02:00)
[2017-02-04] MEDS: MORPHINE 2 MG/ML 1ML SYRINGE IV PRN ×10 (02:00→22:13)
--- NOTE | 2017-02-04 02:08 | IPNPDOC ---
Text Note Date of Service The patient was seen on 02/04/17. NOTE Patient was admitted due to bowel perforation after colonoscopy. she underwent for bowel resection. 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 Last night, her T went for 106; Her BP down to 70S; Talked with family twice last night and answered all the questions as my best. The family decided to change her to DNR/DNI and comfort care measure. VS,Fishbone, I+O VS, Fishbone, I+O Laboratory Tests 02/03/17 04:43 Red Blood Count 4.52, Mean Corpuscular Volume 88.1, Mean Corpuscular Hemoglobin 28.0, Mean Corpuscular Hemoglobin Concent 31.8 L, Red Cell Distribution Width 14.9 H, Neutrophils (%) (Auto) 84.2 H, Lymphocytes (%) (Auto) 8.5 L, Monocytes ( %) (Auto) 4.1, Eosinophils (%) (Auto) 0.3, Basophils (%) (Auto) 0.5, Neutrophils # (Auto) 19.8 H, Lymphocytes # (Auto) 2.5, Monocytes # (Auto) 1.0 H , Eosinophils # (Auto) 0.1, Basophils # (Auto) 0.1, Calcium Level 8.8, Phosphorus Level 3.4 #, Aspartate Amino Transf (AST/SGOT) 58 H, Alanine Aminotransferase (ALT/SGPT) 36, Lactate Dehydrogenase 367 H, Total Creatine Kinase 457 #H, Alkaline Phosphatase 225 H, Total Bilirubin 1.1 H, Triglycerides Level 444 H, Cholesterol Level 185, Total Protein 6.4, Albumin 1.8 L Vital Signs Date Time Temp Pulse Resp B/P (MAP) Pulse Ox O2 Delivery O2 Flow Rate FiO2 02/04/17 00:27 96 110/56 02/04/17 00:00 102.6 42 100 Nasal Cannula 1.0 02/01/17 08:00 35 I&O- Last 24 Hours up to 6 AM 02/04/17 06:00 Intake Total 1460 ml Output Total 1298 ml Balance 162 ml PATTY PIERCE MD Feb 04, 2017 02:08
[2017-02-04] MEDS: IPRATROPIUM 0.5MG/ALBUTEROL 2.5MG INH SOL UD 3ML (DUONEB)(J7620) NEB SCH ×4 (03:49→19:13)
[2017-02-04] MEDS: LORazepam 2 MG/ML VIAL (J2060) IV PRN ×9 (03:50→22:12)
[2017-02-04] MEDS: SLF 3 ML SYR IV SCH ×3 (05:48→20:08)
[2017-02-04] MEDS: LEVOTHYROXINE 50MCG TABLET (0.05MG) PO SCH (05:48)
[2017-02-04] MEDS: ACETAMINOPHEN 650 MG SUPP PR PRN (10:00)
--- NOTE | 2017-02-04 12:58 | IPNPDOC ---
Text Note Date of Service The patient was seen on 02/04/17. NOTE Subjective: Patient is a 71 year old female with a PMHx of Fibromyalgia, OA, DLP, COPD, CKD3, HTN, Degenerative joint disease, IDDM2, Obesity, and Adrenal mass who recently had and EGD and colonoscopy. During the procedure patient had ablation of AV malformations in the ascending colon. She subsequently presented to the ER with abdominal pain. She was admitted to medical surgical floor and had worsening of her pain. She was ultimately found to have a perforation and was emergently taken to the OR. Has been extubated on 01/31. Overnight patient was noted to have a fever of 106 and had become hypotensive. After discussion between the hospitalist at night and the family, they decided to make the patient DNR/DNI and CONTENT ASSISTANT. Patient was seen and examined at the bedside. Family was present at bedside. They have indicated that based on her healthcare proxy and current situation, they did not want to subject her to further invasive testing and procedures and they've decided to make the patient CONTENT ASSISTANT. I've agreed with their decision and their choice to make her CONTENT ASSISTANT as it was a reflection of the patient's wishes. Objective: Vitals (See below) General: Lying in bed, non-responsive, tachypneic Full exam not competed Assessment and plan: 1. Acute encephalopathy - likely 2/2 anoxic brain injury 2/2 hypotension, possibly 2/2 infection, less likely 2/2 medications (residual effects) - Non-responsive - CT Head 02/01: negative for any acute findings - MRI 02/04: No evidence of acute infarct, mild chronic small vessel ischemic disease and age-related atrophy - Patient was made DNR / DNI and CONTENT ASSISTANT after discussion with family and Health care proxy - Health care proxy has mad decision based on patient's wishes - No vitals or new labs 2. Fever and Leukocytosis, progressing to septic shock - possibly 2/2 developing pneumonia, possibly meningitis - Fever peak of 106 at night 3. 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 Figueroa consulted 4. Acute hypoxic respiratory failure - likely 2/2 #1 - s/p intubation and sedation - Tolerating nasal cannula - Dr. Dent / Dr. Sarmiento consulted for critical care 5. Acute kidney injury; s/p Oliguria - Dr. Valencia / Dr. Leon consulted 5. Atrial flutter / fibrillation - Dr. Riggs / Dr. Robison consulted 6. Nutrition - NGT tube out; no additional feedings 7. IDDM2 - Stopped glucose checks 8. Hypothyroidism - off medications 9. DVT prophylaxis - off anticoagulation Code status: - DNR / DNI - CONTENT ASSISTANT Disposition: - Will downgrade to Med/Surg - Discussed case with Dr. Sarmiento VS,Fishbone, I+O VS, Fishbone, I+O Vital Signs Date Time Temp Pulse Resp B/P (MAP) Pulse Ox O2 Delivery O2 Flow Rate FiO2 02/04/17 08:00 103.3 02/04/17 08:00 Nasal Cannula 2.0 02/04/17 06:20 30 02/04/17 01:54 83 80/45 (57) 02/04/17 01:48 94 02/01/17 08:00 35 I&O- Last 24 Hours up to 6 AM 02/04/17 05:59 Intake Total 1640 ml Output Total 1523 ml Balance 117 ml RASHAD SIDDIQUI MD Feb 04, 2017 12:58
--- NOTE | 2017-02-04 19:23 | IPN ---
DATE: 02/03/2017 Mrs. Kessler did not seem to be doing very well. She continues to have fever up to 103/104. She had an nasogastric (NG) tube that was removed and was changed to the other side. This is for feeding. She still has a temperature up to 106. She has a mild cough, but it is nonproductive. She is oxygenating well on 2 liters. She still is nonresponsive. She opens her eyes but does not follow any commands. I had discussed the case with Dr. Shakeel Carbone and agreed to do an MRI of the brain, obtain a neurology consultation. Depending on results, we would pursue with a lumbar puncture. MRI was obtained on February 03. There was no evidence of acute infarct, mild chronic small vessel ischemic disease, and age-related atrophy. There is no bleeding or acute infarcts. PHYSICAL EXAMINATION: Temperature 106.2 rectally, pulse 111, blood pressure 112/51, oxygen saturation 88% on 2 liters nasal cannula. HEART: Normal S1-S2, tachycardiac. LUNGS: Diminished breath sounds at the bases. ABDOMEN: Soft, nontender. [place] in place. Two yoselin have been removed, and serosanguineous discharge was sent for culture. EXTREMITIES: Trace edema. The patient moves a little of her legs whenever she is tickled. LABORATORY DATA: White count is 23.5, hemoglobin 12.7, hematocrit 39.8, platelets 324, 84% neutrophils, 8% lymphocytes, 4% monocytes. Sodium 143, potassium 3.9, chloride 106, bicarbonate 29, BUN 51, creatinine 1.8, glucose 422, calcium 8.8, phosphorus 3.4. LDH 367. Clostridium (C) difficile was negative. Blood cultures, three sets, were ordered from February 03 within an hour. IMAGING STUDIES: Feeding tube in left upper quadrant satisfactory position. Bilateral lower lobe opacities. IMPRESSION: 1. Bowel perforation with secondary peritonitis, on broad-spectrum antibiotics, including meropenem, vancomycin, and fluconazole with worsening fevers with no evidence of infection on CT chest or CT abdomen except for few pulmonary infiltrates that look to me like atelectasis. She is not significantly hypoxic. She is on adequate coverage to cover for all possible healthcare-associated pneumonia. 2. Mental status changes with poor response since extubation. MRI was obtained. If negative, could obtain lumbar puncture to look for infectious etiology. It seems to me like she is having central fevers. PLAN: Consider lumbar puncture in the morning and neurology consultation. Continue same antibiotics, at this point fluconazole, vancomycin, and meropenem.
[2017-02-05] MEDS: IPRATROPIUM 0.5MG/ALBUTEROL 2.5MG INH SOL UD 3ML (DUONEB)(J7620) NEB SCH
[2017-02-05] MEDS: LORazepam 2 MG/ML VIAL (J2060) IV PRN ×2 (00:10→02:13)
[2017-02-05] MEDS: MORPHINE 2 MG/ML 1ML SYRINGE IV PRN ×2 (00:11→02:14)
[2017-02-05] MEDS: ACETAMINOPHEN 650 MG SUPP PR PRN (02:21)
--- NOTE | 2017-02-17 00:52 | IPNPDOC ---
Subjective General Date/Time Seen The patient was seen on 02/02/17 at 07:45. Subject Chief Complaint/History The patient is a 71-year-old female admitted with a reason for visit of perforation of the right colon. Patient status post right colectomy with ileostomy. Events over the weekend noted. She had been successfully extubated but despite being overweight is not responding appropriately and just staring into the space with some preferential movement of the right side over the left side. Still sick appearing. She is also has been having febrile episodes. Current Medications Current Medications Current Medications Acetaminophen (Tylenol Tab) 650 mg Q4HP PRN PO MILD PAIN OR FEVER Last administered on 02/02/17 04:51; Start 01/24/17 at 02:45; Stop 02/23/17 at 02:44 Acetazolamide Sodium (Diamox) 500 mg STAT STAT IV Last administered on 09:41; Start 02/01/17 at 09:07; Stop 02/01/17 at 09:11; Status DC Albuterol/ Ipratropium (Duoneb (Ipr 0.5mg/Alb 2.5mg)) 3 ml RQ4H NEB Last administered on 02/02/17 03:36; Start 01/25/17 at 20:00; Stop 02/24/17 at 19:59 Amiodarone HCl (Pacerone, Cordarone) 400 mg BID NG Last administered on 21:14; Start 01/30/17 at 09:00; Stop 03/01/17 at 08:59 Amiodarone HCl 150 mg/IV Miscellaneous Supplies 100 ml @ 600 mls/hr BID IV Last administered on 01/30/17 20:58; Start 01/28/17 at 09:00; Stop 01/30/17 at 23:59; Status DC Amiodarone HCl 150 mg/IV Miscellaneous Supplies 100 ml @ 600 mls/hr STAT STAT IV Last administered on 01/26/17 05:25; Start 01/26/17 at 05:14; Stop at 05:23; Status DC Amiodarone HCl 150 mg/IV Miscellaneous Supplies 100 ml @ 600 mls/hr STAT STAT IV ; Start 01/26/17 at 05:14; Stop 01/26/17 at 05:23; Status Cancel Amiodarone HCl 150 mg/IV Miscellaneous Supplies 100 ml @ 600 mls/hr STAT STAT IV Last administered on 01/26/17 12:38; Start 01/26/17 at 12:38; Stop at 12:47; Status DC Amiodarone HCl 150 mg/IV Miscellaneous Supplies 100 ml @ 600 mls/hr STAT STAT IV Last administered on 01/28/17 09:41; Start 01/28/17 at 07:37; Stop at 07:46; Status DC Amiodarone HCl 360 mg/IV Miscellaneous Supplies 200 ml @ 17 mls/hr [id number] IV Last administered on 01/27/17 08:03; Start 01/26/17 at 20:30; Stop 01/27/17 at 14:30; Status DC Amiodarone HCl 360 mg/IV Miscellaneous Supplies 200 ml @ 33.33 mls/ hr Q6H1M IV Last administered on 01/26/17 14:58; Start 01/26/17 at 14:30; Stop at 20:30; Status DC Azithromycin 500 mg/IV Miscellaneous Supplies 1 each/ Dextrose 255 ml @ 255 mls /hr Q24H IV Last administered on 01/25/17 13:21; Start 01/25/17 at 12:00; Stop 01/25/17 at 17:39; Status DC Bupropion HCl (Wellbutrin Xl) 150 mg DAILY PO Last administered on 01/25/17 08 :22; Start 01/24/17 at 09:00; Stop 01/25/17 at 17:39; Status DC Calcitriol (Rocaltrol) 0.25 mcg MoTuWeThFr@0900 PO ; Start 01/26/17 at 09:00; Stop 01/26/17 at 09:00; Status DC Ciprofloxacin 200 mg/IV Miscellaneous Supplies 100 ml @ 100 mls/hr Q12H IV Last administered on 01/25/17 04:54; Start 01/24/17 at 14:00; Stop 01/25/17 at 09:06; Status DC Cyclobenzaprine HCl (Flexeril) 10 mg TID PO Last administered on 01/25/17 08: 23; Start 01/24/17 at 09:00; Stop 01/25/17 at 11:50; Status DC Desloratidine (Clarinex) 5 mg DAILY PO Last administered on 01/25/17 08:22; Start 01/24/17 at 09:00; Stop 01/25/17 at 17:39; Status DC Dextrose (Dextrose 50%) 25 ml ASDIRECTED PRN IV SEE LABEL COMMENTS; Start 01/24 at 02:30; Stop 02/23/17 at 02:29 Dextrose (Dextrose 50%) 25 ml ASDIRECTED PRN IV SEE LABEL COMMENTS; Start 01/25 at 01:00; Stop 02/24/17 at 00:59; Status Cancel Digoxin (Lanoxin) 0.125 mg STAT STAT IV Last administered on 01/26/17 05:00; Start 01/26/17 at 04:52; Stop 01/26/17 at 04:54; Status DC Duloxetine HCl (Cymbalta) 30 mg DAILY PO ; Start 01/24/17 at 09:00; Stop at 09:00; Status DC Duloxetine HCl (Cymbalta) 60 mg DAILY PO ; Start 01/24/17 at 09:00; Stop at 09:00; Status DC Duloxetine HCl (Cymbalta) 90 mg DAILY PO Last administered on 01/25/17 08:22; Start 01/24/17 at 09:00; Stop 01/25/17 at 17:39; Status DC Fat Emulsion Intravenous 500 ml @ 20 mls/hr ONCE@1800 IV Last administered on 01/28/17 17:40; Start 01/28/17 at 18:00; Stop 01/29/17 at 17:59; Status DC Fat Emulsion Intravenous 500 ml @ 20 mls/hr ONCE@1800 IV Last administered on 01/29/17 17:53; Start 01/29/17 at 18:00; Stop 01/30/17 at 17:59; Status DC Fentanyl Citrate (Sublimaze) 25 mcg Q5MP PRN IV MODERATE PAIN (PS 4-7); Start 01/25/17 at 18:15; Stop 01/25/17 at 19:15; Status DC Furosemide (LASIX injection) 80 mg Q12H IV Last administered on 01/31/17 12:19 ; Start 01/28/17 at 12:00; Stop 02/01/17 at 09:07; Status DC Glucagon (Glucagon) 1 mg ASDIRECTED PRN SC SEE LABEL COMMENTS; Start 01/24/17 at 02:30; Stop 02/23/17 at 02:29 Glucagon (Glucagon) 1 mg ASDIRECTED PRN SC SEE LABEL COMMENTS; Start 01/25/17 at 01:00; Stop 02/24/17 at 00:59; Status UNV Glucose (Glucose) 16 GM ASDIRECTED PRN PO SEE LABEL COMMENTS; Start 01/24/17 at 02:30; Stop 02/23/17 at 02:29 Glucose (Glucose) 16 GM ASDIRECTED PRN PO SEE LABEL COMMENTS; Start 01/25/17 at 01:00; Stop 02/24/17 at 00:59; Status Cancel Heparin Sodium (Porcine) (Heparin) 5,000 units Q8H SC Last administered on 02/01 21:14; Start 01/24/17 at 06:00; Stop 02/02/17 at 05:59; Status DC Home Med (Med Rec Complete!) ASDIRECTED XX ; Start 01/24/17 at 00:30; Stop at 00:31; Status DC Hydromorphone HCl (Dilaudid) 0.2 mg Q5MP PRN IV MODERATE/SEVERE PAIN (PS 7-10) ; Start 01/25/17 at 18:15; Stop 01/25/17 at 18:15; Status DC Hydromorphone HCl (Dilaudid) 0.4 mg Q5MP PRN IV MODERATE/SEVERE PAIN (PS 7-10) ; Start 01/25/17 at 18:15; Stop 01/25/17 at 19:15; Status DC Insulin Detemir (Levemir Insulin) 50 units QHS SC Last administered on 21:11; Start 01/24/17 at 21:00; Stop 01/25/17 at 17:39; Status DC Insulin Human Lispro (HumaLOG INSULIN) SEE PROTOCOL TABLE Q6H SC Last administered on 01/25/17 00:00; Start 01/24/17 at 06:00; Stop 01/25/17 at 01:01 ; Status DC Insulin Human Lispro (HumaLOG INSULIN) SEE PROTOCOL TABLE Q6H SC Last administered on 02/02/17 05:57; Start 01/26/17 at 00:00; Stop 02/25/17 at 00:00 Insulin Human Lispro (HumaLOG INSULIN) See Protocol Table AC SC Last administered on 01/25/17 13:26; Start 01/25/17 at 07:30; Stop 01/25/17 at 21:09 ; Status DC Insulin Human Lispro (HumaLOG INSULIN) See Protocol Table Q6H SC ; Start at 18:00; Stop 01/30/17 at 15:00; Status Cancel Insulin Human Lispro (HumaLOG INSULIN) See Protocol Table QHS SC ; Start at 21:00; Stop 02/24/17 at 20:59; Status Cancel Lactated Ringer's 1,000 ml @ 200 mls/hr Q5H IV Last administered on 01/26/17 04:30; Start 01/25/17 at 18:30; Stop 01/26/17 at 06:52; Status DC Lactobacillus Acidophilus (Bacid) 1 ea DAILY PO Last administered on 02/01/17 08:37; Start 01/24/17 at 09:00; Stop 02/23/17 at 08:59 Levothyroxine Sodium (Synthroid) 25 mcg DAILY@0600 IV Last administered on 01/31 06:10; Start 01/26/17 at 06:00; Stop 01/31/17 at 12:26; Status DC Levothyroxine Sodium (Synthroid) 50 mcg DAILY@06 PO Last administered on 05:57; Start 02/01/17 at 06:00; Stop 03/03/17 at 05:59 Levothyroxine Sodium (Synthroid) 50 mcg DAILY@0600 PO Last administered on 01/25 05:35; Start 01/24/17 at 06:00; Stop 01/25/17 at 17:39; Status DC Magnesium Sulfate/ Dextrose 1 gm/IV Miscellaneous Supplies 100 ml @ 100 mls/hr 1T@0700,0800 IV Last administered on 01/26/17 07:01; Start 01/26/17 at 07:00; Stop 01/26/17 at 08:59; Status DC Magnesium Sulfate/ Dextrose 1 gm/IV Miscellaneous Supplies 100 ml @ 100 mls/hr 1T@0800 IV Last administered on 01/28/17 07:29; Start 01/28/17 at 08:00; Stop 01/28/17 at 10:00; Status DC Magnesium Sulfate/ Dextrose 1 gm/IV Miscellaneous Supplies 100 ml @ 100 mls/hr 1T@0800,0900 IV Last administered on 01/25/17 08:24; Start 01/25/17 at 08:00; Stop 01/25/17 at 09:59; Status DC Meropenem 1 gm/ Dextrose 100 ml @ 200 mls/hr Q8H IV Last administered on 02:16; Start 01/27/17 at 18:00; Stop 02/03/17 at 17:59 Metoclopramide HCl (REGLAN INJection) 10 mg Q6HP PRN IV NAUSEA OR VOMITING; Start 01/25/17 at 18:15; Stop 01/25/17 at 19:15; Status DC Metoprolol Tartrate (Lopressor) 5 mg STAT STAT IV Last administered on 13:07; Start 01/28/17 at 12:59; Stop 01/28/17 at 13:01; Status DC Metoprolol Tartrate (Lopressor) 5 mg STAT STAT IV Last administered on 15:02; Start 01/28/17 at 14:21; Stop 01/28/17 at 14:25; Status DC Metoprolol Tartrate (Lopressor) 25 mg Q8H NG Last administered on 01/30/17 05: 06; Start 01/28/17 at 14:00; Stop 01/30/17 at 07:50; Status DC Metoprolol Tartrate (Lopressor) 50 mg BID NG Last administered on 02/01/17 08: 38; Start 01/30/17 at 21:00; Stop 02/01/17 at 13:29; Status DC Metoprolol Tartrate (Lopressor) 50 mg BID PO Last administered on 01/25/17 08: 23; Start 01/24/17 at 09:00; Stop 01/25/17 at 12:02; Status DC Metoprolol Tartrate (Lopressor) 50 mg Q8H NG ; Start 02/01/17 at 14:00; Stop at 16:15; Status DC Metoprolol Tartrate (Lopressor) 50 mg Q8H NG Last administered on 02/02/17 00: 00; Start 02/01/17 at 16:00; Stop 03/03/17 at 15:59 Metronidazole 500 mg/IV Miscellaneous Supplies 100 ml @ 100 mls/hr Q8H IV Last administered on 01/25/17 04:54; Start 01/24/17 at 11:00; Stop 01/25/17 at 09:06; Status DC Midazolam HCl (Versed) 2 mg Q30MP PRN IV AGITATION Last administered on 04:23; Start 01/30/17 at 20:30; Stop 01/31/17 at 10:30; Status DC Morphine Sulfate (Morphine Sulfate Inj) 2 mg Q2HP PRN IV SEVERE PAIN (PS 8-10) Last administered on 01/29/17 05:32; Start 01/24/17 at 02:45; Stop 01/30/17 at 11:15; Status DC Morphine Sulfate (Morphine Sulfate Inj) 4 mg Q15M PRN IV MODERATE/SEVERE PAIN ( PS 5-10) Last administered on 01/24/17 01:54; Start 01/23/17 at 21:00; Stop at 01:55; Status DC Naloxone HCl (Narcan) 0.4 mg STAT STAT IV ; Start 01/25/17 at 11:16; Stop 01/25 at 11:17; Status DC Norepinephrine Bitartrate 16 mg/ Dextrose 516 ml @ 19.35 mls/ hr Q24H IV Last administered on 01/28/17 00:40; Start 01/25/17 at 13:00; Stop 01/31/17 at 10:30 ; Status DC Ondansetron HCl (ZOFRAN INJection) 4 mg Q4HP PRN IV NAUSEA OR VOMITING; Start 01/25/17 at 18:15; Stop 01/25/17 at 19:15; Status DC Ondansetron HCl (ZOFRAN INJection) 4 mg Q6HP PRN IV NAUSEA OR VOMITING Last administered on 01/24/17 17:34; Start 01/24/17 at 02:45; Stop 02/23/17 at 02:44 Oxycodone/ Acetaminophen (Percocet 5mg/ 325mg Tablet) 1 tab Q4HP PRN PO MODERATE PAIN (PS 5-7) Last administered on 01/24/17 18:36; Start 01/24/17 at 02:45; Stop 01/25/17 at 11:47; Status DC Pantoprazole Sodium (Protonix) 40 mg Q24H IV Last administered on 02/01/17 08: 39; Start 01/24/17 at 09:00; Stop 02/23/17 at 08:59 Piperacillin Sod/ Tazobactam Sod 3.375 gm/Dextrose 50 ml @ 50 mls/hr Q6H IV Last administered on 01/27/17 14:08; Start 01/25/17 at 09:00; Stop 01/27/17 at 17:13; Status DC Potassium Chloride 20 meq/ IV Miscellaneous Supplies 100 ml @ 100 mls/hr 1T@ 0800,1400,2200 IV Last administered on 01/29/17 07:38; Start 01/29/17 at 08:00 ; Stop 01/29/17 at 10:11; Status DC Potassium Chloride 20 meq/ IV Miscellaneous Supplies 100 ml @ 100 mls/hr 1T@ 0900,1000 IV Last administered on 01/29/17 12:57; Start 01/29/17 at 09:00; Stop 01/29/17 at 12:00; Status DC Potassium Chloride 20 meq/ IV Miscellaneous Supplies 100 ml @ 100 mls/hr 1T@ 0900,2100 IV ; Start 01/30/17 at 09:00; Stop 01/30/17 at 10:15; Status DC Potassium Chloride 20 meq/ IV Miscellaneous Supplies 100 ml @ 100 mls/hr BID@ 0000,2300 IV Last administered on 01/27/17 23:37; Start 01/27/17 at 23:00; Stop 01/28/17 at 03:00; Status DC Potassium Chloride (Potassium Chloride Liquid) 40 meq Q4H PO Last administered on 01/31/17 02:32; Start 01/30/17 at 10:15; Stop 01/31/17 at 03:01; Status DC Prazosin HCl (Minipress) 1 mg QHS PO Last administered on 01/24/17 21:10; Start 01/24/17 at 21:00; Stop 01/25/17 at 17:39; Status DC Pregabalin (Lyrica) 100 mg TID PO Last administered on 01/25/17 08:23; Start 01/24/17 at 09:00; Stop 01/25/17 at 11:50; Status DC Propofol 1000 mg/ IV Miscellaneous Supplies 100 ml @ 20 mls/hr Q5H IV Last administered on 01/29/17 13:02; Start 01/25/17 at 19:30; Stop 01/29/17 at 17:59 ; Status DC Propofol 1000 mg/ IV Miscellaneous Supplies 100 ml @ 20 mls/hr Q5H IV Last administered on 01/30/17 09:18; Start 01/29/17 at 18:00; Stop 01/31/17 at 10:30 ; Status DC Salmeterol Xinafoate/ Fluticasone (Advair Hfa 115/ 21) 2 puff BID INH Last administered on 01/31/17 08:49; Start 01/24/17 at 09:00; Stop 02/23/17 at 08:59 Senna/Docusate Sodium (Senokot S) 1 tab BID PO Last administered on 01/25/17 08:23; Start 01/24/17 at 09:00; Stop 01/25/17 at 17:39; Status DC Sodium Bicarbonate 100 meq/Dextrose/Water 1,100 ml @ 75 mls/hr [id number] IV Last administered on 01/26/17 14:57; Start 01/26/17 at 08:00; Stop 01/26/17 at 21:05; Status DC Sodium Bicarbonate (Sodium Bicarbonate) 50 meq STAT STAT IV Last administered on 01/25/17 20:57; Start 01/25/17 at 20:29; Stop 01/25/17 at 20:31; Status DC Sodium Bicarbonate (Sodium Bicarbonate) 50 meq STAT STAT IV Last administered on 01/26/17 05:54; Start 01/26/17 at 05:43; Stop 01/26/17 at 05:47; Status DC Sodium Chloride 1,000 ml @ 75 mls/hr [id number] IV Last administered on 17:41; Start 01/25/17 at 18:15; Stop 01/25/17 at 19:15; Status DC Sodium Chloride 1,000 ml @ 100 mls/hr Q10H IV Last administered on 01/25/17 04:54; Start 01/24/17 at 02:30; Stop 01/25/17 at 11:48; Status DC Sodium Chloride (Saline Lock Flush) 2 ml ASDIRECTED PRN IV SEE LABEL COMMENTS; Start 01/30/17 at 14:15; Stop 03/01/17 at 14:14 Sodium Chloride (Saline Lock Flush) 2 ml SLF IV Last administered on 02/02/17 05:59; Start 01/30/17 at 22:00; Stop 03/01/17 at 21:59 Sodium Chloride (Saline Lock Flush) 10 ml ASDIRECTED PRN IV SEE LABEL COMMENTS ; Start 01/30/17 at 14:15; Stop 01/31/17 at 14:32; Status DC Sodium Chloride (Saline Lock Flush) 10 ml SLF IV Last administered on 05:35; Start 01/30/17 at 22:00; Stop 02/01/17 at 16:03; Status DC Sodium Chloride 120 meq/Sodium Acetate 20 meq/ Sodium Phosphate 40 mmol/ Potassium Chloride 80 meq/ Magnesium Sulfate 11 meq/Calcium Gluconate 1389 mg/ Multivitamins 10 ml/Chromium/ Copper/Manganese/ Seleni/Zn 1 ml/ Insulin Human Regular 21 units/ Amino Acids/ Dextrose 2,121.1833 ml @ 60 mls/hr ONCE@1800 IV Last administered on 01/28/17 17:42; Start 01/28/17 at 18:00; Stop 01/29/17 at 17:59; Status DC Sodium Chloride 140 meq/Sodium Phosphate 60 mmol/ Potassium Chloride 160 meq/ Magnesium Sulfate 11 meq/Calcium Gluconate 1389 mg/ Insulin Human Regular 41 units/ Amino Acids/ Dextrose 2,152.05 ml @ 60 mls/hr ONCE@1800 IV Last administered on 01/29/17 17:54; Start 01/29/17 at 18:00; Stop 01/30/17 at 17:59 ; Status DC Vancomycin HCl 1000 mg/IV Miscellaneous Supplies 1 each/ Dextrose 270 ml @ 270 mls/hr Q24H IV ; Start 01/26/17 at 06:00; Stop 01/26/17 at 06:00; Status DC Vancomycin HCl 1000 mg/IV Miscellaneous Supplies 1 each/ Dextrose 270 ml @ 270 mls/hr Q24H IV Last administered on 01/26/17 10:37; Start 01/26/17 at 10:00; Stop 01/26/17 at 11:05; Status DC Vancomycin HCl 1000 mg/IV Miscellaneous Supplies 1 each/ Dextrose 270 ml @ 270 mls/hr Q24H IV Last administered on 01/30/17 06:00; Start 01/27/17 at 06:00; Stop 01/30/17 at 10:14; Status DC Vasopressin 20 units/Sodium Chloride 501 ml @ 60 mls/hr Q8H21M IV Last administered on 01/28/17 09:41; Start 01/25/17 at 17:00; Stop 01/31/17 at 10:30 ; Status DC Vitamin D (Vitamin D) 2,000 units DAILY PO Last administered on 02/01/17 08:39 ; Start 01/24/17 at 09:00; Stop 02/23/17 at 08:59 Allergies Coded Allergies: Latex (Verified Allergy, Unknown, 05/30/15) Atorvastatin (Unverified Adverse Reaction, Severe, MUSCLE ACHE, 01/23/17) Statins (Verified Adverse Reaction, Severe, MUSCLE ACHES, TOTALLY INCAPACITATES, 11/09/12) Sulfamethoxazole w/Trimethoprim (Unverified Adverse Reaction, Mild, pain and bladder infection, 01/23/17) Objective Physical Examination Examination GENERAL APPEARANCE:Patient seen, laying in bed, awake, staring blankly into space, not responding to voice prompts. Comfortable, in no acute distress. SKIN: Warm and moist. HEENT: Normocephalic, atraumatic. [place] palpebral conjunctiva, anicteric sclerae. Lips and mucosa appear moist. NECK: Supple, no thyromegaly. No obvious jugular venous distention. LUNGS: Clear to auscultation bilaterally. No wheezing appreciated. HEART: [No chest wall abnormalities. Tachycardic but regular rhythm. ABDOMEN: Abdomen is round, soft, nondistended. Ileostomy is mildly swollen, but dusky but functioning with gross stool coming out into the bag. Incision sites are clean. Katharina drain has minimal slightly murky drainage. No erythema at the incision site EXTREMITIES: Preferential movement of the right over the left extremity. Vital Signs Vital Signs Date Time Temp Pulse Resp B/P (MAP) Pulse Ox O2 Delivery O2 Flow Rate FiO2 02/02/17 06:00 97.9 103 137/60 (85) 93 Nasal Cannula 1.0 02/02/17 04:00 40 02/01/17 08:00 35 I&Os I&O- Last 24 Hours up to 6 AM 02/02/17 06:00 Intake Total 1610 ml Output Total 3435 ml Balance -1825 ml Laboratory Data Labs 24H Laboratory Tests 2 02/01/17 11:31: Bedside Glucose (Misc Panel) 392H 02/01/17 17:40: Bedside Glucose (Misc Panel) 370H 02/02/17 00:40: Bedside Glucose (Misc Panel) 408H 02/02/17 04:08: White Blood Count 22.2H, Red Blood Count 5.08, Hemoglobin 14.5, Hematocrit 45.9 , Mean Corpuscular Volume 90.3, Mean Corpuscular Hemoglobin 28.6, Mean Corpuscular Hemoglobin Concent 31.7L, Red Cell Distribution Width 14.6H, Platelet Count 265, Neutrophils (%) (Auto) 81.3H, Lymphocytes (%) (Auto) 10.1L, Monocytes (%) (Auto) 4.1, Eosinophils (%) (Auto) 0.2, Basophils (%) (Auto) 1.1H , Neutrophils # (Auto) 18.0H, Lymphocytes # (Auto) 2.2, Monocytes # (Auto) 0.9H , Eosinophils # (Auto) 0.0, Basophils # (Auto) 0.2, Large Unclassified Cells % 3.2, Large Unclassified Cells # 0.7H, Anion Gap 8, Glomerular Filtration Rate 31.7L, Blood Urea Nitrogen 46H, Creatinine 1.69H, Sodium Level 145, Potassium Level 3.9, Chloride Level 108H, Carbon Dioxide Level 29, Calcium Level 9.0, Phosphorus Level 2.1#L, Aspartate Amino Transf (AST/SGOT) 56H, Alanine Aminotransferase (ALT/SGPT) 38, Lactate Dehydrogenase 364H, Total Creatine Kinase 168, Alkaline Phosphatase 244H, Total Bilirubin 0.9, Triglycerides Level 475H, Cholesterol Level 192, Total Protein 6.5, Albumin 1.8L, Magnesium Level 2.4, Albumin/Globulin Ratio 0.38L 02/02/17 05:20: Blood Gas Bicarbonate Standard 26.4H, Arterial Blood pH 7.531H, Arterial Blood Partial Pressure CO2 29.4L, Arterial Blood Partial Pressure O2 67.7L, Arterial Blood Total CO2 25.0, Arterial Blood HCO3 24.1, Arterial Blood Base Excess 2.2H , Arterial Blood Oxygen Saturation 94.2L 02/02/17 05:51: Bedside Glucose (Misc Panel) 341H CBC/BMP Laboratory Tests 02/02/17 04:08 Red Blood Count 5.08, Mean Corpuscular Volume 90.3, Mean Corpuscular Hemoglobin 28.6, Mean Corpuscular Hemoglobin Concent 31.7 L, Red Cell Distribution Width 14.6 H, Neutrophils (%) (Auto) 81.3 H, Lymphocytes (%) (Auto) 10.1 L, Monocytes (%) (Auto) 4.1, Eosinophils (%) (Auto) 0.2, Basophils (%) (Auto) 1.1 H, Neutrophils # (Auto) 18.0 H, Lymphocytes # (Auto) 2.2, Monocytes # (Auto) 0.9 H , Eosinophils # (Auto) 0.0, Basophils # (Auto) 0.2, Calcium Level 9.0, Phosphorus Level 2.1 #L, Aspartate Amino Transf (AST/SGOT) 56 H, Alanine Aminotransferase (ALT/SGPT) 38, Lactate Dehydrogenase 364 H, Total Creatine Kinase 168, Alkaline Phosphatase 244 H, Total Bilirubin 0.9, Triglycerides Level 475 H, Cholesterol Level 192, Total Protein 6.5, Albumin 1.8 L Microbiology Microbiology 01/24/17 Blood Culture - Final, Complete NO GROWTH AFTER 5 DAYS 01/24/17 Blood Culture - Final, Complete NO GROWTH AFTER 5 DAYS 01/25/17 Anaerobic Culture - Final, Complete Eubacterium Lentum Bacteroides Distasonis 01/26/17 Gram Stain - Final, Complete 01/26/17 Sputum Culture - Final, Complete Yeast Like Organism 01/26/17 MRSA Screen - Final, Complete 01/25/17 Wound Culture - Final, Complete E.coli Esbl Enterococcus Faecalis Streptococcus Viridans Group Staphylococcus Sp Coag Neg Impression POD 8 Right colectomy and ileostomy for perforation sepsis/critical illness Events over weekend reviewed with nursing and hospitalist. Extubated successfully. Now with gradually increasing leukocytosis and fevers. On oral feedings, so far tolerating with bowel/ileostomy function. We will send her for CT chest/abd/pelvis for workup of her fever/leukocytosis to look for loculated drainable collections in the abdomen. Her subcutaneous katharina drain was removed. Incisions are healing without erythema. She still has cramer and patient still not with it enough to be removed. on vancomycin and meropenem. Plan / VTE VTE Prophylaxis Ordered?: Yes Plan / Urinary Catheter Reason for insertion/continuin: Critical Pt monitoring BRITNEY RITCHIE MD Feb 02, 2017 07:48
--- NOTE | 2017-02-17 00:54 | IPNPDOC ---
Subjective General Date/Time Seen The patient was seen on 01/28/17 at 9:30 am. Discussed with nursing staff and Dr. Dent. One of her sisters and other family members at the bedside.. Subject Chief Complaint/History The patient is a 71-year-old female remains critically ill from sepsis after colon perforation. She is POD3 after exploratory laparotomy, right colectomy, ileostomy. She remains intubated, had just recently had cardioversion done for atrial fibrillation/flutter. Vasopressine turned off this am. She is back in sinus. She does not have bowel function yet. Adequate urine output recorded. Current Medications Current Medications Current Medications Acetaminophen (Tylenol Tab) 650 mg Q4HP PRN PO MILD PAIN OR FEVER; Start at 02:45; Stop 02/23/17 at 02:44 Albuterol/ Ipratropium (Duoneb (Ipr 0.5mg/Alb 2.5mg)) 3 ml RQ4H NEB Last administered on 01/28/17 11:52; Start 01/25/17 at 20:00; Stop 02/24/17 at 19:59 Amiodarone HCl 150 mg/IV Miscellaneous Supplies 100 ml @ 600 mls/hr BID IV Last administered on 01/28/17 08:30; Start 01/28/17 at 09:00; Stop 02/27/17 at 08:59 Amiodarone HCl 150 mg/IV Miscellaneous Supplies 100 ml @ 600 mls/hr STAT STAT IV Last administered on 01/26/17 05:25; Start 01/26/17 at 05:14; Stop at 05:23; Status DC Amiodarone HCl 150 mg/IV Miscellaneous Supplies 100 ml @ 600 mls/hr STAT STAT IV ; Start 01/26/17 at 05:14; Stop 01/26/17 at 05:23; Status Cancel Amiodarone HCl 150 mg/IV Miscellaneous Supplies 100 ml @ 600 mls/hr STAT STAT IV Last administered on 01/26/17 12:38; Start 01/26/17 at 12:38; Stop at 12:47; Status DC Amiodarone HCl 150 mg/IV Miscellaneous Supplies 100 ml @ 600 mls/hr STAT STAT IV Last administered on 01/28/17 09:41; Start 01/28/17 at 07:37; Stop at 07:46; Status DC Amiodarone HCl 360 mg/IV Miscellaneous Supplies 200 ml @ 17 mls/hr [id number] IV Last administered on 01/27/17 08:03; Start 01/26/17 at 20:30; Stop 01/27/17 at 14:30; Status DC Amiodarone HCl 360 mg/IV Miscellaneous Supplies 200 ml @ 33.33 mls/ hr Q6H1M IV Last administered on 01/26/17 14:58; Start 01/26/17 at 14:30; Stop at 20:30; Status DC Azithromycin 500 mg/IV Miscellaneous Supplies 1 each/ Dextrose 255 ml @ 255 mls /hr Q24H IV Last administered on 01/25/17 13:21; Start 01/25/17 at 12:00; Stop 01/25/17 at 17:39; Status DC Bupropion HCl (Wellbutrin Xl) 150 mg DAILY PO Last administered on 01/25/17 08 :22; Start 01/24/17 at 09:00; Stop 01/25/17 at 17:39; Status DC Calcitriol (Rocaltrol) 0.25 mcg MoTuWeThFr@0900 PO ; Start 01/26/17 at 09:00; Stop 01/26/17 at 09:00; Status DC Ciprofloxacin 200 mg/IV Miscellaneous Supplies 100 ml @ 100 mls/hr Q12H IV Last administered on 01/25/17 04:54; Start 01/24/17 at 14:00; Stop 01/25/17 at 09:06; Status DC Cyclobenzaprine HCl (Flexeril) 10 mg TID PO Last administered on 01/25/17 08: 23; Start 01/24/17 at 09:00; Stop 01/25/17 at 11:50; Status DC Desloratidine (Clarinex) 5 mg DAILY PO Last administered on 01/25/17 08:22; Start 01/24/17 at 09:00; Stop 01/25/17 at 17:39; Status DC Dextrose (Dextrose 50%) 25 ml ASDIRECTED PRN IV SEE LABEL COMMENTS; Start 01/24 at 02:30; Stop 02/23/17 at 02:29 Dextrose (Dextrose 50%) 25 ml ASDIRECTED PRN IV SEE LABEL COMMENTS; Start 01/25 at 01:00; Stop 02/24/17 at 00:59; Status Cancel Digoxin (Lanoxin) 0.125 mg STAT STAT IV Last administered on 01/26/17 05:00; Start 01/26/17 at 04:52; Stop 01/26/17 at 04:54; Status DC Duloxetine HCl (Cymbalta) 30 mg DAILY PO ; Start 01/24/17 at 09:00; Stop at 09:00; Status DC Duloxetine HCl (Cymbalta) 60 mg DAILY PO ; Start 01/24/17 at 09:00; Stop at 09:00; Status DC Duloxetine HCl (Cymbalta) 90 mg DAILY PO Last administered on 01/25/17 08:22; Start 01/24/17 at 09:00; Stop 01/25/17 at 17:39; Status DC Fat Emulsion Intravenous 500 ml @ 20 mls/hr ONCE@1800 IV ; Start 01/28/17 at 18 :00; Stop 01/29/17 at 17:59 Fentanyl Citrate (Sublimaze) 25 mcg Q5MP PRN IV MODERATE PAIN (PS 4-7); Start 01/25/17 at 18:15; Stop 01/25/17 at 19:15; Status DC Furosemide (LASIX injection) 80 mg Q12H IV Last administered on 01/28/17 12:05 ; Start 01/28/17 at 12:00; Stop 02/27/17 at 11:59 Glucagon (Glucagon) 1 mg ASDIRECTED PRN SC SEE LABEL COMMENTS; Start 01/24/17 at 02:30; Stop 02/23/17 at 02:29 Glucagon (Glucagon) 1 mg ASDIRECTED PRN SC SEE LABEL COMMENTS; Start 01/25/17 at 01:00; Stop 02/24/17 at 00:59; Status UNV Glucose (Glucose) 16 GM ASDIRECTED PRN PO SEE LABEL COMMENTS; Start 01/24/17 at 02:30; Stop 02/23/17 at 02:29 Glucose (Glucose) 16 GM ASDIRECTED PRN PO SEE LABEL COMMENTS; Start 01/25/17 at 01:00; Stop 02/24/17 at 00:59; Status Cancel Heparin Sodium (Porcine) (Heparin) 5,000 units Q8H SC Last administered on 01/28 13:06; Start 01/24/17 at 06:00; Stop 01/29/17 at 05:59 Home Med (Med Rec Complete!) ASDIRECTED XX ; Start 01/24/17 at 00:30; Stop at 00:31; Status DC Hydromorphone HCl (Dilaudid) 0.2 mg Q5MP PRN IV MODERATE/SEVERE PAIN (PS 7-10) ; Start 01/25/17 at 18:15; Stop 01/25/17 at 18:15; Status DC Hydromorphone HCl (Dilaudid) 0.4 mg Q5MP PRN IV MODERATE/SEVERE PAIN (PS 7-10) ; Start 01/25/17 at 18:15; Stop 01/25/17 at 19:15; Status DC Insulin Detemir (Levemir Insulin) 50 units QHS SC Last administered on 21:11; Start 01/24/17 at 21:00; Stop 01/25/17 at 17:39; Status DC Insulin Human Lispro (HumaLOG INSULIN) SEE PROTOCOL TABLE Q6H SC Last administered on 01/25/17 00:00; Start 01/24/17 at 06:00; Stop 01/25/17 at 01:01 ; Status DC Insulin Human Lispro (HumaLOG INSULIN) SEE PROTOCOL TABLE Q6H SC Last administered on 01/28/17 12:04; Start 01/26/17 at 00:00; Stop 02/25/17 at 00:00 Insulin Human Lispro (HumaLOG INSULIN) See Protocol Table AC SC Last administered on 01/25/17 13:26; Start 01/25/17 at 07:30; Stop 01/25/17 at 21:09 ; Status DC Insulin Human Lispro (HumaLOG INSULIN) See Protocol Table QHS SC ; Start at 21:00; Stop 02/24/17 at 20:59; Status Cancel Lactated Ringer's 1,000 ml @ 200 mls/hr Q5H IV Last administered on 01/26/17 04:30; Start 01/25/17 at 18:30; Stop 01/26/17 at 06:52; Status DC Lactobacillus Acidophilus (Bacid) 1 ea DAILY PO Last administered on 01/28/17 09:41; Start 01/24/17 at 09:00; Stop 02/23/17 at 08:59 Levothyroxine Sodium (Synthroid) 25 mcg DAILY@0600 IV Last administered on 01/28 05:51; Start 01/26/17 at 06:00; Stop 02/25/17 at 05:59 Levothyroxine Sodium (Synthroid) 50 mcg DAILY@0600 PO Last administered on 01/25 05:35; Start 01/24/17 at 06:00; Stop 01/25/17 at 17:39; Status DC Magnesium Sulfate/ Dextrose 1 gm/IV Miscellaneous Supplies 100 ml @ 100 mls/hr 1T@0700,0800 IV Last administered on 01/26/17 07:01; Start 01/26/17 at 07:00; Stop 01/26/17 at 08:59; Status DC Magnesium Sulfate/ Dextrose 1 gm/IV Miscellaneous Supplies 100 ml @ 100 mls/hr 1T@0800 IV Last administered on 01/28/17 07:29; Start 01/28/17 at 08:00; Stop 01/28/17 at 10:00; Status DC Magnesium Sulfate/ Dextrose 1 gm/IV Miscellaneous Supplies 100 ml @ 100 mls/hr 1T@0800,0900 IV Last administered on 01/25/17 08:24; Start 01/25/17 at 08:00; Stop 01/25/17 at 09:59; Status DC Meropenem 1 gm/ Dextrose 100 ml @ 200 mls/hr Q8H IV Last administered on 09:40; Start 01/27/17 at 18:00; Stop 02/03/17 at 17:59 Metoclopramide HCl (REGLAN INJection) 10 mg Q6HP PRN IV NAUSEA OR VOMITING; Start 01/25/17 at 18:15; Stop 01/25/17 at 19:15; Status DC Metoprolol Tartrate (Lopressor) 5 mg STAT STAT IV Last administered on 13:07; Start 01/28/17 at 12:59; Stop 01/28/17 at 13:01; Status DC Metoprolol Tartrate (Lopressor) 50 mg BID PO Last administered on 01/25/17 08: 23; Start 01/24/17 at 09:00; Stop 01/25/17 at 12:02; Status DC Metronidazole 500 mg/IV Miscellaneous Supplies 100 ml @ 100 mls/hr Q8H IV Last administered on 01/25/17 04:54; Start 01/24/17 at 11:00; Stop 01/25/17 at 09:06; Status DC Morphine Sulfate (Morphine Sulfate Inj) 2 mg Q2HP PRN IV SEVERE PAIN (PS 8-10) Last administered on 01/26/17 16:53; Start 01/24/17 at 02:45; Stop 01/31/17 at 02:44 Morphine Sulfate (Morphine Sulfate Inj) 4 mg Q15M PRN IV MODERATE/SEVERE PAIN ( PS 5-10) Last administered on 01/24/17 01:54; Start 01/23/17 at 21:00; Stop at 01:55; Status DC Naloxone HCl (Narcan) 0.4 mg STAT STAT IV ; Start 01/25/17 at 11:16; Stop 01/25 at 11:17; Status DC Norepinephrine Bitartrate 16 mg/ Dextrose 516 ml @ 19.35 mls/ hr Q24H IV Last administered on 01/28/17 00:40; Start 01/25/17 at 13:00; Stop 02/24/17 at 12:59 ; Status Future Hold Ondansetron HCl (ZOFRAN INJection) 4 mg Q4HP PRN IV NAUSEA OR VOMITING; Start 01/25/17 at 18:15; Stop 01/25/17 at 19:15; Status DC Ondansetron HCl (ZOFRAN INJection) 4 mg Q6HP PRN IV NAUSEA OR VOMITING Last administered on 01/24/17 17:34; Start 01/24/17 at 02:45; Stop 02/23/17 at 02:44 Oxycodone/ Acetaminophen (Percocet 5mg/ 325mg Tablet) 1 tab Q4HP PRN PO MODERATE PAIN (PS 5-7) Last administered on 01/24/17 18:36; Start 01/24/17 at 02:45; Stop 01/25/17 at 11:47; Status DC Pantoprazole Sodium (Protonix) 40 mg Q24H IV Last administered on 01/28/17 09: 40; Start 01/24/17 at 09:00; Stop 02/23/17 at 08:59 Piperacillin Sod/ Tazobactam Sod 3.375 gm/Dextrose 50 ml @ 50 mls/hr Q6H IV Last administered on 01/27/17 14:08; Start 01/25/17 at 09:00; Stop 01/27/17 at 17:13; Status DC Potassium Chloride 20 meq/ IV Miscellaneous Supplies 100 ml @ 100 mls/hr BID@ 0000,2300 IV Last administered on 01/27/17 23:37; Start 01/27/17 at 23:00; Stop 01/28/17 at 03:00; Status DC Prazosin HCl (Minipress) 1 mg QHS PO Last administered on 01/24/17 21:10; Start 01/24/17 at 21:00; Stop 01/25/17 at 17:39; Status DC Pregabalin (Lyrica) 100 mg TID PO Last administered on 01/25/17 08:23; Start 01/24/17 at 09:00; Stop 01/25/17 at 11:50; Status DC Propofol 1000 mg/ IV Miscellaneous Supplies 100 ml @ 20 mls/hr Q5H IV Last administered on 01/28/17 11:13; Start 01/25/17 at 19:30; Stop 02/01/17 at 19:29 Salmeterol Xinafoate/ Fluticasone (Advair Hfa 115/ 21) 2 puff BID INH Last administered on 01/28/17 07:22; Start 01/24/17 at 09:00; Stop 02/23/17 at 08:59 Senna/Docusate Sodium (Senokot S) 1 tab BID PO Last administered on 01/25/17 08:23; Start 01/24/17 at 09:00; Stop 01/25/17 at 17:39; Status DC Sodium Bicarbonate 100 meq/Dextrose/Water 1,100 ml @ 75 mls/hr [id number] IV Last administered on 01/26/17 14:57; Start 01/26/17 at 08:00; Stop 01/26/17 at 21:05; Status DC Sodium Bicarbonate (Sodium Bicarbonate) 50 meq STAT STAT IV Last administered on 01/25/17 20:57; Start 01/25/17 at 20:29; Stop 01/25/17 at 20:31; Status DC Sodium Bicarbonate (Sodium Bicarbonate) 50 meq STAT STAT IV Last administered on 01/26/17 05:54; Start 01/26/17 at 05:43; Stop 01/26/17 at 05:47; Status DC Sodium Chloride 1,000 ml @ 75 mls/hr [id number] IV Last administered on 17:41; Start 01/25/17 at 18:15; Stop 01/25/17 at 19:15; Status DC Sodium Chloride 1,000 ml @ 100 mls/hr Q10H IV Last administered on 01/25/17 04:54; Start 01/24/17 at 02:30; Stop 01/25/17 at 11:48; Status DC Sodium Chloride 120 meq/Sodium Acetate 20 meq/ Sodium Phosphate 40 mmol/ Potassium Chloride 80 meq/ Magnesium Sulfate 11 meq/Calcium Gluconate 1389 mg/ Multivitamins 10 ml/Chromium/ Copper/Manganese/ Seleni/Zn 1 ml/ Insulin Human Regular 21 units/ Amino Acids/ Dextrose 2,121.1833 ml @ 60 mls/hr ONCE@1800 IV ; Start 01/28/17 at 18:00; Stop 01/29/17 at 17:59 Vancomycin HCl 1000 mg/IV Miscellaneous Supplies 1 each/ Dextrose 270 ml @ 270 mls/hr Q24H IV ; Start 01/26/17 at 06:00; Stop 01/26/17 at 06:00; Status DC Vancomycin HCl 1000 mg/IV Miscellaneous Supplies 1 each/ Dextrose 270 ml @ 270 mls/hr Q24H IV Last administered on 01/26/17 10:37; Start 01/26/17 at 10:00; Stop 01/26/17 at 11:05; Status DC Vancomycin HCl 1000 mg/IV Miscellaneous Supplies 1 each/ Dextrose 270 ml @ 270 mls/hr Q24H IV Last administered on 01/28/17 06:05; Start 01/27/17 at 06:00; Stop 02/03/17 at 05:59 Vasopressin 20 units/Sodium Chloride 501 ml @ 60 mls/hr Q8H21M IV Last administered on 01/28/17 09:41; Start 01/25/17 at 17:00; Stop 02/24/17 at 16:59 ; Status Future hold Vitamin D (Vitamin D) 2,000 units DAILY PO Last administered on 01/28/17 09:41 ; Start 01/24/17 at 09:00; Stop 02/23/17 at 08:59 Allergies Coded Allergies: Latex (Verified Allergy, Unknown, 05/30/15) Atorvastatin (Unverified Adverse Reaction, Severe, MUSCLE ACHE, 01/23/17) Statins (Verified Adverse Reaction, Severe, MUSCLE ACHES, TOTALLY INCAPACITATES, 11/09/12) Sulfamethoxazole w/Trimethoprim (Unverified Adverse Reaction, Mild, pain and bladder infection, 01/23/17) Objective Physical Examination Examination GENERAL APPEARANCE:[Patient seen, laying in bed, awake, alert, and oriented. Comfortable, in no acute distress]. SKIN: [Warm and moist]. HEENT: [Normocephalic, atraumatic. [place] palpebral conjunctiva, anicteric sclerae. Lips and mucosa appear moist]. NECK: [Supple, no thyromegaly. No obvious jugular venous distention]. LUNGS: [Clear to auscultation bilaterally. No wheezing appreciated]. HEART: [No chest wall abnormalities. Regular rate and rhythm with no murmurs appreciated]. ABDOMEN: Abdomen is , soft, . [No hepatosplenomegaly. No umbilical or groin herniations, nondistended. No noticeable rebound or guarding. No grimacing with palpation. No rebound tenderness. No masses appreciated]. EXTREMITIES: [Extremities have no deformities. No edema identified]. Vital Signs Vital Signs Date Time Temp Pulse Resp B/P (MAP) Pulse Ox O2 Delivery O2 Flow Rate FiO2 01/28/17 13:07 129 115/53 01/28/17 11:30 93 Ventilator 50 01/28/17 08:00 98.4 24 01/25/17 12:02 3.0 I&Os I&O- Last 24 Hours up to 6 AM 01/28/17 06:00 Intake Total 2662 ml Output Total 4240 ml Balance -1578 ml Laboratory Data Labs 24H Laboratory Tests 2 01/27/17 18:18: Bedside Glucose (Misc Panel) 237H 01/27/17 20:48: Blood Urea Nitrogen 30H, Creatinine 1.51H, Sodium Level 136, Potassium Level 3.4L, Chloride Level 101, Carbon Dioxide Level 26, Anion Gap 9, Glomerular Filtration Rate 36.1L, Calcium Level 7.8L, Phosphorus Level 1.8L, Albumin 1.4L 01/27/17 23:36: Bedside Glucose (Misc Panel) 275H 01/28/17 05:02: Blood Urea Nitrogen 28H, Creatinine 1.51H, Sodium Level 136, Potassium Level 3.6 , Chloride Level 100, Carbon Dioxide Level 26, Anion Gap 10, Glomerular Filtration Rate 36.1L, Calcium Level 7.6L, Albumin 1.4L, Aspartate Amino Transf (AST/SGOT) 74H, Alanine Aminotransferase (ALT/SGPT) 32, Alkaline Phosphatase 106 , Total Bilirubin 0.9, Total Protein 4.4L, Magnesium Level 1.7L, Albumin/ Globulin Ratio 0.47L, Vancomycin Level Trough 9.5L 01/28/17 05:31: Bedside Glucose (Misc Panel) 281H 01/28/17 06:02: Blood Gas Bicarbonate Standard 25.1, Arterial Blood pH 7.470H, Arterial Blood Partial Pressure CO2 33.6L, Arterial Blood Partial Pressure O2 101.2H, Arterial Blood Total CO2 24.9, Arterial Blood HCO3 23.9, Arterial Blood Base Excess 0.7, Arterial Blood Oxygen Saturation 98.0 01/28/17 10:18: Lactic Acid Level 2.0 CBC/BMP Laboratory Tests 01/27/17 20:48 Anion Gap 9 01/28/17 05:02 Red Blood Count 4.21, Mean Corpuscular Volume 84.1, Mean Corpuscular Hemoglobin 28.6, Mean Corpuscular Hemoglobin Concent 34.0, Red Cell Distribution Width 14.1 , Calcium Level 7.6 L, Aspartate Amino Transf (AST/SGOT) 74 H, Alanine Aminotransferase (ALT/SGPT) 32, Alkaline Phosphatase 106, Total Bilirubin 0.9, Total Protein 4.4 L, Albumin 1.4 L Microbiology Microbiology 01/24/17 Blood Culture - Preliminary, Resulted No Growth after 72 hours. All specime... 01/24/17 Blood Culture - Preliminary, Resulted No Growth after 72 hours. All specime... 01/25/17 Anaerobic Culture, Received Pending 01/26/17 Gram Stain - Final, Complete 01/26/17 Sputum Culture - Final, Complete Yeast Like Organism 01/26/17 MRSA Screen - Final, Complete 01/25/17 Wound Culture - Preliminary, Resulted E.coli Esbl Enterococcus Faecalis Streptococcus Viridans Group Impression Critical illness Sepsis Perforation of the right colon status post right colectomy and ileostomy Respiratory failure on ventilation I'm awaiting to see if she can be extubated soon. Likewise would like to see if we can wean off the vasopressors. Once vasopressors are weaned off, would like to try trickle feeding via the nasogastric tube. For now will continue on the TPN. Plan / VTE VTE Prophylaxis Ordered?: Yes Plan / Urinary Catheter Reason for insertion/continuin: Critical Pt monitoring BRITNEY RITCHIE MD Jan 28, 2017 13:39
--- NOTE | 2017-02-24 12:15 | DS.PDOC ---
Discharge Summary General Date of Admission Jan 24, 2017 at 02:43 Date of Discharge 02/05/2017 Attending Physician: RASHAD SIDDIQUI MD Specialist/Consultants Involve Mekhi Montgomery M. Kramer, L. Reindl, D. Sindhu, K. Discharge Summary PROCEDURES PERFORMED DURING STAY: Cardioversion - 01/28/2017 - Dr. Riggs Central Line TLC Catheter - 01/27/2017 - Dr. Kay Exploratory laparotomy, right colectomy and ileostomy for perforation - 2016 - Dr. Montgomery ADMITTING DIAGNOSES: 1. Abdominal pain 2. Acute metabolic encephalopathy 3. Septic shock 4. Ventilator dependent respiratory failure 5. Acute renal failure with oliguria 6. Atrial flutter / fibrillation with RVR COMPLICATIONS/CHIEF COMPLAINT: Abdominal pain HISTORY OF PRESENT ILLNESS: Patient is a 71 year old female with a PMHx of Fibromyalgia, OA, DLP, COPD, CKD3, HTN, Degenerative joint disease, IDDM2, Obesity, and Adrenal mass who recently had and EGD and colonoscopy. During the procedure patient had ablation of AV malformations in the ascending colon. She subsequently presented to the ER with abdominal pain. She was admitted to medical surgical floor and had worsening of her pain. She was ultimately found to have a perforation and was emergently taken to the OR. Has been extubated on 01/31. 02/04 night patient was noted to have a fever of 106 and had become hypotensive. After discussion between the hospitalist at night and the family, they decided to make the patient DNR/DNI and MERCHANDISING CONSULTANT. Family was present at bedside. They have indicated that based on her healthcare proxy and current situation, they did not want to subject her to further invasive testing and procedures and they've decided to make the patient MERCHANDISING CONSULTANT. I' ve agreed with their decision and their choice to make her MERCHANDISING CONSULTANT as it was a reflection of the patient's wishes. HOSPITAL COURSE: 1. Acute encephalopathy - likely 2/2 anoxic brain injury 2/2 hypotension, possibly 2/2 infection, less likely 2/2 medications (residual effects) - Non-responsive - CT Head 02/01: negative for any acute findings - MRI 02/04: No evidence of acute infarct, mild chronic small vessel ischemic disease and age-related atrophy - Patient was made DNR / DNI and MERCHANDISING CONSULTANT after discussion with family and Health care proxy - Health care proxy has mad decision based on patient's wishes - No vitals or new labs 2. Fever and Leukocytosis, progressing to septic shock - possibly 2/2 developing pneumonia, possibly meningitis - Fever peak of 106 at night 3. 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 Figueroa consulted 4. Acute hypoxic respiratory failure - likely 2/2 #1 - s/p intubation and sedation - Tolerating nasal cannula - Dr. Dent / Dr. Sarmiento consulted for critical care 5. Acute kidney injury with Oliguria - Had begun to worsen - Dr. Valencia / Dr. Leon consulted 5. Atrial flutter / fibrillation - Received cardioversion - Dr. Riggs / Dr. Robison consulted 6. Nutrition - NGT tube out; no additional feedings 7. IDDM2 - Stopped glucose checks 8. Hypothyroidism - off medications 9. DVT prophylaxis - off anticoagulation Code status: - DNR / DNI - MERCHANDISING CONSULTANT Disposition: Patient was made MERCHANDISING CONSULTANT upon having worsening of clinical status overnight. Patient 's family was available at bedside and night hospitalist had discussed with family members. Patient was made comfortable with morphine, benzodiazepines and atropine, as well as supplemental oxygen. Ultimately patient on 02/05 at 330AM DISCHARGE MEDICATIONS: Not applicable ALLERGIES: Please see below. PHYSICAL EXAMINATION ON DISCHARGE: Unable to be preformed LABORATORY DATA: No new labs TIME SPENT ON DISCHARGE: Greater than 35 minutes Discharge Medications Scheduled Bupropion Hcl (Bupropion HCl Xl) 150 Mg Tab, 150 MG PO DAILY, (Reported) Calcitriol (Rocaltrol) 0.25 Mcg Cap, 0.25 MCG PO 5XW, (Reported) THURSDAY-THURSDAY Cyanocobalamin (Vitamin B12) 100 Mcg Tab, 100 MCG PO DAILY, (Reported) Cyclobenzaprine HCl (Cyclobenzaprine HCl) 10 Mg Tab, 10 MG PO TID, (Reported) Desloratadine (Desloratadine) 5 Mg Tab, 5 MG PO DAILY, (Reported) Donepezil Hcl (Donepezil HCl) 10 Mg Tab, 10 MG PO QHS, (Reported) Duloxetine Hcl (Duloxetine HCl) 60 Mg Cap, 60 MG PO DAILY, (Reported) ALONG WITH 30MG Duloxetine Hcl (Duloxetine HCl) 30 Mg Cap, 30 MG PO DAILY, (Reported) ALONG WITH 60MG Insulin Detemir (Levemir Flextouch) 100 Unit/Ml Inj, 75 UNIT SC QHS, (Reported) Pt adjusts per fsbs at bedtime. Lactobacillus Acidophilus (Bacid) 1 Tab Tab, 1 TAB PO DAILY, (Reported) Levothyroxine Sodium (Synthroid) 50 Mcg Tab, 50 MG PO QAM, (Reported) Liraglutide (Victoza) 18 Mg/3 Ml Inj, 1.8 MG SC DAILY, (Reported) Loperamide HCl (Loperamide A-D) 2 Mg Tab, 2 MG PO QHS, (Reported) Metoprolol Tartrate (Metoprolol Tartrate) 50 Mg Tab, 50 MG PO BID, (Reported) Mirabegron Base (Myrbetriq) 25 Mg Tab, 25 MG PO QHS, (Reported) Pitavastatin Calcium (Livalo) 4 Mg Tab, 4 MG PO DAILY, (Reported) Prazosin Hcl (Prazosin HCl) 1 Mg Cap, 1 MG PO QHS, (Reported) Pregabalin (Lyrica) 100 Mg Cap, 100 MG PO TID, (Reported) Salmeterol/Fluticasone (Advair Hfa 115-21 Mcg/Act) 1 Aer Aer, 2 PUFF INH BID, ( Reported) Valsartan (Valsartan) 80 Mg Tab, 80 MG PO DAILY, (Reported) Vitamin D (Vitamin D) 2,000 Unit Cap, 2,000 UNIT PO DAILY, (Reported) Scheduled PRN Hydrochlorothiazide (Hydrochlorothiazide) 12.5 Mg Cap, 12.5 MG PO DAILY PRN for SWELLING, (Reported) Tramadol HCl (Tramadol HCl) 50 Mg Tab, 50 MG PO Q6HP PRN for PAIN, (Reported) Allergies Coded Allergies: Latex (Verified Allergy, Unknown, 05/30/15) Atorvastatin (Unverified Adverse Reaction, Severe, MUSCLE ACHE, 01/23/17) Statins (Verified Adverse Reaction, Severe, MUSCLE ACHES, TOTALLY INCAPACITATES, 11/09/12) Sulfamethoxazole w/Trimethoprim (Unverified Adverse Reaction, Mild, pain and bladder infection, 01/23/17) RASHAD SIDDIQUI MD Feb 24, 2017 12:15
== END 2017-02-05 03:30 | disposition expired | DRG 329 ==
LOC: EDBD 19:54 → M ED 20:34 → M ED INP 01-24 02:43 → M PCU 01-24 05:40 → M ICU 01-25 11:43 → M MSPAV 02-04 15:12
PROVIDERS: ADMIT Hospitalist; ATTEND General Practice
PROC: 0DTF0ZZ Resection of Right Large Intestine, Open Approach (ICD-10-PCS; 2017-01-25)
PROC: 0D1B0Z4 Bypass Ileum to Cutaneous, Open Approach (ICD-10-PCS; principal; 2017-01-25 13:19)
PROC: 5A2204Z Restoration of Cardiac Rhythm, Single (ICD-10-PCS; 2017-01-28)
PROC: 5A1955Z Respiratory Ventilation, Greater than 96 Consecutive Hours (ICD-10-PCS; 2017-01-30)
DX: K91.89 Other postprocedural complications and disorders of digestive system (principal); A41.9 Sepsis, unspecified organism; R65.21 Severe sepsis with septic shock; J96.01 Acute respiratory failure with hypoxia; J18.9 Pneumonia, unspecified organism; K65.0 Generalized (acute) peritonitis; K63.1 Perforation of intestine (nontraumatic); N17.9 Acute kidney failure, unspecified; E87.2 Acidosis; Z68.42 Body mass index [BMI] 45.0-49.9, adult; T28.2XXA Burn of other parts of alimentary tract, initial encounter; N25.81 Secondary hyperparathyroidism of renal origin; I48.3 Typical atrial flutter; E46 Unspecified protein-calorie malnutrition; E66.01 Morbid (severe) obesity due to excess calories; K52.9 Noninfective gastroenteritis and colitis, unspecified; E03.9 Hypothyroidism, unspecified; M79.7 Fibromyalgia; K57.30 Diverticulosis of large intestine without perforation or abscess without bleeding; E11.9 Type 2 diabetes mellitus without complications; E78.5 Hyperlipidemia, unspecified; N18.3 Chronic kidney disease, stage 3 (moderate); M19.90 Unspecified osteoarthritis, unspecified site; F17.200 Nicotine dependence, unspecified, uncomplicated; Z79.899 Other long term (current) drug therapy; E27.9 Disorder of adrenal gland, unspecified; J44.9 Chronic obstructive pulmonary disease, unspecified; Z88.2 Allergy status to sulfonamides; I48.91 Unspecified atrial fibrillation; Z91.040 Latex allergy status; Z79.4 Long term (current) use of insulin; E87.6 Hypokalemia; B96.29 Other Escherichia coli [E. coli] as the cause of diseases classified elsewhere; I50.9 Heart failure, unspecified; E83.42 Hypomagnesemia; E83.39 Other disorders of phosphorus metabolism; K91.81 Other intraoperative complications of digestive system; Y83.8 Other surgical procedures as the cause of abnormal reaction of the patient, or of later complication, without mention of misadventure at the time of the procedure